=== PATIENT | male | born 1940 | race Caucasian/White ===

== ENCOUNTER → 2020-11-04 12:52 | Outpatient (CLI) | payer MEDICARE, SELFPAY ==
[2020-10-02 14:22] VITALS: BMI 33.6
--- NOTE | 2020-11-04 12:53 | ECHOD_ITS ---
Reason For Study: CHF Procedure This was a 2D Doppler, Color Flow transthoracic echocardiogram. Bubble study performed. Exam performed in department. Left Ventricle Mildly dilated left ventricle. Left ventricular systolic function is normal. The estimated ejection fraction is 60 %. No regional wall motion abnormalities noted. Right Ventricle Normal RV size. Normal systolic function. Atria The left atrium is moderately enlarged. Normal right atrium. Mitral Valve Normal mitral valve. Tricuspid Valve Normal tricuspid valve. Mild tricuspid valve insufficiency. Pulmonary artery systolic pressure is 39 mmHg. Aortic Valve Mild (1+) aortic valve insufficiency. Great Vessels Mildly dilated aortic root. The pulmonary artery is normal size. Normal inferior vena cava. Pericardium/Pleural No pericardial effusion. Medication 22 gauge I.V. with prn adaptor inserted into right arm. Performed a rapid injection of agitated mix of 9 cc saline and 1cc air to assess for atrial septal defect. MMode/2D Measurements & Calculations LVIDd: 6.6 cm IVSd: 1.3 cm Ao root diam: 4.1 cm LVIDs: 5.1 cm LVPWd: 1.0 cm LA dimension: 4.9 cm RVDd: 3.7 cm FS: 22.0 % LAV(MOD-bp): 86.5 ml LA A4 area: 24.5 cm2 RA A4 area: 16.0 cm2 LAV(MOD-bp) Indexed: 43.7 ml/m2 LAV(MOD-sp2): 82.1 ml LAV(MOD-sp4): 86.1 ml Time Measurements MV dec time: 0.36 sec Doppler Measurements & Calculations MV E max micheal: 38.0 cm/sec Ao V2 max: 96.0 cm/sec AI max micheal: 327.3 cm/sec MV A max micheal: 78.5 cm/sec Ao max P.7 mmHg AI max P.9 mmHg MV E/A: 0.48 AI dec slope: 189.1 cm/sec2 AI P1/2t: 506.9 msec LV V1 max: 65.0 cm/sec PA V2 max: 116.6 cm/sec TR max micheal: 299.5 cm/sec LV V1 max P.7 mmHg TR max P.9 mmHg ECHO/Echo Complete Interpretation Summary Left ventricular systolic function is normal. The estimated ejection fraction is 60 %. Mildly dilated left ventricle. The left atrium is moderately enlarged. Pulmonary artery systolic pressure is 39 mmHg. Mildly dilated aortic root. Ordering Physician: Rambo Somers Referring Physician: July Summers Performed By: Desmond Pratt RCS
== END ==
PROVIDERS: PCP Physician Assistant; Referring Provider Internal Medicine Cardiovascular Disease; Visit Provider Internal Medicine Cardiovascular Disease
DX: I50.42 Chronic combined systolic (congestive) and diastolic (congestive) heart failure (principal)
CPT/HCPCS: 93306; A4216

== ENCOUNTER → 2021-12-05 | Outpatient (CLI) | payer MEDICARE, SELFPAY ==
--- NOTE | 2021-12-05 07:20 | ECHOD_ITS ---
Reason For Study: SOB on Exertion Procedure This was a 2D Doppler, Color Flow transthoracic echocardiogram. Exam performed in department. Left Ventricle Normal LV size. Mild concentric left ventricular hypertrophy. The estimated ejection fraction is 50 %. Stage 1 diastolic dysfunction. There is mild global hypokinesis of the left ventricle. Right Ventricle Normal RV size. Normal systolic function. Atria Normal left atrium. Normal right atrium. Mitral Valve Normal mitral valve. Mild (1+) eccentric mitral valve insufficiency. Tricuspid Valve Normal tricuspid valve. Aortic Valve Normal aortic valve. Trisinus/trileaflet aortic valve. Mild (1+) aortic valve insufficiency. Pulmonic Valve Normal pulmonic valve. Great Vessels Normal aortic root. The pulmonary artery is normal size. Normal inferior vena cava. Pericardium/Pleural No pericardial effusion. MMode/2D Measurements & Calculations LVIDd: 6.1 cm IVSd: 1.3 cm Ao root diam: 3.5 cm LVIDs: 4.9 cm LVPWd: 1.2 cm RVDd: 3.4 cm FS: 20.5 % LAV(MOD-bp): 72.3 ml LVAd ap4: 39.6 cm2 SV(MOD-sp4): 78.9 ml LAV(MOD-sp2): 76.6 ml LVLd ap4: 8.1 cm LAV(MOD-sp4): 64.9 ml EDV(MOD-sp4): 157.5 ml EDV(sp4-el): 163.6 ml LVAs ap4: 25.7 cm2 LVLs ap4: 7.1 cm ESV(MOD-sp4): 78.6 ml ESV(sp4-el): 79.5 ml EF(MOD-sp4): 50.1 % EF(sp4-el): 51.4 % SV(sp4-el): 84.1 ml LA A4 area: 20.5 cm2 LA dimension(2D): 5.4 cm RA A4 area: 14.3 cm2 Doppler Measurements & Calculations MV E max juan: 39.4 cm/sec Med Peak E' Juan: 2.4 cm/sec Ao V2 max: 103.3 cm/sec MV A max juan: 74.3 cm/sec E/E' med: 16.1 Ao max P.3 mmHg MV E/A: 0.53 Ao V2 mean: 74.7 cm/sec Ao mean P.4 mmHg Ao V2 VTI: 22.1 cm AI max juan: 374.1 cm/sec LV V1 max: 71.1 cm/sec PA V2 max: 82.2 cm/sec AI max P.0 mmHg LV V1 max P.0 mmHg AI dec slope: 230.8 cm/sec2 AI P1/2t: 474.9 msec ECHO/Echo Complete Interpretation Summary Normal LV size. Mild concentric left ventricular hypertrophy. The estimated ejection fraction is 50 %. There is mild global hypokinesis of the left ventricle. Stage 1 diastolic dysfunction. Mild (1+) aortic valve insufficiency. Ordering Physician: July Summers Referring Physician: July Summers Performed By: Adeline Dockery, RUKHSANA, RVT
--- NOTE | 2021-12-05 12:02 | STRESSREP ---
Stress Test Report Pharmacologic myocardial perfusion stress test. 81-year-old man with a history of shortness of breath with exertion. Stress protocol: Resting EKG demonstrates normal sinus rhythm with a rate of 61 bpm normal intervals are noted. Resting blood pressure is 168/84 mmHg. 0.4 mg of regadenoson was infused per usual protocol followed by Intravenous saline flush injection continuous EKG monitoring was performed. At rest there were no ST or T wave changes noted to suggest abnormal flow reserve and at peak infusion nonspecific ST changes were noted with did not meet the criteria for ischemia. No clinical angina was noted. Myocardial perfusion protocol. 14.2 mCi of technetium 99m sestamibi was injected at rest. 0.4 mg of regadenoson was infused per usual protocol. At peak infusion 44.1 mCi of technetium 99m sestamibi was injected stress images were obtained stress and rest images were reconstructed in comparing the short axis vertical long and horizontal long axis. Gated images were also obtained. Perfusion SPECT analysis: Review of the stress images demonstrate normal uptake of tracer noted in all areas of the myocardium. The resting images similarly demonstrate normal uptake of tracer noted in all areas of the myocardium. No areas of reversibility are noted to suggest ischemia and no previous infarct is noted. Gated SPECT analysis: The gated ejection fraction is about 55%. Conclusion: Normal pharmacologic myocardial perfusion stress test. Preserved ejection fraction.
== END | disposition home or self-care (01) ==
PROVIDERS: PCP Physician Assistant; Referring Provider Physician Assistant; Visit Provider Physician Assistant
DX: R06.02 Shortness of breath (principal)
CPT/HCPCS: 78452; 93017; 93306; A9500; A4216; J2785

== ENCOUNTER → 2022-06-29 | Outpatient (CLI) | payer MEDICARE, SELFPAY ==
--- NOTE | 2022-06-29 06:59 | RAD_ITS ---
STUDY: X-RAY CHEST REASON FOR EXAM: Male, 81 years old. Shortness of breath. TECHNIQUE: Frontal and lateral views of the chest. COMPARISON: None. FINDINGS: Mild hyperinflation. Patchy opacities at both bases most compatible with atelectasis. There is no demonstrated pleural abnormality. Cardiomegaly. Normal mediastinum and leo. Normal visualized pulmonary arteries. Aortic tortuosity with calcification. Thoracic spondylosis with increased kyphosis. Normal visualized ribs, clavicles, and shoulders. There is no demonstrated abnormality of the visualized soft tissue structures of the upper abdomen. RAD/Chest PA and Lateral IMPRESSION: Cardiomegaly with patchy opacities at both bases compatible with atelectasis. Early/developing pneumonia cannot be excluded and follow-up chest imaging to resolution recommended. Electronically Signed: Dimitrios Loredo, at 10:18 EST ,
[2022-06-29 07:22] LABS: Mean Corp Hgb Conc 32.7 g/dL (32-36); Mean Corpuscular Hgb 30.9 pg (27.0-32.0); Mean Corpuscular Volume 94.5 fL (80-94); Mean Platelet Vol. 11.9 fl (6.2-12.0); Platelet Count 176 K/mm3 (150-450); RBC Distribution Width SD 52.3 fl (35.1-43.9)
[2022-06-29 07:44] LABS: Anion Gap 6 (5-15); BUN 23 mg/dL (7-18); BUN/Creat Ratio 18.7 RATIO (10-20); Calcium,Total 9.1 mg/dL (8.5-10.1); Chloride 108 mmol/L (98-107); Creatinine, Serum 1.23 mg/dL (0.70-1.30); EST Glomerular Filtration Rate 60 mL/min (>60); Est Glom Filt Rate - Afr Amer 73 mL/min (>60); Glucose 80 mg/dL (74-106); Potassium 4.1 mmol/L (3.5-5.1); Sodium Level 141 mmol/L (136-145)
== END | disposition home or self-care (01) ==
PROVIDERS: PCP Physician Assistant; Referring Provider Physician Assistant Medical; Visit Provider Physician Assistant Medical
DX: R06.02 Shortness of breath (principal); I50.42 Chronic combined systolic (congestive) and diastolic (congestive) heart failure; I42.8 Other cardiomyopathies; N18.9 Chronic kidney disease, unspecified; R60.0 Localized edema; I12.9 Hypertensive chronic kidney disease with stage 1 through stage 4 chronic kidney disease, or unspecified chronic kidney disease
CPT/HCPCS: 36415; 71046; 80048; 83880; 85027

== ENCOUNTER 2022-07-04 19:04 | Observation (INO) | payer MEDICARE, SELFPAY ==
[2022-07-04 19:04] VITALS: BP 157/100; PULSE 61; RESP 16; TEMP 36.2; O2SAT 97; BMI 31.8
[2022-07-04 19:20] VITALS: O2SAT 96
--- NOTE | 2022-07-04 20:45 | EKG12_ITS ---
Test Reason : SOB/DIZZINESS Blood Pressure : / mmHG Vent. Rate : 081 BPM Atrial Rate : 083 BPM P-R Int : 216 ms QRS Dur : 116 ms QT Int : 420 ms P-R-T Axes : 041 002 020 degrees QTc Int : 487 ms Sinus with PVC's Minimal voltage criteria for LVH, may be normal variant ( Watkins product ) Prolonged QT Abnormal ECG Confirmed by AURA CASTANEDA, DONALDO ([id number]), city editor ALESSANDRA ADRIAN ([id number]) on 07/06/2022 2:03:47 PM Referred By: Komal Fiore Confirmed By:DONALDO CHAVARRIA MD
[2022-07-04 20:58] LABS: Absolute Lymphocyte Count 1.97 X10^3/uL (0.83-4.51); Basophil# 0.06 X10^3/uL; Basophil% 0.7 % (0-1); Eosinophils% 2.5 % (0-5); Hematocrit 49.2 % (40-54); Hemoglobin 16.2 g/dL (13.0-16.5); Lymphocyte # 1.97 X10^3/ul (0.83-4.51); Lymphocyte % 24.3 % (19-41); Mean Corp Hgb Conc 32.9 g/dL (32-36); Mean Corpuscular Hgb 30.9 pg (27.0-32.0); Mean Corpuscular Volume 93.7 fL (80-94); Mean Platelet Vol. 11.7 fl (6.2-12.0); Monocyte# 0.84 X10^3/uL; Monocyte% 10.4 % (0-10); NRBC Flagged by Analyzer 0 % (0-5); Neutrophil # 5.01 X10^3/uL (2.7-7.7); Neutrophil % 61.7 % (47-70); Platelet Count 179 K/mm3 (150-450); RBC Distribution Width CV 14.9 % (11.6-14.6); RBC Distribution Width SD 51.8 fl (35.1-43.9); Red Blood Count 5.25 M/mm3 (4.6-6.2); White Blood Count 8.1 K/mm3 (4.4-11.0)
--- NOTE | 2022-07-04 21:00 | RAD_ITS ---
EXAM: XR CHEST, 2 VIEWS CLINICAL INDICATION: sob TECHNIQUE: Frontal and lateral views of the chest. This report was created using [employer] report generation technology. COMPARISON: June 29, 2022 FINDINGS: LUNGS AND PLEURAL SPACES: No pleural effusions or pneumothorax. Bronchitis involving the infrahilar regions. Atelectasis versus infiltrate at the infrahilar regions. Low lung volumes. No consolidation. HEART: Unremarkable. Cardiac silhouette not enlarged. MEDIASTINUM: Central airways and mediastinal contour are unremarkable. BONES/JOINTS: Degenerative changes of the spine. Degenerative changes of the acromioclavicular joints. SOFT TISSUES: Unremarkable. VASCULATURE: Atherosclerotic calcifications of the nonenlarged thoracic aortic arch. RAD/Chest PA and Lateral IMPRESSION: 1. Atelectasis versus infiltrate involving the infrahilar regions. 2. Age indeterminate bronchitis. 3. No other acute disease. Electronically Signed: Emile Gaspar MD at 21:20 [facility] ,
[2022-07-04 21:15] LABS: BNP,B-Type NATRIURETIC PEPTIDE 431.6 pg/mL (0-100)
[2022-07-04 21:23] LABS: Anion Gap 11 (5-15); BUN 40 mg/dL (7-18); BUN/Creat Ratio 29.2 RATIO (10-20); Chloride 104 mmol/L (98-107); Creatinine, Serum 1.37 mg/dL (0.70-1.30); EST Glomerular Filtration Rate 53 mL/min (>60); Est Glom Filt Rate - Afr Amer 64 mL/min (>60); Estimated Creatinine Clearance 39.45 ml/min; Glucose 136 mg/dL (74-106); Potassium 3.9 mmol/L (3.5-5.1); Sodium Level 140 mmol/L (136-145); Thyroid Stim Hormone (TSH) 4.98 uIU/mL (0.358-3.74); Troponin-I HS 15 pg/mL (3.0-78.0)
[2022-07-04 21:31] VITALS: BP 134/67; PULSE 81; O2SAT 90
[2022-07-04 21:43] LABS: D-Dimer Quantitative (DVT/PE) 0.63 FEU/ug/m (0.27-0.49)
--- NOTE | 2022-07-04 22:45 | CT_ITS ---
EXAM: CT CHEST WITHOUT INTRAVENOUS CONTRAST CLINICAL INDICATION: sob, dyspnea, abnormal CXR TECHNIQUE: Helically acquired images were obtained of the chest without intravenous contrast. CTDIvol = ( 13.19 ) mGy, DLP = ( 471.29 ) mGycm This CT exam was performed using one or more of the following dose reduction techniques: automated exposure control, adjustment of the mA and/or kV according to patient size, and/or use of iterative reconstruction technique. This report was created using [employer] report generation technology. COMPARISON: Same day chest x-ray FINDINGS: LUNGS AND PLEURAL SPACES: Scarring involving the right middle lobe and inferior lingula. Subsegmental atelectasis and/or scarring involving the lower lobes. No consolidation. No pleural effusion or pneumothorax. No mediastinal adenopathy by CT size criteria. No pleural effusion or pneumothorax. No suspicious or other remarkable pulmonary nodules. HEART: Multivessel calcific coronary arteriolosclerosis. Cardiomegaly without significant pericardial effusion. MEDIASTINUM: Unremarkable. No mediastinal or hilar adenopathy. Esophagus is unremarkable. No hiatal hernia. THYROID: Unremarkable. No thyroid lesions. BONES/JOINTS: Multilevel spine degenerative changes. No suspicious lytic or sclerotic lesions of bone. VASCULATURE: Dilated central pulmonary arteries can be seen with pulmonary hypertension. CT/Chest without Contrast IMPRESSION: No pneumonia or other acute disease. Bibasilar subsegmental atelectasis and scarring. Electronically Signed: Emile Gaspar MD at 23:24 [facility] ,
[2022-07-04 23:00] VITALS: BP 126/66; PULSE 83; RESP 21; O2SAT 92
[2022-07-04 23:02] VITALS: O2SAT 94
[2022-07-05] VITALS (11 sets, daily range): BP systolic 127–153; BP diastolic 64–111; PULSE 68–89; RESP 16–24; TEMP 36.4–36.7; O2SAT 94–97; BMI 31.6
--- NOTE | 2022-07-05 01:24 | ECHOD_ITS ---
Reason For Study: ABNORMAL EKG Procedure This was a 2D Doppler, Color Flow transthoracic echocardiogram. Exam performed portable in patient room. Left Ventricle Normal LV size. Left ventricular systolic function is normal. The left ventricular ejection fraction is 50 %. No regional wall motion abnormalities noted. Right Ventricle Normal RV size. Normal systolic function. Atria The left atrium is mildly enlarged. Normal right atrium. Mitral Valve Normal mitral valve. Mild (1+) eccentric mitral valve insufficiency. Tricuspid Valve Normal tricuspid valve. Aortic Valve Trisinus/trileaflet aortic valve. Mild (1+) aortic valve insufficiency. Pulmonic Valve Normal pulmonic valve. Great Vessels Normal aortic root. The pulmonary artery is normal size. Normal inferior vena cava. Pericardium/Pleural No pericardial effusion. MMode/2D Measurements & Calculations LVIDd: 6.7 cm IVSd: 1.1 cm Ao root diam: 3.5 cm LVIDs: 5.1 cm LVPWd: 1.0 cm RVDd: 3.9 cm FS: 23.5 % LAV(MOD-bp): 73.5 ml LVAd ap4: 47.3 cm2 SV(MOD-sp4): 99.5 ml LAV(MOD-bp) Indexed: 37.0 ml/m2 LVLd ap4: 8.9 cm LAV(MOD-sp2): 73.5 ml EDV(MOD-sp4): 207.0 ml LAV(MOD-sp4): 73.7 ml EDV(sp4-el): 212.7 ml LVAs ap4: 31.5 cm2 LVLs ap4: 7.9 cm ESV(MOD-sp4): 107.5 ml ESV(sp4-el): 105.9 ml EF(MOD-sp4): 48.1 % EF(sp4-el): 50.2 % SV(sp4-el): 106.8 ml LA A4 area: 23.1 cm2 LA dimension(2D): 4.8 cm RA A4 area: 19.0 cm2 Time Measurements MV dec time: 0.21 sec Doppler Measurements & Calculations MV E max juan: 61.6 cm/sec Lat Peak E' Juan: 6.0 cm/sec Med Peak E' Juan: 4.9 cm/sec MV A max juan: 68.8 cm/sec E/E' lat: 10.3 E/E' med: 12.5 MV E/A: 0.89 Ao V2 max: 119.6 cm/sec AI max juan: 345.7 cm/sec LV V1 max: 82.1 cm/sec Ao max P.7 mmHg AI max P.8 mmHg LV V1 max P.7 mmHg AI dec slope: 99.1 cm/sec2 AI P1/2t: 1022 msec PA V2 max: 85.0 cm/sec ECHO/Echo Complete Interpretation Summary Normal LV size. Left ventricular systolic function is normal. The left ventricular ejection fraction is 50 %. The left atrium is mildly enlarged. Mild (1+) aortic valve insufficiency. Mild (1+) eccentric mitral valve insufficiency. Ordering Physician: Chetna Gonsalves Referring Physician: Komal Fiore Performed By: Juliana Barragan RDCS
--- NOTE | 2022-07-05 01:27 | HP.PCM.HOS_ITS ---
HPI - General General Date of Admission: 07/05/22 Date of Service: 07/05/22 Chief Complaint: Dizziness HPI Narrative SILAS KHOURY, is a 81-year-old male with history of nonischemic cardiomyopathy, CKD stage III unclear subtype, and hypertension who presented to [facility] 07/05/2022 with dizzy episode and increased shortness of breath. He reported being more short of breath over the past several weeks and today while he was sitting down he had an episode of dizziness that was persistent. Upon arrival to the ED he was noted to have significant ectopy on EKG and telemetry with high burden. Hospitalist consulted for admission. Went to evaluate patient at bedside and also reviewed telemetry and there is significant ectopy. He reports that he has had increasing shortness of breath recently and saw his liner replacer office on 06/29 and they started him on Lasix and planned on 24-hour Holter monitor however they were not available and will be available until this coming Wednesday. After that time he did continue to have shortness of breath and then on the day of presentation he had been sitting down earlier in the evening and suddenly became dizzy and it was persistent which resulted in him presenting to the ED. At this time he still reports the shortness of breath but is not having the dizzy feeling at this time. Denies cough, denies current chest pain or chest pain at the time of event. Denies swelling or other complaints. 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) Obesity Home Medications levothyroxine 125 mcg tablet 125 mcg PO DAILY 07/07/21 [History Last Taken Unkno wn] losartan 50 mg tablet 50 mg PO DAILY #90 tabs 06/12/22 [Rx Last Taken Unknown] rosuvastatin 5 mg tablet 5 mg PO DAILY 06/12/22 [History Last Taken Unknown] albuterol sulfate 90 mcg/actuation aerosol inhaler 2 puff inhalation Q4H PRN shortness of breath or wheezing #8.5 grams 06/15/22 [Rx Last Taken Unknown] furosemide 40 mg tablet (Lasix) 40 mg PO DAILY #30 tabs 06/29/22 [Rx Last Taken Unknown] metoprolol succinate 25 mg tablet,extended release 24 hr (Toprol XL) 25 mg PO DAILY 06/29/22 [History Last Taken Unknown] Allergy/AdvReac Type Severity Reaction Status Date / Time No Known Allergies Allergy Verified 07/04/22 19:07 Family History Father Myocardial infarction Brother Myocardial infarction Surgical History History of appendectomy History of herniorrhaphy History of left heart catheterization (09/20/17) Social History Smoking Status: Never smoker alcohol intake: never substance use type: does not use caffeine: No ROS ROS Narrative General: Denies fever or chills, denies weight change HENT: Denies headache, denies stuffy nose, denies sore throat EYES: Denies changes in vision Resp: Denies cough, does have increasing shortness of breath Cardiac: Denies chest pain GI: Denies abdominal pain, denies changes in bowel, denies nausea, denies vomiting : Denies changes in urination Extremity: Denies swelling MSK: Denies weakness Neuro: Denies any numbness, denies tingling, did have a dizzy spell earlier today Heme: Denies any bleeding or bruising Skin: Denies rashes Psychiatric: No complaints voiced Vital Signs Vital Signs Vital Signs: 07/04/22 19:04 07/04/22 19:20 07/04/22 21:31 Temperature 97.2 F L Temperature Source Temporal Pulse Rate 61 81 Respiratory Rate 16 Respiratory Effort Labored Respiratory Depth Normal Respiratory Pattern Tachypnea Blood Pressure 157/100 H 134/67 H Blood Pressure Mean 119 89 Pulse Ox 97 90 Oxygen Delivery Method Room Air Room Air 07/04/22 23:00 Temperature Temperature Source Pulse Rate 83 Respiratory Rate 21 H Respiratory Effort Respiratory Depth Respiratory Pattern Blood Pressure 126/66 H Blood Pressure Mean 86 Pulse Ox 92 Oxygen Delivery Method Room Air Weight Weight: 89.414 kg Body Mass Index (BMI) 31.8 Physical Exam Narrative General: Alert, oriented, no apparent distress HEENT: Atraumatic, normocephalic Eyes: Anicteric, normal conjunctiva, extraocular movements grossly intact Neck: Supple Respiratory: Clear to auscultation bilaterally, normal respiratory effort Cardiovascular: Irregularly irregular GI: Soft, nontender, nondistended Extremities: No edema Musculoskeletal: Moving all extremities Neuro: No overt focal neurological deficits Skin: No rashes appreciated Psych: Cooperative Results Lab / Micro Data Result Diagrams: 07/04/22 20:50 07/04/22 20:50 Labs: Laboratory Results - last 24 hr 07/04/22 20:50: WBC 8.1, RBC 5.25, Hgb 16.2, Hct 49.2, MCV 93.7, MCH 30.9, MCHC 32.9, RDW Std Deviation 51.8 H, RDW Coeff of Yenni 14.9 H, Plt Count 179, MPV 11.7, Immature Gran % (Auto) 0.400, Neut % (Auto) 61.7, Lymph % (Auto) 24.3, [place] % (Auto) 10.4 H, Eos % (Auto) 2.5, Baso % (Auto) 0.7, Absolute Neuts (auto) 5.0, Absolute Lymphs (auto) 1.97, Nucleated RBC % 0 07/04/22 20:50: D-Dimer Quant (PE/DVT) Cancelled 07/04/22 20:50: Sodium 140, Potassium 3.9, Chloride 104, Carbon Dioxide 25.0, Anion Gap 11, BUN 40 H, Creatinine 1.37 H, Estim Creat Clear Calc 39.45, Est GFR (MDRD) Af Amer 64, Est GFR (MDRD) Non-Af 53 L, BUN/Creatinine Ratio 29.2 H, Glucose 136 H, Calcium 9.0, Troponin I High Sens 15, TSH 4.98 H 07/04/22 20:50: B-Natriuretic Peptide 431.6 H 07/04/22 21:10: D-Dimer Quant (PE/DVT) 0.63 H* Radiology Impression Chest X-Ray 07/04/22 21:00 IMPRESSION: 1. Atelectasis versus infiltrate involving the infrahilar regions. 2. Age indeterminate bronchitis. 3. No other acute disease. Electronically Signed: Emile Gaspar MD at 21:20 EST , Chest CT 07/04/22 22:45 IMPRESSION: No pneumonia or other acute disease. Bibasilar subsegmental atelectasis and scarring. Electronically Signed: Emile Gaspar MD at 23:24 EST , Assessment & Plan Assessment/Plan (1) Non-ischemic cardiomyopathy: (2) Atrial ectopy: (3) Pre-syncope: PLAN: Plan #Presyncope likely secondary to arrhythmia -Having significant ectopy on telemetry and given history of dizziness while sitting down that was persistent concern for arrhythmic cause of presyncope -In 2017 he did have a presyncopal spell and was noted to have wide-complex tachycardia and was found to have an EF of 25 to 30% at that time and heart cath demonstrated minor luminal irregularities and he was placed on a beta-aranud. Had stress test in 2021 with no demonstrated evidence of ischemia -Echocardiogram 12/05 demonstrated mild concentric left ventricular hypertrophy with EF of 50% and stage I diastolic dysfunction with mild global hypokinesis of left ventricle and mild 1+ aortic valve insufficiency. -We will repeat echocardiogram -Check magnesium, replace electrolytes -Consult cardiology -We will hold Lasix and give metoprolol #CKD stage III unclear subtype -Avoid nephrotoxic agents -Trend BMP -Holding losartan given bump in creatinine #Hypothyroidism -Continue Synthroid -TSH slightly elevated we will check T4 and T3 #Nonischemic cardiomyopathy with history of chronic heart failure with preserved ejection fraction and previous systolic dysfunction with recovered EF now to 50% -Echocardiogram 12/05 demonstrated mild concentric left ventricular hypertrophy with EF of 50% and stage I diastolic dysfunction with mild global hypokinesis of left ventricle and mild 1+ aortic valve insufficiency. -Follows with Dr. Somers's office and was seen on Wednesday -At his liner replacer office he was started on Lasix and has been taking that and had subsequent slight bump in creatinine, presently does not report that breathing is better and denies any swelling. -Holding Lasix at this time, does not appear to be overloaded and BNP is imp roved, will check magnesium, potassium is 3.9 -Daily weights, I's and O's #DVT ppx: Heparin subcu, SCDs Chetna Gonsalves MD Time spent in the patient's overall evaluation,decision-making process, review of diagnostic data, adjustment of management, discussion with other providers, nursing nursing and ancillary staff involved in patient's care documentation, 60 minutes Charges/Coding Visit Charges Inpatient E&M: 99131 Init Hosp L2
--- NOTE | 2022-07-05 01:46 | EDS_ITS ---
HPI History of Present Illness Chief Complaint: Shortness of Breath Informant: patient and spouse/S.O. Narrative Narrative: Patient is a 81-year-old male with history of hypothyroidism, hypertension and worsening shortness of breath for the past year or so. Patient's been having increased hips on exertion. He is presenting today though because he had 2 episodes of dizziness. He states the dizziness occurred at rest. He states is more of a lightheaded feeling. He did not pass out. He states his dizziness is since resolved. He has felt more short of breath today. Patient is followed with Dr. Calhoun as well as Dr. Somers. He was recently put on a course of diuretics by cardiology but does not think it is really improved his respiratory symptoms. He is scheduled to get a Holter monitor on Wednesday and has not done it sooner because they have not had any available. Patient currently denies any chest pain. Denies any swelling of his legs. Denies any other history. 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) Obesity Home Medications levothyroxine 125 mcg tablet 125 mcg PO DAILY 07/07/21 [History Last Taken Unknown] losartan 50 mg tablet 50 mg PO DAILY #90 tabs 06/12/22 [Rx Last Taken Unknown] rosuvastatin 5 mg tablet 5 mg PO DAILY 06/12/22 [History Last Taken Unknown] albuterol sulfate 90 mcg/actuation aerosol inhaler 2 puff inhalation Q4H PRN shortness of breath or wheezing #8.5 grams 06/15/22 [Rx Last Taken Unknown] furosemide 40 mg tablet (Lasix) 40 mg PO DAILY #30 tabs 06/29/22 [Rx Last Taken Unknown] metoprolol succinate 25 mg tablet,extended release 24 hr (Toprol XL) 25 mg PO DAILY 06/29/22 [History Last Taken Unknown] Allergy/AdvReac Type Severity Reaction Status Date / Time No Known Allergies Allergy Verified 07/04/22 19:07 Family History Father Myocardial infarction Brother Myocardial infarction Surgical History History of appendectomy History of herniorrhaphy History of left heart catheterization (09/20/17) Social History Smoking Status: Never smoker alcohol intake: never substance use type: does not use caffeine: No ROS ROS ED Constitutional Constitutional ED: Reports other Details: Dizziness ; Denies chills or fever(s) Eyes Eyes: Denies blurry vision ENT ENT ED: Denies sore throat Cardiovascular Cardiovascular: Denies chest pain, palpitations or racing heartbeat Respiratory/Chest Respiratory/Chest: Reports dyspnea and dyspnea on exertion; Denies cough Gastrointestinal Gastrointestinal: Denies abdominal pain, nausea or vomiting Musculoskeletal Musculoskeletal: Denies arthralgias or myalgias Integumentary Denies rash Neurologic Neurologic: Denies headache(s) EXAM Physical Exam Const Vital Signs: 07/04/22 19:04 07/04/22 19:20 07/04/22 21:31 Temperature 97.2 F L Temperature Source Temporal Pulse Rate 61 81 Respiratory Rate 16 Respiratory Effort Labored Respiratory Depth Normal Respiratory Pattern Tachypnea Blood Pressure 157/100 H 134/67 H Blood Pressure Mean 119 89 Pulse Ox 97 90 Oxygen Delivery Method Room Air Room Air 07/04/22 23:00 07/05/22 01:35 Temperature 97.6 F L Temperature Source Oral Pulse Rate 83 74 Respiratory Rate 21 H 24 H Respiratory Effort Respiratory Depth Respiratory Pattern Blood Pressure 126/66 H 153/111 H Blood Pressure Mean 86 125 Pulse Ox 92 95 Oxygen Delivery Method Room Air Room Air Positive well nourished and well developed General Appearance ED: well developed; Negative for pallor HEENT Reports moist mucous membranes atraumatic Eyes PERRL and EOMs intact bilaterally Neck supple and no JVD Resp normal respiratory effort and clear to auscultation bilaterally Auscultation: Negative for rales, rhonchi or wheezes Cardio regular rate Rhythm: abnormal rhythm ectopic beats (Frequent) GI non-tender and non-distended Extremity normal to inspection General Extremety ED: Negative for edema or tenderness General Extremity: Negative for edema Neuro oriented x3 Neuro Narrative: No focal deficits appreciated Motor Exam: Negative for general weakness Psych mental status grossly normal Skin no wounds General Skin Exam: Negative for pallor MDM MDM MDM Narrative Medical decision making narrative: Patient is evaluated for episode of dizziness that is concerning for arrhythmia. Differential includes arrhythmia, ACS, CHF exacerbation, electrolyte abnormality and dehydration. Patient is over the age of 81 however is not tachycardic, tachypneic or hypoxic upon arrival. D-dimer is obtained which is normal for age adjustment. I do not think a CTA is indicated. CBC largely normal. BMP does show an elevated creatinine of 1.37 however this appears near his baseline. High since he troponin is normal at 15. His TSH is mildly elevated at 4.98 but I do not think his presentation is consistent with myxedema coma/thyroid storm. His BNP is elevated at 431 however it is actually significantly down compared to last week When it was 861. I suspect this is a direct result of his recent diuresis. Prior echocardiogram from 12/05/2021 independently reviewed by myself which shows an EF of 50% with stage I diastolic dysfunction and mild global hypokinesis of the left ventricle.Cardiology note from 06/29/2022 independently reviewed by myself. Patient was seen for increased shortness of breath/dyspnea on exertion. In 2018 patient did have a presyncopal spells and had a wide-complex tachycardia as well as reduced EF. He was placed on beta-arnaud at that time with improvement of his EF. EKG at his most recent visit did show frequent PVCs. He was started on Lasix. Consider repeat echocardiogram based on patient's Holter monitor that was ordered. While in the ER patient has frequent PVCs that are multifocal. Concerned that he could be developing some type of wide-complex tach arrhythmia/nonsustained V. tach that could have caused his dizziness today. I do think patient benefit from further monitoring. Patient is agreeable this plan of care. He does remain asymptomatic despite his frequent PVCs in the emergency room. Case is discussed with Dr. Gonsalves, who will except the patient and places him on the PCU. Patient is ambulating well he is tachypneic he does not desaturate past 90% this is despite adequate diuresis within the last week. Chest x-ray interpreted myself as well as radiology shows atelectasis versus infiltrate involving the infrahilar regions. CT of the chest without contrast is obtained for further evaluation and no acute process is seen. Lab Data Attestation: I reviewed the patient's lab results. Labs: Laboratory Results - last 24 hr 07/04/22 07/04/22 07/04/22 20:50 20:50 20:50 WBC 8.1 RBC 5.25 Hgb 16.2 Hct 49.2 MCV 93.7 MCH 30.9 MCHC 32.9 RDW Std Deviation 51.8 H RDW Coeff of Yenni 14.9 H Plt Count 179 MPV 11.7 Immature Gran % (Auto) 0.400 Neut % (Auto) 61.7 Lymph % (Auto) 24.3 [place] % (Auto) 10.4 H Eos % (Auto) 2.5 Baso % (Auto) 0.7 Absolute Neuts (auto) 5.0 Absolute Lymphs (auto) 1.97 Nucleated RBC % 0 D-Dimer Quant (PE/DVT) Cancelled Sodium 140 Potassium 3.9 Chloride 104 Carbon Dioxide 25.0 Anion Gap 11 BUN 40 H Creatinine 1.37 H Estim Creat Clear Calc 39.45 Est GFR (MDRD) Af Amer 64 Est GFR (MDRD) Non-Af 53 L BUN/Creatinine Ratio 29.2 H Glucose 136 H Calcium 9.0 Magnesium Troponin I High Sens 15 B-Natriuretic Peptide TSH 4.98 H Free T4 Free T3 pg/dL 07/04/22 07/04/22 07/04/22 20:50 20:50 21:10 WBC RBC Hgb Hct MCV MCH MCHC RDW Std Deviation RDW Coeff of Yenni Plt Count MPV Immature Gran % (Auto) Neut % (Auto) Lymph % (Auto) [place] % (Auto) Eos % (Auto) Baso % (Auto) Absolute Neuts (auto) Absolute Lymphs (auto) Nucleated RBC % D-Dimer Quant (PE/DVT) 0.63 H* Sodium Potassium Chloride Carbon Dioxide Anion Gap BUN Creatinine Estim Creat Clear Calc Est GFR (MDRD) Af Amer Est GFR (MDRD) Non-Af BUN/Creatinine Ratio Glucose Calcium Magnesium 2.0 Troponin I High Sens B-Natriuretic Peptide 431.6 H TSH Free T4 1.17 Free T3 pg/dL 2.5 Radiography Diagnostic Testing: Clinical Impression(s) from Imaging Studies Chest X-Ray 07/04/22 21:00 IMPRESSION: 1. Atelectasis versus infiltrate involving the infrahilar regions. 2. Age indeterminate bronchitis. 3. No other acute disease. Electronically Signed: Emile Gaspar MD at 21:20 EST , Chest CT 07/04/22 22:45 IMPRESSION: No pneumonia or other acute disease. Bibasilar subsegmental atelectasis and scarring. Electronically Signed: Emile Gaspar MD at 23:24 EST , Rhythm Strip Rhythm Strip: Sinus Rhythm Rate: 81 Ectopy: PVC(s) EKG Initial EKG: Attestation: I personally reviewed and interpreted this EKG as follows: Comments: Sinus rhythm with frequent PVCs that are multifocal. Minimal voltage criteria for LVH Prolonged QTc at a rate of [address] interval [address] segments Discharge Plan Dx/Rx/DC Orders Clinical Impression: Nonsustained paroxysmal ventricular tachycardia, Chronic combined systolic and diastolic CHF (congestive heart failure), Pre-syncope Disposition Disposition: Acute Care Hospital [facility]
[2022-07-05 01:58] LABS: Free T3 2.5 pg/mL (2.18-3.98); T4 Free Direct 1.17 ng/dL (0.76-1.46)
[2022-07-05] MEDS: Metoprolol Tartrate 25 MG Tablet PO ×2 (03:40→09:29)
[2022-07-05] MEDS: Heparin Injection (Vial) 5,000 UNIT/ML VIAL 5000 UNIT SC ×3 (06:36→22:17)
[2022-07-05] MEDS: Levothyroxine 125 MCG Tablet PO (06:36)
[2022-07-05 07:15] LABS: Absolute Lymphocyte Count 2.26 X10^3/uL (0.83-4.51); Absolute Neutrophil Count 5.2 X10^3/uL (2.0-7.7); Basophil# 0.04 X10^3/uL; Basophil% 0.5 % (0-1); Eosinophil# 0.14 X10^3/uL; Eosinophils% 1.7 % (0-5); Hematocrit 52.4 % (40-54); Lymphocyte # 2.26 X10^3/ul (0.83-4.51); Lymphocyte % 26.7 % (19-41); Mean Corp Hgb Conc 32.4 g/dL (32-36); Mean Corpuscular Hgb 31.3 pg (27.0-32.0); Mean Corpuscular Volume 96.5 fL (80-94); Mean Platelet Vol. 11.5 fl (6.2-12.0); Monocyte# 0.86 X10^3/uL; Monocyte% 10.1 % (0-10); NRBC Flagged by Analyzer 0 % (0-5); Neutrophil # 5.15 X10^3/uL (2.7-7.7); Neutrophil % 60.6 % (47-70); Platelet Count 174 K/mm3 (150-450); RBC Distribution Width SD 53.9 fl (35.1-43.9); Red Blood Count 5.43 M/mm3 (4.6-6.2); White Blood Count 8.5 K/mm3 (4.4-11.0)
[2022-07-05 07:37] LABS: ALB/GLOB Ratio 1.1 RATIO (0.9-2.4); AST(SGOT) 17 U/L (15-37); Alanine Aminotransfer ALT/SGPT 22 U/L (16-61); Albumin, Serum 3.4 g/dL (3.2-5.0); Alkaline Phosphatase 49 U/L (45-117); Anion Gap 7 (5-15); BUN 36 mg/dL (7-18); BUN/Creat Ratio 25.7 RATIO (10-20); Calcium,Total 9.2 mg/dL (8.5-10.1); Chloride 104 mmol/L (98-107); EST Glomerular Filtration Rate 52 mL/min (>60); Est Glom Filt Rate - Afr Amer 63 mL/min (>60); Estimated Creatinine Clearance 38.61 ml/min; Globulin 3.2 g/dL (2.2-4.2); Glucose 104 mg/dL (74-106); Magnesium 2.2 mg/dL (1.6-2.6); Phosphorus 4.2 mg/dL (2.5-4.9); Potassium 4.5 mmol/L (3.5-5.1); Protein, Total 6.6 g/dL (6.4-8.2); Sodium Level 139 mmol/L (136-145)
--- NOTE | 2022-07-05 10:08 | PCM.CONS.C ---
Assessment & Plan Assessment/Plan (1) Shortness of breath: PLAN: proBNP elevated. Likely heart failure with preserved left ventricular function. Start diuretics. (2) Heart failure with preserved left ventricular function (HFpEF): PLAN: History of nonischemic cardiomyopathy diagnosed in 2018. Left ventricular systolic function having recovered since on medical management. Repeat echocardiogram has already been ordered. See #1 above. (3) Frequent PVCs: PLAN: Increase metoprolol as tolerated. (4) Pre-syncope: PLAN: Continue to monitor heart rhythm. For Holter monitoring as outpatient. Check carotid Doppler. (5) Essential (primary) hypertension: PLAN: Monitor. (6) Chronic kidney disease (CKD): PLAN: Continue to monitor. (7) Hyperlipidemia: PLAN: On atorvastatin. HPI Consult Data Date of Consult: 07/05/22 HPI Narrative HPI Narrative: Gentleman with previous history of nonischemic cardiomyopathy with EF having since recovered, nonsustained ventricular tachycardia, chronic kidney disease, hypertension and dyslipidemia. He presented to the emergency room with complaints of progressive shortness of breath over the last 6 months or so. Denies any ankle edema. No orthopnea. Questionable paroxysmal nocturnal dyspnea. Denies any chest pain. According to him, he was recently started on diuretic therapy but does not feel that it has made his symptoms better. Per patient's , patient was also feeling dizzy yesterday. No vertigo. According to him, he just felt lightheaded. Per him, he may have felt as if he was going to pass out as well. Denies any palpitations. 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) Obesity Home Medications levothyroxine 125 mcg tablet 125 mcg PO DAILY 07/07/21 [History Last Taken Unknown] losartan 50 mg tablet 50 mg PO DAILY #90 tabs 06/12/22 [Rx Last Taken Unknown] rosuvastatin 5 mg tablet 5 mg PO DAILY 06/12/22 [History Last Taken Unknown] albuterol sulfate 90 mcg/actuation aerosol inhaler 2 puff inhalation Q4H PRN shortness of breath or wheezing #8.5 grams 06/15/22 [Rx Last Taken Unknown] furosemide 40 mg tablet (Lasix) 40 mg PO DAILY #30 tabs 06/29/22 [Rx Last Taken Unknown] metoprolol succinate 25 mg tablet,extended release 24 hr (Toprol XL) 25 mg PO DAILY 06/29/22 [History Last Taken Unknown] Allergy/AdvReac Type Severity Reaction Status Date / Time No Known Allergies Allergy Verified 07/04/22 19:07 Family History Father Myocardial infarction Brother Myocardial infarction Surgical History History of appendectomy History of herniorrhaphy History of left heart catheterization (09/20/17) Social History Smoking Status: Never smoker alcohol intake: never substance use type: does not use caffeine: No Physical Exam Narrative Comfortable. No distress. Heart sounds 1 and 2 are noted. Chest clear to auscultation bilaterally. Abdomen soft. Nontender. Alert oriented x3. No ankle edema noted. Risk Stratification Risk Stratification Applicable: No Objective Data Vital Signs: Vital Signs Temp Pulse Resp BP Pulse Ox O2 Del Method O2 Flow Rate 97.7 F L 76 17 142/64 H 96 Nasal Cannula 2 07/05/22 09:13 07/05/22 09:29 07/05/22 09:13 07/05/22 09:13 07/05/22 09:13 07/05/22 09:23 07/05/22 09:23 Oxygen Flow Rate (L/min) 2 Oxygen Delivery Method Nasal Cannula Weight: 196 lb 3.382 oz Body Mass Index (BMI) 31.6 Lab / Micro Data Attestation: I reviewed the patient's lab results. Result Diagrams: 07/05/22 06:30 07/05/22 06:30 Labs: Laboratory Results - last 24 hr 07/04/22 20:50: WBC 8.1, RBC 5.25, Hgb 16.2, Hct 49.2, MCV 93.7, MCH 30.9, MCHC 32.9, RDW Std Deviation 51.8 H, RDW Coeff of Yenni 14.9 H, Plt Count 179, MPV 11.7, Immature Gran % (Auto) 0.400, Neut % (Auto) 61.7, Lymph % (Auto) 24.3, [place] % (Auto) 10.4 H, Eos % (Auto) 2.5, Baso % (Auto) 0.7, Absolute Neuts (auto) 5.0, Absolute Lymphs (auto) 1.97, Nucleated RBC % 0 07/04/22 20:50: D-Dimer Quant (PE/DVT) Cancelled 07/04/22 20:50: Sodium 140, Potassium 3.9, Chloride 104, Carbon Dioxide 25.0, Anion Gap 11, BUN 40 H, Creatinine 1.37 H, Estim Creat Clear Calc 39.45, Est GFR (MDRD) Af Amer 64, Est GFR (MDRD) Non-Af 53 L, BUN/Creatinine Ratio 29.2 H, Glucose 136 H, Calcium 9.0, Troponin I High Sens 15, TSH 4.98 H 07/04/22 20:50: B-Natriuretic Peptide 431.6 H 07/04/22 20:50: Magnesium 2.0, Free T4 1.17, Free T3 pg/dL 2.5 07/04/22 21:10: D-Dimer Quant (PE/DVT) 0.63 H* 07/05/22 06:30: WBC 8.5, RBC 5.43, Hgb 17.0 H, Hct 52.4, MCV 96.5 H, MCH 31.3, MCHC 32.4, RDW Std Deviation 53.9 H, RDW Coeff of Yenni 15.0 H, Plt Count 174, MPV 11.5, Immature Gran % (Auto) 0.400, Neut % (Auto) 60.6, Lymph % (Auto) 26.7, [place] % (Auto) 10.1 H, Eos % (Auto) 1.7, Baso % (Auto) 0.5, Absolute Neuts (auto) 5.2, Absolute Lymphs (auto) 2.26, Nucleated RBC % 0 07/05/22 06:30: Sodium 139, Potassium 4.5, Chloride 104, Carbon Dioxide 28.0, Anion Gap 7, BUN 36 H, Creatinine 1.40 H, Estim Creat Clear Calc 38.61, Est GFR (MDRD) Af Amer 63, Est GFR (MDRD) Non-Af 52 L, BUN/Creatinine Ratio 25.7 H, Glucose 104, Calcium 9.2, Phosphorus 4.2, Magnesium 2.2, Total Bilirubin 1.00, AST 17, ALT 22, Alkaline Phosphatase 49, Total Protein 6.6, Albumin 3.4, Globulin 3.2, Albumin/Globulin Ratio 1.1 Rhythm Strip Rhythm Strip: Frequent PVCs some in a bigeminal manner Rate: 81 Ectopy: PVC(s) Cardiology Labs/Tests 07/04/22 20:50: WBC 8.1, RBC 5.25, Hgb 16.2, Hct 49.2, MCV 93.7, MCH 30.9, MCHC 32.9, Plt Count 179, MPV 11.7, Immature Gran % (Auto) 0.400, Neut % (Auto) 61.7, Lymph % (Auto) 24.3, [place] % (Auto) 10.4 H, Eos % (Auto) 2.5, Baso % (Auto) 0.7, Absolute Neuts (auto) 5.0, Nucleated RBC % 0 07/04/22 20:50: D-Dimer Quant (PE/DVT) Cancelled 07/04/22 20:50: Sodium 140, Potassium 3.9, Chloride 104, Carbon Dioxide 25.0, Anion Gap 11, BUN 40 H, Creatinine 1.37 H, Est GFR (MDRD) Af Amer 64, Est GFR (MDRD) Non-Af 53 L, BUN/Creatinine Ratio 29.2 H, Glucose 136 H, Calcium 9.0 07/04/22 20:50: B-Natriuretic Peptide 431.6 H 07/04/22 20:50: Magnesium 2.0 07/04/22 21:10: D-Dimer Quant (PE/DVT) 0.63 H* 07/05/22 06:30: WBC 8.5, RBC 5.43, Hgb 17.0 H, Hct 52.4, MCV 96.5 H, MCH 31.3, MCHC 32.4, Plt Count 174, MPV 11.5, Immature Gran % (Auto) 0.400, Neut % (Auto) 60.6, Lymph % (Auto) 26.7, [place] % (Auto) 10.1 H, Eos % (Auto) 1.7, Baso % (Auto) 0.5, Absolute Neuts (auto) 5.2, Nucleated RBC % 0 07/05/22 06:30: Sodium 139, Potassium 4.5, Chloride 104, Carbon Dioxide 28.0, Anion Gap 7, BUN 36 H, Creatinine 1.40 H, Est GFR (MDRD) Af Amer 63, Est GFR (MDRD) Non-Af 52 L, BUN/Creatinine Ratio 25.7 H, Glucose 104, Calcium 9.2, Phosphorus 4.2, Magnesium 2.2, Total Bilirubin 1.00 Rhythm: EKG: Normal sinus rhythm with frequent PVCs. ECHO: Stress Test: Cardiac Cath: PCI: CT Surgery: Holter monitor: EPS: PPM: CXR: Chest CT Scan: Radiography Diagnostic Testing: Radiology Impression Chest X-Ray 07/04/22 21:00 IMPRESSION: 1. Atelectasis versus infiltrate involving the infrahilar regions. 2. Age indeterminate bronchitis. 3. No other acute disease. Electronically Signed: Emile Gaspar MD at 21:20 EST , Chest CT 07/04/22 22:45 IMPRESSION: No pneumonia or other acute disease. Bibasilar subsegmental atelectasis and scarring. Electronically Signed: Emile Gaspar MD at 23:24 EST ,
--- NOTE | 2022-07-05 10:17 | CDU_ITS ---
Reason For Study: Pre syncope Rt. Velocities/BP Lt. Velocities/BP Prox CCA 62.6/10.7 cm/sec. Prox CCA 58.6/12.4 cm/sec. Mid CCA 62.3/12.1 cm/sec. Mid CCA 67.4/13.5 cm/sec. Dist CCA 74/11.6 cm/sec. Dist CCA 50.9/9.1 cm/sec. Prox ICA 38.1/9.7 cm/sec. Prox ICA 46.5/13.5 cm/sec. Mid ICA 64.5/15.4 cm/sec. Mid ICA 49.8/16.8 cm/sec. Dist ICA 77.8/21.1 cm/sec. Dist ICA 67.4/21.2 cm/sec. Rt. ICA/CCA = 1.24. Lt. ICA/CCA = 1.15. Prox ECA 60.7/5 cm/sec. Prox ECA 70.7/5.8 cm/sec. Rt. Vert. 24.7/6.4 cm/sec. Lt. Vert. 56.4/16.8 cm/sec. Right Extracranial There is homogeneous, smooth atherosclerotic plaque noted in the right common carotid artery. There is intimal thickening but no significant atherosclerotic plaque noted in the right internal carotid artery. There is intimal thickening but no significant atherosclerotic plaque noted in the right external carotid artery. Antegrade flow is noted in the right vertebral artery. Left Extracranial There is homogeneous, smooth atherosclerotic plaque noted in the left common carotid artery. There is intimal thickening but no significant atherosclerotic plaque noted in the left internal carotid artery. There is intimal thickening but no significant atherosclerotic plaque noted in the left external carotid artery. Antegrade flow is noted in the left vertebral artery. Procedure This is a Carotid Duplex examination using B-mode, color flow and specral Doppler. Carotid Duplex [id number]. The study was technically difficult. Exam performed portable in patient room. VL/Carotid Duplex Ultrasound Interpretation Summary Normal right extracranial internal carotid. Normal left extracranial internal carotid. Patent and antegrade vertebrals bilaterally. Ordering Physician: Neri Alberts Referring Physician: July Summers Performed By: Jenifer Schaffer RVT
--- NOTE | 2022-07-05 21:14 | PCM.HOSP.N ---
Hospitalist Note Patient was then seen and examined briefly today, he was admitted for cardiac arrhythmias and seen today by cardiology. At the time of this dictation, patient has no complaints of any lightheadedness or palpitations, he will continue to be monitored and he will continue work-up per cardiology. ,
[2022-07-05] MEDS: Atorvastatin Calcium 10 MG Tablet PO (22:16)
[2022-07-05] MEDS: Metoprolol Tartrate 50 MG Tablet PO (22:17)
[2022-07-06] VITALS (12 sets, daily range): BP systolic 121–144; BP diastolic 58–106; PULSE 60–83; RESP 18–20; TEMP 36.4–36.9; O2SAT 89–99
[2022-07-06] MEDS: Heparin Injection (Vial) 5,000 UNIT/ML VIAL 5000 UNIT SC ×2 (05:45→14:05)
[2022-07-06] MEDS: Levothyroxine 125 MCG Tablet PO (05:45)
[2022-07-06] MEDS: Albuterol 2.5 MG/3 ML VIAL.NEB. INHALATION (06:02)
--- NOTE | 2022-07-06 08:02 | PCM.PN.CARD ---
Subjective Subjective Patient seen and evaluated. Appears to be doing well. Underwent cardiac catheterization today Objective Data Vital Signs: Vital Signs Temp Pulse Resp BP Pulse Ox O2 Del Method O2 Flow Rate 98.4 F 70 20 H 144/106 H 99 Nasal Cannula 2 07/06/22 03:43 07/06/22 06:03 07/06/22 06:03 07/06/22 03:43 07/06/22 03:43 07/06/22 06:03 07/06/22 06:03 Oxygen Flow Rate (L/min) 2 Oxygen Delivery Method Nasal Cannula Weight: 194 lb 7.163 oz Body Mass Index (BMI) 31.6 Intake & Output: Intake and Output for Last 24 Hours 07/04/22 07/05/22 07/06/22 23:59 23:59 23:59 Intake Total 400 / 400 Balance 400 / 400 Lab / Micro Data Result Diagrams: 07/05/22 06:30 07/05/22 06:30 Rhythm Strip Rhythm Strip: Frequent PVCs some in a bigeminal manner Rate: 81 Ectopy: PVC(s) Cardiology Labs/Tests Rhythm: EKG: ECHO: Stress Test: Cardiac Cath: PCI: CT Surgery: Holter monitor: EPS: PPM: CXR: Chest CT Scan: Physical Exam Const alert, oriented x3 and no apparent distress General Appearance: cooperative HEENT hearing grossly normal bilaterally Head and Scalp: atraumatic Eyes EOMs intact bilaterally Neck General: normal visual inspection Chest inspection of chest normal and palpation of chest normal Resp normal respiratory effort Auscultation: clear to auscultation bilaterally Cardio regular rate, regular rhythm, S1 normal heart sound and S2 normal heart sound Jugular Venous Distention: JVD Rhythm: abnormal rhythm ectopic beats GI normal to inspection, nondistended, normoactive bowel sounds Extremity normal capillary refill and no pedal edema Peripheral Pulses: Yes pulses 2+ throughout and femoral pulses present Skin no rashes or lesions noted Neuro oriented x3 and CN's II-XII intact bilaterally Psych Appearance: grossly normal and appropriate Assessment & Plan Assessment/Plan (1) Shortness of breath: PLAN: His BNP was elevated. He is due to have an echocardiogram today but it does not appear that this is due to coronary artery disease. We will start him on p.o. Lasix 40 mg daily. (2) Heart failure with preserved left ventricular function (HFpEF): PLAN: History of nonischemic cardiomyopathy diagnosed in 2018. Left ventricular systolic function having recovered since on medical management. Repeat echocardiogram has already been ordered. See #1 above. He underwent coronary artery evaluation with an angiogram which demonstrated the following: Normal left main coronary artery. Left anterior descending artery with 50% proximal stenosis. Left circumflex artery with no significant disease. Dominant right coronary artery with no significant disease. (3) Frequent PVCs: PLAN: Increase metoprolol as tolerated. (4) Pre-syncope: PLAN: Continue to monitor heart rhythm. For Holter monitoring as outpatient. Check carotid Doppler. (5) Essential (primary) hypertension: PLAN: Continue current medical therapy. Echocardiogram would also be performed. Patient can be discharged later today. (6) Hyperlipidemia: PLAN: On atorvastatin. Continue and follow lipid profile
--- NOTE | 2022-07-06 08:09 | CL.D_ITS ---
Patient Name: SILAS KHOURY Study Date: 07/06/2022 Performing: Rambo Somers MD Ht: 66 inches 167.64 cm : 1940 Wt: 194.45 lbs 88.2 kg Age: 81 Gender: male BSA: 1.98 PROCEDURE(S) PERFORMED [id number])[facility] CLINICAL PROFILE AND INDICATIONS Indications: Other Heart Failure: NYHA Class: 2, Newly Diagnosed: Yes, Heart Failure Type: Diastolic Stress/Imaging Stress/Image Study Performed: No CAD Presentations: Symptom unlikely to be ischemic. 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 The rest of the vessels appear to be with no significant obstruction. Preserved LV function. RECOMMENDATIONS Medical therapy DESCRIPTION OF PROCEDURE The patient arrived to the procedure lab. The risks and benefits of the procedure as well as a full description of our services here and current unavailability of surgical backup were fully explained to the patient and/or their significant other prior to the catheterization. The Timeout was completed, verifying the correct patient and procedure. The patient's procedural site was prepped and draped in the usual fashion. Local anesthetic was given subcutaneously to right radial region with Lidocaine 2%. Using a modified Seldinger technique, Left Coronary Artery selective angiography was performed in multiple views using a 5 Fr. 4.0 [place] catheter. Right Coronary Artery selective angiography was then performed in multiple views using a 5 Fr. 4.0 [place] catheter.The arterial sheath was pulled and a TR Band was applied for hemostasis CORONARY ANGIOGRAPHY DOMINANCE: Right Dominant LEFT HEART ASSESSMENT Left Ventricular Ejection Fraction: by Echo 55 % Normal LV wall motion Normal Left Ventricular systolic function LEFT MAIN: Angiographically normal LEFT ANTERIOR DESCENDING ARTERY: Proximal to mid 50% stenosis noted and mild distal disease present CIRCUMFLEX ARTERY: No significant disease noted RIGHT CORONARY ARTERY: No significant disease noted COMPLICATIONS No Complications PROCEDURE MEDICATIONS Versed 1 mg IV Fentanyl 50 mcg IV Oxygen: 2 L/min via nasal cannula Oxygen: 4 L/min via nasal cannula Aspirin (325mg) 1 Tabs PO @ 07/06/2022 07:38:21 Heparin given IA 07/06/2022 07:50:04 Verapamil 2.5mg, Ntg 100mcgs, 3000 units of Heparin given IA 07/06/2022 07:50:04 SUMMARY OF HEMODYNAMIC DATA Time AIR REST ECG 07:35:49 AO 123/47 (72) SA 07:54:04 Signed By Rambo Somers MD On 07/06/2022 08:08:51 Rambo Somers MD
--- NOTE | 2022-07-06 10:20 | PN.HOSP_ITS ---
Reason for Visit Reason for Visit: Diagnoses Hyperlipidemia, unspecified (07/05/22) Essential (primary) hypertension (07/05/22) Other cardiomyopathies (07/05/22) Atrial premature depolarization (07/05/22) Ventricular premature depolarization (07/05/22) Unspecified diastolic (congestive) heart failure (07/05/22) Chronic kidney disease, unspecified (07/05/22) Shortness of breath (07/05/22) Syncope and collapse (07/05/22) Subjective Subjective Has been short of breath for some time. Objective Data Objective Data Vital Signs: Vital Signs Temp Pulse Resp BP Pulse Ox O2 Del Method O2 Flow Rate 36.9 C 70 20 H 144/106 H 99 Nasal Cannula 2 07/06/22 03:43 07/06/22 06:03 07/06/22 06:03 07/06/22 03:43 07/06/22 03:43 07/06/22 06:03 07/06/22 06:03 Oxygen Flow Rate (L/min) 2 Oxygen Delivery Method Nasal Cannula Weight: 88.2 kg Body Mass Index (BMI) 31.6 Intake & Output: Intake and Output for Last 24 Hours 07/04/22 07/05/22 07/06/22 23:59 23:59 23:59 Intake Total 400 / 400 Balance 400 / 400 Lab / Micro Data Result Diagrams: 07/05/22 06:30 07/05/22 06:30 Rhythm Strip Rhythm Strip: Frequent PVCs some in a bigeminal manner Rate: 81 Ectopy: PVC(s) Physical Exam Const alert and no apparent distress HEENT head/scalp atraumatic and moist oral mucous membranes Resp normal respiratory effort, no retractions, no use of accessory muscles and clear to auscultation bilaterally Resp Narrative: Bibasilar crackles Cardio regular rate, regular rhythm, S1 normal heart sound and S2 normal heart sound GI normal to inspection, nondistended, normoactive bowel sounds, soft to palpation, non-tender and non-distended Extremity normal to inspection Assessment & Plan Assessment/Plan (1) Pre-syncope: PLAN: #Presyncope likely secondary to arrhythmia -Having significant ectopy on telemetry and given history of dizziness while sitting down that was persistent concern for arrhythmic cause of presyncope -In 2018 he did have a presyncopal spell and was noted to have wide-complex tachycardia and was found to have an EF of 25 to 30% at that time and heart cath demonstrated minor luminal irregularities and he was placed on a beta-arnaud. Had stress test in 2021 with no demonstrated evidence of ischemia -Echocardiogram 12/05 demonstrated mild concentric left ventricular hypertrophy with EF of 50% and stage I diastolic dysfunction with mild global hypokinesis of left ventricle and mild 1+ aortic valve insufficiency. -We will repeat echocardiogram -Check magnesium, replace electrolytes -Consult cardiology -We will hold Lasix and give metoprolol Left heart catheterization was unremarkable 2D echocardiogram currently pending (2) Non-ischemic cardiomyopathy: PLAN: #Nonischemic cardiomyopathy with history of chronic heart failure with preserved ejection fraction and previous systolic dysfunction with recovered EF now to 50% -Echocardiogram 12/05 demonstrated mild concentric left ventricular hypertrophy with EF of 50% and stage I diastolic dysfunction with mild global hypokinesis of left ventricle and mild 1+ aortic valve insufficiency. -Follows with Dr. 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 -Holding Lasix at this time, does not appear to be overloaded and BNP is impr ness, will check magnesium, potassium is 3.9 -Daily weights, I's and O's (3) Atrial ectopy: (4) Chronic dyspnea: PLAN: Unclear etiology May be post COVID CT of the chest was reviewed with family and does show some chronic changes in the bilateral lower lobes. No baseline prior CT available to compare to. Check an ambulatory pulse ox Follow-up with Dr. Calhoun of pulmonology. PLAN: Plan Chronic conditions: * CKD stage III unclear subtype: Avoid nephrotoxic agents-Trend BMP-Holding losartan given bump in creatinine * #Hypothyroidism-Continue Synthroid-TSH slightly elevated we will check T4 and T3 #DVT ppx: Heparin subcu, SCDs Charges/Coding Visit Charges Inpatient E&M: 08502 Subs Hosp L2
[2022-07-06] MEDS: Metoprolol Tartrate 50 MG Tablet PO (10:23)
[2022-07-06] MEDS: Furosemide 40 MG Tablet PO (10:23)
--- NOTE | 2022-07-06 14:36 | DCINST_ITS ---
Discharge Instructions Diet Discharge Diet: Low fat / Low cholesterol Dressing / Incision Call your doctor if you observe: Shortness of breath Follow Up Care Test Results: Test results from this visit will be discussed in further detail at your follow- up appointment, if applicable. Discharge Plan Admission Admit Date/Time: 07/05/22 01:10 Primary Reason for Your Visit: presyncope Attending Provider: Milton Luis Primary Care Provider: July Summers Consulting Providers: Chetna Gonsalves ; Neri Alberts ; Blaise Lanza Discharge Orders/Prescriptions Prescriptions: New metoprolol tartrate 50 mg Tablet 50 mg PO BID Qty: 60 0RF Continued levothyroxine 125 mcg tablet 125 mcg PO DAILY rosuvastatin 5 mg tablet 5 mg PO DAILY losartan 50 mg tablet 50 mg PO DAILY Qty: 90 3RF albuterol sulfate 90 mcg/actuation HFA aerosol inhaler 2 puff inhalation Q4H PRN (Reason: shortness of breath or wheezing) Qty: 8.5 1RF Rx Instructions: administer with spacer furosemide [Lasix] 40 mg tablet 40 mg PO DAILY Qty: 30 6RF Discontinued metoprolol succinate [Toprol XL] 25 mg tablet extended release 24 hr 25 mg PO DAILY Referrals / Follow Up: July Summers PA [Primary Care Provider] - Within 1 Week [facility] [Provider Group] - Within 1 Month [facility] [Provider Group] - 07/28/22 7:45 am Disposition Disposition (needs filled in before D/C Order can be placed): Home, Self Care
--- NOTE | 2022-07-06 14:55 | CASEMGMT ---
INOCENTE FLORES in to complete GOFF for with patient. RN MARK explained GOFF Form to patient, patient voiced understanding. Patient signed GOFF form and filed in chart. Patient provided with copy of signed GOFF form. Patient had no further questions or concerns at this time.
--- NOTE | 2022-07-06 16:54 | DS.PCM_ITS ---
Providers Date of Admission: 07/05/22 Primary Care Physician: RICHI Kramer Consultations 07/05/22 02:47 Consult: Cardiology Routine Consulting Provider: Neri Alberts Reason for Consult: presycope w/ significant ectopy burden, concern for arrhythmia induced EMERGENT Consult: No MD Notified: Yes Date Notified: 07/05/22 Time Notified: 07:34 Method of Notification: Text Reason For Visit: PRESYNCOPE SECONDARY TO ARRHYTHMIA Diagnosis Discharge Diagnosis (1) Pre-syncope: Status: Acute Code(s): R55 - Syncope and collapse Plan: #Presyncope likely secondary to arrhythmia -Having significant ectopy on telemetry and given history of dizziness while sitting down that was persistent concern for arrhythmic cause of presyncope -In 2017 he did have a presyncopal spell and was noted to have wide-complex tachycardia and was found to have an EF of 25 to 30% at that time and heart cath demonstrated minor luminal irregularities and he was placed on a beta-arnaud. Had stress test in 2021 with no demonstrated evidence of ischemia -Echocardiogram 12/05 demonstrated mild concentric left ventricular hypertrophy with EF of 50% and stage I diastolic dysfunction with mild global hypokinesis of left ventricle and mild 1+ aortic valve insufficiency. -We will repeat echocardiogram -Check magnesium, replace electrolytes -Consult cardiology -We will hold Lasix and give metoprolol Left heart catheterization was unremarkable 2D echocardiogram currently pending (2) Non-ischemic cardiomyopathy: Status: Chronic Code(s): I42.8 - Other cardiomyopathies Plan: #Nonischemic cardiomyopathy with history of chronic heart failure with preserved ejection fraction and previous systolic dysfunction with recovered EF now to 50% -Echocardiogram 12/05 demonstrated mild concentric left ventricular hypertrophy with EF of 50% and stage I diastolic dysfunction with mild global hypokinesis of left ventricle and mild 1+ aortic valve insufficiency. -Follows with Dr. 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 -Holding Lasix at this time, does not appear to be overloaded and BNP is improved, will check magnesium, potassium is 3.9 -Daily weights, I's and O's Echo shows an EF of 50%, unchanged from November (3) Atrial ectopy: Status: Acute Code(s): I49.1 - Atrial premature depolarization (4) Chronic dyspnea: Status: Acute Code(s): R06.09 - Other forms of dyspnea Plan: Unclear etiology May be post COVID CT of the chest was reviewed with family and does show some chronic changes in the bilateral lower lobes. No baseline prior CT available to compare to. Patient did well with walking on room air. Follow-up with Dr. Calhoun of pulmonology. Plan Chronic conditions: * CKD stage III unclear subtype: Avoid nephrotoxic agents-Trend BMP-Holding losartan given bump in creatinine * #Hypothyroidism-Continue Synthroid-TSH slightly elevated we will check T4 and T3 #DVT ppx: Heparin subcu, SCDs Medications at Discharge Home Medications levothyroxine 125 mcg tablet 125 mcg PO DAILY 07/07/21 losartan 50 mg tablet 50 mg PO DAILY #90 tabs 06/12/22 rosuvastatin 5 mg tablet 5 mg PO DAILY 06/12/22 albuterol sulfate 90 mcg/actuation aerosol inhaler 2 puff inhalation Q4H PRN shortness of breath or wheezing #8.5 grams 06/15/22 furosemide 40 mg tablet (Lasix) 40 mg PO DAILY #30 tabs 06/29/22 metoprolol tartrate 50 mg tablet 50 mg PO BID #60 tabs 07/06/22 Hospital Course Operations None Procedures 2-D Echocardiogram and Cardiac catheterization Summary of Care Provided Minutes Spent on Discharge: 32 Weight / BMI Weight Weight: 88.2 kg Body Mass Index (BMI) 31.6 ABG / Lab / Microbiology Data Result Diagrams: 07/05/22 06:30 07/05/22 06:30 Radiography Diagnostic Testing: Radiology Impression Echocardiogram 07/05/22 01:24 Interpretation Summary Normal LV size. Left ventricular systolic function is normal. The left ventricular ejection fraction is 50 %. The left atrium is mildly enlarged. Mild (1+) aortic valve insufficiency. Mild (1+) eccentric mitral valve insufficiency. Ordering Physician: Chetna Gonsalves Referring Physician: Komal Fiore Performed By: Juliana Barragan RDCS D/C Instructions Discharge Diet: Low fat / Low cholesterol Call your doctor if you observe: Shortness of breath Meaningful Use Info Meaningful Use Diagnoses (Choose all that apply): None applicable Discharge Plan Admission Admit Date/Time: 07/05/22 01:10 Primary Reason for Your Visit: presyncope Attending Provider: Milton Luis Primary Care Provider: July Summers Consulting Providers: Chetna Gonsalves ; Neri Alberts ; Blaise Lanza Discharge Orders/Prescriptions Prescriptions: New metoprolol tartrate 50 mg Tablet 50 mg PO BID Qty: 60 0RF Continued levothyroxine 125 mcg tablet 125 mcg PO DAILY rosuvastatin 5 mg tablet 5 mg PO DAILY losartan 50 mg tablet 50 mg PO DAILY Qty: 90 3RF albuterol sulfate 90 mcg/actuation HFA aerosol inhaler 2 puff inhalation Q4H PRN (Reason: shortness of breath or wheezing) Qty: 8.5 1RF Rx Instructions: administer with spacer furosemide [Lasix] 40 mg tablet 40 mg PO DAILY Qty: 30 6RF Discontinued metoprolol succinate [Toprol XL] 25 mg tablet extended release 24 hr 25 mg PO DAILY Referrals / Follow Up: [facility] [Provider Group] - Within 1 Month [facility] [Provider Group] - 07/28/22 7:45 am July Summers PA [Primary Care Provider] - Within 1 Week Disposition Disposition (needs filled in before D/C Order can be placed): Home, Self Care Charges/Coding Visit Charges Inpatient E&M: 21587 Disch Hosp >30min
== END 2022-07-06 16:55 | disposition home or self-care (01) ==
LOC: ED 07-05 01:58 → PCU 07-05 04:15
PROVIDERS: Admitting Provider Internal Medicine; Emergency Provider Emergency Medicine; PCP Physician Assistant; Referring Provider Emergency Medicine
DX: R55 Syncope and collapse (principal); I13.0 Hypertensive heart and chronic kidney disease with heart failure and stage 1 through stage 4 chronic kidney disease, or unspecified chronic kidney disease; I42.8 Other cardiomyopathies; I50.42 Chronic combined systolic (congestive) and diastolic (congestive) heart failure; I47.29 Other ventricular tachycardia; N18.30 Chronic kidney disease, stage 3 unspecified; E78.5 Hyperlipidemia, unspecified; I49.3 Ventricular premature depolarization; Z79.899 Other long term (current) drug therapy; Z79.890 Hormone replacement therapy; E03.9 Hypothyroidism, unspecified; E66.9 Obesity, unspecified; Z68.31 Body mass index [BMI] 31.0-31.9, adult; K21.9 Gastro-esophageal reflux disease without esophagitis; I25.10 Atherosclerotic heart disease of native coronary artery without angina pectoris
CPT/HCPCS: 36415; 71046; 71250; 80048; 80053; 83735; 83880; 84100; 84439; 84443; 84481; 84484; 85025; 85379; 93005; 93306; 93454; 93880; 94640; 94668; 96372; 99152; 99221; 99252; 99285; J7040; Q9967; A4216; C1769; C1894; G0378; G0463

== ENCOUNTER → 2022-07-30 | Outpatient (CLI) | payer MEDICARE, SELFPAY ==
[2022-07-30 12:47] VITALS: PULSE 100; PULSE 101; PULSE 104; PULSE 106; PULSE 77; PULSE 78; O2SAT 89; O2SAT 90; O2SAT 91; O2SAT 93; O2SAT 94
--- NOTE | 2022-07-30 14:48 | PCM.PSN.6M ---
PSN 6 Minute Walk Test 6 Minute Walk Test 6 Minute Walk Test: 6 Minute Walk Test PSN:6-Minute Walk Test Start: 07/30/22 12:47 Freq: Status: Active Protocol: [id number] Document 07/30/22 12:47 ANIKA (Rec: 07/30/22 12:49 ANIKA [id number]) 6 Minute Walk Test Date Performed 07/30/22 Time Performed 12:30 Height 5 ft 5 in Weight: 86.636 kg Weight in Pounds 191.[address]: Uzair Calhoun Assistive device used: None Pre-test Oxygen Delivery Method Room Air Pulse Ox (%) 93 Pulse Rate (60-100 beats/min) 77 Dyspnea Ginny Scale (0-10) 0 Exertion Ginny Scale (6-20) 6 1st minute Oxygen Delivery Method Room Air Pulse Ox (%) 93 Pulse Rate (60-100 beats/min) 100 2nd minute Oxygen Delivery Method Room Air Pulse Ox (%) 91 Pulse Rate (60-100 beats/min) 101 H 3rd minute Oxygen Delivery Method Room Air Pulse Ox (%) 90 Pulse Rate (60-100 beats/min) 101 H 4th minute Oxygen Delivery Method Room Air Pulse Ox (%) 89 Pulse Rate (60-100 beats/min) 104 H 5th minute Oxygen Delivery Method Room Air Pulse Ox (%) 89 Pulse Rate (60-100 beats/min) 106 H 6th minute Oxygen Delivery Method Room Air Pulse Ox (%) 91 Pulse Rate (60-100 beats/min) 106 H Dyspnea Ginny Scale (0-10) 3 Exertion Ginny Scale (6-20) 13 Post-test Oxygen Delivery Method Room Air Pulse Ox (%) 94 Pulse Rate (60-100 beats/min) 78 Full Laps Walked 18 Partial Lap, Number of Tiles Walked 10 Total Distance Walked (ft) 1072 Interpretation Interpretation: The patient was able to ambulate 1072 feet over the course of 6 minutes on room air with no assistive devices or breaks. The patient did have a lower baseline saturation of 93% and desaturated as low as 89%. There was an element of reflexive tachycardia noted. These findings are consistent with a respiratory limitation exercise tolerance. Recommendations Recommendations: No supplemental oxygen is indicated at this time. However, patient will be followed closely given level of desaturation.
== END | disposition home or self-care (01) ==
LOC: PSN 12:19
PROVIDERS: PCP Physician Assistant; Visit Provider Internal Medicine Critical Care Medicine
DX: R06.02 Shortness of breath (principal)
CPT/HCPCS: 94618

== ENCOUNTER → 2022-08-10 | Outpatient (CLI) | payer MEDICARE, SELFPAY ==
--- NOTE | 2022-08-10 16:13 | BRONCHALL_ITS ---
Bronchoprovocation Challenge Bronchoprovocation Challenge Bronchoprovocation Challenge: Brief HPI: Patient is a 81 year old male, currently under the care of Dr. Calhoun, who presents to [facility] for a bronchoprovocation study secondary to diagnosis of dyspnea. Respiratory therapist reports good effort and reproducible results. Interpretation: Initial spirometry showed no large airways obstructive ventilatory defect. The patient was then given increasingly concentrated doses of methacholine in a stepwise/standardized fashion, using a modified ATS protocol. The patient?s maximum reduction in FEV1 was 16 percent predicted. Impression: Negative Bronchoprovocation study. This is NOT consistent with the diagnosis of asthma.
== END | disposition home or self-care (01) ==
PROVIDERS: PCP Physician Assistant; Referring Provider Internal Medicine Critical Care Medicine; Visit Provider Internal Medicine Critical Care Medicine
DX: R06.02 Shortness of breath (principal)
CPT/HCPCS: 94070; 95070; J3490; J7674

== ENCOUNTER → 2023-05-28 | Outpatient (CLI) | payer MEDICARE, SELFPAY ==
--- NOTE | 2023-05-28 10:36 | ECHOD_ITS ---
Version 2 Reason For Study: DILATED CMP Procedure This was a 2D Doppler, Color Flow transthoracic echocardiogram. Exam performed in department. Left Ventricle Normal LV size. Mild concentric left ventricular hypertrophy. The estimated ejection fraction is 45 %. Stage 1 diastolic dysfunction. There is mild global hypokinesis of the left ventricle. Right Ventricle Normal RV size. Normal systolic function. Atria The left atrium is moderately enlarged. Normal right atrium. Mitral Valve Normal mitral valve. Mild (1+) eccentric mitral valve insufficiency. Tricuspid Valve Normal tricuspid valve. Moderate (2+) tricuspid valve insufficiency. Pulmonary artery systolic pressure is 60 mmHg. Aortic Valve Trisinus/trileaflet aortic valve. Mild (1+) aortic valve insufficiency. Great Vessels Normal aortic root. Moderate pulmonary artery dilation. Pericardium/Pleural No pericardial effusion. MMode/2D Measurements & Calculations LVIDd: 6.2 cm IVSd: 1.3 cm Ao root diam: 3.7 cm LVIDs: 5.4 cm LVPWd: 1.2 cm RVDd: 3.1 cm FS: 13.1 % LAV(MOD-bp): 102.3 ml LVAd ap4: 40.9 cm2 LVAd ap2: 34.0 cm2 LAV(MOD-bp) Indexed: 55.4 ml/m2 LVLd ap4: 8.4 cm LVLd ap2: 8.0 cm LAV(MOD-sp2): 80.5 ml EDV(MOD-sp4): 165.1 ml EDV(MOD-sp2): 119.5 ml LAV(MOD-sp4): 117.4 ml EDV(sp4-el): 168.6 ml EDV(sp2-el): 123.4 ml LVAs ap4: 28.0 cm2 LVAs ap2: 22.1 cm2 LVLs ap4: 7.4 cm LVLs ap2: 7.0 cm ESV(MOD-sp4): 88.7 ml ESV(MOD-sp2): 60.1 ml ESV(sp4-el): 90.3 ml ESV(sp2-el): 59.4 ml EF(MOD-sp4): 46.3 % EF(MOD-sp2): 49.8 % EF(sp4-el): 46.5 % SV(MOD-sp4): 76.4 ml SV(MOD-sp2): 59.5 ml SV(sp4-el): 78.3 ml LA dimension(2D): 5.3 cm LA A4 area: 27.1 cm2 RA A4 area: 11.1 cm2 TAPSE: 2.5 cm Time Measurements MV dec time: 0.16 sec Doppler Measurements & Calculations MV E max juan: 32.9 cm/sec Lat Peak E' Juan: 2.3 cm/sec Med Peak E' Juan: 5.0 cm/sec MV A max juan: 91.3 cm/sec E/E' lat: 14.6 E/E' med: 6.5 MV E/A: 0.36 MV V2 max: 93.9 cm/sec Ao V2 max: 105.6 cm/sec AI max juan: 357.5 cm/sec MV max P.5 mmHg Ao max P.5 mmHg AI max P.2 mmHg MV V2 mean: 54.9 cm/sec Ao V2 mean: 71.6 cm/sec AI dec slope: 257.6 cm/sec2 MV mean P.4 mmHg Ao mean P.3 mmHg AI P1/2t: 406.5 msec MV V2 VTI: 21.6 cm Ao V2 VTI: 22.9 cm AV (velocity ratio): 0.87 LV V1 max: 80.0 cm/sec PA V2 max: 90.6 cm/sec TR max juan: 372.9 cm/sec LV V1 max P.6 mmHg PA V2 mean: 51.1 cm/sec TR max P.6 mmHg LV V1 mean P.2 mmHg PA V2 VTI: 15.4 cm LV V1 mean: 52.4 cm/sec LV V1 VTI: 20.0 cm ECHO/Echo Complete Interpretation Summary Normal LV size. The estimated ejection fraction is 45 %. Stage 1 diastolic dysfunction. There is mild global hypokinesis of the left ventricle. The left atrium is moderately enlarged. Pulmonary artery systolic pressure is 60 mmHg. Mild (1+) aortic valve insufficiency. Mild concentric left ventricular hypertrophy. Ordering Physician: Sanjuana Aguayo Referring Physician: July Summers Performed By: Noni Larson, RUKHSANA, RVT
--- OUTSIDE RECORDS SUMMARY | 2023-05-28 11:09 | XMS RPT_ITS | CCD ---
Author Name Unknown Address [address] [place] [address] Organization [facility] Care Team Providers Care Direct Mail Coordinator Name Role Phone RICHARD SUMMERS Unavailable Unavailable DONNA CANALES Unavailable Unavailable JONIELIZABETH CHAUDHARIABH Unavailable Unavailable JONI SUSAN Unavailable Unavailable SOUMYA MACIEL Unavailable Unavailable RICHARD SUMMERS Unavailable Unavailable RICHARD SUMMERS Unavailable Unavailable Richard Summers PA-C Unavailable Richard Summers PA-C Unavailable [phone] Pulmonary Provider Unavailable Unavailable Cardiology Provider Unavailable Unavailable German CASTANEDA, Dr. Pérez ([facility]) Unavailable [facility] Unavailable Dr. Kamaljit Tiwari MD Unavailable Lakeisha SPARE PARTS CLERK, Lissa Unavailable Tito LEMOS, Radha Unavailable Unavailable Meghann Rosenthal PA-C Unavailable Hermelindo Steele PA-C Unavailable [phone] Aleshia Steele Unavailable Unavailable Vineet LEMOS, Sanjuana Unavailable Unavailable Meghann St RN Unavailable Unavaila noman Boo LPN, Tam Unavailable Unavailable Rupert BROWER, Kathleen Zuleta Unavailable Unavailable Mutersnaty DOWELLN, Martha K Unavailable Unavai labniya Corcoran LPN, Paloma M Unavailable Unavailab Sanjuana iSngh MA Unavailable Unavailable Yvonne DOWELLN, Shannon Unavailable Unavailabl e Unavailable Unavailable RICHARD SUMMERS Attending Unavailable RICHARD SUMMERS Admitting Unavailable RICHARD SUMMERS Primary Care Unavailable RICHARD SUMMERS Consulting Unavailable PROVIDER, UNKNOWN Consulting Unavailable RICHARD SUMMERS Consulting Unavailable DEREK, LUKE E Admitting Unavailable DEREK, LUKE E Primary Care Unavailable DEREK, LUKE E Attending Unavailable PROVIDER, UNKNOWN Consulting Unavailable RICHARD SUMMERS Consulting Unavailable SANJUANA CASTELLANOS Admitting Unavailable SANJUANA CASTELLANOS Primary Care Unavailable SANJUANA CASTELLANOS Attending Unavailable PROVIDER, UNKNOWN Consulting Unavailable RICHARD SUMMERS Attending Unavailable RICHARD SUMMERS Admitting Unavailable RICHARD SUMMERS Primary Care Unavailable RICHARD SUMEMRS Consulting Unavailable PROVIDER, UNKNOWN Consulting Unavailable RICHARD SUMMERS Consulting Unavailable DEREK, LUKE E Admitting Unavailable DEREK, LUKE E Primary Care Unavailable DEREK, LUKE E Attending Unavailable PROVIDER, UNKNOWN Consulting Unavailable Medications Current Medications Medication Drug Class(es) Dates Sig (Normalized) Sig (Original) amLODIPine 5 mg oral tablet (4 sources) Dihydropyridine Calcium Channel Casper amLODIPine 5 mg tablet ; 1 daily (5 mg) furosemide 40 mg oral tablet (4 sources) Loop Diuretic take 1 mg by mouth once daily Lasix 40 MG Oral Tablet ; daily (40 MG) levothyroxine sodium 0.125 mg oral tablet (4 sources) l-Thyroxine Start: 05-14-2023 levothyroxine 125 mcg tablet ; 1 Tablet qd for 0 days Quantity: 90 {Tablet} Refills: 1 Ordered: 14-May-2023 JUAN DAVID Summers Start: 14-May-2023 losartan potassium 50 mg oral tablet (4 sources) Angiotensin 2 Receptor Casper take 1 mg by mouth once daily Losartan Potassium 50 MG Oral Tablet ; daily (50 MG) rosuvastatin calcium 5 mg oral tablet (4 sources) HMG-CoA Reductase Inhibitor Start: 05-14-2023 Crestor 5 mg tablet ; 1 (one) Tablet daily for 0 days Quantity: 30 {Tablet} Refills: 5 Ordered: 14-May-2023 JUAN DAVID Summers Start: 14-May-2023 Saw [place] (Serenoa repens) 1000 MG Oral Capsule (4 sources) take 1 capsule by mouth once daily Saw [place] (Serenoa repens) 1000 MG Oral Capsule ; 1 daily (1000 MG) Completed/Discontinued Medications Medication Drug Class(es) Dates Sig (Normalized) Sig (Original) amoxicillin 500 mg oral tablet (4 sources) Penicillin-class Antibacterial Start: 08-22-2018 End: 09-01-2018 take 1 tablet by mouth three times daily Amoxicillin 500 MG Oral Tablet ; 1 Tab three times daily for 10 days Quantity: 30 {Tablet} Refills: 0 Ordered: 22-Aug-2018 JUAN DAVID Rosenthal Start: 22-Aug-2018 End: 01-Sep-2018 Status: Inactive aspirin 81 mg delayed release oral tablet (4 sources) Platelet Aggregation Inhibitor, Nonsteroidal Anti-inflammatory Drug Aspirin EC 81 MG Oral Tablet Delayed Release ; 1qd (81 MG) Status: Inactive atorvastatin 10 mg oral tablet (4 sources) HMG-CoA Reductase Inhibitor take 1 tablet by mouth once daily Atorvastatin Calcium 10 MG Oral Tablet ; 1 qd (10 MG) Status: Inactive Cinnamon Bark (4 sources) Cinnamon ; 2 qd Status: Inactive clindamycin 300 mg oral capsule (8 sources) Lincosamide Antibacterial Start: 05-07-2020 End: 05-17-2020 take 1 capsule by mouth every eight hours Clindamycin HCl 300 MG Oral Capsule ; 1 (one) Capsule every eight hours for 10 days Quantity: 30 {Capsule} Refills: 0 Ordered: 07-May-2020 AMINTA Manley Start: 07-May-2020 End: 17-May-2020 Status: Inactive Problems Active Problems Problem Classification Problem Date Documented Da te Episodic/Chronic Acute and unspecified renal failure (8 sources) Acute injury of kidney; Translations: [Acute kidney failure, unspecified] 05-18-2018 Episodic Cardiac dysrhythmias (20 sources) Ventricular premature beats; Translations: [Ventricular premature depolarization] 05-14-2023 Chronic Chronic kidney disease (20 sources) Chronic kidney disease stage 2; Translations: [Chronic kidney disease, stage 2 (mild)] 05-14-2023 Chronic Congestive heart failure; nonhypertensive (20 sources) Heart failure; Translations: [Unspecified combined systolic (congestive) and diastolic (congestive) heart failure] 05-14-2023 Chronic Past or Other Problems Problem Classification Problem Date Documented Da te Episodic/Chronic Unclassified (4 sources) Cough - The onset of the cough has been acute and has been occurring in an intermittent pattern for 2 weeks. The course has been increasing. The cough is characterized as productive of mucoid sputum. The amount of sputum is scanty. The cough occurs all the time. Associated symptoms include nasal congestion, sinus discharge and sore throat, while there is no fever. 09-14-2022 Unclassified (3 sources) Follow up consultation - The patient is here to follow-up after Emergency Room/Urgent Care on : (04/14/2020). Current symptoms include foot pain. Note for Consultation follow-up : Pt went to the ER for foot pain and swelling. Was given IV clindamycin and then sent home on 300mg QID. It has improved significantly - only little bit of swelling remains. 04-19-2020 Unclassified (3 sources) [ADDITIONAL REASON] Transition into care - The patient is transitioning into care from an emergency room and a summary of care was reviewed. 04-19-2020 Unclassified (4 sources) Cold Symptoms - Symptoms include nasal congestion, runny nose, purulent discharge, scratchy throat, dry cough, fever (initially), headache and facial pain, but do not include sneezing, ear pain or ear fullness. The onset was gradual 6 day(s) ago. The symptoms occur frequently. The patient describes this as moderate in severity and unchanged. Current treatment includes non-prescription cold medication and NSAIDs. Risk factors do not include smoking. The patient has not been exposed to an individual with similar symptoms. Medical history includes recurrent sinusitis, but patient denies history of asthma or tonsillectomy. Note for Upper respiratory infection : Pt. c/o red, watery eyes with yellow drainage since wednesday08-22-2018 Unclassified (4 sources) Heart Fluttering - Patient is here today to follow up from his [facility] physical. He was at his physical and the doctor states his heart was fluttering. Patient is not having any symptoms - no chest pain, fluttering sensation, etc. 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 TSH is UTD and is within normal range. Had a stress test years ago and had a skipped beat at that time. An EKG was not done at the [facility] physical. 06-23-2017 Unclassified (1 source) Transition into care - The patient is transitioning into care from an emergency room and a summary of care was reviewed. 04-19-2020 Unclassified (1 source) [ADDITIONAL REASON] Follow up consultation - The patient is here to follow-up after Emergency Room/Urgent Care on : (04/14/2020). Current symptoms include foot pain. Note for Consultation follow-up : Pt went to the ER for foot pain and swelling. Was given IV clindamycin and then sent home on 300mg QID. It has improved significantly - only little bit of swelling remains. 04-19-2020 Results Test Name Value Interpretation Reference Range Facil ity Vital Signs Date Time Vital Sign Value Performing Clinician Faci lity 05-14-2023 14:00-0500 Body height 167.64 cm Richard STODDARD-C Work Phone: [employer]; [employer] 05-14-2023 14:00-0500 Body mass index (BMI) [Ratio] 28.89 kg/m2 Richard STODDARD-C Work Phone: [employer]; [employer] 05-14-2023 14:00-0500 Body surface area Derived from formula 1.91 m2 Richard Summers PA-C Work Phone: [employer]; [employer] 05-14-2023 14:00-0500 Body weight 81.19 kg Richard Summers PA-C Work Phone: [employer]; [employer] 05-14-2023 14:00-0500 Diastolic blood pressure 59 mm[Hg] Richard Summers PA-C Work Phone: [employer]; [employer] Encounters Encounter Date Encounter Type Care Provider Facility Start: 05-24-2023 End: 05-24-2023 ambulatory RICHARD SUMMERS [facility] Start: 05-20-2023 End: 05-20-2023 Orders Richard STODDARD-C Work Phone: [employer] Start: 05-14-2023 End: 05-14-2023 Office outpatient visit 25 minutes Richard Summers PA-C Work Phone: [employer]. Start: 02-12-2023 End: 02-12-2023 Orders Richard Summers PA-C Work Phone: [employer]. Start: 02-08-2023 End: 02-08-2023 Office outpatient visit 25 minutes Richard Summers PA-C Work Phone: [employer]. Start: 12-02-2022 End: 12-03-2022 Orders Richard Summers PA-C Work Phone: [employer]. Start: 11-09-2022 End: 11-10-2022 ambulatory [facility] Start: 10-09-2022 End: 10-09-2022 ambulatory [facility] Start: 09-17-2022 End: 09-17-2022 Orders Richard Summers PA-C Work Phone: [employer]. Start: 09-14-2022 End: 09-14-2022 ambulatory [facility] Start: 09-14-2022 End: 09-14-2022 Office outpatient visit 15 minutes Richard Summers PA-C Work Phone: [employer]. Start: 07-13-2022 End: 07-13-2022 Office outpatient visit 25 minutes Richard Summers PA-C Work Phone: [employer] Start: 06-03-2022 End: 06-03-2022 Orders Richard Summers PA-C Work Phone: [employer] Start: 05-04-2022 End: 05-04-2022 Patient encounter procedure Richard Summers PA-C Work Phone: [employer] Start: 04-27-2022 End: 04-27-2022 Orders Richard Summers PA-C Work Phone: [employer] Start: 04-20-2022 End: 04-20-2022 Orders Richard Summers PA-C Work Phone: [employer]. Start: 11-10-2021 End: 11-10-2021 Office outpatient visit 25 minutes Richard Summers PA-C Work Phone: [employer]. Start: 05-01-2021 End: 05-01-2021 Patient encounter procedure Richard Summers PA-C Work Phone: [employer]. Start: 02-24-2021 End: 02-24-2021 Orders Richard Summers PA-C Work Phone: [employer]. Start: 02-21-2021 End: 02-21-2021 Telephone follow-up Richard Summers PA-C Work Phone: [employer]. Start: 07-03-2020 End: 07-03-2020 Patient encounter procedure Richard Summers PA-C Work Phone: [employer]. Start: 05-07-2020 End: 05-08-2020 Medication Richard Summers PA-C Work Phone: [employer]. Start: 04-24-2020 End: 04-24-2020 Telephone follow-up Richard Summers PA-C Work Phone: [employer]. Start: 04-19-2020 End: 04-19-2020 Patient encounter procedure Richard Summers PA-C Work Phone: [employer]. Start: 02-22-2020 End: 02-22-2020 Historical Summary Richard Summers PA-C Work Phone: [employer]. Start: 12-22-2019 End: 12-22-2019 Historical Summary Richard Summers PA-C Work Phone: [employer]. Start: 12-22-2019 End: 12-22-2019 Patient encounter procedure Shannon Russell LPN [employer]. Start: 06-21-2019 End: 06-22-2019 Office outpatient visit 25 minutes Richard Summers PA-C Work Phone: [employer]. Start: 03-02-2019 End: 03-02-2019 Orders Richard Summers PA-C Work Phone: [employer]. Start: 02-15-2019 End: 02-15-2019 Patient encounter procedure Shannon Yvonne DOWELLN [employer]. Start: 10-26-2018 End: 10-26-2018 Medication Richard Summers PA-C Work Phone: [employer]. Start: 08-22-2018 End: 08-22-2018 Historical Summary Richard Summers PA-C Work Phone: [employer]. Start: 08-22-2018 End: 08-22-2018 Office outpatient visit 25 minutes Richard Summers PA-C Work Phone: [employer]. Start: 05-16-2018 End: 05-18-2018 Office outpatient visit 25 minutes Richard Summers PA-C Work Phone: [employer]. Start: 04-05-2018 End: 04-05-2018 Orders Richard Summers PA-C Work Phone: [employer]. Start: 09-27-2017 End: 09-27-2017 Historical Summary Richard Summers PA-C Work Phone: [employer]. Start: 09-27-2017 End: 09-27-2017 Office outpatient visit 25 minutes Richard Summers PA-C Work Phone: [employer]. Start: 09-24-2017 End: 09-24-2017 Ambulatory RICHARD SUMMERS Facility:R Start: 09-23-2017 End: 09-24-2017 Telephone follow-up Richard Summers PA-C Work Phone: [employer]. Start: 09-21-2017 End: 09-21-2017 Telephone follow-up Richard Summers PA-C Work Phone: [employer]. Start: 09-17-2017 End: 09-21-2017 Evaluation and management of inpatient RICHARD SUMMERS Facility:A Start: 06-23-2017 End: 06-23-2017 Office outpatient visit 15 minutes Richard Summers PA-C Work Phone: [employer]. Start: 03-19-2017 End: 03-22-2017 Orders Richard Summers PA-C Work Phone: [employer]. Start: 01-27-2017 End: 01-27-2017 Medication Richard Summers PA-C Work Phone: [employer]. Start: 12-17-2016 End: 12-17-2016 Medication Richard Summers PA-C Work Phone: [employer]. Start: 12-16-2016 End: 12-16-2016 Orders Richard Summers PA-C Work Phone: [employer]. Start: 12-12-2016 End: 12-14-2016 Orders Richard Summers PA-C Work Phone: [employer]. Start: 11-06-2016 End: 11-07-2016 Office outpatient new 45 minutes Richard Summers PA-C Work Phone: [employer]. Start: 11-05-2016 End: 11-05-2016 Historical Summary Richard Summers PA-C Work Phone: [employer]. Patient encounter procedure Paloma Corcoran LPN [employer].; [employer]. Patient encounter procedure Paloma Corcoran LPN [employer].; [employer]. Procedures Date Procedure Procedure Detail Performing Clinician Start: 02-08-2023 End: 02-08-2023 Removal impacted cerumen instrumentation unilat Richard Summers PA-C Work Phone: Start: 09-17-2022 End: 10-14-2022 TTE w or wo fol wcon,Doppler Hermelindo santoyor PA-C Work Phone: Start: 09-14-2022 End: 09-15-2022 Chest x-ray Hermelindo Steele P A-C Work Phone: Start: 07-13-2022 End: 12-02-2022 Polysom 6/>yrs sleep 4/> addl parag attnd Richard Edward Summers PA-C Work Phone: Start: 05-04-2022 End: 05-04-2022 Adv care pln/ no alt dcsn mkr docd or refusal Richard Edward Summers PA-C Work Phone: Start: 05-04-2022 End: 05-04-2022 Depression screening Richard Edward Summers PA -C Work Phone: Start: 05-04-2022 End: 05-04-2022 Falls risk assessment documented Richard Edward Summers PA-C Work Phone: Start: 05-04-2022 End: 05-04-2022 PPPS, subseq visit Richard Edward Summers PA- C Work Phone: Start: 05-04-2022 End: 05-04-2022 Pt falls assess docd w/o fall/injury past year Richard Edward Summers PA-C Work Phone: Start: 05-04-2022 End: 05-04-2022 Scr dep neg, no plan reqd Richard Self er PA-C Work Phone: Start: 05-04-2022 End: 06-03-2022 Brncdilat rspse spmtry pre&post-brncdilat admn Richard Edward Summers PA-C Work Phone: Start: 05-04-2022 End: 05-20-2022 Chest x-ray Richard Edward Summers PA- C Work Phone: Start: 11-10-2021 End: 12-05-2021 TTE w or wo fol wcon,Doppler Richard J Juarez reeder PA-C Work Phone: Start: 11-10-2021 End: 12-05-2021 Myocardial spect multiple studies Richard Edward Kristopher FALL Work Phone: Start: 05-01-2021 End: 05-01-2021 Depression screening Richardkeiko Agustin Work Phone: Start: 05-01-2021 End: 05-01-2021 Falls risk assessment documented Richard Wagner Summers PA-C Work Phone: Start: 05-01-2021 End: 05-01-2021 PPPS, subseq visit Richard Wagner Clifton Work Phone: Start: 05-01-2021 End: 05-01-2021 Pt falls assess docd w/o fall/injury past year Richard Summers PA-C Work Phone: Start: 05-01-2021 End: 05-01-2021 Scr dep neg, no plan reqd Richard Edward Aramis hidalgo PA-C Work Phone: Start: 04-07-2021 End: 04-07-2021 Lab findings surveillance Sanjuana adkins MA Plan of Treatment Date Care Activity Detail Author Start: 06-14-2023 Patient encounter procedure Medical; RTN OFFICE VISIT - 1 MO F/U [employer]. Start: 14-Jun-2023 8:40 JUAN DAVID Summers Appointment Request [employer] [facility]. Start: 05-20-2023 End: 05-20-2023 Xtrnl pt activ ecg transmis w/r&i 30 days 30 Day Cardiac Event Monitor ([id number]) Date: 20-May-2023 Comments: 14 DAY [employer].; [employer] [facility]. Immunizations Immunization Date Immunization Notes Care Provider Meliton chavez 02-15-2019 influenza, injectabl e, quadrivalent, contains preservative Richard Summers PA-C Work Phone: [employer]; [employer]. Payers Date Payer Category Payer Unknown [id number] 1940 Unknown [id number] 1940 Unknown [id number] 1940 Unknown [id number] 1940 Unknown [id number] 1940 Unknown [id number] Unknown [employer] - PRIMETIME Social History Date Type Detail Facility Current Work/Study Status Current Work/St udy Status [employer]; [employer] Tobacco Use: Tobacco Use: ; N ever smoker. [employer]; [employer] [facility]; [employer] Work Phone: Never smoked tobacco [employer]; [employer] Work Phone: Summary Purpose Family History bone cancer Status:Active Comments:Sister. Breast Cancer Status:Active Comments:Family Members In General. 2 sisters Coronary Artery Disease Status:Active Comments :Brother. Diabetes Mellitus Type I Status:Active Comment s:Sister. age 11 bone cancer Status:Active Comments:Sister. Breast Cancer Status:Active Comments:Family Members In General. 2 sisters Coronary Artery Disease Status:Active Comments :Brother. Diabetes Mellitus Type I Status:Active Comment s:Sister. age 11 bone cancer Status:Active Comments:Sister. Breast Cancer Status:Active Comments:Family Members In General. 2 sisters Coronary Artery Disease Status:Active Comments :Brother. Diabetes Mellitus Type I Status:Active Comment s:Sister. age 11 bone cancer Status:Active Comments:Sister. Breast Cancer Status:Active Comments:Family Members In General. 2 sisters Coronary Artery Disease Status:Active Comments :Brother. Diabetes Mellitus Type I Status:Active Comment s:Sister. age 11 Advance Directives No Advanced Directives Records FoundNo Advanced Directives Records FoundNo Advanced Directives Records Found Additional Source Comments (unrecognized sect ion and content) No Status Records FoundNo Status Records FoundNo Status Records Found INFORMATION SOURCE (unrecogn ized section and content) DATE CREATED AUTHOR AUTHOR'S ORGANIZ ATION 02/17/2023 [facility] DATE CREATED AUTHOR AUTHOR'S ORGANIZ ATION 05/24/2023 [facility] FOR RECORDS PERTAINING TO PATIENTS WHO ARE OR HAVE BEEN ENROLLED IN A CHEMICAL DEPENDENCY/SUBSTANCEABUSE PROGRAM, SOME INFORMATION MAY BE OMITTED. This clinical summary was aggregated from multiple sources. Caution should be exercised in using it in the provision of clinical care. This summary normalizes information from multiple sources, and as a consequence, information in this document may materially change the coding, format and clinical context of patient data. In addition, data may be omitted in some cases. CLINICAL DECISIONS SHOULD BE BASED ON THE PRIMARY CLINICAL RECORDS. [facility]. provides no warranty or guarantee of the accuracy or completeness of information in this document.
== END | disposition home or self-care (01) ==
PROVIDERS: PCP Physician Assistant; Referring Provider Physician Assistant Medical; Visit Provider Physician Assistant Medical
DX: I42.8 Other cardiomyopathies (principal)
CPT/HCPCS: 93306

== ENCOUNTER 2023-05-29 19:27 | Inpatient (IN) | payer MEDICARE, SELFPAY ==
[2023-05-29] VITALS (7 sets, daily range): BP systolic 85–108; BP diastolic 60–64; PULSE 70–95; RESP 12–28; TEMP 36.1–36.6; O2SAT 20–99; BMI 26.5
--- NOTE | 2023-05-29 19:51 | EDS_ITS ---
HPI History of Present Illness Chief Complaint: Weakness Informant: patient and family Narrative Narrative: Patient brought to the ER by family for increased sleep and fatigue for the past 2 days. Patient denies new symptoms family thinks his legs may be more swollen than usual. No syncope or near syncope today. Just less than 1 week ago, he had a Holter/event monitor at home that showed an abnormal 5 and 7-second pauses, he was deemed needing a pacemaker and had an outpatient echocardiogram in preparation for this yesterday. Family states they were not called about the results and they want to know the results and they are concerned because of his condition today. The patient denies having any chest discomfort, trouble breathing although he has looked like he has had some dyspnea per family, he denies new cough, GI symptoms, or headache or focal neurologic symptoms. Apparently since last month he has been on home oxygen, and he has not gone back to pulmonary yet to have more testing to see what kind of pulmonary diagnosis or problems he has that require him to need oxygen. Patient also suggest later that his CPAP machine which he wears nightly for sleep apnea has been malfunctioning for the last 2 nights, as and it will not even turn on. So has not been using it, just oxygen at night. The pulmonary appointment that he has in June is with Dr. Calhoun. 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 CHF (congestive heart failure) Chronic dyspnea Chronic kidney disease (CKD) Claudication of both lower extremities Cough Elevated hemoglobin Essential (primary) hypertension GERD (gastroesophageal reflux disease) Heart failure with preserved left ventricular function (HFpEF) History of COVID-19 Hyperlipidemia Hypothyroidism Nocturia Non-ischemic cardiomyopathy 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) Obesity Orthopnea Shortness of breath Syncope Unexplained weight loss Home Medications levothyroxine 125 mcg tablet 125 mcg PO DAILY thyroid 07/07/21 [History Last Taken Unknown] rosuvastatin 5 mg tablet 5 mg PO DAILY cholesterol 06/12/22 [History Last Taken Unknown] furosemide 40 mg tablet (Lasix) 40 mg PO DAILY diuretic #90 tabs 12/10/22 [Rx Last Taken Unknown] losartan 50 mg tablet 50 mg PO DAILY blood pressure #90 tabs 12/10/22 [Rx Last Taken Unknown] metoprolol tartrate 25 mg tablet 25 mg PO BID #1 TAB 05/25/23 [Rx Last Taken Unknown] Allergy/AdvReac Type Severity Reaction Status Date / Time No Known Allergies Allergy Verified 05/29/23 19:35 Family History Father Myocardial infarction Brother Myocardial infarction Surgical History History of appendectomy History of herniorrhaphy History of left heart catheterization (09/20/17) Social History Smoking Status: Never smoker alcohol intake: never substance use type: does not use caffeine: No ROS ROS ED Constitutional Constitutional ED: Reports fatigue and malaise; Denies chills or fever(s) Eyes Eyes: Denies change in vision or diplopia ENT ENT ED: Denies rhinorrhea or sore throat Cardiovascular Cardiovascular: Reports fatigue and leg edema; Denies chest pain, lightheadedness, palpitations or syncope Respiratory/Chest Respiratory/Chest: Denies cough or dyspnea Gastrointestinal Gastrointestinal: Denies abdominal pain, diarrhea, nausea or vomiting Genitourinary Genitourinary ED: Denies dysuria or hematuria Musculoskeletal Musculoskeletal: Denies back pain or neck pain Integumentary Denies abscess or rash Neurologic Neurologic: Denies headache(s), paresthesias or weakness Psychiatric Psychiatric: Denies anxiety or suicidal thoughts EXAM Physical Exam Const Vital Signs: 05/29/23 19:29 05/29/23 19:55 05/29/23 20:00 Temperature 97.0 F L Temperature Source Temporal Pulse Rate 82 Respiratory Rate 15 Respiratory Effort Labored Respiratory Pattern Blood Pressure 92/64 Blood Pressure Mean 73 Pulse Ox 99 Oxygen Delivery Method Nasal Cannula Nasal Cannula Oxygen Flow Rate (L/min) 2 2 Fraction of Inspired Oxygen (FIO2) 05/29/23 21:43 05/29/23 21:45 05/29/23 21:40 Temperature 97.9 F Temperature Source Pulse Rate 87 95 87 Respiratory Rate 28 H 20 H Respiratory Effort Respiratory Pattern Tachypnea Blood Pressure 108/60 Blood Pressure Mean 76 Pulse Ox 93 93 Oxygen Delivery Method Oxygen Flow Rate (L/min) Fraction of Inspired Oxygen (FIO2) 35 Positive well nourished and well developed Constitutional Narrative: Somnolent but alerts easily to voice and can converse. No distress. General Appearance ED: well developed and NAD HEENT Reports moist mucous membranes normocephalic and atraumatic Eyes PERRL and EOMs intact bilaterally Neck full ROM and supple Neck Narrative: Mild JVD Chest Wall inspection of chest normal and palpation of chest normal Resp normal respiratory effort and clear to auscultation bilaterally Cardio regular rate and regular rhythm Rate: Negative for bradycardia or tachycardic GI non-tender and non-distended Auscultation: normoactive bowel sounds Palpation: soft Back/Spine no CVA tenderness General Back: other FROM Extremity normal to inspection General Extremety ED: Yes edema; Negative for pulses abnormal or tenderness General Extremity: edema bilateral lower extremity Details: moderate; Negative for pulses abnormal Neuro oriented x3, CN's II-XII intact bilaterally and no sensory deficits noted Sensorium / Orientation: awake and alert Motor Exam: strength 5/5 throughout Psych mental status grossly normal Skin no rashes or lesions noted and no wounds MDM MDM MDM Narrative Medical decision making narrative: Patient's workup here is unremarkable, except for his ABG which shows an acute respiratory acidosis with a pCO2 of almost 90. I think this is probably the cause of his somnolence and the timing coexist with malfunction of his CPAP machine which would explain this. He may have COPD, he does not have official pulmonary diagnosis yet. His BNP is low, suggesting he is not in acute decompensated congestive heart failure, his one-view portable chest x-ray my interpretation shows no acute CHF or pneumonia, but shows what probably is bilateral basilar atelectasis plus or minus effusions. His EKG shows a sinus rhythm. I reviewed his recent echocardiogram and discussed results with the family, it was not quite as similar to what his prior echo was about a year ago, his ejection fraction was 45% so he will not likely require any ICD be placed along with the pacemaker. At this time the plan is to admit him overnight after starting him on BiPAP, discussed with hospitalist. Of note I did recommend as part of her workup to obtain a COVID/influenza test given the nonspecific fatigue/malaise he has had, but he and family refused the test. Lab Data Attestation: I reviewed the patient's lab results. Labs: Laboratory Results - last 24 hr 05/29/23 19:50 WBC 8.9 RBC 4.93 Hgb 15.4 Hct 50.4 MCV 102.2 H MCH 31.2 MCHC 30.6 L RDW Std Deviation 51.8 H RDW Coeff of Yenni 13.4 Plt Count 167 MPV 10.9 Immature Gran % (Auto) 0.100 Neut % (Auto) 74.7 H Lymph % (Auto) 14.0 L [place] % (Auto) 9.9 Eos % (Auto) 1.0 Baso % (Auto) 0.3 Absolute Neuts (auto) 6.6 Absolute Lymphs (auto) 1.24 Nucleated RBC % 0 Sodium 141 Potassium 5.0 Chloride 97 L Carbon Dioxide 43.0 H Anion Gap 1 L BUN 27 H Creatinine 1.01 Estim Creat Clear Calc 57.51 Est GFR (MDRD) Af Amer 91 Est GFR (MDRD) Non-Af 75 BUN/Creatinine Ratio 26.7 H Glucose 117 H Calcium 9.0 Troponin I High Sens 16 B-Natriuretic Peptide 93.3 ABG Data ABG results: ABG 05/29/23 21:06 Specimen Type ART Sample Site L Radial pH 7.30 L Bicarbonate Actual 43.6 H Total CO2 46 Base Excess 17 H O2 Saturation 93 L O2 % 3.0 ABG pCO2 88.2 H* ABG pO2 77 Gee Test Positive O2 Delivery Device Cannula Vent Mode Not entered Crit Call To/Read Back Yes Blood Gas Notified Whom LEONILA NAIR Blood Gas Notified Time 21:08:25 Radiography Diagnostic Testing: Clinical Impression(s) from Imaging Studies Chest X-Ray 05/29/23 21:22 IMPRESSION: Poor inspiration with some bibasilar atelectasis. Electronically Signed: Juan Luo MD at 21:49 EST , Rhythm Strip Rhythm Strip: Sinus Rhythm Rate: 75 Ectopy: None EKG Initial EKG: Attestation: I personally reviewed and interpreted this EKG as follows: Interpretation: Sinus Rhythm and No Acute Injury Pattern Management Discussion w/another healthcare provider: Hospitalist Discharge Plan Dx/Rx/DC Orders Clinical Impression: Acute hypercapnic respiratory failure, Sinus pause, ZEENAT (obstructive sleep apnea), Non-ischemic cardiomyopathy Disposition Disposition: Acute Care Hospital [facility]
--- NOTE | 2023-05-29 19:51 | EKG12_ITS ---
Test Reason : LETHARGIC Blood Pressure : / mmHG Vent. Rate : 074 BPM Atrial Rate : 074 BPM P-R Int : 202 ms QRS Dur : 100 ms QT Int : 384 ms P-R-T Axes : 048 -16 013 degrees QTc Int : 426 ms Sinus rhythm with Premature atrial complexes Possible Left atrial enlargement Inferior infarct , age undetermined Abnormal ECG Confirmed by AURA CASTANEDA, DONALDO ([id number]), editorial manager MARCO ANTONIO HOOPER ([id number]) on 05/31/2023 6:11:14 AM Referred By: BB Confirmed By:DONALDO CHAVARRIA MD
[2023-05-29 20:08] LABS: Absolute Lymphocyte Count 1.24 X10^3/uL (0.83-4.51); Absolute Neutrophil Count 6.6 X10^3/uL (2.0-7.7); Basophil# 0.03 X10^3/uL; Basophil% 0.3 % (0-1); Eosinophil# 0.09 X10^3/uL; Hematocrit 50.4 % (40-54); Hemoglobin 15.4 g/dL (13.0-16.5); Lymphocyte # 1.24 X10^3/ul (0.83-4.51); Mean Corp Hgb Conc 30.6 g/dL (32-36); Mean Corpuscular Hgb 31.2 pg (27.0-32.0); Mean Corpuscular Volume 102.2 fL (80-94); Mean Platelet Vol. 10.9 fl (6.2-12.0); Monocyte# 0.88 X10^3/uL; Monocyte% 9.9 % (0-10); NRBC Flagged by Analyzer 0 % (0-5); Neutrophil % 74.7 % (47-70); Platelet Count 167 K/mm3 (150-450); RBC Distribution Width CV 13.4 % (11.6-14.6); RBC Distribution Width SD 51.8 fl (35.1-43.9); Red Blood Count 4.93 M/mm3 (4.6-6.2); White Blood Count 8.9 K/mm3 (4.4-11.0)
--- OUTSIDE RECORDS SUMMARY | 2023-05-29 20:19 | XMS RPT_ITS | CCD ---
Author Name Unknown Address [id number] [place] [address] Organization [facility] Care Team Providers Care University Archivist Name Role Phone RICHARD SUMMERS Unavailable Unavailable DONNA CANALES Unavailable Unavailable JONIELIZABETH CHAUDHARIABH Unavailable Unavailable JONI SUSAN Unavailable Unavailable SOUMYA MACIEL Unavailable Unavailable RICHARD SUMMERS Unavailable Unavailable RICHARD SUMMERS Unavailable Unavailable Richard Summers PA-C Unavailable Richard Summers PA-C Unavailable Pulmonary Provider Unavailable Unavailable Cardiology Provider Unavailable Unavailable German CASTANEDA, Dr. P[facility]rez ([facility]) Unavailable [facility] Unavailable Dr. Kamaljit Tiwari MD Unavailable [phone] Lakeisha LITHOGRAPHIC ARTIST, Lissa Unavailable Tito LEMOS, Radha Unavailable Unavailable Meghann Rosenthal PA-C Unavailable Hermelindo Steele PA-C Unavailable Aleshia Steele Unavailable Unavailable Vineet LEMOS, Sanjuana Unavailable Unavailable Meghann St RN Unavailable Unavaila noman Boo LPN, Tam Unavailable Unavailable Rupert BROWER, Kathleen Zuleta Unavailable Unavailable Mutersnaty DOWELLN, Martha K Unavailable Unavai labniya Corcoran LPN, Paloma M Unavailable Unavailab Sanjuana Singh MA Unavailable Unavailable Yvonne DOWELLN, Shannon Unavailable [...] SUMMERS Consulting Unavailable SANJUANA CASTELLANOS Admitting Unavailable SANUJANA CASTELLAONS Primary Care Unavailable SANJUANA CASTELLANOS Attending Unavailable [...] 14-May-2023 JUAN DAVID Summers Start: 14-May-2023 Saw Medanales (Serenoa repens) 1000 MG Oral Capsule (4 sources) take 1 capsule by mouth once daily Saw Medanales (Serenoa repens) 1000 MG Oral Capsule ; [...] here today to follow up from his [facility] physical. He was at his physical and [...] An EKG was not done at the [facility] physical. 06-23-2017 Unclassified (1 source) Transition into [...] height 167.64 cm Richard STODDARD-C Work Phone: [employer]; [employer] 05-14-2023 14:00-0500 Body mass index (BMI) [Ratio] 28.89 kg/m2 Richard STODDARD-C Work Phone: [employer]; [employer] 05-14-2023 14:00-0500 Body surface area Derived from formula 1.91 m2 Richard Summers PA-C Work Phone: [employer]; [employer] 05-14-2023 14:00-0500 Body weight 81.19 kg Richard Summers PA-C Work Phone: [employer]; [employer] 05-14-2023 14:00-0500 Diastolic blood pressure 59 mm[Hg] Richard Summers PA-C Work Phone: [employer]; [employer] Encounters Encounter Date Encounter Type Care Provider Facility Start: 05-24-2023 End: 05-24-2023 ambulatory RICHARD SUMMERS [facility] Start: 05-20-2023 End: 05-20-2023 Orders Richard STODDARD-C Work Phone: [employer] Start: 05-14-2023 End: 05-14-2023 Office outpatient visit 25 minutes Richard Summers PA-C Work Phone: [facility]. Start: 02-12-2023 End: 02-12-2023 Orders Richard Summers PA-C Work Phone: [facility]. Start: 02-08-2023 End: 02-08-2023 Office outpatient visit 25 minutes Richard Summers PA-C Work Phone: [facility]. Start: 12-02-2022 End: 12-03-2022 Orders Richard Summers PA-C Work Phone: [facility]. Start: 11-09-2022 End: 11-10-2022 ambulatory [facility] Start: 10-09-2022 End: 10-09-2022 ambulatory [facility] Start: 09-17-2022 End: 09-17-2022 Orders Richard Summers PA-C Work Phone: [facility]. Start: 09-14-2022 End: 09-14-2022 ambulatory [facility] Start: 09-14-2022 End: 09-14-2022 Office outpatient visit 15 minutes Richard Summers PA-C Work Phone: [employer]. Start: 07-13-2022 End: 07-13-2022 Office outpatient visit 25 minutes Richard Summers PA-C Work Phone: [employer] Start: 06-03-2022 End: 06-03-2022 Orders Richard Summers PA-C Work Phone: [employer] Start: 05-04-2022 End: 05-04-2022 Patient encounter procedure Richard Summers PA-C Work Phone: [employer] Start: 04-27-2022 End: 04-27-2022 Orders Richard Summers PA-C Work Phone: [employer] Start: 04-20-2022 End: 04-20-2022 Orders Richard Summers PA-C Work Phone: [employer]. Start: 11-10-2021 End: 11-10-2021 Office outpatient visit 25 minutes Richard Summers PA-C Work Phone: [employer]. Start: 05-01-2021 End: 05-01-2021 Patient encounter procedure Richard Summers PA-C Work Phone: [employer]. Start: 02-24-2021 End: 02-24-2021 Orders Richard Summers PA-C Work Phone: [employer]. Start: 02-21-2021 End: 02-21-2021 Telephone follow-up Richard Summers PA-C Work Phone: [facility]. Start: 07-03-2020 End: 07-03-2020 Patient encounter procedure Richard Summers PA-C Work Phone: [facility]. Start: 05-07-2020 End: 05-08-2020 Medication Richard Summers PA-C Work Phone: [employer]. Start: 04-24-2020 End: 04-24-2020 Telephone follow-up Richard Summers PA-C Work Phone: [employer]. Start: 04-19-2020 End: 04-19-2020 Patient encounter procedure Richard Summers PA-C Work Phone: [facility]. Start: 02-22-2020 End: 02-22-2020 Historical Summary Richard Summers PA-C Work Phone: [employer]. Start: 12-22-2019 End: 12-22-2019 Historical Summary Richard Summers PA-C Work Phone: [employer]. Start: 12-22-2019 End: 12-22-2019 Patient encounter procedure Shannon Russell LPN [facility]. Start: 06-21-2019 End: 06-22-2019 Office outpatient visit 25 minutes Richard Summers PA-C Work Phone: [employer]. Start: 03-02-2019 End: 03-02-2019 Orders Richard Summers PA-C Work Phone: [facility]. Start: 02-15-2019 End: 02-15-2019 Patient encounter procedure Shannon Yvonne DOWELLN [facility]. Start: 10-26-2018 End: 10-26-2018 Medication Richard Summers PA-C Work Phone: [facility]. Start: 08-22-2018 End: 08-22-2018 Historical Summary Richard Summers PA-C Work Phone: [employer]. Start: 08-22-2018 End: 08-22-2018 Office outpatient visit 25 minutes Richard Summers PA-C Work Phone: [employer]. Start: 05-16-2018 End: 05-18-2018 Office outpatient visit 25 minutes Richard Summers PA-C Work Phone: [employer]. Start: 04-05-2018 End: 04-05-2018 Orders Richard Summers PA-C Work Phone: [employer]. Start: 09-27-2017 End: 09-27-2017 Historical Summary Richard Summers PA-C Work Phone: [employer]. Start: 09-27-2017 End: 09-27-2017 Office outpatient visit 25 minutes Richard Summers PA-C Work Phone: [employer]. Start: 09-24-2017 End: 09-24-2017 Ambulatory RICHARD SUMMERS Facility:R Start: 09-23-2017 End: 09-24-2017 Telephone follow-up Richard Summers PA-C Work Phone: [facility]. Start: 09-21-2017 End: 09-21-2017 Telephone follow-up Richard Summers PA-C Work Phone: [employer]. Start: 09-17-2017 End: 09-21-2017 Evaluation and management of inpatient RICHARD SUMMERS Facility:A Start: 06-23-2017 End: 06-23-2017 Office outpatient visit 15 minutes Richard Summers PA-C Work Phone: [facility]. Start: 03-19-2017 End: 03-22-2017 Orders Richard Summers PA-C Work Phone: [facility]. Start: 01-27-2017 End: 01-27-2017 Medication Richard Summers PA-C Work Phone: [facility]. Start: 12-17-2016 End: 12-17-2016 Medication Richard Summers PA-C Work Phone: [facility]. Start: 12-16-2016 End: 12-16-2016 Orders Richard Summers PA-C Work Phone: [employer]. Start: 12-12-2016 End: 12-14-2016 Orders Richard Summers PA-C Work Phone: [facility]. Start: 11-06-2016 End: 11-07-2016 Office outpatient new 45 minutes Richard Summers PA-C Work Phone: [facility]. Start: 11-05-2016 End: 11-05-2016 Historical Summary Richard Summers PA-C Work Phone: [facility]. Patient encounter procedure Paloma Corcoran LPN [facility]. Patient encounter procedure Paloma Corcoran LPN [facility]. Procedures Date Procedure Procedure Detail Performing Clinician [...] RTN OFFICE VISIT - 1 MO F/U [facility]. Start: 14-Jun-2023 8:40 JUAN DAVID Summers Appointment Request [facility]. Start: 05-20-2023 End: 05-20-2023 Xtrnl pt activ ecg transmis w/r&i 30 days 30 Day Cardiac Event Monitor ([id number]) Date: 20-May-2023 Comments: 14 DAY [facility] Immunizations Immunization Date Immunization Notes Care Provider Meliton chavez 02-15-2019 influenza, injectabl e, quadrivalent, contains preservative Richard Summers PA-C Work Phone: [employer]; [facility] Payers Date Payer Category Payer Unknown [id number] 1940 Unknown [id number] 1940 Unknown [id number] 1940 Unknown [id number] 1940 Unknown [id number] 1940 Unknown [id number] Unknown [employer] Social History Date Type Detail Facility Current Work/Study Status Current Work/St udy Status [employer]; [employer] Tobacco Use: Tobacco Use: ; N ever smoker. [employer] [employer]; [employer] Work Phone: Never smoked tobacco [employer]; [employer] Work Phone: Summary Purpose Family History bone [...] DATE CREATED AUTHOR AUTHOR'S ORGANIZ ATION 05/24/2023 [facility] FOR RECORDS PERTAINING TO PATIENTS WHO [...] BE BASED ON THE PRIMARY CLINICAL RECORDS. [facility] [employer] [facility]. provides no warranty or guarantee of the accuracy or completeness of information in this document.
[2023-05-29 20:27] LABS: Anion Gap 1 (5-15); BUN 27 mg/dL (7-18); BUN/Creat Ratio 26.7 RATIO (10-20); Chloride 97 mmol/L (98-107); Creatinine, Serum 1.01 mg/dL (0.70-1.30); EST Glomerular Filtration Rate 75 mL/min (>60); Est Glom Filt Rate - Afr Amer 91 mL/min (>60); Estimated Creatinine Clearance 57.51 ml/min; Glucose 117 mg/dL (74-106); Sodium Level 141 mmol/L (136-145); Troponin-I HS 16 pg/mL (3.0-78.0)
[2023-05-29 20:37] LABS: BNP,B-Type NATRIURETIC PEPTIDE 93.3 pg/mL (0-100)
[2023-05-29 21:12] LABS: Allen Test Positive; Base Excess 17 mmol/L (-2 to +2); Bicarbonate 43.6 mmol/L (22-26); Blood Gas Specimen Type ART; Mode Not entered; O2 Delivery Device Cannula; PO2 77 mmHG (75-100); SITE L Radial; SO2 93 % (95-99); Time Given 21:08:25; Total Carbon Dioxide 46 mmol/L; pCO2 88.2 mmHg (35-45)
--- NOTE | 2023-05-29 21:12 | CPS ---
ER doc BB notified of ABG critical value by EXPERIENCE SPECIALIST
--- NOTE | 2023-05-29 21:22 | RAD_ITS ---
STUDY: X-RAY CHEST REASON FOR EXAM: Male, 82 years old. sob TECHNIQUE: Single AP portable view of the chest. COMPARISON: 07/04/2022 FINDINGS: Poor inspiration with some bibasilar atelectasis. There is no demonstrated pleural abnormality. There is moderate cardiac enlargement. Normal mediastinum and leo. Normal visualized pulmonary arteries. Normal visualized aortic arch and descending thoracic aorta. Normal visualized thoracic spine. Normal visualized ribs, clavicles, and shoulders. There is no demonstrated abnormality of the visualized soft tissue structures of the upper abdomen. RAD/Chest 1 View (Portable) IMPRESSION: Poor inspiration with some bibasilar atelectasis. Electronically Signed: Juan Luo MD at 21:49 EST ,
--- NOTE | 2023-05-29 21:45 | HP.PCM_ITS ---
HPI - General General Date of Admission: 05/29/23 Date of Service: 05/29/23 Chief Complaint: weakness and debility HPI Narrative SILAS KHOURY, is a 82 M with a PMH as outlined who presents via the [facility] n 05/29/2023 with a compalitn of weakness nad fatigue for about 2 days prior to admission. He had had a Holter monitor placed recently which showed 5-7 second pauses. He had an outpatient echo yesterday as part of the workup for the pacemaker he was deemed to be needing; family said they hadnt yet been called with the results. He wears a CPAP at home but the machine had not been functioning for a while and he hadnt used it for 5 days prior to admission. He was placed on home oxygen one month ago for shortness of breath and was supposed to be seen by pulmonology on outpatient basis, but hadnt yet been seen. Family found him weak and lethargic. He denied any fever, chills, cough, chest pain, palpitations, dizziness, nausea, vomiting or any other symptoms. Review of systems is otherwise negative. Vitals in the ED were temp of 97F, FL of 82, BP of 108/60 and RR of 28. She was saturating at 93% on 2L of oxygen.ABG showed pCO2 of 88/2, pH of 7.30, pO2 of 77. CHemistry was significant for bicarb of 43. CBC was unremarkable. BNP was 93.3 and CXR showed poor inspiration with some bibasilar atelectasis. He is being admitted and managed for encephalopathy due to hypercapnic respiratory failure. 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 CHF (congestive heart failure) Chronic dyspnea Chronic kidney disease (CKD) Claudication of both lower extremities Cough Elevated hemoglobin Essential (primary) hypertension GERD (gastroesophageal reflux disease) Heart failure with preserved left ventricular function (HFpEF) History of COVID-19 Hyperlipidemia Hypothyroidism Nocturia Non-ischemic cardiomyopathy 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) Obesity Orthopnea Shortness of breath Syncope Unexplained weight loss Home Medications levothyroxine 125 mcg tablet 125 mcg PO DAILY thyroid 07/07/21 [History Last Taken Unknown] rosuvastatin 5 mg tablet 5 mg PO DAILY cholesterol 06/12/22 [History Last Taken Unknown] furosemide 40 mg tablet (Lasix) 40 mg PO DAILY diuretic #90 tabs 12/10/22 [Rx Last Taken Unknown] losartan 50 mg tablet 50 mg PO DAILY blood pressure #90 tabs 12/10/22 [Rx Last Taken Unknown] metoprolol tartrate 25 mg tablet 25 mg PO BID #1 TAB 05/25/23 [Rx Last Taken Unknown] Allergy/AdvReac Type Severity Reaction Status Date / Time No Known Allergies Allergy Verified 05/29/23 19:35 Family History Father Myocardial infarction Brother Myocardial infarction Surgical History History of appendectomy History of herniorrhaphy History of left heart catheterization (09/20/17) Social History Smoking Status: Never smoker alcohol intake: never substance use type: does not use caffeine: No ROS Review of Systems ROS Unobtainable: Denies due to encephalopathy Constitutional Constitutional: Reports fatigue, malaise and weakness; Denies anorexia, chills or fever(s) Eyes Eyes: Denies change in vision ENT HEENT: Denies dysphagia, headache(s) or sore throat Cardiovascular Cardiovascular: Denies chest pain, edema, orthopnea or paroxysmal nocturnal dyspnea Respiratory/Chest Respiratory/Chest: Denies cough, shortness of breath at rest, shortness of breath with exertion or wheezing Gastrointestinal Gastrointestinal: Denies abdominal pain, nausea or vomiting Genitourinary Genitourinary: Denies dysuria Musculoskeletal Musculoskeletal: Denies back pain Neurologic Neurologic: Denies confusion, dizziness, focal weakness or headache(s) Psychiatric Psychiatric: Denies anxiety Vital Signs Vital Signs Vital Signs: 05/29/23 19:29 05/29/23 19:55 05/29/23 20:00 Temperature 97.0 F L Temperature Source Temporal Pulse Rate 82 Respiratory Rate 15 Respiratory Effort Labored Blood Pressure 92/64 Blood Pressure Mean 73 Pulse Ox 99 Oxygen Delivery Method Nasal Cannula Nasal Cannula Oxygen Flow Rate (L/min) 2 2 05/29/23 21:43 Temperature 97.9 F Temperature Source Pulse Rate 87 Respiratory Rate 28 H Respiratory Effort Blood Pressure 108/60 Blood Pressure Mean 76 Pulse Ox 93 Oxygen Delivery Method Oxygen Flow Rate (L/min) Weight Weight: 180 lb 12.465 oz Body Mass Index (BMI) 30.0 Physical Exam Const alert Constitutional Narrative: on BIPAP General Appearance: cooperative Orientation / Consciousness: lethargic HEENT normocephalic, head/scalp atraumatic and moist oral mucous membranes Eyes PERRL and EOMs intact bilaterally Neck no lymphadenopathy and supple Lymph Lymphatic: Negative for no lymphadenopathy noted Resp Resp Narrative: markedly diminished breath sounds bibasally, no wheezes or crackles, lungs sound very tight. On BIPAP Cardio regular rate, regular rhythm, S1 normal heart sound, S2 normal heart sound and no murmurs GI normal to inspection, nondistended, normoactive bowel sounds, soft to palpation and non-tender Extremity normal capillary refill, no clubbing, cyanosis or edema and no calf tenderness Skin General Skin Exam: no breakdown Neuro CN's II-XII intact bilaterally Motor Exam: general weakness Psych thought process normal and cooperative Appearance: appropriate Results Lab / Micro Data 05/29/23 19:50 05/29/23 19:50 Labs: Laboratory Results - last 24 hr 05/29/23 19:50: WBC 8.9, RBC 4.93, Hgb 15.4, Hct 50.4, MCV 102.2 H, MCH 31.2, MCHC 30.6 L, RDW Std Deviation 51.8 H, RDW Coeff of Yenni 13.4, Plt Count 167, MPV 10.9, Immature Gran % (Auto) 0.100, Neut % (Auto) 74.7 H, Lymph % (Auto) 14.0 L, Hidalgo % (Auto) 9.9, Eos % (Auto) 1.0, Baso % (Auto) 0.3, Absolute Neuts (auto) 6.6, Absolute Lymphs (auto) 1.24, Nucleated RBC % 0, Sodium 141, Potassium 5.0, Chloride 97 L, Carbon Dioxide 43.0 H, Anion Gap 1 L, BUN 27 H, Creatinine 1.01, Estim Creat Clear Calc 57.51, Est GFR (MDRD) Af Amer 91, Est GFR (MDRD) Non-Af 75, BUN/Creatinine Ratio 26.7 H, Glucose 117 H, Calcium 9.0, Troponin I High Sens 16, B-Natriuretic Peptide 93.3 ABG Data ABG results: ABG 05/29/23 21:06 Specimen Type ART Sample Site L Radial pH 7.30 L Bicarbonate Actual 43.6 H Total CO2 46 Base Excess 17 H O2 Saturation 93 L O2 % 3.0 ABG pCO2 88.2 H* ABG pO2 77 Gee Test Positive O2 Delivery Device Cannula Vent Mode Not entered Crit Call To/Read Back Yes Blood Gas Notified Whom LEONILA NAIR Blood Gas Notified Time 21:08:25 Rhythm Strip Rhythm Strip: Sinus Rhythm Rate: 75 Ectopy: None Assessment & Plan Assessment/Plan (1) Acute hypercapnic respiratory failure: PLAN: Plan #Lethargy and weakness due to acute hypercapnic respiratory failure * hypercapnia likely due to patient not using his CPAP for the past 5 days prior to admission as it had malfunctioned * he had been put on oxygen recently by his PCP also and had been using that to sleep * He was due for an appointment with pulm 2 days prior to this admission, but had to cancel it because he was supposed to have an echo done on outpatient basis as well and felt quite weak * admit to PCU * ABG shwoed pCO2 of 88 * continue BIPAP. Breathing treatment with bronchodilators * consult pulmonology * titrate oxygen to maintain sats >90% * # History of arrythmia * had a Holter monitor placed recently which showed 5-7 second pauses. * He had a 2D echo 1 day ago as part of workup for pacemaker insertion which showed EF of 45% with stage 1 diastolic dysfunction and mild global hypokinesis of the left ventricle, moderately enlarged left atrium and pulmonary artery systolic pressure of 60mmHg and mild concentric LV hypertrophy * to follow up with cardiology on outpatient bassis * #Hypothyroidism: on synthroid #Combined HF: not in exacerbation. On lasix 40mg daily #ZEENAT: has not been using CPAP for hte last 5 days because it was malfunctioning. Now on BIPAP. PUlm consulted. #Pulmonary hypertension: likely due to underlying heart and lung disease. Echo findings as above. DVT prophylaxis: lovenox Code status: full code * Patient and daughters counseled extensively about different types of CODE STATUS including full code, DNR CCA and DNR CCA. * Patient elects to be full code. Total [id number] time 17 minutes. Total time spent on evaluation and management of patient, reviewing chart and specialist notes, discussing plan with patient and his daughters, discussion with nursing and ancillary staff as well as documentation:77 mins Charges/Coding Visit Charges Inpatient E&M: 18845 Init Hosp L3 Procedures Hospitalists Procedures: 76759 Advncd Care Plan 30 Min
--- OUTSIDE RECORDS SUMMARY | 2023-05-29 22:10 | XMS RPT_ITS | CCD ---
Author Name Unknown Address [address] [place] [address] Organization [facility] Care Team Providers Care Executive Pastry Chef Name Role Phone RICHARD SUMMERS Unavailable Unavailable DONNA CANALES Unavailable Unavailable JONIELIZABETH CHAUDHARIABH Unavailable Unavailable JONI SUSAN Unavailable Unavailable SOUMYA MACIEL Unavailable Unavailable RICHARD SUMMERS Unavailable Unavailable RICHARD SUMMERS Unavailable Unavailable Richard Summers PA-C Unavailable Richard Summers PA-C Unavailable Pulmonary Provider Unavailable Unavailable Cardiology Provider Unavailable Unavailable German CASTANEDA, Dr. Pérez ([facility]) Unavailable [facility] Unavailable Dr. Kamaljit Tiwari MD Unavailable [phone] Lakeisha FOLDER MACHINE ADJUSTER, Lissa Unavailable Tito LEMOS, Radha Unavailable Unavailable [...] Sig (Original) amLODIPine 5 mg oral tablet (5 sources) Dihydropyridine Calcium Channel Casper amLODIPine 5 mg tablet ; 1 daily (5 mg) furosemide 40 mg oral tablet (5 sources) Loop Diuretic take 1 mg by mouth once daily Lasix 40 MG Oral Tablet ; daily (40 MG) levothyroxine sodium 0.125 mg oral tablet (5 sources) l-Thyroxine Start: 05-14-2023 levothyroxine 125 mcg tablet ; 1 Tablet qd for 0 days Quantity: 90 {Tablet} Refills: 1 Ordered: 14-May-2023 JUAN DAVID Summers Start: 14-May-2023 losartan potassium 50 mg oral tablet (5 sources) Angiotensin 2 Receptor Casper take 1 mg by mouth once daily Losartan Potassium 50 MG Oral Tablet ; daily (50 MG) rosuvastatin calcium 5 mg oral tablet (5 sources) HMG-CoA Reductase Inhibitor Start: 05-14-2023 Crestor 5 mg tablet ; 1 (one) Tablet daily for 0 days Quantity: 30 {Tablet} Refills: 5 Ordered: 14-May-2023 JUAN DAVID Summers Start: 14-May-2023 [place] (Serenoa repens) 1000 MG Oral Capsule (5 sources) take 1 capsule by mouth once daily [place] (Serenoa repens) 1000 MG Oral Capsule ; 1 daily (1000 MG) Completed/Discontinued Medications Medication Drug Class(es) Dates Sig (Normalized) Sig (Original) amoxicillin 500 mg oral tablet (5 sources) Penicillin-class Antibacterial Start: 08-22-2018 End: 09-01-2018 take 1 tablet by mouth three times daily Amoxicillin 500 MG Oral Tablet ; 1 Tab three times daily for 10 days Quantity: 30 {Tablet} Refills: 0 Ordered: 22-Aug-2018 JUAN DAVID Rosenthal Start: 22-Aug-2018 End: 01-Sep-2018 Status: Inactive aspirin 81 mg delayed release oral tablet (5 sources) Platelet Aggregation Inhibitor, Nonsteroidal Anti-inflammatory Drug Aspirin EC 81 MG Oral Tablet Delayed Release ; 1qd (81 MG) Status: Inactive atorvastatin 10 mg oral tablet (5 sources) HMG-CoA Reductase Inhibitor take 1 tablet by mouth once daily Atorvastatin Calcium 10 MG Oral Tablet ; 1 qd (10 MG) Status: Inactive Cinnamon Bark (5 sources) Cinnamon ; 2 qd Status: Inactive clindamycin 300 mg oral capsule (10 sources) Lincosamide Antibacterial Start: 05-07-2020 End: 05-17-2020 take 1 capsule by mouth every eight hours Clindamycin HCl 300 MG Oral Capsule ; 1 (one) Capsule every eight hours for 10 days Quantity: 30 {Capsule} Refills: 0 Ordered: 07-May-2020 AMINTA Manley Start: 07-May-2020 End: 17-May-2020 Status: Inactive Problems Active Problems Problem Classification Problem Date Documented Da te Episodic/Chronic Acute and unspecified renal failure (10 sources) Acute injury of kidney; Translations: [Acute [...] Problem Date Documented Da te Episodic/Chronic Unclassified (5 sources) Cough - The onset of the [...] while there is no fever. 09-14-2022 Unclassified (4 sources) Follow up consultation - The patient is here to follow-up after Emergency Room/Urgent Care on : (04/14/2020). Current symptoms include foot pain. Note for Consultation follow-up : Pt went to the ER for foot pain and swelling. Was given IV clindamycin and then sent home on 300mg QID. It has improved significantly - only little bit of swelling remains. 04-19-2020 Unclassified (4 sources) [ADDITIONAL REASON] Transition into care - The patient is transitioning into care from an emergency room and a summary of care was reviewed. 04-19-2020 Unclassified (5 sources) Cold Symptoms - Symptoms include nasal [...] eyes with yellow drainage since wednesday08-22-2018 Unclassified (5 sources) Heart Fluttering - Patient is here today to follow up from his [facility] physical. He was at his physical and [...] An EKG was not done at the [facility] physical. 06-23-2017 Unclassified (1 source) Transition into [...] height 167.64 cm Richard STODDARD-C Work Phone: [facility]; [facility] 05-14-2023 14:00-0500 Body mass index (BMI) [Ratio] 28.89 kg/m2 Richard STODDARD-C Work Phone: [facility]; [facility] 05-14-2023 14:00-0500 Body surface area Derived from formula 1.91 m2 Richard Summers PA-C Work Phone: [employer]; [facility] 05-14-2023 14:00-0500 Body weight 81.19 kg Richard Summers PA-C Work Phone: [employer]; [facility] 05-14-2023 14:00-0500 Diastolic blood pressure 59 mm[Hg] Richard Summers PA-C Work Phone: [employer]; [facility] Encounters Encounter Date Encounter Type Care Provider Facility Start: 05-24-2023 End: 05-24-2023 ambulatory RICHARD SUMMERS [facility] Start: 05-20-2023 End: 05-20-2023 Orders Richard STODDARD-C Work Phone: [employer] Start: 05-14-2023 End: 05-14-2023 Office outpatient visit 25 minutes Richard Summers PA-C Work Phone: [facility]. Start: 02-12-2023 End: 02-12-2023 Orders Richard Summers PA-C Work Phone: [facility]. Start: 02-08-2023 End: 02-08-2023 Office outpatient visit 25 minutes Richard Summers PA-C Work Phone: [facility]. Start: 12-02-2022 End: 12-03-2022 Orders Richard Summers PA-C Work Phone: [facility]. Start: 11-09-2022 End: 11-10-2022 ambulatory [facility] Start: 10-09-2022 End: 10-09-2022 ambulatory [facility] Start: 09-17-2022 End: 09-17-2022 Orders Richard Summers PA-C Work Phone: [facility]. Start: 09-14-2022 End: 09-14-2022 ambulatory [facility] Start: 09-14-2022 End: 09-14-2022 Office outpatient visit 15 minutes Richard Summers PA-C Work Phone: [facility]. Start: 07-13-2022 End: 07-13-2022 Office outpatient visit 25 minutes Richard Summers PA-C Work Phone: [facility] Start: 06-03-2022 End: 06-03-2022 Orders Richard Summers PA-C Work Phone: [facility] Start: 05-04-2022 End: 05-04-2022 Patient encounter procedure Richard Summers PA-C Work Phone: [facility] Start: 04-27-2022 End: 04-27-2022 Orders Richard Summers PA-C Work Phone: [facility] Start: 04-20-2022 End: 04-20-2022 Orders Richard Summers PA-C Work Phone: [facility]. Start: 11-10-2021 End: 11-10-2021 Office outpatient visit 25 minutes Richard Summers PA-C Work Phone: [facility] [facility]. Start: 05-01-2021 End: 05-01-2021 Patient encounter procedure Richard Summers PA-C Work Phone: [facility]. Start: 02-24-2021 End: 02-24-2021 Orders Richard Summers PA-C Work Phone: [facility] [facility]. Start: 02-21-2021 End: 02-21-2021 Telephone follow-up Richard Summers PA-C Work Phone: [facility]. Start: 07-03-2020 End: 07-03-2020 Patient encounter procedure Richard Summers PA-C Work Phone: [facility]. Start: 05-07-2020 End: 05-08-2020 Medication Richard Summers PA-C Work Phone: [facility]. Start: 04-24-2020 End: 04-24-2020 Telephone follow-up Richard Summers PA-C Work Phone: [facility] [facility]. Start: 04-19-2020 End: 04-19-2020 Patient encounter procedure Richard Summers PA-C Work Phone: [facility]. Start: 02-22-2020 End: 02-22-2020 Historical Summary Richard Summers PA-C Work Phone: [employer]. Start: 12-22-2019 End: 12-22-2019 Historical Summary Richard Summers PA-C Work Phone: [facility]. Start: 12-22-2019 End: 12-22-2019 Patient encounter procedure Shannon Russell LPN [facility]. Start: 06-21-2019 End: 06-22-2019 Office outpatient visit 25 minutes Richard Summers PA-C Work Phone: [facility]. Start: 03-02-2019 End: 03-02-2019 Orders Richard Summers PA-C Work Phone: [facility]. Start: 02-15-2019 End: 02-15-2019 Patient encounter procedure Shannon Yvonne DOWELLN [facility]. Start: 10-26-2018 End: 10-26-2018 Medication Richard Summers PA-C Work Phone: [facility]. Start: 08-22-2018 End: 08-22-2018 Historical Summary Richard Summers PA-C Work Phone: [facility]. Start: 08-22-2018 End: 08-22-2018 Office outpatient visit 25 minutes Richard Summers PA-C Work Phone: [facility]. Start: 05-16-2018 End: 05-18-2018 Office outpatient visit 25 minutes Richard Summers PA-C Work Phone: [facility]. Start: 04-05-2018 End: 04-05-2018 Orders Richard Summers PA-C Work Phone: [facility]. Start: 09-27-2017 End: 09-27-2017 Historical Summary Richard Summers PA-C Work Phone: [facility]. Start: 09-27-2017 End: 09-27-2017 Office outpatient visit 25 minutes Richard Summers PA-C Work Phone: [facility]. Start: 09-24-2017 End: 09-24-2017 Ambulatory RICHARD SUMMERS Facility:R Start: 09-23-2017 End: 09-24-2017 Telephone follow-up Richard Summers PA-C Work Phone: [facility]. Start: 09-21-2017 End: 09-21-2017 Telephone follow-up Richard Summers PA-C Work Phone: [facility]. Start: 09-17-2017 End: 09-21-2017 Evaluation and management of inpatient RICHARD SUMMERS Facility:A Start: 06-23-2017 End: 06-23-2017 Office outpatient visit 15 minutes Richard STODDARD-C Work Phone: [facility]. Start: 03-19-2017 End: 03-22-2017 Orders Richard STODDARD-C Work Phone: [facility]. Start: 01-27-2017 End: 01-27-2017 Medication Richard STODDARD-C Work Phone: [facility]. Start: 12-17-2016 End: 12-17-2016 Medication Richard STODDARD-C Work Phone: [facility]. Start: 12-16-2016 End: 12-16-2016 Orders Richard STODDARD-C Work Phone: [facility]. Start: 12-12-2016 End: 12-14-2016 Orders Richard Summers PA-C Work Phone: [facility]. Start: 11-06-2016 End: 11-07-2016 Office outpatient new 45 minutes Richard STODDARD-C Work Phone: [facility] Start: 11-05-2016 End: 11-05-2016 Historical Summary Richard STODDARD-C Work Phone: [facility]. Patient encounter procedure Paloma Corcoran LPN [facility]. Patient encounter procedure Paloma Corcoran LPN [facility]. Procedures Date Procedure Procedure Detail Performing Clinician Start: 05-20-2023 End: 05-26-2023 Xtrnl pt activ ecg transmis w/r&i 30 days Richard Summers PA-C Work Phone: Plan of Treatment Date Care Activity Detail Author Start: 06-14-2023 Patient encounter procedure Medical; RTN OFFICE VISIT - 1 MO F/U [facility]. Start: 14-Jun-2023 8:40 JUAN DAVID Summers Appointment Request [facility]. Start: 05-20-2023 End: 05-20-2023 Xtrnl pt activ ecg transmis w/r&i 30 days 30 Day Cardiac Event Monitor ([id number]) Date: 20-May-2023 Comments: 14 DAY [facility]. Immunizations Immunization Date Immunization Notes Care Provider Fa cility 02-15-2019 influenza, injectabl e, quadrivalent, contains preservative Richard Summers PA-C Work Phone: [employer]. Payers Date Payer Category Payer Unknown [id number] 1940 Unknown [id number] [id number] 1940 Unknown [id number] [id number] 1940 Unknown [id number] [id number] [id number] 1940 Unknown [id number] 1940 Unknown [id number] Unknown [employer] - PRIMETIME Social History Date Type Detail Facility Current Work/Study Status Current Work/St udy Status [facility]. Tobacco Use: Tobacco Use: ; N ever smoker. [facility]. Male [employer] [facility] Work Phone: Never smoked tobacco [facility]. Work Phone: Summary Purpose Family History bone [...] DATE CREATED AUTHOR AUTHOR'S ORGANIZ ATION 05/24/[address] [facility] FOR RECORDS PERTAINING TO PATIENTS WHO [...] BE BASED ON THE PRIMARY CLINICAL RECORDS. [employer] [facility]. provides no warranty or guarantee of the accuracy or completeness of information in this document.
[2023-05-29] MEDS: 0.9% Normal Saline (500mL Bag) 500 ML IV (23:44)
[2023-05-30] VITALS (23 sets, daily range): BP systolic 84–142; BP diastolic 41–113; PULSE 77–141; RESP 12–38; TEMP 36.2–36.8; O2SAT 91–99
[2023-05-30 02:27] LABS: Allen Test Positive; Base Excess 14 mmol/L (-2 to +2); Bicarbonate 39.3 mmol/L (22-26); Blood Gas Specimen Type ART; Mode Not entered; O2 Delivery Device BiPAP; PO2 84 mmHG (75-100); SITE L Radial; SO2 95 % (95-99); Total Carbon Dioxide 42 mmol/L; pCO2 70.3 mmHg (35-45); pH 7.36 (7.35-7.45)
[2023-05-30 03:29] LABS: Allen Test POS; Blood Gas Specimen Type ART; Mode BIPAP; SITE L RADIAL
[2023-05-30 03:30] LABS: EPAP 8; IPAP 16; RR 12; Time Given 2345
[2023-05-30 03:31] LABS: Bicarbonate 39.6 mmol/L (22-26); PO2 95 mmHG (75-100); pCO2 64.1 mmHg (35-45)
[2023-05-30 03:32] LABS: Base Excess 15 mmol/L (-2 to +2); SO2 97 % (95-99); Total Carbon Dioxide 42 mmol/L
--- NOTE | 2023-05-30 05:13 | EX.PCM.CONCC ---
Assessment & Plan Assessment/Plan (1) Acute and chronic respiratory failure with hypercapnia: PLAN: Plan RECOMMENDATIONS: 1. Wean supplemental oxygen as tolerated for saturations greater than 90%. 2. Continue diuretics as tolerated by hemodynamics and renal function. 3. Continue PAP therapy with naps and nightly. 4. Encourage incentive spirometer use and mobilize patient as tolerated. 5. Contact DME provider tomorrow to ascertain reason why PAP machine is not working. 6. Outpatient pulmonary follow-up in June as scheduled. IMPRESSIONS: 1. Acute on chronic hypercapnic respiratory failure Most likely secondary to noncompliance with prescribed outpatient PAP therapy over the last several nights. The patient reported that his machine has been nonfunctional, for reasons that are not entirely clear. His DME provider is [facility]. We will need the assistance of case management to reach out to his DME provider tomorrow to figure out why his machine is not functional. The patient has had a prior pulmonary workup that included PFTs, 6-minute walk test and bronchoprovocation challenge in the spring 2022, all of which was unremarkable. 2. History of heart failure/underlying dysrhythmia/pulmonary hypertension Recommend continuing diuretic therapy as tolerated by hemodynamics and renal function. 3. Obstructive sleep apnea The patient has a known history of ZEENAT and is currently prescribed nocturnal PAP therapy, however, his machine has been nonfunctional over the last several nights. The patient is currently scheduled in the pulmonary medicine clinic on June 22 for management of his ZEENAT. This note was generated with [employer] dictation software. It may contain incorrect words, spelling, and punctuation that were not noted in checking the note before signing. HPI Consult Data Date of Consult: 05/30/23 HPI Narrative Reason for Consultation: Respiratory failure HPI Narrative: The patient is an 82-year-old male, with a history as outlined below, who presented to the emergency department on May 29 with generalized weakness and fatigue. The patient completed a recent pulmonary workup in the spring 2022 secondary to shortness of breath. His prior pulmonary function studies were normal. 6-minute walk test demonstrated no need for supplemental oxygen. Bronchoprovocation challenge was normal. It was felt that his dyspnea was secondary to generalized deconditioning. The patient did report to me that he has a home PAP machine, which has been nonfunctional for the last 2-3 nights. In addition, his primary care provider recently placed him on 2 L/min of supplemental oxygen. Surface echocardiogram completed on May 28, 2023 demonstrated an ejection fraction of 45% with stage I diastolic dysfunction and a pulmonary artery systolic pressure of 60 mmHg. On presentation to the emergency department, the patient was documented to be afebrile with a presenting blood pressure of 92/64 mmHg. Initial arterial blood gas demonstrated a pH of 7.3 with a pCO2 of 88 and pO2 of 77. Chemistry profile revealed a bicarbonate of 43 and creatinine of 1.01. Troponin and BNP were negative. Chest x-ray was of suboptimal quality with basilar atelectasis noted. Flu, RSV and COVID testing was negative. The patient was placed on BiPAP therapy and admitted to the progressive care unit. [facility] Medical History (Updated 05/30/23 @ 06:[address] Uzair Calhoun, DO) Actinic keratosis of scalp Acute kidney injury Asymptomatic premature ventricular contractions Atrial septal aneurysm BPH (benign prostatic hyperplasia) Cellulitis [place] breathing Chronic combined systolic and diastolic CHF (congestive heart failure) Chronic dyspnea Chronic kidney disease (CKD) Claudication of both lower extremities Congestive heart failure (CHF) Cough CPAP (continuous positive airway pressure) dependence Elevated hemoglobin Essential (primary) hypertension GERD (gastroesophageal reflux disease) Heart failure with preserved left ventricular function (HFpEF) History of COVID-19 Hyperlipidemia Hypothyroidism Nocturia Non-ischemic cardiomyopathy 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) Obesity On home oxygen therapy Orthopnea Shortness of breath Sleep apnea Syncope Unexplained weight loss Home Medications levothyroxine 125 mcg tablet 125 mcg PO DAILY thyroid 07/07/21 [History Last Taken Unknown] rosuvastatin 5 mg tablet 5 mg PO DAILY cholesterol 06/12/22 [History Last Taken Unknown] furosemide 40 mg tablet (Lasix) 40 mg PO DAILY diuretic #90 tabs 12/10/22 [Rx Last Taken Unknown] losartan 50 mg tablet 50 mg PO DAILY blood pressure #90 tabs 12/10/22 [Rx Last Taken Unknown] metoprolol tartrate 25 mg tablet 25 mg PO BID #1 TAB 05/25/23 [Rx Last Taken Unknown] Allergy/AdvReac Type Severity Reaction Status Date / Time No Known Allergies Allergy Verified 05/29/23 19:35 Family History Father Myocardial infarction Brother Myocardial infarction Surgical History History of appendectomy History of herniorrhaphy History of left heart catheterization (09/20/17) Social History Smoking Status: Never smoker alcohol intake: never substance use type: does not use caffeine: No ROS ROS Narrative 10 systems were reviewed with pertinent positives as noted in the HPI above. Physical Exam Const alert and no apparent distress General Appearance: cooperative HEENT normocephalic and head/scalp atraumatic Eyes PERRL, EOMs intact bilaterally and conjunctivae normal Neck supple General: trachea midline Chest inspection of chest normal Resp normal respiratory effort Auscultation: diminished lung sounds Cardio regular rate and regular rhythm GI normal to inspection, nondistended, normoactive bowel sounds Extremity no clubbing, cyanosis or edema Skin no rashes or lesions noted Neuro oriented x3, CN's II-XII intact bilaterally and moves all extremities Psych cooperative and affect normal Lab / Micro Data 05/29/23 19:50 05/29/23 19:50 Labs: Laboratory Results - last 24 hr 05/29/23 19:50: WBC 8.9, RBC 4.93, Hgb 15.4, Hct 50.4, MCV 102.2 H, MCH 31.2, MCHC 30.6 L, RDW Std Deviation 51.8 H, RDW Coeff of Yenni 13.4, Plt Count 167, MPV 10.9, Immature Gran % (Auto) 0.100, Neut % (Auto) 74.7 H, Lymph % (Auto) 14.0 L, [place] % (Auto) 9.9, Eos % (Auto) 1.0, Baso % (Auto) 0.3, Absolute Neuts (auto) 6.6, Absolute Lymphs (auto) 1.24, Nucleated RBC % 0, Sodium 141, Potassium 5.0, Chloride 97 L, Carbon Dioxide 43.0 H, Anion Gap 1 L, BUN 27 H, Creatinine 1.01, Estim Creat Clear Calc 57.51, Est GFR (MDRD) Af Amer 91, Est GFR (MDRD) Non-Af 75, BUN/Creatinine Ratio 26.7 H, Glucose 117 H, Calcium 9.0, Troponin I High Sens 16, B-Natriuretic Peptide 93.3 Micro: Microbiology 05/30/23 02:10 Mucosa - Nose SARS-CoV-2, Influenza & RSV (PCR) - Final ABG Data ABG results: ABG 05/29/23 05/29/23 05/30/23 21:06 23:48 02:20 Specimen Type ART ART ART Sample Site L Radial L RADIAL L Radial pH 7.30 L 7.39 7.36 Bicarbonate Actual 43.6 H 39.6 H 39.3 H Total CO2 46 42 42 Base Excess 17 H 15 H 14 H O2 Saturation 93 L 97 95 O2 % 3.0 35.0 35.0 ABG pCO2 88.2 H* 64.1 H 70.3 H* ABG pO2 77 95 84 Gee Test Positive POS Positive Respiration Rate 12 O2 Delivery Device Cannula BiPAP Vent Mode Not entered BIPAP Not entered EPAP 8 IPAP 16 Crit Call To/Read Back Yes Yes Blood Gas Notified Whom LEONILA Antunez Blood Gas Notified Time 21:08:25 2345 02:24:34 Clinical Comments 04/21 Rhythm Strip Rhythm Strip: Sinus Rhythm Rate: 75 Ectopy: None Imagaing Radiology Impression Chest X-Ray 05/29/23 21:22 IMPRESSION: Poor inspiration with some bibasilar atelectasis. Electronically Signed: Juan Luo MD at 21:49 EST , Charges/Coding Visit Charges Inpatient E&M: 66675 Init Hosp L3
[2023-05-30 06:51] LABS: Absolute Lymphocyte Count 1.42 X10^3/uL (0.83-4.51); Absolute Neutrophil Count 7.2 X10^3/uL (2.0-7.7); Basophil# 0.04 X10^3/uL; Basophil% 0.4 % (0-1); Eosinophil# 0.06 X10^3/uL; Eosinophils% 0.6 % (0-5); Hematocrit 45.4 % (40-54); Hemoglobin 13.6 g/dL (13.0-16.5); Lymphocyte # 1.42 X10^3/ul (0.83-4.51); Lymphocyte % 14.5 % (19-41); Mean Corpuscular Hgb 30.7 pg (27.0-32.0); Mean Corpuscular Volume 102.5 fL (80-94); Mean Platelet Vol. 11.3 fl (6.2-12.0); Monocyte# 1.03 X10^3/uL; Monocyte% 10.6 % (0-10); NRBC Flagged by Analyzer 0 % (0-5); Neutrophil # 7.18 X10^3/uL (2.7-7.7); Neutrophil % 73.6 % (47-70); Platelet Count 162 K/mm3 (150-450); RBC Distribution Width CV 13.6 % (11.6-14.6); RBC Distribution Width SD 51.9 fl (35.1-43.9); Red Blood Count 4.43 M/mm3 (4.6-6.2); White Blood Count 9.8 K/mm3 (4.4-11.0)
[2023-05-30 10:44] LABS: Anion Gap 4 (5-15); BUN 31 mg/dL (7-18); BUN/Creat Ratio 24.2 RATIO (10-20); Calcium,Total 8.8 mg/dL (8.5-10.1); Chloride 99 mmol/L (98-107); Creatinine, Serum 1.28 mg/dL (0.70-1.30); EST Glomerular Filtration Rate 57 mL/min (>60); Est Glom Filt Rate - Afr Amer 69 mL/min (>60); Estimated Creatinine Clearance 44.53 ml/min; Glucose 93 mg/dL (74-106); Potassium 4.8 mmol/L (3.5-5.1); Sodium Level 143 mmol/L (136-145)
[2023-05-30 11:03] LABS: Thyroid Stim Hormone (TSH) 2.45 uIU/mL (0.358-3.74)
--- NOTE | 2023-05-30 12:59 | EKG12_ITS ---
Test Reason : RYTHMCHG Blood Pressure : / mmHG Vent. Rate : 141 BPM Atrial Rate : 000 BPM P-R Int : 000 ms QRS Dur : 096 ms QT Int : 320 ms P-R-T Axes : 000 -01 -01 degrees QTc Int : 490 ms Critical Test Result: High HR Atrial fibrillation with rapid ventricular response with premature ventricular or aberrantly conducte d complexes Possible Inferior infarct (cited on or before 29-MAY-2023) Abnormal ECG When compared with ECG of 29-MAY-2023 20:03, Atrial fibrillation has replaced Sinus rhythm Vent. rate has increased BY 67 BPM Confirmed by AURA CASTANEDA, DONALDO ([id number]), associate editor LAESSANDRA ADRIAN ([id number]) on 05/31/2023 2:04:00 PM Referred By: IBRAHIMA Confirmed By:DONALDO CHAVARRIA MD
[2023-05-30] MEDS: Amiodarone 150 MG in Dextrose 5%-Water (100mL Bag) 100 ML 600 MG IV BOLUS (13:53)
[2023-05-30] MEDS: Amiodarone 360 MG in Dextrose 5% Viaflo Bag 192.8 ML 33.2999999999999972 MG CONT INF (14:10)
--- NOTE | 2023-05-30 19:21 | PCM.PN.HOSP ---
Reason for Visit Reason for Visit: Diagnoses Acute respiratory failure with hypercapnia (05/29/23) Acute and chronic respiratory failure with hypercapnia (05/29/23) Subjective Subjective Was seen and examined today, I spent some time talking with him and his daughter who was in the room at the time my examination. It appears the patient has intermediate pump function at 45% on his last echocardiogram 2 days ago, he also has evidence of pulmonary hypertension which is at least moderate. Patient is being worked up for possible pacemaker, I talked briefly with cardiology about his medications and he should not be on metoprolol-his blood pressure meds have been held today because his pressures been low, he does have significant lower leg edema bilaterally-I was going to place the patient on diuresis but his blood pressure has been in the 90s today and I was uncomfortable starting diuretics. Additionally, patient went into atrial fibs today with a rapid ventricular response, I discussed this with cardiology and started the patient on amiodarone IV. I will place the patient on Lovenox for full anticoagulation. I talked to his daughter by phone about this and I discussed it with the patient tonight. Objective Data Objective Data Vital Signs: Vital Signs Temp Pulse Resp BP Pulse Ox O2 Del Method O2 Flow Rate 97.8 F 105 H 22 H 99/52 L 98 Bi-pap 2 05/30/23 13:53 05/30/23 18:00 05/30/23 18:00 05/30/23 18:00 05/30/23 18:00 05/30/23 18:00 05/30/23 17:00 FiO2 35 05/30/23 16:20 Oxygen Flow Rate (L/min) 2 Oxygen Delivery Method Bi-pap Weight: 79.1 kg Body Mass Index (BMI) 26.5 Intake & Output: Intake and Output for Last 24 Hours 05/28/23 05/29/23 05/30/23 23:59 23:59 23:59 Intake Total 1230.66 / 1230.66 Output Total 300 / 300 Balance 930.66 / 930.66 Lab / Micro Data 05/30/23 06:21 05/30/23 06:21 Labs: Laboratory Results - last 24 hr 05/29/23 19:50: WBC 8.9, RBC 4.93, Hgb 15.4, Hct 50.4, MCV 102.2 H, MCH 31.2, MCHC 30.6 L, RDW Std Deviation 51.8 H, RDW Coeff of Yenni 13.4, Plt Count 167, MPV 10.9, Immature Gran % (Auto) 0.100, Neut % (Auto) 74.7 H, Lymph % (Auto) 14.0 L, [place] % (Auto) 9.9, Eos % (Auto) 1.0, Baso % (Auto) 0.3, Absolute Neuts (auto) 6.6, Absolute Lymphs (auto) 1.24, Nucleated RBC % 0, Sodium 141, Potassium 5.0, Chloride 97 L, Carbon Dioxide 43.0 H, Anion Gap 1 L, BUN 27 H, Creatinine 1.01, Estim Creat Clear Calc 57.51, Est GFR (MDRD) Af Amer 91, Est GFR (MDRD) Non-Af 75, BUN/Creatinine Ratio 26.7 H, Glucose 117 H, Calcium 9.0, Troponin I High Sens 16, B-Natriuretic Peptide 93.3 05/30/23 06:21: WBC 9.8, RBC 4.43 L, Hgb 13.6, Hct 45.4, MCV 102.5 H, MCH 30.7, MCHC 30.0 L, RDW Std Deviation 51.9 H, RDW Coeff of Yenni 13.6, Plt Count 162, MPV 11.3, Immature Gran % (Auto) 0.300, Neut % (Auto) 73.6 H, Lymph % (Auto) 14.5 L, [place] % (Auto) 10.6 H, Eos % (Auto) 0.6, Baso % (Auto) 0.4, Absolute Neuts (auto) 7.2, Absolute Lymphs (auto) 1.42, Nucleated RBC % 0, Sodium 143, Potassium 4.8, Chloride 99, Carbon Dioxide 40.0 H, Anion Gap 4 L, BUN 31 H, Creatinine 1.28, Estim Creat Clear Calc 44.53, Est GFR (MDRD) Af Amer 69, Est GFR (MDRD) Non-Af 57 L, BUN/Creatinine Ratio 24.2 H, Glucose 93, Calcium 8.8, TSH 2.45 Micro: Microbiology 05/30/23 02:10 Mucosa - Nasopharyngeal Respiratory Panel (PCR) - Final 05/30/23 02:10 Mucosa - Nose SARS-CoV-2, Influenza & RSV (PCR) - Final ABG Data ABG results: ABG 05/29/23 05/29/23 05/30/23 21:06 23:48 02:20 Specimen Type ART ART ART Sample Site L Radial L RADIAL L Radial pH 7.30 L 7.39 7.36 Bicarbonate Actual 43.6 H 39.6 H 39.3 H Total CO2 46 42 42 Base Excess 17 H 15 H 14 H O2 Saturation 93 L 97 95 O2 % 3.0 35.0 35.0 ABG pCO2 88.2 H* 64.1 H 70.3 H* ABG pO2 77 95 84 Gee Test Positive POS Positive Respiration Rate 12 O2 Delivery Device Cannula BiPAP Vent Mode Not entered BIPAP Not entered EPAP 8 IPAP 16 Crit Call To/Read Back Yes Yes Blood Gas Notified Whom LEONILA Antunez Blood Gas Notified Time 21:08:25 2345 02:24:34 Clinical Comments 04/21 Radiography Diagnostic Testing: Radiology Impression Chest X-Ray 05/29/23 21:22 IMPRESSION: Poor inspiration with some bibasilar atelectasis. Electronically Signed: Juan Luo MD at 21:49 EST , Rhythm Strip Rhythm Strip: Sinus Rhythm Rate: 75 Ectopy: None Physical Exam Const alert, oriented x3 and no apparent distress General Appearance: cooperative, well kempt and well developed Orientation / Consciousness: awake, oriented to person, oriented to place and oriented to time HEENT normocephalic, head/scalp atraumatic and moist oral mucous membranes Eyes PERRL, EOMs intact bilaterally and conjunctivae normal Neck supple, no JVD, thyroid normal and no carotid bruits General: trachea midline Resp normal respiratory effort, no retractions, no use of accessory muscles and clear to auscultation bilaterally Auscultation: Negative for rales, rhonchi or wheezes Cardio no murmurs, no rub and no gallops Cardio Narrative: Heart rate and rhythm is irregular GI normal to inspection, nondistended, normoactive bowel sounds, soft to palpation, non-tender and non-distended Extremity Extremity Narrative: Generalized mild to moderate edema is noted in the patient's lower legs Skin no rashes or lesions noted General Skin Exam: no breakdown Neuro oriented x3, CN's II-XII intact bilaterally, moves all extremities, no focal motor deficits and no sensory deficits noted Sensorium / Orientation: awake and alert Speech: speech normal Psych affect normal Assessment & Plan Assessment/Plan (1) Acute and chronic respiratory failure with hypercapnia: PLAN: Plan 1. Acute on chronic respiratory failure with hypercapnia-patient will remain on BiPAP while sleeping, pulmonary medicine saw the patient in consultation #2 paroxysmal atrial fibrillation with RVR-again patient was placed on IV amiodarone today, I do not think it is necessary to perform another echocardiogram-patient just recently had an echocardiogram here, I talked briefly with his business transformation consultant by phone today. Patient was placed on subcu Lovenox for anticoagulation, I discussed this with his daughter and the patient #3 obstructive sleep apnea-patient's daughter will be getting a new CPAP machine for the patient when he goes home #4 sick sinus syndrome-patient is due to undergo placement of a pacemaker as an outpatient #5 moderate pulmonary hypertension-I am unable to place the patient on diuretics due to his low blood pressure today, his blood pressure will be monitored and diuresis will be started when his blood pressure improves. #6 chronic dyspnea-etiology unclear, patient sees pulmonary medicine and cardiology. Patient was placed on oxygen this year at home. Total clinical time spent by myself addressing the patient's medical issues, reviewing all of his data, and collaborating with patient's care team: 35 minutes Charges/Coding Visit Charges Inpatient E&M: 27782 Subs Hosp L2
[2023-05-30] MEDS: Amiodarone 360 MG in Dextrose 5% Viaflo Bag 192.8 ML 16.6999999999999993 MG CONT INF (20:19)
[2023-05-30] MEDS: Acetaminophen 325 MG Tablet 650 MG PO (20:28)
[2023-05-30 20:46] LABS: Partial Thromboplast Time 26.9 Seconds (24.1-36.2)
[2023-05-30] MEDS: Enoxaparin 80 MG/0.8 ML Syringe SC (20:50)
[2023-05-30] MEDS: Atorvastatin Calcium 10 MG Tablet PO (21:13)
[2023-05-31] VITALS (29 sets, daily range): BP systolic 71–170; BP diastolic 47–146; PULSE 89–135; RESP 6–41; TEMP 36.6–36.7; O2SAT 89–98
[2023-05-31] MEDS: Amiodarone 200 MG Tablet PO (00:38)
[2023-05-31] MEDS: Amiodarone 360 MG in Dextrose 5% Viaflo Bag 192.8 ML 16.6999999999999993 MG CONT INF ×2 (05:03→16:25)
[2023-05-31] MEDS: Enoxaparin 80 MG/0.8 ML Syringe SC (05:59)
[2023-05-31] MEDS: Levothyroxine 125 MCG Tablet PO (06:00)
--- NOTE | 2023-05-31 07:53 | PCM.CONS.C ---
Assessment & Plan Assessment/Plan (1) Heart failure with preserved left ventricular function (HFpEF): PLAN: History of nonischemic cardiomyopathy diagnosed in 2018. Left ventricular systolic function having recovered since on medical management. Repeat echocardiogram has already been ordered. See #1 above. He underwent coronary artery evaluation with an angiogram which demonstrated the following: Normal left main coronary artery. Left anterior descending artery with 50% proximal stenosis. Left circumflex artery with no significant disease. Dominant right coronary artery with no significant disease. (2) Frequent PVCs: PLAN: He had been placed on metoprolol but this resulted in pauses and therefore that has been discontinued for the meantime. (3) Pre-syncope: PLAN: He had been on metoprolol and had significant pauses and therefore was being scheduled for a permanent pacemaker implantation. More than likely this would be undertaken in a.m. (4) Essential (primary) hypertension: PLAN: Continue current medical therapy. Echocardiogram would also be performed. (5) Hyperlipidemia: PLAN: On atorvastatin. Continue and follow lipid profile (6) Paroxysmal atrial fibrillation: PLAN: It appears that the patient has paroxysmal atrial fibrillation with some pauses suggesting tachybradycardia syndrome. I have suggested to him that we should probably proceed with a permanent pacemaker implantation in a.m. and then his medications can be adjusted appropriately. He understands and agrees to the above. Thank you for allowing me to participate in the care of your patient. Please don't hesitate to call if any issues arise. HPI Consult Data Date of Consult: 05/31/23 HPI Narrative HPI Narrative: SILAS KHOURY, is a 82 M who presented to the emergency room with fatigue and mild obtundation and was noted to have hypercapnic respiratory failure. Apparently his CPAP mask was not working very well. He was being seen through our office and being worked up for possibility of a permanent pacemaker implantation due to the fact that he had been noted to have some pauses on his Holter monitor of about 5 to 7 seconds. He had initially presented in September 2017 with a presyncopal spell was noted to have a wide-complex tachycardia. His ejection fraction at that time was noted to be 25 to 30%. He underwent a left heart catheterization which demonstrated minor luminal irregularities and was placed on a beta-arnaud and a repeat echocardiogram performed which demonstrated an improvement in his ejection fraction to 35 to 40% in 2018. Echo was in 2021 which demonstrated an ejection fraction of 60%. He did undergo stress testing in 2021 which demonstrated no evidence of ischemia present. There was concern over wide-complex tachycardia and he was admitted for dizziness and shortness of breath. He did have an elevated BN P. He did undergo a diagnostic heart catheterization which demonstrated mild to moderate coronary artery disease of the LAD, other vessels no significant obstruction. Preserved ejection fraction. Echocardiogram demonstrated an ejection fraction of 50%. With mild mitral and aortic insufficiency. He was discharged home on Lasix. His metoprolol was increased for his PVCs. He has not had any chest pain. He still has SOB with exertion. While in the hospital he was noted to go into atrial fibrillation with a rapid ventricular response rate and that necessitated discontinuation of his other medications and placing him on amiodarone for rate control. He is currently back in sinus rhythm with premature atrial complexes. He was hypotensive and his beta-arnaud has been discontinued. 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) Chronic dyspnea Chronic kidney disease (CKD) Claudication of both lower extremities Congestive heart failure (CHF) Cough CPAP (continuous positive airway pressure) dependence Elevated hemoglobin Essential (primary) hypertension GERD (gastroesophageal reflux disease) Heart failure with preserved left ventricular function (HFpEF) History of COVID-19 Hyperlipidemia Hypothyroidism Nocturia Non-ischemic cardiomyopathy 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) Obesity On home oxygen therapy Orthopnea Shortness of breath Sleep apnea Syncope Unexplained weight loss Home Medications levothyroxine 125 mcg tablet 125 mcg PO DAILY thyroid 07/07/21 [History Last Taken Unknown] rosuvastatin 5 mg tablet 5 mg PO DAILY cholesterol 06/12/22 [History Last Taken Unknown] furosemide 40 mg tablet (Lasix) 40 mg PO DAILY diuretic #90 tabs 12/10/22 [Rx Last Taken Unknown] losartan 50 mg tablet 50 mg PO DAILY blood pressure #90 tabs 12/10/22 [Rx Last Taken Unknown] metoprolol tartrate 25 mg tablet 25 mg PO BID #1 TAB 05/25/23 [Rx Last Taken Unknown] Allergy/AdvReac Type Severity Reaction Status Date / Time No Known Allergies Allergy Verified 05/29/23 19:35 Family History Father Myocardial infarction Brother Myocardial infarction Surgical History History of appendectomy History of herniorrhaphy History of left heart catheterization (09/20/17) Social History Smoking Status: Never smoker alcohol intake: never substance use type: does not use caffeine: No ROS Constitutional Constitutional: Denies fever(s) or weight loss Eyes Eyes: Reports systems reviewed and no addt'l complaints, except as documented ENT HEENT: Reports systems reviewed and no addt'l complaints, except as documented Cardiovascular Cardiovascular: Denies chest pain at rest, chest pain with activity, dyspnea at rest, dyspnea on exertion, edema, palpitations or paroxysmal nocturnal dyspnea Respiratory/Chest Respiratory/Chest: Denies dyspnea on exertion, productive cough, shortness of breath at rest or shortness of breath with exertion Gastrointestinal Gastrointestinal: Denies change in bowel habits, nausea, vomiting or weight changes Genitourinary Genitourinary: Denies difficulty urinating Musculoskeletal Musculoskeletal: Denies joint stiffness or muscle weakness Integumentary Integumentary: Denies lesions Neurologic Neurologic: Denies dizziness or syncope Psychiatric Psychiatric: Denies anxiety Endocrine Endocrinology: Denies excessive sweating or fatigue Hematologic/Lymphatic Hematologic/Lymphatic: Denies anemia Allergic/Immunologic Allergic/Immunologic: Denies seasonal rhinorrhea Physical Exam Const alert, oriented x3 and no apparent distress General Appearance: cooperative HEENT hearing grossly normal bilaterally Head and Scalp: atraumatic Eyes EOMs intact bilaterally Neck General: normal visual inspection Chest inspection of chest normal and palpation of chest normal Resp normal respiratory effort Auscultation: clear to auscultation bilaterally Cardio regular rate, regular rhythm, S1 normal heart sound and S2 normal heart sound Jugular Venous Distention: JVD GI normal to inspection, nondistended, normoactive bowel sounds Extremity normal capillary refill and no pedal edema Peripheral Pulses: Yes pulses 2+ throughout and femoral pulses present Skin no rashes or lesions noted Neuro oriented x3 and CN's II-XII intact bilaterally Psych Appearance: grossly normal and appropriate Risk Stratification Risk Stratification Applicable: No Objective Data Vital Signs: Vital Signs Temp Pulse Resp BP Pulse Ox O2 Del Method O2 Flow Rate 97.8 F 95 29 H 137/86 H 96 Nasal Cannula 2 05/31/23 01:00 05/31/23 07:02 05/31/23 07:02 05/31/23 07:02 05/31/23 07:02 05/31/23 07:02 05/31/23 07:02 FiO2 35 05/31/23 04:58 Oxygen Flow Rate (L/min) 2 Oxygen Delivery Method Nasal Cannula Weight: 174 lb 6.17 oz Body Mass Index (BMI) 26.5 Intake & Output: Intake and Output for Last 24 Hours 05/29/23 05/30/23 05/31/23 23:59 23:59 23:59 Intake Total 1347.81 / 1604.51 780.42 / 780.42 Output Total 300 / 400 225 / 225 Balance 1047.81 / 1204.51 555.42 / 555.42 Lab / Micro Data 05/30/23 06:21 05/30/23 06:21 Labs: Laboratory Results - last 24 hr 05/30/23 06:21: Sodium 143, Potassium 4.8, Chloride 99, Carbon Dioxide 40.0 H, Anion Gap 4 L, BUN 31 H, Creatinine 1.28, Estim Creat Clear Calc 44.53, Est GFR (MDRD) Af Amer 69, Est GFR (MDRD) Non-Af 57 L, BUN/Creatinine Ratio 24.2 H, Glucose 93, Calcium 8.8, TSH 2.45 05/30/23 20:15: PT 13.0, INR 1.0, APTT 26.9 Micro: Microbiology 05/30/23 02:10 Mucosa - Nasopharyngeal Respiratory Panel (PCR) - Final 05/30/23 02:10 Mucosa - Nose SARS-CoV-2, Influenza & RSV (PCR) - Final ABG Data ABG results: ABG 05/29/23 23:48 pH 7.40 Rhythm Strip Rhythm Strip: Sinus Rhythm Rate: 75 Ectopy: None Cardiology Labs/Tests 05/29/23 23:48: pH 7.40 05/30/23 06:21: Sodium 143, Potassium 4.8, Chloride 99, Carbon Dioxide 40.0 H, Anion Gap 4 L, BUN 31 H, Creatinine 1.28, Est GFR (MDRD) Af Amer 69, Est GFR (MDRD) Non-Af 57 L, BUN/Creatinine Ratio 24.2 H, Glucose 93, Calcium 8.8 05/30/23 20:15: PT 13.0, INR 1.0, APTT 26.9 Rhythm: EKG: ECHO: Stress Test: Cardiac Cath: PCI: CT Surgery: Holter monitor: EPS: PPM: CXR: Chest CT Scan:
--- NOTE | 2023-05-31 09:16 | EKG12_ITS ---
Test Reason : Blood Pressure : / mmHG Vent. Rate : 095 BPM Atrial Rate : 095 BPM P-R Int : 200 ms QRS Dur : 108 ms QT Int : 398 ms P-R-T Axes : 040 -10 016 degrees QTc Int : 500 ms Sinus rhythm with occasional Premature ventricular complexes Possible Left atrial enlargement Inferior infarct , age undetermined Prolonged QT Abnormal ECG When compared with ECG of 30-MAY-2023 13:05, MANUAL COMPARISON REQUIRED, DATA IS UNCONFIRMED Confirmed by AURA CASTANEDA, DONALDO ([id number]), senior technical editor ALESSANDRA ADRIAN ([id number]) on 05/31/2023 2:02:41 PM Referred By: Confirmed By:DONALDO CHAVARRIA MD
--- NOTE | 2023-05-31 11:02 | PCM.PN.INT ---
Assessment & Plan Assessment/Plan (1) Acute and chronic respiratory failure with hypercapnia: PLAN: Plan RECOMMENDATIONS: 1. Wean supplemental oxygen as tolerated for saturations greater than 90%. 2. Continue diuretics as tolerated by hemodynamics and renal function. 3. Continue PAP therapy with naps and nightly. 4. Encourage incentive spirometer use and mobilize patient as tolerated. 5. Echocardiogram is pending. Additional workup per cardiology. 6. Outpatient pulmonary follow-up in June as scheduled. IMPRESSIONS: 1. Acute on chronic hypercapnic respiratory failure Most likely secondary to noncompliance with prescribed outpatient PAP therapy over the last several nights. The patient reported that his machine has been nonfunctional, for reasons that are not entirely clear. His DME provider is [facility]. The patient has had a prior pulmonary workup that included PFTs, 6-minute walk test and bronchoprovocation challenge in the spring 2022, all of which was unremarkable. He is currently scheduled to follow-up in the pulmonary medicine clinic next month for longitudinal management of his sleep apnea. 2. History of heart failure/underlying dysrhythmia/pulmonary hypertension Recommend continuing diuretic therapy as tolerated by hemodynamics and renal function. 3. Obstructive sleep apnea The patient has a known history of ZEENAT and is currently prescribed nocturnal PAP therapy, however, his machine has been nonfunctional over the last several nights. The patient is currently scheduled in the pulmonary medicine clinic on June 22 for management of his ZEENAT. This note was generated with besomebody. dictation software. It may contain incorrect words, spelling, and punctuation that were not noted in checking the note before signing. Subjective Subjective The patient was seen and examined at the bedside this morning. Events from the last 24 hours have been reviewed. The patient is currently afebrile, hemodynamically stable and maintaining appropriate oxygen saturations on BiPAP presently. The patient reported that he did not get much sleep last night. Therefore, he is currently tired. His breathing is otherwise stable. Objective Data Objective Data The patient's most recent lab work, culture data and imaging studies have all been personally reviewed. Vital Signs: Vital Signs Temp Pulse Resp BP Pulse Ox O2 Del Method O2 Flow Rate 97.8 F 95 20 H 81/69 L 95 Bi-pap 2 05/31/23 01:00 05/31/23 10:08 05/31/23 10:05/31/23 10:05/31/23 10:08 05/31/23 10:08 05/31/23 09:08 FiO2 35 05/31/23 09:30 Oxygen Flow Rate (L/min) 2 Oxygen Delivery Method Bi-pap Weight: 174 lb 6.17 oz Body Mass Index (BMI) 26.5 Intake & Output: Intake and Output for Last 24 Hours 05/29/23 05/30/23 05/31/23 23:59 23:59 23:59 Intake Total 1347.81 / 1604.51 832.19 / 832.19 Output Total 300 / 400 225 / 225 Balance 1047.81 / 1204.51 607.19 / 607.19 Lab / Micro Data Attestation: I reviewed the patient's lab results. 05/30/23 06:21 05/30/23 06:21 Labs: Laboratory Results - last 24 hr 05/30/23 06:21: TSH 2.45 05/30/23 20:15: PT 13.0, INR 1.0, APTT 26.9 Micro: Microbiology 05/30/23 02:10 Mucosa - Nasopharyngeal Respiratory Panel (PCR) - Final 05/30/23 02:10 Mucosa - Nose SARS-CoV-2, Influenza & RSV (PCR) - Final ABG Data ABG results: ABG 05/29/23 23:48 pH 7.40 Rhythm Strip Rhythm Strip: Sinus Rhythm Rate: 75 Ectopy: None Physical Exam Const alert and no apparent distress Constitutional Narrative: Sleepy, but easily arousable and participates in conversation. HEENT normocephalic and head/scalp atraumatic Eyes PERRL, EOMs intact bilaterally and conjunctivae normal Neck supple General: trachea midline Chest inspection of chest normal Resp normal respiratory effort Auscultation: diminished lung sounds Cardio regular rate and regular rhythm GI normal to inspection, nondistended, normoactive bowel sounds Extremity no clubbing, cyanosis or edema Skin no rashes or lesions noted Neuro oriented x3, CN's II-XII intact bilaterally and moves all extremities Psych cooperative and affect normal Charges/Coding Visit Charges Inpatient E&M: 58818 Subs Hosp L2
--- NOTE | 2023-05-31 11:05 | CASEMGMT ---
RN MARK Face to Face with patient for initial transition planning/care coordination assessment. RN CM introduced self and role at [facility]. Patient lying in bed, sleeping, daughter at bedside. Daughter willing to participate in assessment and is able to answer all questions appropriately. Care providers, pharmacy, and demographics verified. Daughter unsure of disposition at discharge, will monitor progress with therapy and course of treatment. Daughter states she has no further needs or concerns at this time. CM to follow for discharge planning needs that may arise. PCP: RICHI Summers Specialists: Lizbet, social and political studies professor; Elyse Calhoun, biomass plant manager; [facility]acy[facility] Insurance: [employer] Prescription Benefit: yes Living Will/HPOA: none LNOK: , daughter Living Arrangements: Patient lives with in a first floor condo with no steps to enter. Patient was indepnedent at home. Transportation: daughter, DME/HHC: Patient has cane, cpap (not working, family taking to [employer] [facility]), pulse ox, and home oxygen at 2 lpm through [employer] with portability. No previous HHC or SNF Disposition Plan: TBD by course of treatment and progress with therapy, will continue to monitor. Jenifer HENAO, RN, CM
[2023-05-31] MEDS: Furosemide 20 MG/2 ML VIAL IV ×2 (14:48→21:28)
[2023-05-31] MEDS: 0.9% Saline Lock 10 ML Syringe IV ×2 (14:48→21:28)
[2023-05-31] MEDS: Bisacodyl 5 MG Tablet 10 MG PO (16:24)
--- NOTE | 2023-05-31 21:12 | PCM.PN.HOSP ---
Reason for Visit Reason for Visit: Diagnoses Hyperlipidemia, unspecified (05/29/23) Essential (primary) hypertension (05/29/23) Paroxysmal atrial fibrillation (05/29/23) Ventricular premature depolarization (05/29/23) Unspecified diastolic (congestive) heart failure (05/29/23) Acute respiratory failure with hypercapnia (05/29/23) Acute and chronic respiratory failure with hypercapnia (05/29/23) Syncope and collapse (05/29/23) Subjective Subjective Patient was seen and examined today, he is resting quietly in bed with BiPAP on, he does not appear to be in any distress, I talked with his daughter who was present at the time my examination. Patient is to undergo pacemaker insertion tomorrow. His blood pressure is improved today and I elected to place him on IV Lasix. Patient is now in sinus rhythm with occasional PACs Objective Data Objective Data Vital Signs: Vital Signs Temp Pulse Resp BP Pulse Ox O2 Del Method O2 Flow Rate 98.1 F 100 39 H 139/69 H 94 Nasal Cannula 2 05/31/23 16:30 05/31/23 19:00 05/31/23 19:00 05/31/23 19:00 05/31/23 19:00 05/31/23 19:00 05/31/23 19:00 FiO2 35 05/31/23 12:30 Oxygen Flow Rate (L/min) 2 Oxygen Delivery Method Nasal Cannula Weight: 79.1 kg Body Mass Index (BMI) 26.5 Intake & Output: Intake and Output for Last 24 Hours 05/29/23 05/30/23 05/31/23 23:59 23:59 23:59 Intake Total 1347.81 / 1604.51 1580.26 / 1580.26 Output Total 300 / 400 425 / 425 Balance 1047.81 / 1204.51 1155.26 / 1155.26 Lab / Micro Data 05/30/23 06:21 05/30/23 06:21 Micro: Microbiology 05/30/23 02:10 Mucosa - Nasopharyngeal Respiratory Panel (PCR) - Final 05/30/23 02:10 Mucosa - Nose SARS-CoV-2, Influenza & RSV (PCR) - Final ABG Data ABG results: ABG 05/29/23 23:48 pH 7.40 Rhythm Strip Rhythm Strip: Sinus Rhythm Rate: 75 Ectopy: None Physical Exam Const alert, oriented x3 and no apparent distress General Appearance: cooperative, well kempt and well developed Orientation / Consciousness: awake, oriented to person, oriented to place and oriented to time HEENT normocephalic, head/scalp atraumatic and moist oral mucous membranes Eyes PERRL, EOMs intact bilaterally and conjunctivae normal Neck supple, no JVD, thyroid normal and no carotid bruits General: trachea midline Resp normal respiratory effort, no retractions, no use of accessory muscles and clear to auscultation bilaterally Auscultation: Negative for rales, rhonchi or wheezes Cardio regular rate, regular rhythm, no murmurs, no rub and no gallops Cardio Narrative: Occasional ectopic beats are noted GI normal to inspection, nondistended, normoactive bowel sounds, soft to palpation, non-tender and non-distended Extremity Extremity Narrative: There is generalized edema noted the patient's lower legs and feet Skin no rashes or lesions noted General Skin Exam: no breakdown Neuro oriented x3, CN's II-XII intact bilaterally, moves all extremities, no focal motor deficits and no sensory deficits noted Sensorium / Orientation: awake and alert Speech: speech normal Psych affect normal Assessment & Plan Assessment/Plan (1) Paroxysmal atrial fibrillation: (2) Acute and chronic respiratory failure with hypercapnia: PLAN: Plan 1. Acute on chronic respiratory failure with hypercapnia-patient will remain on BiPAP while sleeping, pulmonary medicine saw the patient in consultation #2 paroxysmal atrial fibrillation with RVR-converted to sinus rhythm at this time-patient will remain on IV amiodarone, Lovenox is being held due to his pacemaker insertion tomorrow #3 obstructive sleep apnea-patient's daughter will be getting a new CPAP machine for the patient when he goes home #4 sick sinus syndrome-patient is due to undergo placement of a pacemaker tomorrow #5 moderate pulmonary hypertension-again I placed the patient on IV Lasix today to see if this would improve his breathing, BMP will be obtained tomorrow, I gave him 1 dose of oral potassium chloride today #6 chronic dyspnea-etiology unclear, patient sees pulmonary medicine and cardiology. Patient was placed on oxygen this year at home. Total clinical time spent by myself addressing the patient's medical issues, reviewing all of his data, and collaborating with patient's care team: 35 minutes Capacity Legal Rat Exterminator Reflex Medical hold order details:: IF a medical hold is selected below, a suggested order for a MEDICAL HOLD will reflex upon signing the document. Next of kin: [place] law dictates a PRIORITY LIST for identifying legal decision-maker/legal next of kin in the following order (LNOK): 1st: The patient?s legal guardian, if any 2nd: The patient's spouse (if status is questionable, consult Risk Management) 3rd: The patient?s adult child(annemarie) (majority, if multiple children) 4th: The patient?s parents 5th: The patient?s adult siblings (majority, if multiple children siblings) Charges/Coding Visit Charges Inpatient E&M: 39635 Subs Hosp L2
[2023-05-31] MEDS: Potassium Chloride Oral Tablet 20 MEQ 40 MEQ PO (21:28)
[2023-05-31] MEDS: Atorvastatin Calcium 10 MG Tablet PO (21:28)
[2023-06-01] VITALS (23 sets, daily range): BP systolic 98–153; BP diastolic 63–109; PULSE 83–111; RESP 12–41; TEMP 36.2–36.9; O2SAT 90–100
[2023-06-01] MEDS: Amiodarone 360 MG in Dextrose 5% Viaflo Bag 192.8 ML 16.6999999999999993 MG CONT INF (03:21)
[2023-06-01 07:38] LABS: Anion Gap 1 (5-15); BUN 39 mg/dL (7-18); BUN/Creat Ratio 33.6 RATIO (10-20); Chloride 99 mmol/L (98-107); Creatinine, Serum 1.16 mg/dL (0.70-1.30); EST Glomerular Filtration Rate 64 mL/min (>60); Est Glom Filt Rate - Afr Amer 78 mL/min (>60); Estimated Creatinine Clearance 49.14 ml/min; Glucose 104 mg/dL (74-106); Potassium 4.3 mmol/L (3.5-5.1); Sodium Level 139 mmol/L (136-145)
[2023-06-01] MEDS: Amiodarone 200 MG Tablet PO ×2 (13:17→20:57)
[2023-06-01] MEDS: Ensure Plus High Protein 120 ML LIQUID PO ×2 (13:45→18:23)
[2023-06-01] MEDS: Menthol/Lanolin/Calamine/Znox 113 GM Tube 1 APPLIC TOPICAL ×2 (13:46→20:58)
[2023-06-01] MEDS: 0.9% Saline Lock 10 ML Syringe IV ×3 (13:46→20:56)
--- NOTE | 2023-06-01 14:52 | RAD_ITS ---
STUDY: X-RAY CHEST REASON FOR EXAM: Male, 82 years old. Sob TECHNIQUE: Single AP portable view of the chest. COMPARISON: Comparison is made with prior study dated 2023. FINDINGS: EKG electrodes are seen. The right lung base is clear. Mild residual left basilar atelectasis and/or infiltrate persists. Blunting of the left costophrenic angle. Normal size heart. Normal mediastinum and leo. Normal visualized pulmonary arteries. There is atherosclerotic calcification of the aortic arch with tortuosity. There are degenerative changes of the visualized thoracic spine. Normal visualized ribs, clavicles, and shoulders. There is no demonstrated abnormality of the visualized soft tissue structures of the upper abdomen. RAD/Chest 1 View (Portable) IMPRESSION: Mild residual atelectasis and/or infiltrate is seen at the left lung base with blunting of the left costophrenic angle. Electronically Signed: Mike Francis MD at 15:03 EST ,
[2023-06-01] MEDS: Furosemide 20 MG/2 ML VIAL IV ×2 (15:10→20:57)
[2023-06-01 17:02] LABS: BNP,B-Type NATRIURETIC PEPTIDE 51.6 pg/mL (0-100)
--- NOTE | 2023-06-01 17:09 | PCM.PN.HOSP ---
Reason for Visit Reason for Visit: Diagnoses Hyperlipidemia, unspecified (05/29/23) Essential (primary) hypertension (05/29/23) Paroxysmal atrial fibrillation (05/29/23) Ventricular premature depolarization (05/29/23) Unspecified diastolic (congestive) heart failure (05/29/23) Acute respiratory failure with hypercapnia (05/29/23) Acute and chronic respiratory failure with hypercapnia (05/29/23) Syncope and collapse (05/29/23) Subjective Subjective Patient was seen and examined today, he was taken down to undergo a pacemaker implantation today but he became very dyspneic when he was flat on the procedure table, his blood pressure went up to 210 and he was transferred back to PCU without a pacemaker being inserted. I talked to cardiology multiple times today about the patient, the plan is for now to continue IV Lasix, cardiology does not want to consider taking the patient to surgery for implantation of the pacemaker-they feel that patient could be stabilized and undergo it as perhaps an outpatient. Chest x-ray done today shows evidence of atelectasis, no pulmonary edema is noted. Objective Data Objective Data Vital Signs: Vital Signs Temp Pulse Resp BP Pulse Ox O2 Del Method O2 Flow Rate 98.4 F 111 H 22 H 107/82 H 98 Bi-pap 2 06/01/23 16:57 06/01/23 16:57 06/01/23 16:57 06/01/23 16:57 06/01/23 16:57 06/01/23 16:57 06/01/23 14:38 FiO2 35 06/01/23 05:00 Oxygen Flow Rate (L/min) 2 Oxygen Delivery Method Bi-pap Weight: 79.1 kg Body Mass Index (BMI) 26.5 Intake & Output: Intake and Output for Last 24 Hours 05/30/23 05/31/23 06/01/23 23:59 23:59 23:59 Intake Total 1347.81 / 1604.51 1647.06 / 1663.76 245.79 / 245.79 Output Total 300 / 400 925 / 925 600 / 600 Balance 1047.81 / 1204.51 722.06 / 738.76 -354.21 / -354.21 Lab / Micro Data 05/30/23 06:21 06/01/23 06:28 Labs: Laboratory Results - last 24 hr 06/01/23 06:28: Sodium 139, Potassium 4.3, Chloride 99, Carbon Dioxide 39.0 H, Anion Gap 1 L, BUN 39 H, Creatinine 1.16, Estim Creat Clear Calc 49.14, Est GFR (MDRD) Af Amer 78, Est GFR (MDRD) Non-Af 64, BUN/Creatinine Ratio 33.6 H, Glucose 104, Calcium 9.0, B-Natriuretic Peptide 51.6 Micro: Microbiology 05/30/23 02:10 Mucosa - Nasopharyngeal Respiratory Panel (PCR) - Final 05/30/23 02:10 Mucosa - Nose SARS-CoV-2, Influenza & RSV (PCR) - Final Radiography Diagnostic Testing: Radiology Impression Chest X-Ray 06/01/23 14:52 IMPRESSION: Mild residual atelectasis and/or infiltrate is seen at the left lung base with blunting of the left costophrenic angle. Electronically Signed: Mike Francis MD at 15:03 EST , Rhythm Strip Rhythm Strip: Sinus Rhythm Rate: 75 Ectopy: None Physical Exam Narrative alert, oriented x3 and no apparent distress General Appearance: cooperative, well kempt and well developed Orientation / Consciousness: awake, oriented to person, oriented to place and oriented to time HEENT normocephalic, head/scalp atraumatic and moist oral mucous membranes Eyes PERRL, EOMs intact bilaterally and conjunctivae normal Neck supple, no JVD, thyroid normal and no carotid bruits General: trachea midline Resp normal respiratory effort, no retractions, no use of accessory muscles and clear to auscultation bilaterally Auscultation: Negative for rales, rhonchi or wheezes Cardio regular rate, regular rhythm, no murmurs, no rub and no gallops Cardio Narrative: Occasional ectopic beats are noted GI normal to inspection, nondistended, normoactive bowel sounds, soft to palpation, non-tender and non-distended Extremity Extremity Narrative: There is generalized edema noted the patient's lower legs and feet Skin no rashes or lesions noted General Skin Exam: no breakdown Neuro oriented x3, CN's II-XII intact bilaterally, moves all extremities, no focal motor deficits and no sensory deficits noted Sensorium / Orientation: awake and alert Speech: speech normal Psych affect normal Assessment & Plan Assessment/Plan (1) Paroxysmal atrial fibrillation: (2) Acute and chronic respiratory failure with hypercapnia: PLAN: Plan 1. Acute on chronic respiratory failure with hypercapnia-patient will remain on BiPAP while sleeping, pulmonary medicine saw the patient in consultation #2 paroxysmal atrial fibrillation with RVR-converted to sinus rhythm at this time-patient will remain on amiodarone, they will attempt to insert his pacemaker tomorrow again #3 obstructive sleep apnea-patient's daughter will be getting a new CPAP machine for the patient when he goes home #4 sick sinus syndrome-patient is due to undergo placement of a pacemaker tomorrow #5 moderate pulmonary hypertension-again patient is on IV Lasix, there is still a significant edema of the patient's feet #6 chronic dyspnea-etiology unclear, patient sees pulmonary medicine and cardiology. Patient was placed on oxygen this year at home. Total clinical time spent by myself addressing the patient's medical issues, reviewing all of his data, and collaborating with patient's care team: 35 minutes Capacity Legal White Sugar Boiler Reflex Medical hold order details:: IF a medical hold is selected below, a suggested order for a MEDICAL HOLD will reflex upon signing the document. Next of kin: [place] law dictates a PRIORITY LIST for identifying legal decision-maker/legal next of kin in the following order (LNOK): 1st: The patient?s legal guardian, if any 2nd: The patient's spouse (if status is questionable, consult Risk Management) 3rd: The patient?s adult child(annemarie) (majority, if multiple children) 4th: The patient?s parents 5th: The patient?s adult siblings (majority, if multiple children siblings) Charges/Coding Visit Charges Inpatient E&M: 15606 Subs Hosp L2
[2023-06-01] MEDS: Atorvastatin Calcium 10 MG Tablet PO (20:56)
[2023-06-01] MEDS: hydrOXYzine PAM 25 MG Capsule PO (21:11)
[2023-06-02] VITALS (21 sets, daily range): BP systolic 94–160; BP diastolic 66–115; PULSE 70–127; RESP 12–24; TEMP 36.6–36.8; O2SAT 93–100
[2023-06-02] MEDS: Furosemide 20 MG/2 ML VIAL IV ×3 (05:08→22:03)
[2023-06-02] MEDS: 0.9% Saline Lock 10 ML Syringe IV ×2 (05:08→14:01)
[2023-06-02] MEDS: Levothyroxine 125 MCG Tablet PO (05:18)
[2023-06-02] MEDS: Amiodarone 200 MG Tablet PO ×2 (05:18→22:00)
--- NOTE | 2023-06-02 08:56 | CL.IE_ITS ---
Patient: SILAS KHOURY Study Date: 06/02/2023 Performing: Rambo Somers MD : 1940 Age: 82 Gender: male PROCEDURES PERFORMED LP04-(77628)INITIAL PACER INSERT+DUAL LEADS INDICATIONS Sinoatrial node dysfunction/Sick sinus syndrome PROCEDURE DETAILS The patient was brought to the Catheterization Lab in the postabsorptive nonsedated state. Informed consent was obtained prior to the procedure. Local anesthetic was given subcutaneously to the left upper chest area with Lidocaine 2%. Access was achieved and a guidewire was advanced into the left subclavian vein. Incision was made to the left subclavicular area. A peel-away sheath was inserted into the left subclavian vein. PPM ventricular lead was inserted / positioned to right ventricular apex. PPM ventricular lead testing performed. PPM ventricular lead testing performed. PPM atrial lead was inserted / positioned to the right atrial appendage. PPM atrial lead testing performed. The Atrial lead sutured in place with 2-0 Silk. The Ventricular PM lead sutured in place with 2-0 Silk. Device pocket was irrigated with antibiotic. PPM generator was attached to the lead(s) and inserted into the pocket. Subcutaneous closure was completed with 4-0 Vicryl. Skin closure was completed with 2-0 Vicryl. Pressure dressing applied to left chest. Steri-strips applied to Lt chest area. Instrument, sponge, and needle counts were noted to be normal. The patient tolerated the procedure well. Estimated Blood Loss: 10 ml's IMPLANTED / EX-PLANTED DEVICES IMPLANTED DEVICE(S): PPM Generator - Bookie: [employer], Model # [id number] , Serial # [id number] PPM Atrial lead - Bookie: Medtronic, Model # 5076-52CM , Serial # [id number] PPM Ventricular lead - Bookie: [employer]tronic, Model # 5076-58CM , Serial # [id number] DEVICE PARAMETERS ATRIAL LEAD PARAMETERS: P wave (mV) - 1.2 impedence (OHMS) - 551 VENTRICULAR LEAD PARAMETERS: R wave (mV) - 14.3 impedence (OHMS) - 798 threshold (V) - 0.7@0.4 DEVICE PARAMETERS: Mode - AAIR-DDDR lower rate - 60 upper rate - 130 rate response on CONCLUSIONS / RECOMMENDATIONS Device Conclusions: Successful implantation of a dual chamber pacemaker Device Recommendations: Follow up with Primary Care Physician PROCEDURE MEDICATIONS Versed 1 mg IV Versed 1 mg IV Oxygen: 6 L/min via nasal cannula Oxygen: 50 % FiO2 via bipap Antibiotic given in appropriate timeframe. Ancef 2 Gm IV @ 06/02/2023 07:46:28 Signed By Rambo Somers MD On 06/02/2023 09:02:14 Rambo Somers MD
[2023-06-02] MEDS: Metoprolol Tartrate 25 MG Tablet PO ×2 (09:25→22:00)
[2023-06-02] MEDS: Menthol/Lanolin/Calamine/Znox 113 GM Tube 1 APPLIC TOPICAL ×2 (09:26→22:02)
[2023-06-02] MEDS: Ensure Plus High Protein 120 ML LIQUID PO ×3 (09:26→17:20)
--- NOTE | 2023-06-02 19:32 | PN.HOSP_ITS ---
Reason for Visit Reason for Visit: Diagnoses Hyperlipidemia, unspecified (05/29/23) Essential (primary) hypertension (05/29/23) Paroxysmal atrial fibrillation (05/29/23) Ventricular premature depolarization (05/29/23) Unspecified diastolic (congestive) heart failure (05/29/23) Acute respiratory failure with hypercapnia (05/29/23) Acute and chronic respiratory failure with hypercapnia (05/29/23) Syncope and collapse (05/29/23) Subjective Subjective Patient was seen and examined today, Cardiology was able to insert a pacemaker today, his underlying rhythm is now atrial fibrillation. I talked briefly with cardiology, they will not place the patient on any anticoagulants until he is seen in the office for pacemaker follow-up. Patient states his breathing is somewhat improved, he does not have any lower leg edema presently. Objective Data Objective Data Vital Signs: Vital Signs Temp Pulse Resp BP Pulse Ox O2 Del Method O2 Flow Rate 97.9 F 70 18 107/75 97 Nasal Cannula 2 06/02/23 17:24 06/02/23 17:24 06/02/23 17:24 06/02/23 17:24 06/02/23 17:24 06/02/23 17:24 06/02/23 17:24 FiO2 30 06/02/23 06:38 Oxygen Flow Rate (L/min) 2 Oxygen Delivery Method Nasal Cannula Weight: 79.1 kg Body Mass Index (BMI) 26.5 Intake & Output: Intake and Output for Last 24 Hours 05/31/23 06/01/23 06/02/23 23:59 23:59 23:59 Intake Total 1647.06 / 1663.76 245.79 / 245.79 800 / 800 Output Total 925 / 925 1850 / 1850 600 / 600 Balance 722.06 / 738.76 -1604.21 / -1604.21 200 / 200 Lab / Micro Data 05/30/23 06:21 06/01/23 06:28 Labs: Laboratory Results - last 24 hr 06/01/23 23:59: Magnesium 2.0 Micro: Microbiology 05/30/23 02:10 Mucosa - Nasopharyngeal Respiratory Panel (PCR) - Final 05/30/23 02:10 Mucosa - Nose SARS-CoV-2, Influenza & RSV (PCR) - Final Rhythm Strip Rhythm Strip: Sinus Rhythm Rate: 75 Ectopy: None Physical Exam Narrative alert, oriented x3 and no apparent distress General Appearance: cooperative, well kempt and well developed Orientation / Consciousness: awake, oriented to person, oriented to place and oriented to time HEENT normocephalic, head/scalp atraumatic and moist oral mucous membranes Eyes PERRL, EOMs intact bilaterally and conjunctivae normal Neck supple, no JVD, thyroid normal and no carotid bruits General: trachea midline Resp normal respiratory effort, no retractions, no use of accessory muscles and clear to auscultation bilaterally Auscultation: Negative for rales, rhonchi or wheezes Cardio regular rate, regular rhythm, no murmurs, no rub and no gallops Cardio Narrative: Occasional ectopic beats are noted GI normal to inspection, nondistended, normoactive bowel sounds, soft to palpation, non-tender and non-distended Extremity Extremity Narrative: There is no lower leg edema noted bilaterally. Skin no rashes or lesions noted General Skin Exam: no breakdown Neuro oriented x3, CN's II-XII intact bilaterally, moves all extremities, no focal motor deficits and no sensory deficits noted Sensorium / Orientation: awake and alert Speech: speech normal Psych affect normal Assessment & Plan Assessment/Plan (1) Paroxysmal atrial fibrillation: (2) Acute and chronic respiratory failure with hypercapnia: PLAN: Plan 1. Acute on chronic respiratory failure with hypercapnia-patient will remain on BiPAP while sleeping, pulmonary medicine saw the patient in consultation patient is on his baseline O2 requirement he uses at home #2 paroxysmal atrial fibrillation with RVR-converted to sinus rhythm at this time-patient will remain on amiodarone, they will attempt to insert his pacemaker tomorrow again #3 obstructive sleep apnea-patient's daughter will be getting a new CPAP machine for the patient when he goes home #4 sick sinus syndrome-patient is due to undergo placement of a pacemaker tomorrow #5 moderate pulmonary hypertension-again patient is on IV Lasix, patient does not have any edema of his legs today #6 chronic dyspnea-etiology unclear, patient sees pulmonary medicine and cardiology. Patient was placed on oxygen this year at home. Total clinical time spent by myself addressing the patient's medical issues, reviewing all of his data, and collaborating with patient's care team: 35 minutes Capacity Legal Core Winder Machine Operator Reflex Medical hold order details:: IF a medical hold is selected below, a suggested order for a MEDICAL HOLD will reflex upon signing the document. Next of kin: [place] law dictates a PRIORITY LIST for identifying legal decision-maker/legal next of kin in the following order (LNOK): 1st: The patient?s legal guardian, if any 2nd: The patient's spouse (if status is questionable, consult Risk Management) 3rd: The patient?s adult child(annemarie) (majority, if multiple children) 4th: The patient?s parents 5th: The patient?s adult siblings (majority, if multiple children siblings) Charges/Coding Visit Charges Inpatient E&M: 51274 Subs Hosp L2
[2023-06-02] MEDS: Atorvastatin Calcium 10 MG Tablet PO (22:00)
[2023-06-03] VITALS (12 sets, daily range): BP systolic 99–124; BP diastolic 69–76; PULSE 79–87; RESP 12–20; TEMP 36.4–36.6; O2SAT 93–98
--- NOTE | 2023-06-03 01:13 | CPS ---
[0025] Pt. taking off his BiPAP mask at this time. Pt. adamant about not wearing it at this time. Pt. placed on 4L NC at this time, and he seems to be comfortable at this time.
--- NOTE | 2023-06-03 04:40 | RAD_ITS ---
INDICATION: Post permanent ICD/Pacemaker -- inspiration/expiration. Arms Down. Wet read to EXAMINATION/TECHNIQUE: X-RAY - AP and lateral views of chest, inspiration and expiration COMPARISON: Chest x-ray from 06/01/2023 FINDINGS: LINES/DEVICES: Left AICD in place. LUNGS: Low lung volumes with bibasilar atelectatic changes. Small bilateral pleural effusions again noted. No detectable pneumothorax. MEDIASTINUM AND CARDIOVASCULAR STRUCTURES: Heart size within normal limits for imaging technique. Atherosclerotic calcifications along aorta. BONES AND SOFT TISSUES: Skeletal degenerative changes. RAD/Chest 3 View IMPRESSION: Hypoventilatory and atelectatic changes with small pleural effusions. Electronically Signed: Blaise Garcia MD at 6:16 EST ,
[2023-06-03] MEDS: Furosemide 20 MG/2 ML VIAL IV ×3 (06:45→21:39)
[2023-06-03] MEDS: Levothyroxine 125 MCG Tablet PO (06:45)
[2023-06-03 08:17] LABS: Anion Gap 2 (5-15); BUN 35 mg/dL (7-18); BUN/Creat Ratio 29.2 RATIO (10-20); Calcium,Total 9.3 mg/dL (8.5-10.1); Chloride 96 mmol/L (98-107); EST Glomerular Filtration Rate 62 mL/min (>60); Est Glom Filt Rate - Afr Amer 75 mL/min (>60); Glucose 98 mg/dL (74-106); Potassium 4.2 mmol/L (3.5-5.1); Sodium Level 139 mmol/L (136-145)
--- NOTE | 2023-06-03 08:56 | PCM.PN.CARD ---
Subjective Subjective Patient seen and evaluated. Appears to be doing well this morning. Objective Data Vital Signs: Vital Signs Temp Pulse Resp BP Pulse Ox O2 Del Method O2 Flow Rate 97.5 F L 79 17 114/71 96 Nasal Cannula 3 06/03/23 05:30 06/03/23 05:30 06/03/23 05:30 06/03/23 05:30 06/03/23 05:30 06/03/23 05:30 06/03/23 05:30 FiO2 30 06/02/23 23:25 Oxygen Flow Rate (L/min) 3 Oxygen Delivery Method Nasal Cannula Weight: 174 lb 6.17 oz Body Mass Index (BMI) 26.5 Intake & Output: Intake and Output for Last 24 Hours 06/01/23 06/02/23 06/03/23 23:59 23:59 23:59 Intake Total 245.79 / 245.79 800 / 830 30 / 30 Output Total 1850 / 1850 600 / 950 700 / 700 Balance -1604.21 / -1604.21 200 / -120 -670 / -670 Lab / Micro Data 05/30/23 06:21 06/03/23 07:10 Labs: Laboratory Results - last 24 hr 06/03/23 07:10: Sodium 139, Potassium 4.2, Chloride 96 L, Carbon Dioxide 41.0 H, Anion Gap 2 L, BUN 35 H, Creatinine 1.20, Estim Creat Clear Calc 47.50, Est GFR (MDRD) Af Amer 75, Est GFR (MDRD) Non-Af 62, BUN/Creatinine Ratio 29.2 H, Glucose 98, Calcium 9.3 Rhythm Strip Rhythm Strip: Sinus Rhythm Rate: 75 Ectopy: None Cardiology Labs/Tests 06/03/23 07:10: Sodium 139, Potassium 4.2, Chloride 96 L, Carbon Dioxide 41.0 H, Anion Gap 2 L, BUN 35 H, Creatinine 1.20, Est GFR (MDRD) Af Amer 75, Est GFR (MDRD) Non-Af 62, BUN/Creatinine Ratio 29.2 H, Glucose 98, Calcium 9.3 Rhythm: EKG: ECHO: Stress Test: Cardiac Cath: PCI: CT Surgery: Holter monitor: EPS: PPM: CXR: Chest CT Scan: Radiography Diagnostic Testing: Radiology Impression Chest X-Ray 06/03/23 04:40 IMPRESSION: Hypoventilatory and atelectatic changes with small pleural effusions. Electronically Signed: Blaise Garcia MD at 6:16 EST , Physical Exam Const alert, oriented x3 and no apparent distress General Appearance: cooperative HEENT hearing grossly normal bilaterally Head and Scalp: atraumatic Eyes EOMs intact bilaterally Neck General: normal visual inspection Chest inspection of chest normal and palpation of chest normal Resp normal respiratory effort Auscultation: clear to auscultation bilaterally Cardio regular rate, regular rhythm, S1 normal heart sound and S2 normal heart sound Jugular Venous Distention: JVD GI normal to inspection, nondistended, normoactive bowel sounds Extremity normal capillary refill and no pedal edema Peripheral Pulses: Yes pulses 2+ throughout and femoral pulses present Skin no rashes or lesions noted Neuro oriented x3 and CN's II-XII intact bilaterally Psych Appearance: grossly normal and appropriate Assessment & Plan Assessment/Plan (1) Heart failure with preserved left ventricular function (HFpEF): PLAN: History of nonischemic cardiomyopathy diagnosed in 2018. Left ventricular systolic function having recovered since on medical management. Repeat echocardiogram has already been ordered. See #1 above. He underwent coronary artery evaluation with an angiogram which demonstrated the following: Normal left main coronary artery. Left anterior descending artery with 50% proximal stenosis. Left circumflex artery with no significant disease. Dominant right coronary artery with no significant disease. (2) Frequent PVCs: PLAN: He had been placed on metoprolol but this resulted in pauses and therefore that has been discontinued for the meantime. (3) Pre-syncope: PLAN: He had been on metoprolol and had significant pauses and therefore was being scheduled for a permanent pacemaker implantation. Underwent permanent pacemaker implantation yesterday. Successfully. (4) Essential (primary) hypertension: PLAN: Continue current medical therapy. Echocardiogram would also be performed. (5) Hyperlipidemia: PLAN: On atorvastatin. Continue and follow lipid profile (6) Paroxysmal atrial fibrillation: PLAN: It appears that the patient has paroxysmal atrial fibrillation with some pauses suggesting tachybradycardia syndrome. He is on amiodarone 200 mg twice daily. Anticoagulation will be started after his office visit. Thank you for allowing me to participate in the care of your patient. Please don't hesitate to call if any issues arise. (7) Pacemaker: PLAN: Patient is status post permanent pacemaker implantation. Chest x-ray is noted to be stable pacer check today is good. Follow-up in the office. Thank you for allowing me to participate in the care of your patient. Please don't hesitate to call if any issues arise. Capacity Legal Business Operations Consultant Reflex Medical hold order details:: IF a medical hold is selected below, a suggested order for a MEDICAL HOLD will reflex upon signing the document. Next of kin: [place] law dictates a PRIORITY LIST for identifying legal decision-maker/legal next of kin in the following order (LNOK): 1st: The patient?s legal guardian, if any 2nd: The patient's spouse (if status is questionable, consult Risk Management) 3rd: The patient?s adult child(annemarie) (majority, if multiple children) 4th: The patient?s parents 5th: The patient?s adult siblings (majority, if multiple children siblings)
--- NOTE | 2023-06-03 08:59 | DCINST_ITS ---
Discharge Instructions Diet Discharge Diet: No restrictions (as you feel able. No excessive stretching. No lifting your arm over your head (keep elbow below shoulder level) until seen for your pacemaker check. Do not lift your elbow away from your side until you are seen for your first visit. Keep the arm sling on if it helps remind you not to lift your arm.) Activity Discharge Activity: May Not Drive May shower in (days): 2 Additional Activity Instructions:: May shower or bathe on [day 3]. Do not scrub the incision or soak in the tub. Just wash with soap and let the water run over the incision. Gently pat dry with towel. Medications: Take your pain medication as directed. Refer to your discharge instruction sheet for a list of medications you are to take. Dressing / Incision Call your doctor if your incision/area has: Continuous Slow Oozing, Sudden Increased Bleeding, Increased Pain/ Swelling, Increased Redness, Foul Smelling Discharge and Swelling at the incision site Call your doctor if you observe: Fever of 101 or Higher, Shortness of breath, Dizziness, Fainting spells, Swelling in the ankles, Chest pain, Prolonged hiccupping and Increased palpitations (irregular heartbeat) Suture Line Care: Avoid Pulling/Pushing and Avoid Pinching/Bending Cleanse incision/area with: Keep Dressing Clean & Dry Additional Dressing/Incision Instructions:: When dressing is removed, wash and dry incision. Keep covered with a light bandage if it is rubbing against your clothing. Do not cover the incision with an airtight bandage. Change the bandage daily. Do not remove steri strips. The strips will fall off on their own. Follow Up Care Please Follow Up With: Rambo Somers MD When: Pacer follow-up on June 09 at 2 PM Test Results: Test results from this visit will be discussed in further detail at your follow- up appointment, if applicable. Discharge Plan Admission Admit Date/Time: 05/29/23 21:59 Attending Provider: Blaise Lanza Primary Care Provider: July Summers Consulting Providers: Stefan Almaguer; Sabino Ennis; Uzair Calhoun; Sergey Luna; Jeannie Lacy; Humphrey Solorzano; Butch Freeman; Cuauhtemoc Minaya; Clayton Carrero; Paolo Taylor; Una Mejia; Rambo Somers Discharge Orders/Prescriptions Prescriptions: No Action levothyroxine 125 mcg tablet 125 mcg PO DAILY rosuvastatin 5 mg tablet 5 mg PO DAILY losartan 50 mg tablet 50 mg PO DAILY Qty: 90 3RF furosemide [Lasix] 40 mg tablet 40 mg PO DAILY Qty: 90 3RF metoprolol tartrate 25 mg tablet 25 mg PO BID Qty: 1 3RF Referrals / Follow Up: July Summers PA [Primary Care Provider] -
[2023-06-03] MEDS: Ensure Plus High Protein 120 ML LIQUID PO ×3 (09:29→16:38)
[2023-06-03] MEDS: Metoprolol Tartrate 25 MG Tablet PO ×2 (09:30→21:32)
[2023-06-03] MEDS: Amiodarone 200 MG Tablet PO ×2 (09:30→21:39)
[2023-06-03] MEDS: Menthol/Lanolin/Calamine/Znox 113 GM Tube 1 APPLIC TOPICAL ×2 (09:34→21:46)
--- NOTE | 2023-06-03 10:55 | CASEMGMT ---
Per nursing admission questions patient does not have Healthcare Power of Machine Stone Polisher Apprentice or Healthcare Living Will and is not interested in documents. Mandy Silverman PURCHASING ASSISTANT HORSE IDENTIFIER
--- NOTE | 2023-06-03 13:20 | CASEMGMT ---
Addendum entered by Marbella Beasley 06/03/23 18:41: 1:45 PM. Dtr provided w/HHC list to review. Made aware to look over and decide preferences. Dtr had several questions about HHC and palliative. She states they would be interested in a palliative referral in addition to HHC. Dr Lanza made aware and order received. Referral sent to [facility] via e-mail. Eleanor, land planner to f/u with family re: HHC preference. Per Hiral @ [facility], pt is out of their services areas. Eleanor made aware. Original Note: INOCENTE FLORES NOTE: Reviewed therapy notes and spoke w/therapist, Supriya, who states feels pt would be safe to discharge home as long as he has some help/support. INOCENTE FLROES to room. Pt sitting up in chair in room. Daughter at bedside. Pt states he does wish to discharge home and feels he will be safe at home. He lives w/his and he states she can assist him some. When therapy worked w/pt, they instructed him on use of a quad cane and this was recommended to use @ home. Daughter states she is pretty sure they have access to one and if not she is aware insurance does not cover this item and she states they can purchase one. Pt has home O2 through [employer] and pt states he wears it @ 2 l/m continuously and bleed-in via PAP. Family can bring in portable O2 tank. Discussed HHC and questions answered. Pt and dtr both would like pt to have HHC. Made aware a list will be provided to review. They deny having other discharge needs at this time. Lisseth HENAO RN CM
[2023-06-03] MEDS: 0.9% Saline Lock 10 ML Syringe IV (13:24)
--- NOTE | 2023-06-03 13:35 | CASEMGMT ---
Discharge Planning A list of?HH providers including quality and resource use data and consistent with the patient's preferred geographic region, medical needs, and insurance network was created in [facility] Guide.? This list was provided to the RN MARK. Eleanor Romero, Discharge Planning Asst.
--- NOTE | 2023-06-03 16:04 | CT_ITS ---
STUDY: CTA CHEST REASON FOR EXAM: Male, 82 years old. hypoxia, r/o PE RADIATION DOSAGE (If Supplied By Facility): CTDIvol = ( 15.68 ) mGy, DLP = ( 502.88 ) mGycm TECHNIQUE: The examination was performed with the intravenous administration of IV 100mL Isovue-370. Post-processing of the angiographic images was performed, with multiplanar reformation and 3D reconstruction. Individualized dose optimization techniques were used for this CT. COMPARISON: None. FINDINGS: Left-sided pacemaker in place. Normal enhancement of the main pulmonary artery and right and left pulmonary arteries. Normal enhancement of the bilateral peripheral pulmonary arteries. There is no demonstrated pulmonary embolism. Normal thoracic aorta and visualized great vessels. There is no demonstrated aortic dissection. Mild to moderate cardiomegaly. Coronary artery calcifications noted. Normal mediastinum. Normal hilar regions. Normal visualized trachea and bronchi. The lungs are underexpanded. There is mild vascular crowding with bilateral lower lobe atelectasis. Normal pleura. Normal chest wall structures. There are degenerative changes of thoracic spine. Normal visualized upper abdomen. CT/CTA Chest W/WO Contrast IMPRESSION: Negative CTA chest examination, without a demonstrated pulmonary embolism or arterial dissection. Vascular crowding along with bilateral lower lobe atelectasis. Electronically Signed: Bettye Diggs MD at 17:27 EST ,
[2023-06-03 17:37] LABS: Blood Gas Specimen Type ART; SITE L RADIAL
[2023-06-03 17:38] LABS: Allen Test POS; O2 Delivery Device Nasal Can
[2023-06-03 17:39] LABS: Time Given 1610; pH 7.33 (7.35-7.45)
[2023-06-03 17:41] LABS: Base Excess 16 mmol/L (-2 to +2); Bicarbonate 41.5 mmol/L (22-26); PO2 93 mmHG (75-100); Total Carbon Dioxide 44 mmol/L
[2023-06-03 17:42] LABS: SO2 96 % (95-99)
--- NOTE | 2023-06-03 19:17 | PN.HOSP_ITS ---
Reason for Visit Reason for Visit: Diagnoses Hyperlipidemia, unspecified (05/29/23) Essential (primary) hypertension (05/29/23) Paroxysmal atrial fibrillation (05/29/23) Ventricular premature depolarization (05/29/23) Unspecified diastolic (congestive) heart failure (05/29/23) Acute respiratory failure with hypercapnia (05/29/23) Acute and chronic respiratory failure with hypercapnia (05/29/23) Syncope and collapse (05/29/23) Presence of cardiac pacemaker (05/29/23) Subjective Subjective Patient was seen and examined today, he is laying in bed with his eyes closed at times but does answer questions appropriately, he did not appear to be asleep. Talked at length with one of his daughters who was in the room at the time my examination, I obtained a blood gas this afternoon which showed a pH of 7.33, pCO2 of 78, and a pO2 of 93. I ordered a CT of the chest which did not show any evidence of embolic event, it did show bibasilar atelectasis. I asked nursing to provide incentive spirometry and a pickle device for the patient to use. Patient is now on 4 L of oxygen via nasal cannula, I have decided to decrease his IV Lasix to twice daily. Objective Data Objective Data Vital Signs: Vital Signs Temp Pulse Resp BP Pulse Ox O2 Del Method O2 Flow Rate 97.7 F L 86 18 99/69 96 Nasal Cannula 4 06/03/23 17:41 06/03/23 17:41 06/03/23 17:41 06/03/23 17:41 06/03/23 17:41 06/03/23 18:00 06/03/23 18:00 FiO2 30 06/02/23 23:25 Oxygen Flow Rate (L/min) 4 Oxygen Delivery Method Nasal Cannula Weight: 79.1 kg Body Mass Index (BMI) 26.5 Intake & Output: Intake and Output for Last 24 Hours 06/01/23 06/02/23 06/03/23 23:59 23:59 23:59 Intake Total 245.79 / 245.79 800 / 830 270 / 270 Output Total 1850 / 1850 600 / 950 1600 / 1600 Balance -1604.21 / -1604.21 200 / -120 -1330 / -1330 Lab / Micro Data 05/30/23 06:21 06/03/23 07:10 Labs: Laboratory Results - last 24 hr 06/03/23 07:10: Sodium 139, Potassium 4.2, Chloride 96 L, Carbon Dioxide 41.0 H, Anion Gap 2 L, BUN 35 H, Creatinine 1.20, Estim Creat Clear Calc 47.50, Est GFR (MDRD) Af Amer 75, Est GFR (MDRD) Non-Af 62, BUN/Creatinine Ratio 29.2 H, Glucose 98, Calcium 9.3 Micro: Microbiology 05/30/23 02:10 Mucosa - Nasopharyngeal Respiratory Panel (PCR) - Final 05/30/23 02:10 Mucosa - Nose SARS-CoV-2, Influenza & RSV (PCR) - Final ABG Data ABG results: ABG 06/03/23 16:00 Specimen Type ART Sample Site L RADIAL pH 7.33 L Bicarbonate Actual 41.5 H Total CO2 44 Base Excess 16 H O2 Saturation 96 ABG pCO2 78.0 H* ABG pO2 93 Gee Test POS O2 Delivery Device Nasal Can Liter Flow 4.0 Crit Call To/Read Back Yes Blood Gas Notified Whom DR Allen Blood Gas Notified Time 1610 Radiography Diagnostic Testing: Radiology Impression Chest X-Ray 06/03/23 04:40 IMPRESSION: Hypoventilatory and atelectatic changes with small pleural effusions. Electronically Signed: Blaise Garcia MD at 6:16 EST , Chest CTA 06/03/23 16:04 IMPRESSION: Negative CTA chest examination, without a demonstrated pulmonary embolism or arterial dissection. Vascular crowding along with bilateral lower lobe atelectasis. Electronically Signed: Bettye Diggs MD at 17:27 EST , Rhythm Strip Rhythm Strip: Sinus Rhythm Rate: 75 Ectopy: None Physical Exam Const alert, oriented x3 and no apparent distress General Appearance: cooperative HEENT hearing grossly normal bilaterally Head and Scalp: atraumatic Eyes EOMs intact bilaterally and conjunctivae normal Neck General: normal visual inspection Resp normal respiratory effort, no retractions, no use of accessory muscles and clear to auscultation bilaterally Auscultation: clear to auscultation bilaterally Cardio S1 normal heart sound and S2 normal heart sound Cardio Narrative: Heart rate and rhythm is regular with extrasystolic beats noted Jugular Venous Distention: JVD GI normal to inspection, nondistended, normoactive bowel sounds and soft to palpation Extremity no clubbing, cyanosis or edema and no pedal edema Skin no rashes or lesions noted Neuro oriented x3, CN's II-XII intact bilaterally, moves all extremities and no focal motor deficits Psych affect normal Appearance: grossly normal and appropriate Assessment & Plan Assessment/Plan (1) Paroxysmal atrial fibrillation: (2) Heart failure with preserved left ventricular function (HFpEF): (3) Frequent PVCs: (4) Pre-syncope: (5) Essential (primary) hypertension: (6) Hyperlipidemia: (7) Pacemaker: PLAN: Plan 1. Acute on chronic respiratory failure with hypercapnia-patient will remain on BiPAP while sleeping, patient will resume his CPAP when he goes home #2 paroxysmal atrial fibrillation with RVR-converted to sinus rhythm at this time-patient will remain on amiodarone, patient now has a pacemaker #3 obstructive sleep apnea-patient's daughter will be getting a new CPAP machine for the patient when he goes home #4 sick sinus syndrome-patient now has a pacemaker #5 moderate pulmonary hypertension-again patient is on IV Lasix, patient does not have any edema of his legs today #6 chronic dyspnea-etiology unclear, patient sees pulmonary medicine and cardiology. Patient was placed on oxygen this year at home. Total clinical time spent by myself addressing the patient's medical issues, reviewing all of his data, and collaborating with patient's care team: 35 minutes Capacity Legal Extension Service Advisor Reflex Medical hold order details:: IF a medical hold is selected below, a suggested order for a MEDICAL HOLD will reflex upon signing the document. Next of kin: [place] law dictates a PRIORITY LIST for identifying legal decision-maker/legal next of kin in the following order (LNOK): 1st: The patient?s legal guardian, if any 2nd: The patient's spouse (if status is questionable, consult Risk Management) 3rd: The patient?s adult child(annemarie) (majority, if multiple children) 4th: The patient?s parents 5th: The patient?s adult siblings (majority, if multiple children siblings) Charges/Coding Visit Charges Inpatient E&M: 82907 Subs Hosp L2
[2023-06-03] MEDS: Atorvastatin Calcium 10 MG Tablet PO (21:39)
[2023-06-04] VITALS (10 sets, daily range): BP systolic 95–127; BP diastolic 60–74; PULSE 71–87; RESP 12–20; TEMP 36.4; O2SAT 87–97
--- NOTE | 2023-06-04 05:57 | NUR.TO.PHY ---
Patient's daughter Sonal [phone] requests a call from the doctor if family is not present during rounds. Family requesting that patient undergo sleep study prior to or upon discharge but prior to returning home. Family concerned that if this does not happen then patient will be right back in the hospital for hypercapnia. Patient is currently not scheduled for sleep study until June and would therefore be using the same CPAP settings at home that led to current hospitalization.
[2023-06-04] MEDS: Levothyroxine 125 MCG Tablet PO (06:24)
[2023-06-04] MEDS: Ensure Plus High Protein 120 ML LIQUID PO (09:00)
[2023-06-04] MEDS: Furosemide 20 MG/2 ML VIAL IV (09:04)
[2023-06-04] MEDS: Amiodarone 200 MG Tablet PO (09:04)
[2023-06-04] MEDS: Metoprolol Tartrate 25 MG Tablet PO (09:05)
--- NOTE | 2023-06-04 09:12 | CASEMGMT ---
Addendum entered by Eleanor Romero 06/04/23 11:53: Patient has been accepted by [facility] and family wishes to proceed. INOCENTE FLORES and all agencies updated. Eleanor Romero, Discharge Planning Asst. Original Note: Discharge Planning referrals sent to [place], [facility], [place], and [facility]. Eleanor Romero, Discharge Planning Asst.
--- NOTE | 2023-06-04 16:46 | DCINST_ITS ---
Discharge Instructions Diet Discharge Diet: No restrictions (as you feel able. No excessive stretching. No lifting your arm over your head (keep elbow below shoulder level) until seen for your pacemaker check. Do not lift your elbow away from your side until you are seen for your first visit. Keep the arm sling on if it helps remind you not to lift your arm.) Activity Discharge Activity: Return to Normal Activity May shower in (days): 2 Weight Bearing Status: Full weight bearing Additional Activity Instructions:: May shower or bathe on [day 3]. Do not scrub the incision or soak in the tub. Just wash with soap and let the water run over the incision. Gently pat dry with towel. Medications: Take your pain medication as directed. Refer to your discharge instruction sheet for a list of medications you are to take. Dressing / Incision Call your doctor if your incision/area has: Continuous Slow Oozing, Sudden Increased Bleeding, Increased Pain/ Swelling, Increased Redness, Foul Smelling Discharge and Swelling at the incision site Call your doctor if you observe: Fever of 101 or Higher, Shortness of breath, Dizziness, Fainting spells, Swelling in the ankles, Chest pain, Prolonged hiccupping and Increased palpitations (irregular heartbeat) Suture Line Care: Avoid Pulling/Pushing and Avoid Pinching/Bending Cleanse incision/area with: Keep Dressing Clean & Dry Additional Dressing/Incision Instructions:: When dressing is removed, wash and dry incision. Keep covered with a light bandage if it is rubbing against your clothing. Do not cover the incision with an airtight bandage. Change the bandage daily. Do not remove steri strips. The strips will fall off on their own. Follow Up Care Please Follow Up With: Rambo Somers MD Test Results: Test results from this visit will be discussed in further detail at your follow- up appointment, if applicable. Discharge Plan Admission Admit Date/Time: 05/29/23 21:59 Primary Reason for Your Visit: Combined respiratory failure Attending Provider: Blaise Lanza Primary Care Provider: July Summers Consulting Providers: Stefan Almaguer; Sabino Ennis; Uzair Calhoun; Sergey Luna; Jeannie Lacy; Humphrey Solorzano; Butch Freeman; Cuauhtemoc Minaya; Clayton Carrero; Paolo Taylor; Una eMjia; Rambo Somers Instructions Additional Instructions / Restrictions: Wear your CPAP when sleeping including naps Discharge Orders/Prescriptions Prescriptions: New amiodarone 200 mg Tablet 200 mg PO BID Qty: 60 0RF Rx Instructions: 1 twice a day for 7 days, then 1/day thereafter furosemide [Lasix] 20 mg tablet 60 mg PO DAILY Qty: 90 0RF Continued levothyroxine 125 mcg tablet 125 mcg PO DAILY rosuvastatin 5 mg tablet 5 mg PO DAILY losartan 50 mg tablet 50 mg PO DAILY Qty: 90 3RF metoprolol tartrate 25 mg tablet 25 mg PO BID Qty: 1 3RF Discontinued furosemide [Lasix] 40 mg tablet 40 mg PO DAILY Qty: 90 3RF Referrals / Follow Up: Rambo Somers MD [Med Staff - Active Staff] - See Referral Note (As directed) Uzair Calhoun DO [Med Staff - Active Staff] - See Referral Note (As scheduled) July Summers PA [Primary Care Provider] - Within 2 Weeks Disposition Disposition (needs filled in before D/C Order can be placed): Home, Self Care
--- NOTE | 2023-06-04 16:53 | PCM.DC.SUM ---
Providers Date of Admission: 05/29/23 Date of Discharge: 06/04/23 Primary Care Physician: RICHI Kramer Consultations 05/29/23 22:45 Consult: Stacker And Sorter Operator / Pulmonary Medicine Routine Consulting Provider: Intensivists/Pulmonary Med Reason for Consult: hypercapnic respiratory failure EMERGENT Consult: No Notified: Yes Date Notified: 05/30/23 Time Notified: 05:52 Method of Notification: Text 05/31/23 04:37 Consult: Cardiology Routine Consulting Provider: Rambo Somers Reason for Consult: afib with rvr EMERGENT Consult: No Notified: Yes Date Notified: 05/31/23 Time Notified: 04:37 Method of Notification: Text Comments:: will text in the morning Reason For Visit: ACUTE HYPERCAPNIC RESPIRATORY FAILURE Diagnosis Discharge Diagnosis (1) Heart failure with preserved left ventricular function (HFpEF): Status: Inactive Code(s): I50.30 - Unspecified diastolic (congestive) heart failure (2) Frequent PVCs: Status: Resolved Code(s): I49.3 - Ventricular premature depolarization (3) Pre-syncope: Status: Resolved Code(s): R55 - Syncope and collapse (4) Essential (primary) hypertension: Status: Acute Code(s): I10 - Essential (primary) hypertension (5) Hyperlipidemia: Status: Acute Code(s): E78.5 - Hyperlipidemia, unspecified (6) Paroxysmal atrial fibrillation: Status: Acute Code(s): I48.0 - Paroxysmal atrial fibrillation (7) Pacemaker: Status: Acute Code(s): Z95.0 - Presence of cardiac pacemaker Plan 1. Acute on chronic respiratory failure with hypercapnia-patient will remain on BiPAP while sleeping, pulmonary medicine saw the patient in consultation patient is on his baseline O2 requirement he uses at home #2 paroxysmal atrial fibrillation with RVR-converted to sinus rhythm at this time-patient will remain on amiodarone, they will attempt to insert his pacemaker tomorrow again #3 obstructive sleep apnea-patient's daughter will be getting a new CPAP machine for the patient when he goes home #4 sick sinus syndrome-patient is due to undergo placement of a pacemaker tomorrow #5 moderate pulmonary hypertension-again patient is on IV Lasix, patient does not have any edema of his legs today #6 chronic dyspnea-etiology unclear, patient sees pulmonary medicine and cardiology. Patient was placed on oxygen this year at home. 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 Total clinical time spent by myself addressing the patient's medical issues, reviewing all of his data, and collaborating with patient's care team: 35 minutes Medications at Discharge Home Medications levothyroxine 125 mcg tablet 125 mcg PO DAILY thyroid 07/07/21 rosuvastatin 5 mg tablet 5 mg PO DAILY cholesterol 06/12/22 losartan 50 mg tablet 50 mg PO DAILY blood pressure #90 tabs 12/10/22 metoprolol tartrate 25 mg tablet 25 mg PO BID #1 TAB 05/25/23 amiodarone 200 mg tablet 200 mg PO BID #60 tabs 06/04/23 furosemide 20 mg tablet (Lasix) 60 mg (3 x 20 mg) PO DAILY #90 tabs 06/04/23 Hospital Course Operations None Procedures - (Pacemaker implantation) Summary of Care Provided Minutes Spent on Discharge: 32 Hospital Course: This 62-year-old white male was seen in the emergency room at [facility] after being brought to the ER by family for increased sleep, fatigue, and confusion over the last 48 hours. Patient Uxil complained of edema in his legs. Patient was due to have a pacemaker inserted as an outpatient due to a history of pauses noted on a Holter monitor as an outpatient. Patient also was supposed to use CPAP, but his machine had been broken for quite some time and he was not using it. Evaluation in the emergency room included blood gas which showed a pH of 7.3, pCO2 of 88.2 and pO2 77 on nasal cannula oxygen. Patient was felt to be in acute on chronic hypercapnic respiratory failure due to his nonuse of CPAP, he was admitted to PCU, he was seen in consultation by pulmonary medicine and maintained on BiPAP when he was sleeping. Patient abruptly went into A-fib with RVR and was started on IV amiodarone. Patient converted well on the amiodarone to normal sinus rhythm. Patient was seen by cardiology and they recommended insertion of a pacemaker due to his history of sinus pauses. Patient underwent insertion of a pacemaker without incident, postop patient was hypoxic and his oxygen was adjusted and he was placed on IV diuresis. Patient's edema resolved, the family obtain another CPAP machine from his supplier for use at home. On 06/04/2023, patient was seen and examined: On examination he appeared in good health and spirits. Vital signs as documented. Skin warm and dry and without overt rashes. Neck without JVD, neck was supple, trachea midline, thyroid was normal. Lungs clear bilaterally, normal air movement was noted. Heart exam notable for regular rhythm, normal sounds and absence of murmurs, rubs or gallops. Abdomen unremarkable and without evidence of organomegaly, masses, or abdominal aortic enlargement. Bowel sounds are present, abdomen is not distended. Extremities nonedematous, no cyanosis was noted, no clubbing was noted. Neuro: Cranial nerves II through XII are grossly intact, no focal motor deficits were noted, sensation to light touch and pinprick intact, motor exam 5/5 throughout. Psych: Patient is alert and oriented x3, he does not appear anxious or depressed, he does not appear agitated. Patient appear to be stable for discharge home on 06/04/2023. Weight / BMI Weight Weight: 79.1 kg Body Mass Index (BMI) 26.5 ABG / Lab / Microbiology Data 05/30/23 06:21 06/03/23 07:10 Microbiology: Microbiology 05/30/23 02:10 Mucosa - Nasopharyngeal Respiratory Panel (PCR) - Final 05/30/23 02:10 Mucosa - Nose SARS-CoV-2, Influenza & RSV (PCR) - Final ABG: ABG 06/03/23 16:00 Specimen Type ART Sample Site L RADIAL pH 7.33 L Bicarbonate Actual 41.5 H Total CO2 44 Base Excess 16 H O2 Saturation 96 ABG pCO2 78.0 H* ABG pO2 93 Gee Test POS O2 Delivery Device Nasal Can Liter Flow 4.0 Crit Call To/Read Back Yes Blood Gas Notified Whom DR Allne Blood Gas Notified Time 1610 Radiography Diagnostic Testing: Radiology Impression Chest CTA 06/03/23 16:04 IMPRESSION: Negative CTA chest examination, without a demonstrated pulmonary embolism or arterial dissection. Vascular crowding along with bilateral lower lobe atelectasis. Electronically Signed: Bettye Diggs MD at 17:27 EST , D/C Instructions Discharge Diet: No restrictions (as you feel able. No excessive stretching. No lifting your arm over your head (keep elbow below shoulder level) until seen for your pacemaker check. Do not lift your elbow away from your side until you are seen for your first visit. Keep the arm sling on if it helps remind you not to lift your arm.) May shower in (days): 2 Weight Bearing Status: Full weight bearing Additional Activity Instructions: May shower or bathe on [day 3]. Do not scrub the incision or soak in the tub. Just wash with soap and let the water run over the incision. Gently pat dry with towel. Medications: Take your pain medication as directed. Refer to your discharge instruction sheet for a list of medications you are to take. Call your doctor if your incision/area has: Continuous Slow Oozing, Sudden Increased Bleeding, Increased Pain/ Swelling, Increased Redness, Foul Smelling Discharge and Swelling at the incision site Call your doctor if you observe: Fever of 101 or Higher, Shortness of breath, Dizziness, Fainting spells, Swelling in the ankles, Chest pain, Prolonged hiccupping and Increased palpitations (irregular heartbeat) Suture Line Care: Avoid Pulling/Pushing and Avoid Pinching/Bending Cleanse incision/area with: Keep Dressing Clean & Dry Additional Dressing/Incision Instructions: When dressing is removed, wash and dry incision. Keep covered with a light bandage if it is rubbing against your clothing. Do not cover the incision with an airtight bandage. Change the bandage daily. Do not remove steri strips. The strips will fall off on their own. Please Follow Up With: Rambo Somers MD When: Pacer follow-up on June 09 at 2 PM Meaningful Use Info Meaningful Use Diagnoses (Choose all that apply): None applicable Discharge Plan Admission Admit Date/Time: 05/29/23 21:59 Primary Reason for Your Visit: Combined respiratory failure Attending Provider: Blaise Lanza Primary Care Provider: July Summers Consulting Providers: Stefan Almaguer; Sabino Ennis; Uzair Calhoun; Sergey Luna; Jeannie Lacy; Humphrey Solorzano; Butch Freeman; Cuauhtemoc Minaya; Clayton Carrero; Paolo Taylor; Una Mejia; Rambo Somers Instructions Additional Instructions / Restrictions: Wear your CPAP when sleeping including naps Discharge Orders/Prescriptions Prescriptions: New amiodarone 200 mg Tablet 200 mg PO BID Qty: 60 0RF Rx Instructions: 1 twice a day for 7 days, then 1/day thereafter furosemide [Lasix] 20 mg tablet 60 mg PO DAILY Qty: 90 0RF Continued levothyroxine 125 mcg tablet 125 mcg PO DAILY rosuvastatin 5 mg tablet 5 mg PO DAILY losartan 50 mg tablet 50 mg PO DAILY Qty: 90 3RF metoprolol tartrate 25 mg tablet 25 mg PO BID Qty: 1 3RF Discontinued furosemide [Lasix] 40 mg tablet 40 mg PO DAILY Qty: 90 3RF Referrals / Follow Up: Rambo Somers MD [Med Staff - Active Staff] - See Referral Note (As directed) Uzair Calhoun DO [Med Staff - Active Staff] - See Referral Note (As scheduled) July Summers, PA [Primary Care Provider] - Within 2 Weeks Disposition Disposition (needs filled in before D/C Order can be placed): Home, Self Care Charges/Coding Visit Charges Inpatient E&M: 05570 Disch Hosp >30min
--- NOTE | 2023-06-04 17:06 | NURSING ---
I spoke with Emeterio with [facility] to inform them the pt will d/c today.
== END 2023-06-04 18:05 | disposition home or self-care (01) | DRG 982 ==
LOC: ED 21:30 → PCU 22:05
PROVIDERS: Internal Medicine; Internal Medicine Critical Care Medicine; Admitting Provider Student in an Organized Health Care Education/Training Program; Emergency Provider Emergency Medicine; PCP Physician Assistant; Visit Provider Internal Medicine
DX: J96.22 Acute and chronic respiratory failure with hypercapnia (principal); E87.29 Other acidosis; I13.0 Hypertensive heart and chronic kidney disease with heart failure and stage 1 through stage 4 chronic kidney disease, or unspecified chronic kidney disease; I50.30 Unspecified diastolic (congestive) heart failure; I27.20 Pulmonary hypertension, unspecified; J44.9 Chronic obstructive pulmonary disease, unspecified; I49.5 Sick sinus syndrome; I48.0 Paroxysmal atrial fibrillation; N18.9 Chronic kidney disease, unspecified; E03.9 Hypothyroidism, unspecified; I08.0 Rheumatic disorders of both mitral and aortic valves; E78.5 Hyperlipidemia, unspecified; G47.33 Obstructive sleep apnea (adult) (pediatric); I25.10 Atherosclerotic heart disease of native coronary artery without angina pectoris; Z91.199 Patient's noncompliance with other medical treatment and regimen due to unspecified reason; Z86.16 Personal history of COVID-19; I49.3 Ventricular premature depolarization
CPT/HCPCS: 33208; 36415; 36600; 71045; 71047; 71275; 80048; 82803; 83735; 83880; 84443; 84484; 85025; 85610; 85730; 87631; 87633; 93005; 93306; 94002; 94003; 94762; 97162; 97166; 97530; 97535; 99152; 99153; 99284; J7040; J7050; Q9967; A4216; C1894; J1940

== ENCOUNTER 2023-06-21 14:36 | Inpatient (IN) | payer MEDICARE, SELFPAY ==
[2023-06-21] VITALS (10 sets, daily range): BP systolic 79–102; BP diastolic 49–78; PULSE 61–82; RESP 8–39; TEMP 36.1–36.8; O2SAT 94–100; BMI 25.7; BMI 27.8
[2023-06-21 15:00] LABS: Absolute Lymphocyte Count 1.13 X10^3/uL (0.83-4.51); Absolute Neutrophil Count 8.3 X10^3/uL (2.0-7.7); Basophil# 0.04 X10^3/uL; Basophil% 0.4 % (0-1); Eosinophil# 0.09 X10^3/uL; Eosinophils% 0.9 % (0-5); Hematocrit 46.1 % (40-54); Hemoglobin 13.8 g/dL (13.0-16.5); Lymphocyte # 1.13 X10^3/ul (0.83-4.51); Lymphocyte % 10.8 % (19-41); Mean Corp Hgb Conc 29.9 g/dL (32-36); Mean Corpuscular Hgb 30.5 pg (27.0-32.0); Monocyte# 0.97 X10^3/uL; Monocyte% 9.2 % (0-10); NRBC Flagged by Analyzer 0 % (0-5); Neutrophil # 8.26 X10^3/uL (2.7-7.7); Neutrophil % 78.5 % (47-70); Platelet Count 115 K/mm3 (150-450); RBC Distribution Width CV 13.5 % (11.6-14.6); RBC Distribution Width SD 51.2 fl (35.1-43.9); Red Blood Count 4.52 M/mm3 (4.6-6.2); White Blood Count 10.5 K/mm3 (4.4-11.0)
[2023-06-21 15:15] LABS: Anion Gap 1 (5-15); BUN 35 mg/dL (7-18); Calcium,Total 8.9 mg/dL (8.5-10.1); Chloride 94 mmol/L (98-107); Creatinine, Serum 1.25 mg/dL (0.70-1.30); EST Glomerular Filtration Rate 59 mL/min (>60); Est Glom Filt Rate - Afr Amer 71 mL/min (>60); Glucose 98 mg/dL (74-106); Potassium 5.6 mmol/L (3.5-5.1); Sodium Level 139 mmol/L (136-145)
[2023-06-21 15:46] LABS: Bacteria 0 SEEN /hpf (None Seen); Mucous, Urine 0 SEEN /hpf (<or=2+); Squamous Epithelial Cells - UA 0 SEEN /hpf (0-5)
[2023-06-21 15:50] LABS: Color, Urine Yellow (Yellow); Glucose, Dipstick Normal (Normal); Ketone-Dipstick Negative (Negative); Leukocyte Esterase-Dipstick 25 /ul (Negative); Nitrite-Dipstick Negative (Negative); Occult Blood-Urine 10 /ul (Negative); Protein-Dipstick 30 mg/dl (Negative); Urine Bilirubin Dipstick Negative (Negative); Urine Clarity Clear (Clear); Urine Urobilinogen 1 mg/dl (Normal)
[2023-06-21 15:59] LABS: Red Blood Cells-Urine 0-5 SEEN /hpf (0-5); White Blood Cells 0-5 SEEN /hpf (0-5)
--- NOTE | 2023-06-21 16:39 | EX.ED.DYSGE1 ---
HPI History of Present Illness Chief Complaint: Confusion Informant: patient and family Onset/Context/Timing Onset: Days (3-4) Context: Gradual Onset Timing: Continuous and Waxes and wanes Quality: Hallucinations Location: Vision Worsened by: Nothing Relieved by: Nothing Narrative Narrative: Patient presents with confusion that has been getting worse over the past 3 to 4 days. Family states that the patient was having some visual hallucinations last night. Patient states he has not slept in several days. Patient states his confusion waxes and wanes. Patient states nothing makes it better nothing makes it worse. Patient denies any fevers or chills. Patient denies any nausea or vomiting. Patient denies any abdominal pain. Patient denies any headaches. 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 CHF (congestive heart failure) Chronic dyspnea Chronic kidney disease (CKD) Claudication of both lower extremities Congestive heart failure (CHF) Cough CPAP (continuous positive airway pressure) dependence Elevated hemoglobin Essential (primary) hypertension GERD (gastroesophageal reflux disease) Heart failure with preserved left ventricular function (HFpEF) History of COVID-19 Hyperlipidemia Hypothyroidism Nocturia Non-ischemic cardiomyopathy 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) Obesity On home oxygen therapy Orthopnea Shortness of breath Sinus pause Sleep apnea Syncope Unexplained weight loss Home Medications levothyroxine 125 mcg tablet 125 mcg PO DAILY thyroid 07/07/21 [History Last Taken Unknown] losartan 50 mg tablet 50 mg PO DAILY blood pressure #90 tabs 12/10/22 [Rx Last Taken Unknown] metoprolol tartrate 25 mg tablet 25 mg PO BID #1 TAB 05/25/23 [Rx Last Taken Unknown] amiodarone 200 mg tablet 200 mg PO Q24H 06/21/23 [History Last Taken Unknown] furosemide 20 mg tablet (Lasix) 20 mg PO DAILY 06/21/23 [History Last Taken Unknown] spironolactone 25 mg tablet 12.5 mg PO DAILY 06/21/23 [History Last Taken Unknown] Allergy/AdvReac Type Severity Reaction Status Date / Time No Known Allergies Allergy Verified 06/08/23 08:30 Family History (Reviewed 06/08/23 @ 08:35 by Ema Ward [employer], [employer]) Father Myocardial infarction Brother Myocardial infarction Surgical History History of appendectomy History of herniorrhaphy History of left heart catheterization (09/20/17) Social History Smoking Status: Never smoker alcohol intake: never substance use type: does not use caffeine: No ROS ROS ED Constitutional Constitutional ED: Denies chills or fever(s) Eyes Eyes: Denies blurry vision or change in vision ENT ENT ED: Denies rhinorrhea or sore throat Cardiovascular Cardiovascular: Denies chest pain or palpitations Respiratory/Chest Respiratory/Chest: Denies cough or dyspnea Gastrointestinal Gastrointestinal: Denies nausea or vomiting Genitourinary Genitourinary ED: Denies dysuria or hematuria Musculoskeletal Musculoskeletal: Denies back pain or neck pain Integumentary Denies abscess or rash Neurologic Neurologic: Denies headache(s) or weakness Allergic/Immunologic Allergic/Immunologic ED: Denies mouth swelling or urticaria EXAM Physical Exam Const Vital Signs: 06/21/23 14:36 06/21/23 17:06 06/21/23 17:06 Temperature 98.3 F Temperature Source Temporal Pulse Rate 67 Respiratory Rate 16 Blood Pressure 90/78 Blood Pressure Mean 82 Pulse Ox 97 94 Oxygen Delivery Method Nasal Cannula Nasal Cannula Nasal Cannula Oxygen Flow Rate (L/min) 2 2 2 Fraction of Inspired Oxygen (FIO2) 06/21/23 17:38 06/21/23 18:00 06/21/23 18:23 Temperature Temperature Source Pulse Rate 67 67 82 Respiratory Rate 39 H 26 H 18 Blood Pressure 100/49 L Blood Pressure Mean 62 Pulse Ox 94 Oxygen Delivery Method Oxygen Flow Rate (L/min) Fraction of Inspired Oxygen (FIO2) 35 06/21/23 19:00 06/21/23 19:26 Temperature Temperature Source Pulse Rate 69 61 Respiratory Rate 18 15 Blood Pressure 102/62 102/62 Blood Pressure Mean 73 75 Pulse Ox 100 Oxygen Delivery Method Oxygen Flow Rate (L/min) Fraction of Inspired Oxygen (FIO2) Positive well nourished and well developed General Appearance ED: well developed and NAD HEENT Reports moist mucous membranes Neck supple and no JVD Resp normal respiratory effort and clear to auscultation bilaterally Cardio regular rate and regular rhythm GI non-tender and non-distended Palpation: soft Neuro CN's II-XII intact bilaterally and no sensory deficits noted Neuro Narrative: Patient is alert and oriented to person, place, and year. Patient is confused on the month. Sensorium / Orientation: alert and orientation impaired Motor Exam: general weakness Skin skin turgor normal MDM MDM MDM Narrative Medical decision making narrative: Differential diagnosis includes stroke, infection, electrolyte abnormality, cardiac dysrhythmia, cardiac ischemia, congestive heart failure, and intracranial bleeding. CT scan of the brain will be obtained to assess for stroke and intracranial bleeding. EKG will be obtained to assess for cardiac dysrhythmia and cardiac ischemia. Chest x-ray will be obtained to assess for pneumonia and congestive heart failure. CBC will be obtained to assess for leukocytosis and anemia. Comprehensive metabolic profile will be obtained to assess for hepatic function, renal function, and electrolyte abnormality. Urinalysis will be obtained to assess for urinary tract infection. COVID-19, influenza, and RSV PCR will be obtained to assess for viral infection. Arterial blood gas will be obtained to assess for hypercapnia. Serum ammonia level will be obtained to assess for hepatic encephalopathy. Lab Data Attestation: I reviewed the patient's lab results. Lab results narrative: CBC was reviewed and was essentially within normal limits. Platelets were slightly low at 115. Basic metabolic profile was reviewed. Potassium was elevated at 5.6. CO2 was elevated at 44. Urinalysis was reviewed. There is no evidence of urinary tract infection or hematuria. Hepatic profile was reviewed and was within normal limits. Serum ammonia level was reviewed and was normal. Arterial blood gas was reviewed and shows a pH of 7.386, pCO2 of 73.7, pO2 of 88.6, bicarb of 44.2, and oxygen saturation of 96%. Labs: Laboratory Results - last 24 hr 06/21/23 06/21/23 06/21/23 14:45 15:30 17:17 WBC 10.5 RBC 4.52 L Hgb 13.8 Hct 46.1 MCV 102.0 H MCH 30.5 MCHC 29.9 L RDW Std Deviation 51.2 H RDW Coeff of Yenni 13.5 Plt Count 115 L MPV 11.0 Immature Gran % (Auto) 0.200 Neut % (Auto) 78.5 H Lymph % (Auto) 10.8 L [place] % (Auto) 9.2 Eos % (Auto) 0.9 Baso % (Auto) 0.4 Absolute Neuts (auto) 8.3 H Absolute Lymphs (auto) 1.13 Nucleated RBC % 0 Sodium 139 Potassium 5.6 H Chloride 94 L Carbon Dioxide 44.0 H Anion Gap 1 L BUN 35 H Creatinine 1.25 Est GFR (MDRD) Af Amer 71 Est GFR (MDRD) Non-Af 59 L BUN/Creatinine Ratio 28.0 H Glucose 98 Calcium 8.9 Total Bilirubin 0.60 Direct Bilirubin 0.19 AST 15 ALT 34 Alkaline Phosphatase 56 Ammonia 14.0 B-Natriuretic Peptide 42.7 Total Protein 7.0 Albumin 3.6 Globulin 3.4 Urine Color Yellow Urine Clarity Clear Urine pH 7.0 Ur Specific Jerome 1.010 Urine Protein 30 H Urine Glucose (UA) Normal Urine Ketones Negative Urine Occult Blood 10 H Urine Nitrite Negative Urine Bilirubin Negative Urine Urobilinogen 1 H Ur Leukocyte Esterase 25 H Urine RBC 0-5 SEEN Urine WBC 0-5 SEEN Ur Squamous Epith Cells 0 SEEN Urine Bacteria 0 SEEN Urine Mucus 0 SEEN ABG Data ABG results: ABG 06/21/23 18:10 Specimen Type ART Sample Site L Radial pH 7.39 Bicarbonate Actual 44.2 H Total CO2 47 Base Excess 19 H O2 Saturation 96 O2 % 35.0 ABG pCO2 73.7 H* ABG pO2 89 Gee Test Positive Respiration Rate 8 O2 Delivery Device BiPAP Vent Mode AVAPS Tidal Volume 400.0 POC PEEP 5 Crit Call To/Read Back Yes Blood Gas Notified Whom SCHWIGER Blood Gas Notified Time 18:12:20 Radiography Chest X-Ray - ED: 1 View, Read by ED Physician and Read by Radiologist Diagnostic Testing: Clinical Impression(s) from Imaging Studies Brain CT 06/21/23 17:10 IMPRESSION: No acute disease Electronically Signed: Aung Henderson MD at 18:14 EST , Chest X-Ray 06/21/23 17:25 IMPRESSION: Bipolar pacer changed in position. Possible left perihilar infiltrate. 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 Electronically Signed: Aung Henderson MD at 18:01 EST Reading Location ID and State: [facility] / [place] Tel , Service support , EKG Initial EKG: Attestation: I personally reviewed and interpreted this EKG as follows: Interpretation: Sinus Rhythm (With first-degree AV block with rate of 62) and Non-Specific ST Changes Comments: EKG was obtained. On my independent interpretation, it shows sinus rhythm with first-degree AV block with a rate of 62. [place] interval was prolonged at 238 ms. QRS interval was normal at 116 ms. QTc interval was normal at 4 and 28 ms. There is borderline left axis deviation at -22. There are nonspecific ST-T wave changes noted. Prior EKG tracings: available for review Prior: Unchanged (05/31/2023) Treatment and Re-Evaluation :: Patient was started on BiPAP. Patient and family were advised of the findings. Patient was advised of the need for hospitalization. Case was discussed with the hospitalist. She will admit the patient to her service. Patient and family understood and were agreeable with the plan. All questions were answered. Critical Care Time Critical Care Time: Yes Critical care time (excluding procedures): 30-74 minutes (33), Including time spent:, Discussing w/Patient &/or Family/Ham Trimmer, Discussing w/Consultants, Arranging Admission or Transfer and Performing Direct Patient Care at Bedside Discharge Plan Dx/Rx/DC Orders Clinical Impression: Acute confusion, Chronic kidney disease (CKD), Hypercarbia Disposition Disposition: Acute Care Hospital [facility] Discharge Date/Time: 06/21/23 21:19
--- NOTE | 2023-06-21 17:10 | CT_ITS ---
STUDY: CT BRAIN WITHOUT CONTRAST REASON FOR EXAM: Male, 82 years old. Altered mental status RADIATION DOSAGE (If Supplied By Facility): CTDIvol = ( 44.99 ) mGy, DLP = ( 746.73 ) mGycm TECHNIQUE: Transaxial CT imaging of the brain was performed without administration of intravenous contrast material. Individualized dose optimization techniques were used for this CT. COMPARISON: No relevant priors. FINDINGS: Normal soft tissue structures. Normal calvarium. Intracranial atherosclerosis. Normal size ventricles and extra-axial spaces for the patient''s age. There are areas of decreased attenuation within the white matter tracts of the supratentorial brain, consistent with microvascular disease changes. Normal basal ganglia and thalami. Normal brainstem. Normal cerebellum. There is no intracranial hemorrhage. There are no findings of an acute ischemic infarction. Normal visualized paranasal sinuses. CT/Brain/Head without Contrast IMPRESSION: No acute disease Electronically Signed: Aung Henderson MD at 18:14 EST ,
--- NOTE | 2023-06-21 17:25 | RAD_ITS ---
STUDY: X-RAY CHEST REASON FOR EXAM: Male, 82 years old. Confusion TECHNIQUE: Single frontal view of the chest. COMPARISON: CT chest June 03, 2023. Chest x-ray June 03, 2023. FINDINGS: Bipolar pacer on the left appears rotated compared with the previous exam. Possible mild left perihilar infiltrate. There is no demonstrated pleural abnormality. Cardiomegaly. Normal mediastinum and leo. Normal visualized pulmonary arteries. Normal visualized aortic arch and descending thoracic aorta. Normal visualized thoracic spine. Normal visualized ribs, clavicles, and shoulders. There is no demonstrated abnormality of the visualized soft tissue structures of the upper abdomen. RAD/Chest 1 View (Portable) IMPRESSION: Bipolar pacer changed in position. Possible left perihilar infiltrate. 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 Electronically Signed: Aung Henderson MD at 18:01 EST ,
[2023-06-21 17:49] LABS: AST(SGOT) 15 U/L (15-37); Alanine Aminotransfer ALT/SGPT 34 U/L (16-61); Albumin, Serum 3.6 g/dL (3.2-5.0); Alkaline Phosphatase 56 U/L (45-117); Bilirubin, Direct 0.19 mg/dL (0.00-0.30); Globulin 3.4 g/dL (2.2-4.2)
[2023-06-21 18:14] LABS: Allen Test Positive; Base Excess 19 mmol/L (-2 to +2); Bicarbonate 44.2 mmol/L (22-26); Blood Gas Specimen Type ART; Mode AVAPS; O2 Delivery Device BiPAP; PEEP 5; PO2 89 mmHG (75-100); RR 8; SITE L Radial; SO2 96 % (95-99); Time Given 18:12:20; Total Carbon Dioxide 47 mmol/L; pCO2 73.7 mmHg (35-45); pH 7.39 (7.35-7.45)
--- NOTE | 2023-06-21 20:19 | PCM.HP.STD ---
HPI - General General Date of Admission: 06/21/23 Date of Service: 06/21/23 Chief Complaint: AMS HPI Narrative SILAS KHOURY, is a 82 M with history of nonischemic cardiomyopathy, CKD stage III unclear subtype, hypertension, sick sinus syndrome status post pacemaker placement, ZEENAT, hypothyroidism, A-fib who presented to [facility] ED due to increasing confusion. Family at bedside reported that he started getting little bit confused Wednesday and Wednesday and then last night was very confused and did not sleep well, this morning thought he was in the hospital and had to go home however he was already at home and he had been having some hallucinations so family brought him to the ED. In the ED UA negative, potassium 5.6 with a creatinine of 1.25 and carbon oxide 44. There is concern that patient may be retaining CO2 as this has been a problem previously and he was placed on BiPAP and ABG obtained which showed pCO2 of 73.7. Lab workup otherwise unremarkable, hospitalist contacted for admission. Evaluated patient at bedside with family present, they report he has some chronic lower extremity swelling and recently was taken off of his Crestor and his Lasix were decreased to 20 mg but they are unsure why, aside from that denies any other recent changes other than his confusion and has been having some dribbling/drooling recently over the past couple of days as well. Patient tired and would wake up and follow commands but not answering any questions specifically so unable to obtain any other history however family denies any other recent problems or concerns that he has voiced. 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 CHF (congestive heart failure) Chronic dyspnea Chronic kidney disease (CKD) Claudication of both lower extremities Congestive heart failure (CHF) Cough CPAP (continuous positive airway pressure) dependence Elevated hemoglobin Essential (primary) hypertension GERD (gastroesophageal reflux disease) Heart failure with preserved left ventricular function (HFpEF) History of COVID-19 Hyperlipidemia Hypothyroidism Nocturia Non-ischemic cardiomyopathy 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) Obesity On home oxygen therapy Orthopnea Shortness of breath Sinus pause Sleep apnea Syncope Unexplained weight loss Home Medications levothyroxine 125 mcg tablet 125 mcg PO DAILY thyroid 07/07/21 [History Last Taken Unknown] losartan 50 mg tablet 50 mg PO DAILY blood pressure #90 tabs 12/10/22 [Rx Last Taken Unknown] metoprolol tartrate 25 mg tablet 25 mg PO BID #1 TAB 05/25/23 [Rx Last Taken Unknown] amiodarone 200 mg tablet 200 mg PO Q24H 06/21/23 [History Last Taken Unknown] furosemide 20 mg tablet (Lasix) 20 mg PO DAILY 06/21/23 [History Last Taken Unknown] spironolactone 25 mg tablet 12.5 mg PO DAILY 06/21/23 [History Last Taken Unknown] Allergy/AdvReac Type Severity Reaction Status Date / Time No Known Allergies Allergy Verified 06/08/23 08:30 Family History Father Myocardial infarction Brother Myocardial infarction Surgical History History of appendectomy History of herniorrhaphy History of left heart catheterization (09/20/17) Social History Smoking Status: Never smoker alcohol intake: never substance use type: does not use caffeine: No ROS ROS Narrative Unable to obtain ROS from patient due to his confusion Vital Signs Vital Signs Vital Signs: 06/21/23 14:36 06/21/23 17:06 06/21/23 17:06 Temperature 98.3 F Temperature Source Temporal Pulse Rate 67 Respiratory Rate 16 Blood Pressure 90/78 Blood Pressure Mean 82 Pulse Ox 97 94 Oxygen Delivery Method Nasal Cannula Nasal Cannula Nasal Cannula Oxygen Flow Rate (L/min) 2 2 2 Fraction of Inspired Oxygen (FIO2) 06/21/23 17:38 06/21/23 18:00 06/21/23 18:23 Temperature Temperature Source Pulse Rate 67 67 82 Respiratory Rate 39 H 26 H 18 Blood Pressure 100/49 L Blood Pressure Mean 62 Pulse Ox 94 Oxygen Delivery Method Oxygen Flow Rate (L/min) Fraction of Inspired Oxygen (FIO2) 35 06/21/23 19:00 06/21/23 19:26 Temperature Temperature Source Pulse Rate 69 61 Respiratory Rate 18 15 Blood Pressure 102/62 102/62 Blood Pressure Mean 73 75 Pulse Ox 100 Oxygen Delivery Method Oxygen Flow Rate (L/min) Fraction of Inspired Oxygen (FIO2) Weight Weight: 76.657 kg Body Mass Index (BMI) 25.7 Physical Exam Narrative General: Patient resting on BiPAP, would wake up to prompting and follow commands but patient tired and not interested in participating in exam HEENT: Atraumatic, normocephalic Eyes: Anicteric, normal conjunctiva, extraocular movements grossly intact Neck: Supple Respiratory: On BiPAP, diminished at the bases Cardiovascular: Regular rate and rhythm GI: Soft, nontender, nondistended Extremities: 1+ lower extremity edema Musculoskeletal: Moving all extremities Neuro: No overt focal neurological deficits but did have some occasional jerking Skin: No rashes appreciated Psych: Attempts to be cooperative, will wake up and follow commands but quickly falls back asleep Results Lab / Micro Data 06/21/23 14:45 06/21/23 14:45 Labs: Laboratory Results - last 24 hr 06/21/23 14:45: WBC 10.5, RBC 4.52 L, Hgb 13.8, Hct 46.1, MCV 102.0 H, MCH 30.5, MCHC 29.9 L, RDW Std Deviation 51.2 H, RDW Coeff of Yenni 13.5, Plt Count 115 L, MPV 11.0, Immature Gran % (Auto) 0.200, Neut % (Auto) 78.5 H, Lymph % (Auto) 10.8 L, [place] % (Auto) 9.2, Eos % (Auto) 0.9, Baso % (Auto) 0.4, Absolute Neuts (auto) 8.3 H, Absolute Lymphs (auto) 1.13, Nucleated RBC % 0, Sodium 139, Potassium 5.6 H, Chloride 94 L, Carbon Dioxide 44.0 H, Anion Gap 1 L, BUN 35 H, Creatinine 1.25, Est GFR (MDRD) Af Amer 71, Est GFR (MDRD) Non-Af 59 L, BUN/Creatinine Ratio 28.0 H, Glucose 98, Calcium 8.9 06/21/23 15:30: Urine Color Yellow, Urine Clarity Clear, Urine pH 7.0, Ur Specific [place] 1.010, Urine Protein 30 H, Urine Glucose (UA) Normal, Urine Ketones Negative, Urine Occult Blood 10 H, Urine Nitrite Negative, Urine Bilirubin Negative, Urine Urobilinogen 1 H, Ur Leukocyte Esterase 25 H, Urine RBC 0-5 SEEN, Urine WBC 0-5 SEEN, Ur Squamous Epith Cells 0 SEEN, Urine Bacteria 0 SEEN, Urine Mucus 0 SEEN 06/21/23 17:17: Total Bilirubin 0.60, Direct Bilirubin 0.19, AST 15, ALT 34, Alkaline Phosphatase 56, Ammonia 14.0, Total Protein 7.0, Albumin 3.6, Globulin 3.4 ABG Data ABG results: ABG 06/21/23 18:10 Specimen Type ART Sample Site L Radial pH 7.39 Bicarbonate Actual 44.2 H Total CO2 47 Base Excess 19 H O2 Saturation 96 O2 % 35.0 ABG pCO2 73.7 H* ABG pO2 89 Gee Test Positive Respiration Rate 8 O2 Delivery Device BiPAP Vent Mode AVAPS Tidal Volume 400.0 POC PEEP 5 Crit Call To/Read Back Yes Blood Gas Notified Whom REYES Blood Gas Notified Time 18:12:20 Imaging Radiology Impression Brain CT 06/21/23 17:10 IMPRESSION: No acute disease Electronically Signed: Aung Henderson MD at 18:14 EST Reading Location ID and State: [address] [place] [address] Tel , Service support , Chest X-Ray 06/21/23 17:25 IMPRESSION: Bipolar pacer changed in position. Possible left perihilar infiltrate. 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 Electronically Signed: Aung Henderson MD at 18:01 EST Reading Location ID and State: [address] [place] [address] Tel , Service support , Assessment & Plan Assessment/Plan (1) Acute confusion: (2) Hypercarbia: (3) Hypothyroidism: (4) Non-ischemic cardiomyopathy: (5) ZEENAT (obstructive sleep apnea): (6) Pulmonary HTN: (7) Paroxysmal atrial fibrillation: (8) Pacemaker: (9) Chronic kidney disease (CKD): QUALIFIERS: Chronic kidney disease stage: unspecified stage Qualified Code(s): N18.9 - Chronic kidney disease, unspecified PLAN: Plan #Increasing confusion suspected to be secondary to hypercapnia/hx zeenat on cpap chronically -Patient on BiPAP -Initially was not waking up significantly on exam and there seemed to be a mask leak, adjusted mask and soon after patient started waking up and following commands though not particularly interested in participating in exam, can repeat ABG if pt does not continue to improve -pCO2 73.7 but patient with bicarb of 44 and pH is within normal limits so suspect there is a component of this that is chronic retention -UA without evidence of infection, ammonia within normal limits -Patient with possible left perihilar infiltrate but there is no report of increasing shortness of breath or cough and white blood cell count within normal limits, do not think abx indicated but will check covid/rsv/flu and resp panel in the event that is contributing to resp status and mental status -Unclear why worsened hypercapnia/impetus of all of this but patient did have his Lasix decreased to 20 mg on Wednesday and has worsened over the weekend suspect there may be a fluid component -Will check BNP but will also give dose of IV Lasix, can further dose based on improvement/exam/bnp #Hx chronic combined Heart failure/nonischemic cardiomyopathy/pulm htn -Most recent echo less than a month ago 05/28/2023 with EF 45% and stage I diastolic dysfunction with mild global hypokinesis of left ventricle -Patient has been having his Lasix decreased inquire if there could be a component of fluid retention worsening his respiratory status/gas exchange -Will check BNP and will give IV dose of Lasix x 1 -Hold spironolactone due to hyperkalemia -Continue beta-arnaud -Daily weights, I's and O's #Hyperkalemia -Patient to receive Lasix -Hold spironolactone -Repeat K after lasix # Sick sinus syndrome status post pacemaker placement -Chest x-ray queried if bipolar pacer changed in position and considered twiddler's syndrome -May need to review/discuss with cardiology -EKG presently normal sinus rhythm with first-degree block # Paroxysmal A-fib -Presently normal sinus rhythm with first-degree block, has permanent pacemaker -Does not appear to be on anticoagulation -Continue Amio and beta-arnaud #ZEENAT -Continue bipap at this time #Hypothyroidism -Continue Synthroid #CKDIIIa -Appears to be at baseline -Continue to monitor -BP on soft side, hold losartan #DVT ppx: Lovenox subcu Chetna Gonsalves MD Charges/Coding Visit Charges Inpatient E&M: 75498 Init Hosp L2
--- OUTSIDE RECORDS SUMMARY | 2023-06-21 20:42 | XMS RPT_ITS | CCD ---
Author Name Unknown Address [address] [place] [address] Organization [facility] Care Team Providers Care In Tube Conversion Technician Name Role Phone Richard Summers PA-C Unavailable [phone] Richard Summers PA-C Unavailable Pulmonary Provider Unavailable Unavailable Cardiology Provider Unavailable Unavailable German CASTANEDA, Dr. Pérez ([facility]) Unavailable [facility] Unavailable [phone] Kamaljit Tiwari MD Unavailable Lakeisha LEMOS, Lissa Unavailable Radha Francis LPN Unavailable Unavailable Meghann Rosenthal PA-C Unavailable Hermelindo Steele PA-C Unavailable [phone] Aleshia Steele Unavailable Unavailable Sanjuana Manley LPN Unavailable Unavailable Meghann St RN Unavailable Unavaila noman Boo LPN, Tam Unavailable Unavailable Rupert BROWER, Kathleen Zuleta Unavailable Unavailable Mutersnaty DOWELLN, Martha K Unavailable Unavai ankush Corcoran LPN, Paloma M Unavailable Unavailab Sanjuana Singh MA Unavailable Unavailable Shannon Russell LPN Unavailable Unavailabl e Unavailable Unavailable RICHARD GARZA Attending Unavailable RICHARD GARZA Primary Care Unavailable RICHARD SUMMERS Primary Care Unavailable RICHARD SUMMERS Admitting Unavailable RICHARD SUMMERS Attending Unavailable RICHARD SUMMERS Primary Care Unavailable RICHARD SUMMERS Admitting Unavailable RICHARD SUMMERS Attending Unavailable RICHARD SUMMERS Consulting Unavailable PROVIDER, UNKNOWN Consulting Unavailable RICHARD SUMMERS Primary Care Unavailable RICHARD SUMMERS J Admitting Unavailable RICHARD SUMMERS Attending Unavailable RICHARD SUMMERS Consulting Unavailable PROVIDER, UNKNOWN Consulting Unavailable DEREK, LUKE E Admitting Unavailable RICHARD SUMMERS J Consulting Unavailable DEREK, LUKE E Attending Unavailable DEREK, LUKE E Primary Care Unavailable PROVIDER, UNKNOWN Consulting Unavailable RICHARD SUMMERS J Consulting Unavailable DEREK, LUKE E Admitting Unavailable DEREK, LUKE E Attending Unavailable DEREK, LUKE E Primary Care Unavailable PROVIDER, UNKNOWN Consulting Unavailable RICHARD SUMMERS J Primary Care Unavailable SUMMERS, RICHARD J Admitting Unavailable SUMMERSRICHARD J Attending Unavailable SANJUANA CASTELLANOS Admitting Unavailable RICHARD SUMMERS Consulting Unavailable SANJUANA CASTELLANOS Attending Unavailable SANJUANA CASTELLANOS Primary Care Unavailable PROVIDER, UNKNOWN Consulting Unavailable RICHARD SUMMERS Primary Care Unavailable RICHARD SUMMERS J Consulting Unavailable ROLLY SUMMERSISSA J Admitting Unavailable RICHARD SUMMERS Attending Unavailable PROVIDER, UNKNOWN Consulting Unavailable Medications Current Medications Medication Drug Class(es) Dates Sig (Normalized) Sig (Original) amiodarone hydrochloride 200 mg oral tablet (4 sources) Antiarrhythmic amiodarone 200 m g tablet ; 1 tab BID x 1 week and then 1 tab daily (200 mg) furosemide 20 mg oral tablet (18 sources) Loop Diuretic Lasix 20 mg tabl et ; 3 daily (20 mg) Completed/Discontinued Medications Medication Drug Class(es) Dates Sig (Normalized) Sig (Original) amLODIPine 5 mg oral tablet (18 sources) Dihydropyridine Calcium Channel [place] amLODIPine 5 mg tablet ; 1 daily (5 mg) Status: Inactive amoxicillin 500 mg oral tablet (18 sources) Penicillin-class Antibacterial Start: 08-22-2018 End: 09-01-2018 take 1 tablet by mouth three times daily Amoxicillin 500 MG Oral Tablet ; 1 Tab three times daily for 10 days Quantity: 30 {Tablet} Refills: 0 Ordered: 22-Aug-2018 JUAN DAVID Rosenthal Start: 22-Aug-2018 End: 01-Sep-2018 Status: Inactive aspirin 81 mg delayed release oral tablet (18 sources) Platelet Aggregation Inhibitor, Nonsteroidal Anti-inflammatory Drug Aspirin EC 81 MG Oral Tablet Delayed Release ; 1qd (81 MG) Status: Inactive atorvastatin 10 mg oral tablet (18 sources) HMG-CoA Reductase Inhibitor take 1 tablet by mouth once daily Atorvastatin Calcium 10 MG Oral Tablet ; 1 qd (10 MG) Status: Inactive Cinnamon Bark (18 sources) Cinnamon ; 2 qd Status: Inactive clindamycin 300 mg oral capsule (20 sources) Lincosamide Antibacterial Start: 05-07-2020 End: 05-17-2020 take 1 capsule by mouth every eight hours Clindamycin HCl 300 MG Oral Capsule ; 1 (one) Capsule every eight hours for 10 days Quantity: 30 {Capsule} Refills: 0 Ordered: 07-May-2020 AMINTA Manley Start: 07-May-2020 End: 17-May-2020 Status: Inactive Problems Active Problems Problem Classification Problem Date Documented Da te Episodic/Chronic Acute and unspecified renal failure (20 sources) Acute injury of kidney; Translations: [Acute [...] Problem Date Documented Da te Episodic/Chronic Unclassified (18 sources) Cough - The onset of the [...] while there is no fever. 09-14-2022 Unclassified (16 sources) Follow up consultation - The patient is here to follow-up after Emergency Room/Urgent Care on : (04/14/2020). Current symptoms include foot pain. Note for Consultation follow-up : Pt went to the ER for foot pain and swelling. Was given IV clindamycin and then sent home on 300mg QID. It has improved significantly - only little bit of swelling remains. 04-19-2020 Unclassified (16 sources) [ADDITIONAL REASON] Transition into care - The patient is transitioning into care from an emergency room and a summary of care was reviewed. 04-19-2020 Unclassified (18 sources) Cold Symptoms - Symptoms include nasal [...] eyes with yellow drainage since wednesday08-22-2018 Unclassified (18 sources) Heart Fluttering - Patient is here today to follow up from his [facility] physical. He was at his physical and the doctor states his heart was fluttering. Patient is not having any symptoms - no chest pain, fluttering sensation, etc. He did get his [employer] card for 2 more years so he is fine to continue working, just here to check over his heart and be sure there is nothing to be concerned about. TSH is UTD and is within normal range. Had a stress test years ago and had a skipped beat at that time. An EKG was not done at the [facility] physical. 06-23-2017 Unclassified (2 sources) Transition into care - The patient is transitioning into care from an emergency room and a summary of care was reviewed. 04-19-2020 Unclassified (2 sources) [ADDITIONAL REASON] Follow up consultation - The [...] Vital Sign Value Performing Clinician Faci lity 06-11-2023 08:07-0500 Body height 167.64 cm Paloma Corcoran LPN [facility] 06-11-2023 08:07-0500 Body mass index (BMI) [Ratio] 28.41 kg/m2 Paloma Corcoran LPN [facility] [employer] 06-11-2023 08:07-0500 Body surface area Derived from formula 1.89 m2 Paloma Corcoran LPN [facility] [employer] 06-11-2023 08:07-0500 Body weight 79.83 kg aPloma Corcoran LPN [facility].; [employer] [employer] 06-11-2023 08:07-0500 Diastolic blood pressure 68 mm[Hg] Paloma Corcoran LPN [facility] [employer] Encounters Encounter Date Encounter Type Care Provider Facility Start: 06-19-2023 ambulatory [facility] Start: 06-18-2023 End: 06-18-2023 Orders Richard Selfer PA-C Work Phone[facility] Start: 06-17-2023 End: 06-17-2023 [facility] Start: 06-11-2023 End: 06-11-2023 Patient encounter procedure Paloma Corcoran LPN [facility]. Start: 06-11-2023 Review Richard Selfer PA-C Work Phone: [facility] Start: 06-10-2023 End: 06-10-2023 ambulatory [facility] Start: 06-10-2023 End: 06-11-2023 Historical Summary Richard Selfer PA-C Work Phone: [facility] Start: 06-09-2023 End: 06-09-2023 Orders Richard Selfer PA-C Work Phone: [facility] Start: 06-06-2023 ambulatory RICHARD SUMMERS PA Facil ity:R Start: 05-24-2023 End: 05-24-2023 ambulatory SANJUANA CASTELLANOS [facility] Start: 05-20-2023 End: 05-20-2023 Orders Richard Summers PA-C Work Phone: [facility]. Start: 05-14-2023 End: 05-14-2023 Office outpatient visit 25 minutes Richard Summers PA-C Work Phone: [facility]. Start: 02-12-2023 End: 02-12-2023 Orders Richard Summers PA-C Work Phone: [facility] Start: 02-08-2023 End: 02-08-2023 Office outpatient visit 25 minutes Richard Summers PA-C Work Phone: [facility] Start: 12-02-2022 End: 12-03-2022 Orders Richard Summers PA-C Work Phone: [facility]. Start: 11-09-2022 End: 11-10-2022 ambulatory RICHARD Edward SUMMERS [facility] Start: 10-09-2022 End: 10-09-2022 ambulatory RICHARD J [facility] Start: 09-17-2022 End: 09-17-2022 Orders Richard Summers PA-C Work Phone: [facility]. Start: 09-14-2022 End: 09-14-2022 ambulatory HERMELINDO Jeffery DEREK [facility] Start: 09-14-2022 End: 09-14-2022 Office outpatient visit 15 minutes Richard Summers PA-C Work Phone: [facility] Start: 07-13-2022 End: 07-13-2022 Office outpatient visit 25 minutes Richard Summers PA-C Work Phone: [facility] Start: 06-03-2022 End: 06-03-2022 Orders Richard Summers PA-C Work Phone: [facility]. Start: 05-04-2022 End: 05-04-2022 Patient encounter procedure Richard Summers PA-C Work Phone: [facility]. Start: 04-27-2022 End: 04-27-2022 Orders Richard Summers PA-C Work Phone: [facility]. Start: 04-20-2022 End: 04-20-2022 Orders Richard Summers PA-C Work Phone: [facility]. Start: 11-10-2021 End: 11-10-2021 Office outpatient visit 25 minutes Richard Summers PA-C Work Phone: [facility]. Start: 05-01-2021 End: 05-01-2021 Patient encounter procedure Richard Summers PA-C Work Phone: [facility]. Start: 02-24-2021 End: 02-24-2021 Orders Richard Summers PA-C Work Phone: [facility]. Start: 02-21-2021 End: 02-21-2021 Telephone follow-up Richard Summers PA-C Work Phone: [facility]. Start: 07-03-2020 End: 07-03-2020 Patient encounter procedure Richard Summers PA-C Work Phone: [facility]. Start: 05-07-2020 End: 05-08-2020 Medication Richard Summers PA-C Work Phone: [facility]. Start: 04-24-2020 End: 04-24-2020 Telephone follow-up Richard Summers PA-C Work Phone: [facility] Start: 04-19-2020 End: 04-19-2020 Patient encounter procedure Richard Summers PA-C Work Phone: [facility] Start: 02-22-2020 End: 02-22-2020 Historical Summary Richard Summers PA-C Work Phone: [facility]. Start: 12-22-2019 End: 12-22-2019 Historical Summary Richard Summers PA-C Work Phone: [facility]. Start: 12-22-2019 End: 12-22-2019 Patient encounter procedure Shannon Yvonne LEMOS [facility]. Start: 06-21-2019 End: 06-22-2019 Office outpatient visit 25 minutes Richard Summers PA-C Work Phone: [facility]. Start: 03-02-2019 End: 03-02-2019 Orders Richard Summers PA-C Work Phone: [facility]. Start: 02-15-2019 End: 02-15-2019 Patient encounter procedure Shannon Yvonne LEMOS [facility]. Start: 10-26-2018 End: 10-26-2018 Medication Richard Summers PA-C Work Phone: [facility]. Start: 08-22-2018 End: 08-22-2018 Historical Summary Richard Summers PA-C Work Phone: [facility]. Start: 08-22-2018 End: 08-22-2018 Office outpatient visit 25 minutes Richard Summers PA-C Work Phone: [facility]. Start: 05-16-2018 End: 05-18-2018 Office outpatient visit 25 minutes Richard Summers PA-C Work Phone: [facility]. Start: 04-05-2018 End: 04-05-2018 Orders Richard Summers PA-C Work Phone: [facility]. Start: 09-27-2017 End: 09-27-2017 Historical Summary Richard Summers PA-C Work Phone: [facility]. Start: 09-27-2017 End: 09-27-2017 Office outpatient visit 25 minutes Richard Summers PA-C Work Phone: [facility]. Start: 09-23-2017 End: 09-24-2017 Telephone follow-up Richard Summers PA-C Work Phone: [facility]. Start: 09-21-2017 End: 09-21-2017 Telephone follow-up Richard Summers PA-C Work Phone: [facility]. Start: 06-23-2017 End: 06-23-2017 Office outpatient visit 15 minutes Richard Summers PA-C Work Phone: [facility]. Start: 03-19-2017 End: 03-22-2017 Orders Richard Summers PA-C Work Phone: [facility]. Start: 01-27-2017 End: 01-27-2017 Medication Richard Summers PA-C Work Phone: [facility]. Start: 12-17-2016 End: 12-17-2016 Medication Richard Summers PA-C Work Phone: [facility]. Start: 12-16-2016 End: 12-16-2016 Orders Richard Summers PA-C Work Phone: [facility]. Start: 12-12-2016 End: 12-14-2016 Orders Richard Summers PA-C Work Phone: [facility]. Start: 11-06-2016 End: 11-07-2016 Office outpatient new 45 minutes Richard Summers PA-C Work Phone: [facility]. Start: 11-05-2016 End: 11-05-2016 Historical Summary Richard Summers PA-C Work Phone: [facility]. Patient encounter procedure Paloma Corcoran LPN [employer] Patient encounter procedure Paloma Corcoran LPN [employer] Procedures Date Procedure Procedure Detail Performing Clinician Start: 06-17-2023 Urinalysis RICHARD NAIDU Plan of Treatment Date Care Activity Detail Author Start: 07-12-2023 Patient encounter procedure Medical; EXTENDED RTN - 1 mo f/u [facility]. Start: 12-Jul-2023 8:20 JUAN DAVID Summers Appointment Request [facility]. Start: 06-18-2023 Blood gases any combination ph pco2 po2 co2 hco3 BLOOD GAS PH PCO2 PO2 H/CO2 (ABG) (33600) Start: 18-Jun-2023 14:42 Request [facility]. Start: 06-18-2023 Basic metabolic pane l calcium total BMP w/ GFR (F) (36448) Start: 18-Jun-2023 14:42 Request [facility].; [facility]. Start: 06-14-2023 Patient encounter procedure Medical; RTN OFFICE VISIT - 1 MO F/U [facility]. Start: 14-Jun-2023 8:40 JUAN DAVID Summers Appointment Request [facility]. Start: 06-11-2023 Basic metabolic pane l calcium total BMP w/ GFR (F) (50808) Start: 11-Jun-2023 8:36 Request [facility].; [facility]. Start: 06-09-2023 Basic metabolic pane l calcium total BMP w/ GFR (F) (97254) Start: 09-Jun-2023 Request Comments: To be done on time between 06/09/23-06/11/23 [facility]. Immunizations Immunization Date Immunization Notes Care Provider Fa cility 02-15-2019 influenza, injectabl e, quadrivalent, contains preservative Richard Summers PA-C Work Phone: [facility] [employer] Payers Date Payer Category Payer Unknown [id number] [id number] [id number] 1940 Unknown [id number] 2.16.8 [id number] 1940 Unknown [id number] 2.16.8 [id number] 1942 Unknown [id number] 2.16.8 [id number] 1942 Unknown [id number] 2.16.8 [id number] 1942 Unknown [id number] 2.16.8 [id number] 1942 Unknown [id number] 2.16.84 [id number] 1942 Unknown [id number] 2.16.84 [id number] Medicare [id number] Unknown AULTCARE - PRIMETIME Social History Date Type Detail Facility Current Work/Study Status Current Work/St udy Status [employer] Tobacco Use: Tobacco Use: ; N ever smoker. [facility]. [facility] [employer] Work Phone: Never smoked tobacco [facility] Work Phone: Summary Purpose Family History bone [...] content) DATE CREATED AUTHOR AUTHOR'S ORGANIZ ATION 06/06/2023 [facility] ([place]) DATE CREATED AUTHOR AUTHOR'S ORGANIZ ATION 06/20/2023 [facility] FOR RECORDS PERTAINING TO PATIENTS WHO [...] BE BASED ON THE PRIMARY CLINICAL RECORDS. [employer], Part of [employer] [facility]. provides no warranty or guarantee of the accuracy or completeness of information in this document.
[2023-06-21 21:22] LABS: BNP,B-Type NATRIURETIC PEPTIDE 42.7 pg/mL (0-100)
[2023-06-21 23:22] LABS: Potassium 5.5 mmol/L (3.5-5.1)
[2023-06-21] MEDS: Calcium Gluconate IV 3 GM in Syringe 1 EACH IV (23:57)
[2023-06-22] VITALS (26 sets, daily range): BP systolic 59–110; BP diastolic 45–66; PULSE 61–80; RESP 12–26; TEMP 36.1–36.8; O2SAT 86–97; BMI 27.8
[2023-06-22] MEDS: Dextrose 50%-Water 25 GM/50 ML DISP.SYRIN IV (00:03)
[2023-06-22] MEDS: Insulin Lispro 10 UNIT in Syringe 0 ML 6 UNIT IV (00:06)
[2023-06-22] MEDS: 0.9% Saline Lock 10 ML Syringe IV ×2 (00:11→07:51)
[2023-06-22] MEDS: 0.9% Normal Saline (500mL Bag) 500 ML 999 ML IV ×2 (00:48→03:15)
[2023-06-22 02:46] LABS: BUN 38 mg/dL (7-18); BUN/Creat Ratio 28.1 RATIO (10-20); Calcium,Total 9.2 mg/dL (8.5-10.1); Chloride 94 mmol/L (98-107); Creatinine, Serum 1.35 mg/dL (0.70-1.30); EST Glomerular Filtration Rate 54 mL/min (>60); Est Glom Filt Rate - Afr Amer 65 mL/min (>60); Estimated Creatinine Clearance 42.93 ml/min; Glucose 108 mg/dL (74-106); Potassium 5.4 mmol/L (3.5-5.1); Sodium Level 137 mmol/L (136-145)
[2023-06-22 02:47] LABS: Carbon Dioxide > 45.0 mmol/L (21.0-32.0)
[2023-06-22] MEDS: Levothyroxine 125 MCG Tablet PO (05:16)
[2023-06-22 05:26] LABS: Absolute Lymphocyte Count 1.14 X10^3/uL (0.83-4.51); Absolute Neutrophil Count 5.3 X10^3/uL (2.0-7.7); Basophil# 0.03 X10^3/uL; Basophil% 0.4 % (0-1); Eosinophil# 0.03 X10^3/uL; Eosinophils% 0.4 % (0-5); Hematocrit 40.9 % (40-54); Hemoglobin 12.4 g/dL (13.0-16.5); Lymphocyte # 1.14 X10^3/ul (0.83-4.51); Lymphocyte % 15.6 % (19-41); Mean Corp Hgb Conc 30.3 g/dL (32-36); Mean Corpuscular Hgb 30.7 pg (27.0-32.0); Mean Corpuscular Volume 101.2 fL (80-94); Mean Platelet Vol. 12.3 fl (6.2-12.0); NRBC Flagged by Analyzer 0 % (0-5); Neutrophil # 5.28 X10^3/uL (2.7-7.7); Neutrophil % 72.3 % (47-70); Platelet Count 101 K/mm3 (150-450); RBC Distribution Width CV 13.7 % (11.6-14.6); Red Blood Count 4.04 M/mm3 (4.6-6.2); White Blood Count 7.3 K/mm3 (4.4-11.0)
[2023-06-22 05:43] LABS: Anion Gap 0 (5-15); BUN 38 mg/dL (7-18); BUN/Creat Ratio 29.2 RATIO (10-20); Chloride 96 mmol/L (98-107); EST Glomerular Filtration Rate 56 mL/min (>60); Est Glom Filt Rate - Afr Amer 68 mL/min (>60); Estimated Creatinine Clearance 44.58 ml/min; Glucose 88 mg/dL (74-106); Magnesium 2.3 mg/dL (1.6-2.6); Potassium 5.1 mmol/L (3.5-5.1); Sodium Level 138 mmol/L (136-145)
[2023-06-22] MEDS: Amiodarone 200 MG Tablet PO (08:31)
--- NOTE | 2023-06-22 10:19 | CASEMGMT ---
Readmission Note: Index: 05/29-06/04/23. Dx: Acute Hypercapnic RF, Fatigue, and confusion. Readmission: 06/21/23. Dx: Confusion/ AMS. Pt with a history of CKD, CHF, CPAP dependence, HTN, GERD, HF, COVID, Hyperlipidemia, Hypothyroidism, Cardiomyopathy, Obesity, and SOB was admitted on the above noted dates for the corresponding dx?s. On DC from index admission, pt was medically cleared from the hospitalist and was to receive a pacemaker d/t pauses. The pt t previous CPAP machine was not working and family was to bring this to [facility] to get this fixed. Pt was prescribed Amiodarone and Lasix at initial DC. Pt was DC home with [facility] (SN, PT, OT). Pt returned to the hospital with increased confusion as he thought he was in the hospital and needed to go home however the pt was already at his home so the family brought the pt into the ED. Per Dr. Gonsalves's note, the pt may have issues retaining CO2 as it has been a problem for the pt recently. Face to face with pt at this time.Pt is A&Ox3 at this time and answers all questions appropriately. Pt daughter at bedside. Pt states that his daughter manages his medications and that he was taking the amiodarone and Lasix as prescribed. Pt states that he did have the Pacemaker placed after DC. Pt states that [facility] (SN, PT, and OT) was seeing the pt at home after DC. Pt states that his family brought his CPAP to [facility] in [place] and got the pt CPAP fixed. Pt states that he wears 2L NC continuous and 2L bleed thru CPAP at night. Pt states that his goal and plan is to DC home with the continuation of his HHC. Will follow for additional needs. Francesco FORRESTER RN CM
[2023-06-22] MEDS: Enoxaparin 40 MG/0.4 ML Syringe SC (11:50)
[2023-06-22 14:00] LABS: Allen Test Positive; Base Excess 18 mmol/L (-2 to +2); Bicarbonate 43.4 mmol/L (22-26); Blood Gas Specimen Type ART; Mode Not entered; O2 Delivery Device Cannula; PO2 57 mmHG (75-100); SITE R Radial; SO2 85 % (95-99); Time Given 13:57:42; Total Carbon Dioxide 46 mmol/L; pCO2 80.6 mmHg (35-45); pH 7.34 (7.35-7.45)
--- NOTE | 2023-06-22 15:18 | PN.HOSP_ITS ---
Reason for Visit Reason for Visit: Diagnoses Hypothyroidism, unspecified (06/21/23) Obstructive sleep apnea (adult) (pediatric) (06/21/23) Pulmonary hypertension, unspecified (06/21/23) Other cardiomyopathies (06/21/23) Paroxysmal atrial fibrillation (06/21/23) Chronic kidney disease, unspecified (06/21/23) Other abnormalities of breathing (06/21/23) Disorientation, unspecified (06/21/23) Presence of cardiac pacemaker (06/21/23) Subjective Subjective Patient admitted yesterday afternoon with concern for worsening confusion at home for the past few days. Overnight patient was noted to be hypotensive to the 70s systolic without mounting appropriate response with heart rate. Did have improvement in BP with 2 liters of IV fluids. Patient was also noted to be hypercapnic on admission, improved with BiPAP. Patient seen at bedside this mo rning. Sitting up comfortably in bed, conversing normally, no acute distress. Patient states that he currently feels much better than he did yesterday. Denies any acute pain or discomfort. Was able to ambulate within his room this morning without issue. No other acute concerns at this time. Objective Data Objective Data Vital Signs: Vital Signs Temp Pulse Resp BP Pulse Ox O2 Del Method O2 Flow Rate 97.6 F L 77 20 H 106/61 95 Nasal Cannula 2 06/22/23 13:45 06/22/23 13:45 06/22/23 13:45 06/22/23 13:45 06/22/23 13:45 06/22/23 13:49 06/22/23 13:45 FiO2 2 06/22/23 13:49 Oxygen Flow Rate (L/min) 2 Oxygen Delivery Method Nasal Cannula Weight: 78.2 kg Body Mass Index (BMI) 27.8 Intake & Output: Intake and Output for Last 24 Hours 06/20/23 06/21/23 06/22/23 23:59 23:59 23:59 Intake Total 1680 / 1680 Output Total 150 / 150 Balance 1530 / 1530 Lab / Micro Data 06/22/23 04:18 06/22/23 04:18 Labs: Laboratory Results - last 24 hr 06/21/23 14:45: B-Natriuretic Peptide 42.7 06/21/23 15:30: Urine Color Yellow, Urine Clarity Clear, Urine pH 7.0, Ur Specific [place] 1.010, Urine Protein 30 H, Urine Glucose (UA) Normal, Urine Ketones Negative, Urine Occult Blood 10 H, Urine Nitrite Negative, Urine Bilirubin Negative, Urine Urobilinogen 1 H, Ur Leukocyte Esterase 25 H, Urine RBC 0-5 SEEN, Urine WBC 0-5 SEEN, Ur Squamous Epith Cells 0 SEEN, Urine Bacteria 0 SEEN, Urine Mucus 0 SEEN 06/21/23 17:17: Total Bilirubin 0.60, Direct Bilirubin 0.19, AST 15, ALT 34, Alkaline Phosphatase 56, Ammonia 14.0, Total Protein 7.0, Albumin 3.6, Globulin 3.4 06/21/23 23:05: Potassium 5.5 H 06/22/23 02:10: Sodium 137, Potassium 5.4 H, Chloride 94 L, Carbon Dioxide > 45.0 H*, Anion Gap TNP, BUN 38 H, Creatinine 1.35 H, Estim Creat Clear Calc 42.93, Est GFR (MDRD) Af Amer 65, Est GFR (MDRD) Non-Af 54 L, BUN/Creatinine Ratio 28.1 H, Glucose 108 H, Calcium 9.2 06/22/23 04:18: WBC 7.3, RBC 4.04 L, Hgb 12.4 L, Hct 40.9, MCV 101.2 H, MCH 30.7, MCHC 30.3 L, RDW Std Deviation 52.0 H, RDW Coeff of Yenni 13.7, Plt Count 101 L, MPV 12.3 H, Immature Gran % (Auto) 0.300, Neut % (Auto) 72.3 H, Lymph % (Auto) 15.6 L, [place]agoner % (Auto) 11.0 H, Eos % (Auto) 0.4, Baso % (Auto) 0.4, Absolute Neuts (auto) 5.3, Absolute Lymphs (auto) 1.14, Nucleated RBC % 0, Sodium 138, Potassium 5.1, Chloride 96 L, Carbon Dioxide 42.0 H, Anion Gap 0 L, BUN 38 H, Creatinine 1.30, Estim Creat Clear Calc 44.58, Est GFR (MDRD) Af Amer 68, Est GFR (MDRD) Non-Af 56 L, BUN/Creatinine Ratio 29.2 H, Glucose 88, Calcium 9.0, Magnesium 2.3 Micro: Microbiology 06/21/23 23:05 Mucosa - Nasopharyngeal Respiratory Panel (PCR) - Final 06/21/23 23:05 Mucosa - Nasopharyngeal SARS-CoV-2, Influenza & RSV (PCR) - Final ABG Data ABG results: ABG 06/21/23 06/22/23 18:10 13:52 Specimen Type ART ART Sample Site L Radial R Radial pH 7.39 7.34 L Bicarbonate Actual 44.2 H 43.4 H Total CO2 47 46 Base Excess 19 H 18 H O2 Saturation 96 85 L O2 % 35.0 2.0 ABG pCO2 73.7 H* 80.6 H* ABG pO2 89 57 L Gee Test Positive Positive Respiration Rate 8 O2 Delivery Device BiPAP Cannula Vent Mode AVAPS Not entered Tidal Volume 400.0 POC PEEP 5 Crit Call To/Read Back Yes Yes Blood Gas Not[facility] aware Blood Gas Notified Time 18:12:20 13:57:42 Radiography Diagnostic Testing: Radiology Impression Brain CT 06/21/23 17:10 IMPRESSION: No acute disease Electronically Signed: Aung Henderson MD at 18:14 EST Reading Location ID and State: [address] [place] [address] Tel , Service support , Chest X-Ray 06/21/23 17:25 IMPRESSION: Bipolar pacer changed in position. Possible left perihilar infiltrate. 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 Electronically Signed: Augn Henderson MD at 18:01 EST Reading Location ID and State: [address] [place] [address] Tel , Service support , Physical Exam Const alert, no apparent distress and average body habitus Constitutional Narrative: Elderly male, sitting up comfortably in bed, conversing normally, no acute distress. General Appearance: cooperative and comfortable HEENT normocephalic, head/scalp atraumatic, hearing grossly normal bilaterally and nasal mucous membranes and turbinates normal Eyes PERRL, EOMs intact bilaterally and conjunctivae normal Neck full ROM, no lymphadenopathy and supple Lymph Lymphatic: no lymphadenopathy noted Chest inspection of chest normal Resp normal respiratory effort, normal air movement, no use of accessory muscles and clear to auscultation bilaterally Cardio regular rate, regular rhythm, no murmurs and peripheral pulses 2+ throughout GI normal to inspection, nondistended, normoactive bowel sounds, soft to palpation, non-tender and non-distended Back/Spine normal ROM Extremity normal to inspection, full ROM and no pedal edema Skin no rashes or lesions noted Neuro no focal motor deficits and no sensory deficits noted Speech: speech normal Psych mental status grossly normal Assessment & Plan Assessment/Plan (1) Hypercarbia: (2) Acute confusion: (3) Paroxysmal atrial fibrillation: PLAN: Plan Patient is an 82 year old male who presented to [facility] ED on 06/21/2023 with worsening confusion. 1. Acute confusion; Recurrent episodes of hypercapnia Recurrent hypercapnia seems to be most likely cause of confusion. Hypotension on admit may also have been playing a role. Hypercapnic with pCO2 73 on admit, mental status improved after being on BiPAP for a few hours. Patient felt much improved after 2 L IV fluids for hypotension as noted below. Had worsening confusion again on afternoon of 06/22, pCO2 80. - Cardiology following. Monitor patient closely. Will need to ensure patient is placed on BiPAP with naps and overnight. Continue medication management as noted below. 2. Hypotension, improved - Became hypotensive with SBP in 70s overnight on 06/21. May have been secondary to volume depletion and home antihypertensives, did not have proper heart rate response due to beta arnaud. Improved with 2 L IV fluids. Continue to hold home lasix, losartan, spironolactone, lopressor for now. 2. 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 pacemaker lead dis placement. Pacer was placed on 06/02/[address] Somers. Pacer check on 06/22 with normal functioning pacemaker. 3. History of chronic combined HF/nonischemic cardiomyopathy/pulmonary HTN - Cardiology following. Most recent TTE 05/28/2023 with EF 45%, stage I diastolic dysfunction, mild global hypokinesis of LV. BNP normal on admit. Holding home meds as noted above, will discuss timing of restart these meds with Cardiology prior to discharge. 4. Hyperkalemia, improving - K 5.6 on admit. Patient given 1 dose of IV lasix on admit given concern for possible volume overload. Holding home spironolactone. Improved to K 5.1 on 06/22. Monitor daily BMP. 5. Paroxysmal Afib - Cardiology following. EKG on admit showed NSR with 1st degree block, pacer spikes noted. Continue home amiodarone, holding beta-arnaud. Not on home AC. Monitor telemetry. Chronic medical conditions: - ZEENAT: Continue BIPAP. - Hypothyroidism: Continue home Synthroid. - CKD stage IIIa: Creatinine at baseline on admit, monitor. Holding antihypertensives as noted above. DVT prophylaxis: Lovenox Code status: Full code, unverified Expected disposition: Home, 1-2 days Total clinical time spent by myself addressing the patient's medical issues, reviewing all the data, and collaborating with patient's care team: 35 minutes. Charges/Coding Visit Charges Inpatient E&M: 94601 Subs Hosp L2
--- NOTE | 2023-06-22 15:30 | PCM.CONS.C ---
Assessment & Plan Assessment/Plan (1) Hypercarbia: PLAN: The patient decompensated with hypercapnia this afternoon and became more somnolent. He is currently on BiPAP and oxygenating well his blood pressure stable his heart rate is stable. (2) Acute confusion: PLAN: The confusion is probably multifactorial he was initially hypotensive but then after fluid boluses his blood pressure recovered his pacemaker is working appropriately he is in sinus rhythm with a heart rate of 77 and blood pressure of 100 systolic. It appears now that his hypercapnia is the primary etiology of his confusion although this may be multifactorial and other etiologies are being investigated. (3) Pacemaker: PLAN: Pacemaker check shows a normal functioning pacemaker with good lead impedances and pacing and sensing appropriately. The chest x-ray does show that the device has moved in the pocket but has not dislodged the leads. I did go over twiddler's syndrome with the patient's daughter so that someone is always watching to make certain he is not messing with the pocket. (4) Paroxysmal atrial fibrillation: PLAN: Patient currently in normal sinus rhythm at 77 bpm. He is controlled on amiodarone 200 mg daily he is also metoprolol tartrate 12.5 mg twice daily spironolactone 12.5 mg daily and losartan 50 mg daily. The patient is not currently anticoagulated. (5) Non-ischemic cardiomyopathy: PLAN: The patient is on metoprolol tartrate 25 mg twice daily spironolactone 12.5 mg daily and losartan 50 mg daily. He is also has received furosemide IV and p.o. daily. The patient's ejection fraction was noted to be 45% with global LV nonischemic cardiomyopathy. He does not appear to be congested at this time. He is saturating well on the BiPAP. HPI Consult Data Date of Consult: 06/22/23 HPI Narrative HPI Narrative: SILAS KHOURY, is a 82 M who presents with confusion and hypercapnia. Patient gives a history of nonischemic dilated cardiomyopathy, atrial fibrillation, and was admitted with confusion. The patient has a history of an EF of 45% by echo his EKG shows normal sinus rhythm with first-degree AV block and an old inferior wall infarct pattern. He recently had a permanent pacemaker placed by Dr. Rambo Somers. 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 A pacer check was performed which showed that the pacer leads were functioning normally and it appeared that had been a slight movement of the device in the pocket. It appears that device may have shifted approximately one quarter turn in the pocket compared to the chest x-ray immediately post implant. The leads do not appear to be moved. And the interrogation of the lead showed that they were sensing and pacing appropriately. The patient is confused this afternoon as I examined him he is somnolent his pCO2 was up in the 80s and he is back on BiPAP. His O2 sat is excellent at 95 to 100%. He is in sinus rhythm at 77 bpm. The daughter was in the room with him and she reports that he is been confused in the home environment that was what prompted the recent admission. He has a history of sick sinus syndrome that resulted in permanent pacemaker implant in mid May 2023. The patient was initially hypotensive on presentation but he received a couple of fluid boluses and is now normotensive. 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 (congestive heart failure) Chronic dyspnea Chronic kidney disease (CKD) Claudication of both lower extremities Congestive heart failure (CHF) Cough CPAP (continuous positive airway pressure) dependence Elevated hemoglobin Essential (primary) hypertension GERD (gastroesophageal reflux disease) Heart failure with preserved left ventricular function (HFpEF) History of COVID-19 Hyperlipidemia Hypothyroidism Nocturia Non-ischemic cardiomyopathy 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) Obesity On home oxygen therapy Orthopnea Shortness of breath Sinus pause Sleep apnea Syncope Unexplained weight loss Home Medications levothyroxine 125 mcg tablet 125 mcg PO DAILY thyroid 07/07/21 [History Last Taken Unknown] losartan 50 mg tablet 50 mg PO DAILY blood pressure #90 tabs 12/10/22 [Rx Last Taken Unknown] metoprolol tartrate 25 mg tablet 25 mg PO BID #1 TAB 05/25/23 [Rx Last Taken Unknown] amiodarone 200 mg tablet 200 mg PO Q24H 06/21/23 [History Last Taken Unknown] furosemide 20 mg tablet (Lasix) 20 mg PO DAILY 06/21/23 [History Last Taken Unknown] spironolactone 25 mg tablet 12.5 mg PO DAILY 06/21/23 [History Last Taken Unknown] Allergy/AdvReac Type Severity Reaction Status Date / Time No Known Allergies Allergy Verified 06/08/23 08:30 Family History Father Myocardial infarction Brother Myocardial infarction Surgical History History of appendectomy History of herniorrhaphy History of left heart catheterization (09/20/17) Social History Smoking Status: Never smoker alcohol intake: never substance use type: does not use caffeine: No ROS Review of Systems ROS Unobtainable: due to mental status Physical Exam Const General Appearance: other The patient is profoundly somnolent and difficult to arouse by verbal stimuli or physical stimuli. HEENT normocephalic Eyes EOMs intact bilaterally Neck no JVD Carotids: Negative for bruit Chest inspection of chest normal Resp Effort and Inspection: uses accessory muscles Cardio regular rate, regular rhythm, S1 normal heart sound, S2 normal heart sound, no rub and no gallops Heart Sounds: murmur systolic I/ soft GI GI Narrative: Prominent with accessory breathing Extremity General Extremity: edema bilateral lower extremity Details: mild Skin skin turgor normal Neuro Neuro Narrative: Somnolent Psych Psych Narrative: Unable to assess Risk Stratification Risk Stratification Applicable: No Charges/Coding Visit Charges Inpatient E&M: 86960 Init Hosp L3 Objective Data Vital Signs: Vital Signs Temp Pulse Resp BP Pulse Ox O2 Del Method O2 Flow Rate 97.6 F L 77 20 H 106/61 95 Nasal Cannula 2 06/22/23 13:45 06/22/23 13:45 06/22/23 13:45 06/22/23 13:45 06/22/23 13:45 06/22/23 13:49 06/22/23 13:45 FiO2 2 06/22/23 13:49 Oxygen Flow Rate (L/min) 2 Oxygen Delivery Method Nasal Cannula Weight: 172 lb 6.424 oz Body Mass Index (BMI) 27.8 Intake & Output: Intake and Output for Last 24 Hours 06/20/23 06/21/23 06/22/23 23:59 23:59 23:59 Intake Total 1680 / 1680 Output Total 150 / 150 Balance 1530 / 1530 Lab / Micro Data Attestation: I reviewed the patient's lab results. 06/22/23 04:18 06/22/23 04:18 Labs: Laboratory Results - last 24 hr 06/21/23 14:45: B-Natriuretic Peptide 42.7 06/21/23 15:30: Urine Color Yellow, Urine Clarity Clear, Urine pH 7.0, Ur Specific [place] 1.010, Urine Protein 30 H, Urine Glucose (UA) Normal, Urine Ketones Negative, Urine Occult Blood 10 H, Urine Nitrite Negative, Urine Bilirubin Negative, Urine Urobilinogen 1 H, Ur Leukocyte Esterase 25 H, Urine RBC 0-5 SEEN, Urine WBC 0-5 SEEN, Ur Squamous Epith Cells 0 SEEN, Urine Bacteria 0 SEEN, Urine Mucus 0 SEEN 06/21/23 17:17: Total Bilirubin 0.60, Direct Bilirubin 0.19, AST 15, ALT 34, Alkaline Phosphatase 56, Ammonia 14.0, Total Protein 7.0, Albumin 3.6, Globulin 3.4 06/21/23 23:05: Potassium 5.5 H 06/22/23 02:10: Sodium 137, Potassium 5.4 H, Chloride 94 L, Carbon Dioxide > 45.0 H*, Anion Gap TNP, BUN 38 H, Creatinine 1.35 H, Estim Creat Clear Calc 42.93, Est GFR (MDRD) Af Amer 65, Est GFR (MDRD) Non-Af 54 L, BUN/Creatinine Ratio 28.1 H, Glucose 108 H, Calcium 9.2 06/22/23 04:18: WBC 7.3, RBC 4.04 L, Hgb 12.4 L, Hct 40.9, MCV 101.2 H, MCH 30.7, MCHC 30.3 L, RDW Std Deviation 52.0 H, RDW Coeff of Yenni 13.7, Plt Count 101 L, MPV 12.3 H, Immature Gran % (Auto) 0.300, Neut % (Auto) 72.3 H, Lymph % (Auto) 15.6 L, [place] % (Auto) 11.0 H, Eos % (Auto) 0.4, Baso % (Auto) 0.4, Absolute Neuts (auto) 5.3, Absolute Lymphs (auto) 1.14, Nucleated RBC % 0, Sodium 138, Potassium 5.1, Chloride 96 L, Carbon Dioxide 42.0 H, Anion Gap 0 L, BUN 38 H, Creatinine 1.30, Estim Creat Clear Calc 44.58, Est GFR (MDRD) Af Amer 68, Est GFR (MDRD) Non-Af 56 L, BUN/Creatinine Ratio 29.2 H, Glucose 88, Calcium 9.0, Magnesium 2.3 Micro: Microbiology 06/21/23 23:05 Mucosa - Nasopharyngeal Respiratory Panel (PCR) - Final 06/21/23 23:05 Mucosa - Nasopharyngeal SARS-CoV-2, Influenza & RSV (PCR) - Final ABG Data ABG results: ABG 06/21/23 06/22/23 18:10 13:52 Specimen Type ART ART Sample Site L Radial R Radial pH 7.39 7.34 L Bicarbonate Actual 44.2 H 43.4 H Total CO2 47 46 Base Excess 19 H 18 H O2 Saturation 96 85 L O2 % 35.0 2.0 ABG pCO2 73.7 H* 80.6 H* ABG pO2 89 57 L Gee Test Positive Positive Respiration Rate 8 O2 Delivery Device BiPAP Cannula Vent Mode AVAPS Not entered Tidal Volume 400.0 POC PEEP 5 Crit Call To/Read Back Yes Yes Blood Gas Notified Whom [facility] charge nurse aware Blood Gas Notified Time 18:12:20 13:57:42 Rhythm Strip Rhythm Strip: Sinus Rhythm Rate: 75 Cardiology Labs/Tests 06/21/23 14:45: B-Natriuretic Peptide 42.7 06/21/23 15:30: Urine Color Yellow, Urine Clarity Clear, Urine pH 7.0, Ur Specific [place] 1.010, Urine Protein 30 H, Urine Glucose (UA) Normal, Urine Ketones Negative, Urine Occult Blood 10 H, Urine Nitrite Negative, Urine Bilirubin Negative, Urine Urobilinogen 1 H, Ur Leukocyte Esterase 25 H, Urine RBC 0-5 SEEN, Urine WBC 0-5 SEEN 06/21/23 17:17: Total Bilirubin 0.60, Direct Bilirubin 0.19 06/21/23 18:10: pH 7.39, Bicarbonate Actual 44.2 H, Base Excess 19 H, O2 Saturation 96, ABG pCO2 73.7 H*, ABG pO2 89, Gee Test Positive 06/21/23 23:05: Potassium 5.5 H 06/22/23 02:10: Sodium 137, Potassium 5.4 H, Chloride 94 L, Carbon Dioxide > 45.0 H*, Anion Gap TNP, BUN 38 H, Creatinine 1.35 H, Est GFR (MDRD) Af Amer 65, Est GFR (MDRD) Non-Af 54 L, BUN/Creatinine Ratio 28.1 H, Glucose 108 H, Calcium 9.2 06/22/23 04:18: WBC 7.3, RBC 4.04 L, Hgb 12.4 L, Hct 40.9, MCV 101.2 H, MCH 30.7, MCHC 30.3 L, Plt Count 101 L, MPV 12.3 H, Immature Gran % (Auto) 0.300, Neut % (Auto) 72.3 H, Lymph % (Auto) 15.6 L, [place] % (Auto) 11.0 H, Eos % (Auto) 0.4, Baso % (Auto) 0.4, Absolute Neuts (auto) 5.3, Nucleated RBC % 0, Sodium 138, Potassium 5.1, Chloride 96 L, Carbon Dioxide 42.0 H, Anion Gap 0 L, BUN 38 H, Creatinine 1.30, Est GFR (MDRD) Af Amer 68, Est GFR (MDRD) Non-Af 56 L, BUN/Creatinine Ratio 29.2 H, Glucose 88, Calcium 9.0, Magnesium 2.3 06/22/23 13:52: pH 7.34 L, Bicarbonate Actual 43.4 H, Base Excess 18 H, O2 Saturation 85 L, ABG pCO2 80.6 H*, ABG pO2 57 L, Gee Test Positive Rhythm: EKG: ECHO: Stress Test: Cardiac Cath: PCI: CT Surgery: Holter monitor: EPS: PPM: CXR: Chest CT Scan: Radiography Diagnostic Testing: Radiology Impression Brain CT 06/21/23 17:10 IMPRESSION: No acute disease Electronically Signed: Aung Henderson MD at 18:14 EST Reading Location ID and State: [address] [place] [address] Tel , Service support , Chest X-Ray 06/21/23 17:25 IMPRESSION: Bipolar pacer changed in position. Possible left perihilar infiltrate. 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 Electronically Signed: Aung Henderson MD at 18:01 EST Reading Location ID and State: [facility] / [place] Tel , Service support , EKG Initial EKG: Attestation: I personally reviewed and interpreted this EKG as follows: Prior EKG tracings: not available for review Interpretation: Normal sinus rhythm first-degree AV block old inferior wall infarct.
[2023-06-23] VITALS (10 sets, daily range): BP systolic 109–126; BP diastolic 62–73; PULSE 73–90; RESP 12–26; TEMP 36.2–36.9; O2SAT 93–100; BMI 29.3
[2023-06-23] MEDS: Levothyroxine 125 MCG Tablet PO (05:44)
[2023-06-23] MEDS: Enoxaparin 40 MG/0.4 ML Syringe SC (09:09)
[2023-06-23] MEDS: Acetaminophen 325 MG Tablet 650 MG PO (09:09)
[2023-06-23] MEDS: Amiodarone 200 MG Tablet PO (09:09)
[2023-06-23] MEDS: Ensure Plus High Protein 120 ML LIQUID PO ×2 (09:09→17:31)
[2023-06-23 11:28] LABS: Anion Gap 3 (5-15); BUN 45 mg/dL (7-18); BUN/Creat Ratio 28.5 RATIO (10-20); Calcium,Total 8.9 mg/dL (8.5-10.1); Chloride 95 mmol/L (98-107); Creatinine, Serum 1.58 mg/dL (0.70-1.30); EST Glomerular Filtration Rate 45 mL/min (>60); Est Glom Filt Rate - Afr Amer 54 mL/min (>60); Estimated Creatinine Clearance 37.67 ml/min; Glucose 169 mg/dL (74-106); Potassium 4.6 mmol/L (3.5-5.1); Sodium Level 135 mmol/L (136-145)
--- NOTE | 2023-06-23 15:29 | PN.HOSP_ITS ---
Reason for Visit Reason for Visit: Diagnoses Hypothyroidism, unspecified (06/21/23) Obstructive sleep apnea (adult) (pediatric) (06/21/23) Pulmonary hypertension, unspecified (06/21/23) Other cardiomyopathies (06/21/23) Paroxysmal atrial fibrillation (06/21/23) Chronic kidney disease, unspecified (06/21/23) Other abnormalities of breathing (06/21/23) Disorientation, unspecified (06/21/23) Presence of cardiac pacemaker (06/21/23) Subjective Subjective No acute events overnight. Patient seen at bedside this morning, daughter present. Patient was sitting up comfortably in bedside chair, in no acute distress. Was breathing comfortably on 2 L nasal cannula, no increased work of breathing noted. Patient states he did well on the BiPAP overnight. Main concern from patient and his daughter is why he continues to become hypercapnic quite frequently which leads to worsening confusion. Noted that they recently established with pulmonology at the end of May. Patient has been using his CPAP for a long time and pulmonology reviewed his recent CPAP data, and everything appeared good from the standpoint. Was determined that there was no need to repeat a sleep study. Patient otherwise denies any acute pain or discomfort currently. No other acute concerns at this time. Objective Data Objective Data Vital Signs: Vital Signs Temp Pulse Resp BP Pulse Ox O2 Del Method O2 Flow Rate 97.2 F L 89 18 109/70 96 Nasal Cannula 2 06/23/23 15:02 06/23/23 15:02 06/23/23 15:02 06/23/23 15:02 06/23/23 15:02 06/23/23 15:02 06/23/23 15:02 FiO2 35 06/23/23 07:55 Oxygen Flow Rate (L/min) 2 Oxygen Delivery Method Nasal Cannula Weight: 82.871 kg Body Mass Index (BMI) 29.3 Intake & Output: Intake and Output for Last 24 Hours 06/21/23 06/22/23 06/23/23 23:59 23:59 23:59 Intake Total 0 / 0 Output Total 475 / 475 650 / 650 Balance 1615 / 1615 -650 / -650 Lab / Micro Data 06/22/23 04:18 06/23/23 09:31 Labs: Laboratory Results - last 24 hr 06/23/23 09:31: Sodium 135 L, Potassium 4.6, Chloride 95 L, Carbon Dioxide 37.0 H, Anion Gap 3 L, BUN 45 H, Creatinine 1.58 H, Estim Creat Clear Calc 37.67, Est GFR (MDRD) Af Amer 54 L, Est GFR (MDRD) Non-Af 45 L, BUN/Creatinine Ratio 28.5 H , Glucose 169 H, Calcium 8.9 Micro: Microbiology 06/21/23 23:05 Mucosa - Nasopharyngeal Respiratory Panel (PCR) - Final 06/21/23 23:05 Mucosa - Nasopharyngeal SARS-CoV-2, Influenza & RSV (PCR) - Final Rhythm Strip Rhythm Strip: Sinus Rhythm Rate: 75 Physical Exam Const alert, no apparent distress and average body habitus Constitutional Narrative: Elderly male, sitting up comfortably in bedside chair, conversing normally, no acute distress. General Appearance: cooperative and comfortable HEENT normocephalic, head/scalp atraumatic, hearing grossly normal bilaterally and nasal mucous membranes and turbinates normal Eyes PERRL, EOMs intact bilaterally and conjunctivae normal Neck full ROM, no lymphadenopathy and supple Lymph Lymphatic: no lymphadenopathy noted Chest inspection of chest normal Resp Resp Narrative: Breathing comfortably on 2 L nasal cannula and satting in mid 90s at rest. Mil dly diminished breath sounds bilaterally throughout, no wheezing or crackles noted. Cardio regular rate, regular rhythm, no murmurs and peripheral pulses 2+ throughout GI normal to inspection, nondistended, normoactive bowel sounds, soft to palpation, non-tender and non-distended Back/Spine normal ROM Extremity normal to inspection, full ROM and no pedal edema Skin no rashes or lesions noted Neuro no focal motor deficits and no sensory deficits noted Speech: speech normal Psych mental status grossly normal Assessment & Plan Assessment/Plan (1) Hypercarbia: (2) Acute confusion: (3) Paroxysmal atrial fibrillation: PLAN: Plan Patient is an 82 year old male who presented to [facility] ED on 06/21/2023 with worsening confusion. 1. Acute confusion; Recurrent episodes of hypercapnia Recurrent hypercapnia seems to be most likely cause of confusion. Hypotension on admit may also have been playing a role. Hypercapnic with pCO2 73 on admit, mental status improved after being on BiPAP for a few hours. Patient felt much improved after 2 L IV fluids for hypotension as noted below. Had worsening confusion again on afternoon of 06/22, pCO2 80. Again improved with BiPAP. - Cardiology following. Pulmonology consulted on 06/23 for further recommendations. Continue BiPAP with naps and overnight. Continue medication management as noted below. 2. Hypotension, improved - Became hypotensive with SBP in 70s overnight on 06/21. May have been secondary to volume depletion and home antihypertensives, did not have proper heart rate response due to beta arnaud. Improved with 2 L IV fluids. Continue to hold home lasix, losartan, spironolactone, lopressor for now. 2. 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 pacemaker lead displacement. Pacer was placed on 06/02/[address] Somers. Pacer check on 06/22 with normal functioning pacemaker. No further workup required. 3. History of chronic combined HF/nonischemic cardiomyopathy/pulmonary HTN - Cardiology following. Most recent TTE 05/28/2023 with EF 45%, stage I diastolic dysfunction, mild global hypokinesis of LV. BNP normal on admit. Holding home meds as noted above, will discuss timing of restart these meds with Cardiology prior to discharge. 4. Hyperkalemia, resolved - K 5.6 on admit. Patient given 1 dose of IV lasix on admit given concern for possible volume overload. Holding home spironolactone. Improved to K 4.6 on 06/23. Monitor daily BMP. 5. Paroxysmal Afib - Cardiology following. EKG on admit showed NSR with 1st degree block, pacer spikes noted. Continue home amiodarone, holding beta-arnaud. Not on home AC. Monitor telemetry. Chronic medical conditions: - ZEENAT: Continue BIPAP. - Hypothyroidism: Continue home Synthroid. - CKD stage IIIa: Creatinine at baseline on admit, monitor. Holding antihypertensives as noted above. DVT prophylaxis: Lovenox Code status: Full code, unverified Expected disposition: Home, 1-2 days Total clinical time spent by myself addressing the patient's medical issues, reviewing all the data, and collaborating with patient's care team: 35 minutes. Charges/Coding Visit Charges Inpatient E&M: 75939 Subs Hosp L2
[2023-06-24] VITALS (9 sets, daily range): BP systolic 91–126; BP diastolic 63–80; PULSE 65–100; RESP 12–32; TEMP 36.4–36.6; O2SAT 93–100; BMI 28.8
--- NOTE | 2023-06-24 06:15 | EX.PCM.CONCC ---
Assessment & Plan Assessment/Plan (1) Hypercarbia: (2) Acute confusion: PLAN: Plan RECOMMENDATIONS: 1. Supplemental oxygen, if needed, to maintain saturations at or above 90%. 2. Encourage incentive spirometer use and mobilize patient as tolerated. 3. Continue PAP therapy, as ordered, with naps and nightly. 4. Recommend initiation of NIV at discharge to prevent future hospitalizations. IMPRESSIONS: 1. Acute on chronic hypercapnic respiratory failure The patient has had a prior pulmonary workup that included PFTs, 6-minute walk test and bronchoprovocation challenge in the spring 2022, all of which was unremarkable. He does have a known history of sleep apnea and is currently prescribed nocturnal auto titrating CPAP therapy, for which the patient has been mostly compliant with its use. At this time, given his recurrent episodes of hypercapnia, his volume status and diuretic therapy will need to be closely monitored to ensure he does not develop a contraction alkalosis. In the interim, he would likely benefit from being transitioned to a noninvasive ventilator or BiPAP. In order to transition him to a BiPAP, the patient would need to complete a retitration polysomnogram. For now, I feel that the patient requires volume ventilation and all other alternative therapies, including bilevel, have been considered and ruled out due to the severity of the disease state and potential for a life-threatening condition including CO2 retention and probability of acute exacerbation. The patient requires ventilation to be used during the day as needed, in addition to every night with facemask. 2. History of heart failure/underlying dysrhythmia/pulmonary hypertension Recommend cautious utilization of diuretics to maintain euvolemia. 3. Obstructive sleep apnea Continue nocturnal PAP therapy as ordered. I will work with case management to explore alternative options to the patient is currently prescribed auto titrating CPAP machine to prevent future hospitalizations secondary to hypercapnia. This note was generated with [employer] software. It may contain incorrect words, spelling, and punctuation that were not noted in checking the note before signing. HPI Consult Data Date of Consult: 06/24/23 HPI Narrative Reason for Consultation: Hypercapnia HPI Narrative: The patient is an 82-year-old male, with a history as outlined below, who presented to the emergency department on June 21 with altered mental status. The patient completed a recent pulmonary workup in the spring 2022 secondary to shortness of breath. His prior pulmonary function studies were normal. 6-minute walk test demonstrated no need for supplemental oxygen. Bronchoprovocation challenge was normal. It was felt that his dyspnea was secondary to generalized deconditioning. In addition to the aforementioned, the patient has a known history of obstructive sleep apnea and chronic CO2 retention. He is currently prescribed nocturnal auto titrating CPAP therapy on an outpatient basis. The patient has been mostly compliant with the use of his PAP therapy. The patient was last admitted to the hospital May 29 through with decompensated heart failure with preserved ejection fraction and hypercapnia. During his hospitalization, the patient had a pacemaker placed. On presentation to the emergency department, the patient was documented to be afebrile with a presenting blood pressure 100/49 mmHg. Initial laboratory evaluation revealed a normal white blood cell count. Platelet count was low at 115,000. Arterial blood gas demonstrated a pH of 7.39 with a pCO2 of 73 and pO2 of 89. The patient was placed on BiPAP therapy and admitted to the hospital for further management. The patient has been medically managed with supplemental IV fluids to address his presenting hypotension. His mental status improved with noninvasive positive pressure ventilatory support. 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 heart failure) Chronic dyspnea Chronic kidney disease (CKD) Claudication of both lower extremities Congestive heart failure (CHF) Cough CPAP (continuous positive airway pressure) dependence Elevated hemoglobin Essential (primary) hypertension GERD (gastroesophageal reflux disease) Heart failure with preserved left ventricular function (HFpEF) History of COVID-19 Hyperlipidemia Hypothyroidism Nocturia Non-ischemic cardiomyopathy 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) Obesity On home oxygen therapy Orthopnea Shortness of breath Sinus pause Sleep apnea Syncope Unexplained weight loss Home Medications levothyroxine 125 mcg tablet 125 mcg PO DAILY thyroid 07/07/21 [History Last Taken Unknown] losartan 50 mg tablet 50 mg PO DAILY blood pressure #90 tabs 12/10/22 [Rx Last Taken Unknown] metoprolol tartrate 25 mg tablet 25 mg PO BID #1 TAB 05/25/23 [Rx Last Taken Unknown] amiodarone 200 mg tablet 200 mg PO Q24H 06/21/23 [History Last Taken Unknown] furosemide 20 mg tablet (Lasix) 20 mg PO DAILY 06/21/23 [History Last Taken Unknown] spironolactone 25 mg tablet 12.5 mg PO DAILY 06/21/23 [History Last Taken Unknown] Allergy/AdvReac Type Severity Reaction Status Date / Time No Known Allergies Allergy Verified 06/08/23 08:30 Family History Father Myocardial infarction Brother Myocardial infarction Surgical History History of appendectomy History of herniorrhaphy History of left heart catheterization (09/20/17) Social History Smoking Status: Never smoker alcohol intake: never substance use type: does not use caffeine: No ROS ROS Narrative 10 systems were reviewed with pertinent positives as noted in the HPI above. Physical Exam Const alert and no apparent distress General Appearance: cooperative HEENT normocephalic and head/scalp atraumatic Eyes PERRL, EOMs intact bilaterally and conjunctivae normal Neck supple General: trachea midline Chest inspection of chest normal Resp normal respiratory effort Auscultation: Negative for rales, rhonchi or wheezes Cardio regular rate and regular rhythm GI normal to inspection, nondistended, normoactive bowel sounds Extremity no clubbing, cyanosis or edema Skin no rashes or lesions noted Neuro CN's II-XII intact bilaterally, moves all extremities and no focal motor deficits Psych cooperative and affect normal Lab / Micro Data 06/22/23 04:18 06/24/23 07:30 Labs: Laboratory Results - last 24 hr 06/23/23 09:31: Sodium 135 L, Potassium 4.6, Chloride 95 L, Carbon Dioxide 37.0 H, Anion Gap 3 L, BUN 45 H, Creatinine 1.58 H, Estim Creat Clear Calc 37.67, Est GFR (MDRD) Af Amer 54 L, Est GFR (MDRD) Non-Af 45 L, BUN/Creatinine Ratio 28.5 H, Glucose 169 H, Calcium 8.9 Rhythm Strip Rhythm Strip: Sinus Rhythm Rate: 75 Charges/Coding Visit Charges Inpatient E&M: 07009 Init Hosp L2
[2023-06-24] MEDS: Levothyroxine 125 MCG Tablet PO (06:21)
[2023-06-24 08:38] LABS: Anion Gap 0 (5-15); BUN 35 mg/dL (7-18); BUN/Creat Ratio 29.9 RATIO (10-20); Calcium,Total 9.1 mg/dL (8.5-10.1); Chloride 101 mmol/L (98-107); Creatinine, Serum 1.17 mg/dL (0.70-1.30); EST Glomerular Filtration Rate 64 mL/min (>60); Est Glom Filt Rate - Afr Amer 77 mL/min (>60); Estimated Creatinine Clearance 50.46 ml/min; Glucose 98 mg/dL (74-106); Potassium 4.6 mmol/L (3.5-5.1); Sodium Level 140 mmol/L (136-145)
[2023-06-24] MEDS: Amiodarone 200 MG Tablet PO (09:08)
[2023-06-24] MEDS: Ensure Plus High Protein 120 ML LIQUID PO ×3 (09:08→18:42)
[2023-06-24] MEDS: Enoxaparin 40 MG/0.4 ML Syringe SC (09:08)
--- NOTE | 2023-06-24 09:39 | CASEMGMT ---
Addendum entered and electronically signed by Sonya Feng RN 06/24/23 17:18: INOCENTE FLORES met with pt at bedside and informed pt that NIV would be minimal cost d/t insurance and that we are determining approval at this time. Pt expressed understanding. ABG test results submitted to [facility] via [employer]. INOCENTE Salcido Addendum entered and electronically signed by Sonya Feng RN 06/24/23 15:55: INOCENTE FLORES f/u with [facility]. Beverley out of the office but communication made with Simon with [facility] who state pt's cost would be minimal based on pt having [employer]. Facilitated quick script with Dr. Calhoun and sent to [facility] with corresponding documentation to support NIV. Attempted to visit pt at bedside. Pt sitting up in chair and on phone at this time. INOCENTE Salcido Original Note: INOCENTE FLORES: Per Dr. Calhoun, pt would benefit from an NIV or need to retitrate his home CPAP with an NIV being the preferred option. Noted pt's current DME is from [facility] and they state they do not provide NIV's. This RN CM met with pt face to face. Pt recalls speaking with Dr. Calhoun this AM and the recommendation for the NIV but that we need to see what insurance will pay. Explained to pt that this RN MARK will work on determining this. Informed pt that [facility] does not carry NIV's and asked for pt's preference in alternative provider. Pt states whoever is in [place]. Pt agreeable to [facility] and reviewed with pt that [employer] is no longer in business. This RN MARK contacted Beverley with [facility] to determine if [facility] is in network for an NIV with pt's insurance and needed next steps. INOCENTE Salcido
--- NOTE | 2023-06-24 11:52 | PN.HOSP_ITS ---
Reason for Visit Reason for Visit: Diagnoses Hypothyroidism, unspecified (06/21/23) Obstructive sleep apnea (adult) (pediatric) (06/21/23) Pulmonary hypertension, unspecified (06/21/23) Other cardiomyopathies (06/21/23) Paroxysmal atrial fibrillation (06/21/23) Chronic kidney disease, unspecified (06/21/23) Other abnormalities of breathing (06/21/23) Disorientation, unspecified (06/21/23) Presence of cardiac pacemaker (06/21/23) Subjective Subjective No acute events overnight. Patient seen at bedside this morning. Patient was sitting up comfortably in bed, conversing normally, in no acute distress. Patient states that Dr. Calhoun with pulmonology saw him this morning and explained that patient will likely need either BiPAP therapy or NIPPV going home due to his recurrent hypercapnia, and that we are working with case management to attempt to set this up. States that he tolerated the BiPAP without issue last night. Denies any shortness of breath at rest this morning. Denies any other acute pain or discomfort. No other acute concerns this time. Objective Data Objective Data Vital Signs: Vital Signs Temp Pulse Resp BP Pulse Ox O2 Del Method O2 Flow Rate 97.9 F 100 18 91/63 96 Nasal Cannula 2 06/24/23 11:12 06/24/23 11:12 06/24/23 11:12 06/24/23 11:12 06/24/23 11:12 06/24/23 11:12 06/24/23 11:12 FiO2 30 06/24/23 03:54 Oxygen Flow Rate (L/min) 2 Oxygen Delivery Method Nasal Cannula Weight: 81.4 kg Body Mass Index (BMI) 28.8 Intake & Output: Intake and Output for Last 24 Hours 06/22/23 06/23/23 06/24/23 23:59 23:59 23:59 Intake Total 2090 / 2090 780 / 780 680 / 680 Output Total 475 / 475 1200 / 1200 325 / 325 Balance 1615 / 1615 -420 / -420 355 / 355 Lab / Micro Data 06/22/23 04:18 06/24/23 07:30 Labs: Laboratory Results - last 24 hr 06/24/23 07:30: Sodium 140, Potassium 4.6, Chloride 101, Carbon Dioxide 39.0 H, Anion Gap 0 L, BUN 35 H, Creatinine 1.17, Estim Creat Clear Calc 50.46, Est GFR (MDRD) Af Amer 77, Est GFR (MDRD) Non-Af 64, BUN/Creatinine Ratio 29.9 H, Glucose 98, Calcium 9.1 Micro: Microbiology 06/21/23 23:05 Mucosa - Nasopharyngeal Respiratory Panel (PCR) - Final 06/21/23 23:05 Mucosa - Nasopharyngeal SARS-CoV-2, Influenza & RSV (PCR) - Final Rhythm Strip Rhythm Strip: Sinus Rhythm Rate: 75 Physical Exam Const alert, no apparent distress and average body habitus Constitutional Narrative: Elderly male, sitting up comfortably in bedside chair, conversing normally, no acute distress. General Appearance: cooperative and comfortable HEENT normocephalic, head/scalp atraumatic, hearing grossly normal bilaterally and nasal mucous membranes and turbinates normal Eyes PERRL, EOMs intact bilaterally and conjunctivae normal Neck full ROM, no lymphadenopathy and supple Lymph Lymphatic: no lymphadenopathy noted Chest inspection of chest normal Resp Resp Narrative: Breathing comfortably on 2 L nasal cannula and satting in mid 90s at rest. Mildly diminished breath sounds bilaterally throughout, no wheezing or crackles noted. Cardio regular rate, regular rhythm, no murmurs and peripheral pulses 2+ throughout GI normal to inspection, nondistended, normoactive bowel sounds, soft to palpation, non-tender and non-distended Back/Spine normal ROM Extremity normal to inspection, full ROM and no pedal edema Skin no rashes or lesions noted Neuro no focal motor deficits and no sensory deficits noted Speech: speech normal Psych mental status grossly normal Assessment & Plan Assessment/Plan (1) Hypercarbia: (2) Acute confusion: (3) Paroxysmal atrial fibrillation: PLAN: Plan Patient is an 82 year old male who presented to [facility] ED on 06/21/2023 with worsening confusion. 1. Acute confusion; Recurrent episodes of hypercapnia Recurrent hypercapnia seems to be most likely cause of confusion. Hypotension on admit may also have been playing a role. Hypercapnic with pCO2 73 on admit, mental status improved after being on BiPAP for a few hours. Patient felt much improved after 2 L IV fluids for hypotension as noted below. Had worsening confusion again on afternoon of 06/22, pCO2 80. Again improved with BiPAP. - Cardiology following. Pulmonology evaluated. Recommended close monitoring of patient's volume status and diuretic therapy to ensure he does not develop a contraction alkalosis, which would make him more susceptible to recurrent hypercapnia. Would likely benefit from being transition to noninvasive ventilator or BiPAP but would need to complete a retitration polysomnogram for this. Working with case management on potential options for the patient prior to discharge. Continue BiPAP with naps and overnight. Continue medication ma nagement as noted below. 2. Hypotension, improved - Became hypotensive with SBP in 70s overnight on 06/21. May have been secondary to volume depletion and home antihypertensives, did not have proper heart rate response due to beta arnaud. Improved with 2 L IV fluids. Continue to hold home lasix, losartan, spironolactone, lopressor for now. 2. 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 pacemaker lead displacement. Pacer was placed on 06/02/[address] Somers. Pacer check on 06/22 with normal functioning pacemaker. No further workup required. 3. History of chronic combined HF/nonischemic cardiomyopathy/pulmonary HTN - Cardiology following. Most recent TTE 05/28/2023 with EF 45%, stage I diastolic dysfunction, mild global hypokinesis of LV. BNP normal on admit. Holding home meds as noted above, will discuss timing of restart these meds with Cardiology prior to discharge. 4. Hyperkalemia, resolved - K 5.6 on admit. Patient given 1 dose of IV lasix on admit given concern for possible volume overload. Holding home spironolactone. Improved to K 4.6 on 06/23. Monitor daily BMP. 5. Paroxysmal Afib - Cardiology following. EKG on admit showed NSR with 1st degree block, pacer spikes noted. Continue home amiodarone, holding beta-arnaud. Not on home AC. Monitor telemetry. Chronic medical conditions: - ZEENAT: Continue BIPAP. - Hypothyroidism: Continue home Synthroid. - CKD stage IIIa: Creatinine at baseline on admit, monitor. Holding antihypertensives as noted above. DVT prophylaxis: Lovenox Code status: Full code, unverified Expected disposition: Home, 1-2 days Total clinical time spent by myself addressing the patient's medical issues, reviewing all the data, and collaborating with patient's care team: 35 minutes. Charges/Coding Visit Charges Inpatient E&M: 18470 Subs Hosp L2
[2023-06-24] MEDS: MELATONIN 3 MG TABLET PO (23:10)
[2023-06-25] VITALS (8 sets, daily range): BP systolic 109–122; BP diastolic 65–75; PULSE 88–107; RESP 12–26; TEMP 36.6–37.1; O2SAT 94–96; BMI 28.7
[2023-06-25] MEDS: Levothyroxine 125 MCG Tablet PO (05:59)
[2023-06-25 06:56] LABS: Anion Gap 2 (5-15); BUN 31 mg/dL (7-18); BUN/Creat Ratio 29.8 RATIO (10-20); Calcium,Total 8.9 mg/dL (8.5-10.1); Chloride 100 mmol/L (98-107); Creatinine, Serum 1.04 mg/dL (0.70-1.30); EST Glomerular Filtration Rate 73 mL/min (>60); Est Glom Filt Rate - Afr Amer 88 mL/min (>60); Estimated Creatinine Clearance 56.76 ml/min; Glucose 101 mg/dL (74-106); Potassium 4.6 mmol/L (3.5-5.1); Sodium Level 141 mmol/L (136-145)
--- NOTE | 2023-06-25 08:09 | PN.CC_ITS ---
Assessment & Plan Assessment/Plan (1) Hypercarbia: (2) Acute confusion: PLAN: Plan RECOMMENDATIONS: 1. Supplemental oxygen, if needed, to maintain saturations at or above 90%. 2. Encourage incentive spirometer use and mobilize patient as tolerated. 3. Continue PAP therapy, as ordered, with naps and nightly. 4. Recommend initiation of NIV at discharge to prevent future hospitalizations. (Prescription for NIV was signed with insurance certification pending) 5. Please have the patient follow-up in the pulmonary medicine office 2 weeks after discharge. 6. Will sign off. Please call with any additional questions. IMPRESSIONS: 1. Acute on chronic hypercapnic respiratory failure The patient has had a prior pulmonary workup that included PFTs, 6-minute walk test and bronchoprovocation challenge in the spring 2022, all of which was unremarkable. He does have a known history of sleep apnea and is currently prescribed nocturnal auto titrating CPAP therapy, for which the patient has been mostly compliant with its use. At this time, given his recurrent episodes of hypercapnia, his volume status and diuretic therapy will need to be closely monitored to ensure he does not develop a contraction alkalosis. In the inte rim, he would likely benefit from being transitioned to a noninvasive ventilator or BiPAP. In order to transition him to a BiPAP, the patient would need to complete a retitration polysomnogram. For now, I feel that the patient requires volume ventilation and all other alternative therapies, including bilevel, have been considered and ruled out due to the severity of the disease state and potential for a life-threatening condition including CO2 retention and probability of acute exacerbation. The patient requires ventilation to be used during the day as needed, in addition to every night with facemask. Prescription for NIV has been signed with insurance certification pending. Once approved, the patient can be discharged home with outpatient pulmonary follow-up in 2 weeks. 2. History of heart failure/underlying dysrhythmia/pulmonary hypertension Recommend cautious utilization of diuretics to maintain euvolemia. 3. Obstructive sleep apnea Continue nocturnal PAP therapy as ordered. I will work with case management to explore alternative options to the patient is currently prescribed auto titrating CPAP machine to prevent future hospitalizations secondary to hypercapnia. This note was generated with [employer] software. It may contain incorrect words, spelling, and punctuation that were not noted in checking the note before signing. Subjective Subjective The patient was seen and examined at the bedside this morning. Events from the last 24 hours have been reviewed. The patient is currently resting comfortably in bed on AVAPS therapy. He has no specific complaints this morning. We are awaiting insurance certification for a noninvasive ventilator, prior to discharge. Objective Data Objective Data The patient's most recent lab work, culture data and imaging studies have all been personally reviewed. Vital Signs: Vital Signs Temp Pulse Resp BP Pulse Ox O2 Del Method O2 Flow Rate 97.8 F 96 26 H 118/75 95 Bi-pap 2 06/25/23 03:02 06/25/23 05:05 06/25/23 05:05 06/25/23 03:02 06/25/23 05:05 06/25/23 04:45 06/24/23 21:02 FiO2 30 06/25/23 05:05 Oxygen Flow Rate (L/min) 2 Oxygen Delivery Method Bi-pap Weight: 178 lb 9.191 oz Body Mass Index (BMI) 28.7 Intake & Output: Intake and Output for Last 24 Hours 06/23/23 06/24/23 06/25/23 23:59 23:59 23:59 Intake Total 780 / 780 1130 / 1130 0 / 0 Output Total 1200 / 1200 325 / 325 125 / 125 Balance -420 / -420 805 / 805 -125 / -125 Lab / Micro Data Attestation: I reviewed the patient's lab results. 06/22/23 04:18 06/25/23 05:55 Labs: Laboratory Results - last 24 hr 06/24/23 07:30: Sodium 140, Potassium 4.6, Chloride 101, Carbon Dioxide 39.0 H, Anion Gap 0 L, BUN 35 H, Creatinine 1.17, Estim Creat Clear Calc 50.46, Est GFR (MDRD) Af Amer 77, Est GFR (MDRD) Non-Af 64, BUN/Creatinine Ratio 29.9 H, Glucose 98, Calcium 9.1 06/25/23 05:55: Sodium 141, Potassium 4.6, Chloride 100, Carbon Dioxide 39.0 H, Anion Gap 2 L, BUN 31 H, Creatinine 1.04, Estim Creat Clear Calc 56.76, Est GFR (MDRD) Af Amer 88, Est GFR (MDRD) Non-Af 73, BUN/Creatinine Ratio 29.8 H, Glucose 101, Calcium 8.9 Micro: Microbiology 06/21/23 23:05 Mucosa - Nasopharyngeal Respiratory Panel (PCR) - Final 06/21/23 23:05 Mucosa - Nasopharyngeal SARS-CoV-2, Influenza & RSV (PCR) - Final Rhythm Strip Rhythm Strip: Sinus Rhythm Rate: 75 Physical Exam Const alert and no apparent distress General Appearance: cooperative HEENT normocephalic and head/scalp atraumatic Eyes PERRL, EOMs intact bilaterally and conjunctivae normal Neck supple General: trachea midline Chest inspection of chest normal Resp normal respiratory effort Auscultation: Negative for rales, rhonchi or wheezes Cardio regular rate and regular rhythm GI normal to inspection, nondistended, normoactive bowel sounds Extremity no clubbing, cyanosis or edema Skin no rashes or lesions noted Neuro CN's II-XII intact bilaterally, moves all extremities and no focal motor deficits Psych cooperative and affect normal Charges/Coding Visit Charges Inpatient E&M: 00355 Subs Hosp L2
[2023-06-25] MEDS: Amiodarone 200 MG Tablet PO (08:28)
[2023-06-25] MEDS: Acetaminophen 325 MG Tablet 650 MG PO (08:28)
[2023-06-25] MEDS: Ensure Plus High Protein 120 ML LIQUID PO ×3 (08:28→18:11)
[2023-06-25] MEDS: Enoxaparin 40 MG/0.4 ML Syringe SC (08:28)
--- NOTE | 2023-06-25 12:59 | CASEMGMT ---
Addendum entered by Halle Tiwari 06/25/23 16:25: RN MARK to room at this time and pt requests RN MARK to call the daughter Sonal at this time regarding NIV concerns. Sonal states they are uncomfortable putting a credit card on file for the NIV through [employer]. Shyla [place] [facility] [place] this time and Shyla states that the Credit card will need to be on file until the authorization goes through. TC to Sonal and Sonal updated. Sonal states that she will explain the options to the pt and pt . Will follow tomorrow. Addendum entered by Halle Tiwari 06/25/23 15:42: Dr. Castillo was able to get in contact with Dr. Calhoun and was able to update the Rx accordingly. Updated Rx sent to [facility] at this time via [employer]. Addendum entered by Halle Tiwari 06/25/23 14:53: Robert from [employer] calls and states they cannot accept the Rx as it needs to be updated by the MD. Dr. Calhoun paged at this time and refuses to update the Rx as he is not here. Dr. Castillo notified and states he will look at the Rx soon. Addendum entered by Rebellion [employer]onic[employer]angeeta Tiwari 06/25/23 14:43: Shyla states that acute on chronic RF should go through with the insurance. Updated Rx sent to [facility] via [employer] Addendum entered by Halle Tiwari 06/25/23 13:13: Dr. Castillo states the pt does not have a COPD Dx and that the potential qualifying Dx for the NIV is ZEENAT with pulmonary HTN (and recurrent hypercapnia). Shyla calls back at this time and updated, she states that she will check with the NIV team to see if this can be approved and will call back. Original Note: Shyla from [facility] [place] at this time in regard to the pt home NIV needs. No answer at this time, voice message left.
--- NOTE | 2023-06-25 14:51 | PN.HOSP_ITS ---
Reason for Visit Reason for Visit: Diagnoses Hypothyroidism, unspecified (06/21/23) Obstructive sleep apnea (adult) (pediatric) (06/21/23) Pulmonary hypertension, unspecified (06/21/23) Other cardiomyopathies (06/21/23) Paroxysmal atrial fibrillation (06/21/23) Chronic kidney disease, unspecified (06/21/23) Other abnormalities of breathing (06/21/23) Disorientation, unspecified (06/21/23) Presence of cardiac pacemaker (06/21/23) Subjective Subjective No acute events overnight. Patient seen at bedside this morning, daughter present. Patient was sitting up comfortably in bed, in no acute distress. Patient states that he tolerated the IVAPS well overnight that was prescribed by pulmonology. Plan is to have patient use this at home after discharge. Patient otherwise states that he feels somewhat weak but has done fairly well working w ith physical therapy and Occupational Therapy. He does report mild right outer foot pain with some tenderness to the touch, notes that he has had cellulitis in that area in the past. Denies any fevers or chills. No other acute concerns at this time. Objective Data Objective Data Vital Signs: Vital Signs Temp Pulse Resp BP Pulse Ox O2 Del Method O2 Flow Rate 98.6 F 97 16 114/65 94 Nasal Cannula 2 06/25/23 13:54 06/25/23 13:54 06/25/23 13:54 06/25/23 13:54 06/25/23 13:54 06/25/23 13:59 06/25/23 14:04 FiO2 30 06/25/23 07:32 Oxygen Flow Rate (L/min) 2 Oxygen Delivery Method Nasal Cannula Weight: 81 kg Body Mass Index (BMI) 28.7 Intake & Output: Intake and Output for Last 24 Hours 06/23/23 06/24/23 06/25/23 23:59 23:59 23:59 Intake Total 780 / 780 1130 / 1130 0 / 0 Output Total 1200 / 1200 325 / 325 125 / 125 Balance -420 / -420 805 / 805 -125 / -125 Lab / Micro Data 06/22/23 04:18 06/25/23 05:55 Labs: Laboratory Results - last 24 hr 06/25/23 05:55: Sodium 141, Potassium 4.6, Chloride 100, Carbon Dioxide 39.0 H, Anion Gap 2 L, BUN 31 H, Creatinine 1.04, Estim Creat Clear Calc 56.76, Est GFR (MDRD) Af Amer 88, Est GFR (MDRD) Non-Af 73, BUN/Creatinine Ratio 29.8 H, Glucose 101, Calcium 8.9 Micro: Microbiology 06/21/23 23:05 Mucosa - Nasopharyngeal Respiratory Panel (PCR) - Final 06/21/23 23:05 Mucosa - Nasopharyngeal SARS-CoV-2, Influenza & RSV (PCR) - Final Rhythm Strip Rhythm Strip: Sinus Rhythm Rate: 75 Physical Exam Const alert, no apparent distress and average body habitus Constitutional Narrative: Elderly male, sitting up comfortably in bed, conversing normally, no acute distress. General Appearance: cooperative and comfortable HEENT normocephalic, head/scalp atraumatic, hearing grossly normal bilaterally and nasal mucous membranes and turbinates normal Eyes PERRL, EOMs intact bilaterally and conjunctivae normal Neck full ROM, no lymphadenopathy and supple Lymph Lymphatic: no lymphadenopathy noted Chest inspection of chest normal Resp Resp Narrative: Breathing comfortably on 2 L nasal cannula and satting in mid 90s at rest. Mildly diminished breath sounds bilaterally throughout, no wheezing or crackles noted. Cardio regular rate, regular rhythm, no murmurs and peripheral pulses 2+ throughout GI normal to inspection, nondistended, normoactive bowel sounds, soft to palpation, non-tender and non-distended Back/Spine normal ROM Extremity full ROM Extremity Narrative: Mild to moderate right outer foot erythema noted that is somewhat hot and tender to touch. +1-2 lower extremity edema bilaterally, similar to previous days. Skin no rashes or lesions noted Neuro no focal motor deficits and no sensory deficits noted Speech: speech normal Psych mental status grossly normal Assessment & Plan Assessment/Plan (1) Hypercarbia: (2) Acute confusion: (3) Paroxysmal atrial fibrillation: PLAN: Plan Patient is an 82 year old male who presented to [facility] ED on 06/21/2023 with worsening confusion. 1. Acute confusion; Recurrent episodes of hypercapnia Recurrent hypercapnia seems to be most likely cause of confusion. Hypotension on admit may also have been playing a role. Hypercapnic with pCO2 73 on admit, mental status improved after being on BiPAP for a few hours. Patient felt much improved after 2 L IV fluids for hypotension as noted below. Had worsening conf usion again on afternoon of 06/22, pCO2 80. Again improved with BiPAP. ? Pulmonology and case management following. Cardiology previously followed. Patient tolerated IVAPS (NIV) overnight on 06/24- well. Working to try to discharge patient with IVAPS machine; if unable to do this, will need to di scharge directly to sleep study if possible. Notably, patient is at high risk for developing hypercapnia if he is overdiuresed and has a contraction alkalosis, continue to hold diuretic for now. 2. Hypotension, improved - Became hypotensive with SBP in 70s overnight on 06/21. May have been secondary to volume depletion and home antihypertensives, did not have proper heart rate response due to beta arnaud. Improved with 2 L IV fluids. Continue to hold home lasix, losartan, spironolactone, lopressor for now. 2. 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 pacemaker lead displacement. Pacer was placed on 06/02/[address] Somers. Pacer check on 06/22 with normal functioning pacemaker. No further workup required. 3. History of chronic combined HF/nonischemic cardiomyopathy/pulmonary HTN - Cardiology following. Most recent TTE 05/28/2023 with EF 45%, stage I diastolic dysfunction, mild global hypokinesis of LV. BNP normal on admit. Holding home meds as noted above, will discuss timing of restart these meds with Cardiology prior to discharge. 4. Hyperkalemia, resolved - K 5.6 on admit. Patient given 1 dose of IV lasix on admit given concern for possible volume overload. Holding home spironolactone. Improved to K 4.6 on 06/23. Monitor daily BMP. 5. Paroxysmal Afib - Cardiology followed. EKG on admit showed NSR with 1st degree block, pacer spikes noted. Continue home amiodarone, holding beta-arnaud. Not on home AC. Monitor telemetry. Chronic medical conditions: - ZEENAT: Continue NIV as noted above. - Hypothyroidism: Continue home Synthroid. - CKD stage IIIa: Creatinine at baseline on admit, monitor. Holding antihypertensives as noted above. DVT prophylaxis: Lovenox Code status: Full code, unverified Expected disposition: Home with home health care, 1 to 2 days Total clinical time spent by myself addressing the patient's medical issues, reviewing all the data, and collaborating with patient's care team: 35 minutes. Charges/Coding Visit Charges Inpatient E&M: 55392 Subs Hosp L2
--- NOTE | 2023-06-25 15:50 | CASEMGMT ---
Spoke with Shyla from [facility], she is aware the updated rx for NIV was sent to [facility]. She states they will have health information tech deliver to pt home or meet pt at hospital today. Pt will have to sign ABN and put a CC on file. Discussed concern if this does not get done today, can they do it tomorrow, she states they can. She states they will reach out to pt to determine to meet at home or here in the hospital.
[2023-06-25] MEDS: Ceftriaxone 1 GM/50 ML BAG IV (18:11)
[2023-06-25] MEDS: 0.9% Saline Lock 10 ML Syringe IV (18:11)
[2023-06-25] MEDS: MELATONIN 3 MG TABLET PO (20:58)
[2023-06-26] VITALS (7 sets, daily range): BP systolic 108–129; BP diastolic 70–91; PULSE 90–104; RESP 12–28; TEMP 36.7–36.8; O2SAT 94–99; BMI 28.6
[2023-06-26 04:43] LABS: Hematocrit 38.4 % (40-54); Hemoglobin 11.7 g/dL (13.0-16.5); Mean Corp Hgb Conc 30.5 g/dL (32-36); Mean Corpuscular Hgb 31.1 pg (27.0-32.0); Mean Corpuscular Volume 102.1 fL (80-94); Mean Platelet Vol. 12.2 fl (6.2-12.0); POSITIVE COUNT YES; Platelet Count 94 K/mm3 (150-450); RBC Distribution Width CV 13.9 % (11.6-14.6); RBC Distribution Width SD 52.7 fl (35.1-43.9); Red Blood Count 3.76 M/mm3 (4.6-6.2); White Blood Count 7.6 K/mm3 (4.4-11.0)
[2023-06-26 04:50] LABS: Scan Indicated on CBC? Y/N NO
[2023-06-26 05:05] LABS: Anion Gap 2 (5-15); BUN 30 mg/dL (7-18); BUN/Creat Ratio 31.2 RATIO (10-20); Calcium,Total 8.8 mg/dL (8.5-10.1); Chloride 102 mmol/L (98-107); Creatinine, Serum 0.96 mg/dL (0.70-1.30); EST Glomerular Filtration Rate 80 mL/min (>60); Est Glom Filt Rate - Afr Amer 96 mL/min (>60); Estimated Creatinine Clearance 61.35 ml/min; Glucose 105 mg/dL (74-106); Potassium 4.5 mmol/L (3.5-5.1); Sodium Level 142 mmol/L (136-145)
[2023-06-26] MEDS: Levothyroxine 125 MCG Tablet PO (06:14)
[2023-06-26] MEDS: Amiodarone 200 MG Tablet PO (11:02)
[2023-06-26] MEDS: Ceftriaxone 1 GM/50 ML BAG IV (11:09)
[2023-06-26] MEDS: Acetaminophen 325 MG Tablet 650 MG PO ×2 (11:09→18:01)
[2023-06-26] MEDS: Ensure Plus High Protein 120 ML LIQUID PO ×2 (11:12→18:00)
--- NOTE | 2023-06-26 12:22 | PCM.PN.HOSP ---
Reason for Visit Reason for Visit: Diagnoses Hypothyroidism, unspecified (06/21/23) Obstructive sleep apnea (adult) (pediatric) (06/21/23) Pulmonary hypertension, unspecified (06/21/23) Other cardiomyopathies (06/21/23) Paroxysmal atrial fibrillation (06/21/23) Chronic kidney disease, unspecified (06/21/23) Other abnormalities of breathing (06/21/23) Disorientation, unspecified (06/21/23) Presence of cardiac pacemaker (06/21/23) Subjective Subjective No acute events overnight. Patient seen at bedside this morning. Sitting up under the bed, conversing normally, no acute distress. Patient tolerated the NIV ventilation well again last night. He continues to have mild right lateral foot and ankle pain and tenderness to palpation, similar to yesterday. He otherwise has been getting up and walking with assistance fairly well. No other acute concerns this time. Objective Data Objective Data Vital Signs: Vital Signs Temp Pulse Resp BP Pulse Ox O2 Del Method O2 Flow Rate 98.1 F 104 H 16 129/73 H 96 Nasal Cannula 2 06/26/23 10:58 06/26/23 10:58 06/26/23 10:58 06/26/23 10:58 06/26/23 10:58 06/26/23 10:58 06/26/23 10:58 FiO2 30 06/26/23 03:02 Oxygen Flow Rate (L/min) 2 Oxygen Delivery Method Nasal Cannula Weight: 80.6 kg Body Mass Index (BMI) 28.6 Intake & Output: Intake and Output for Last 24 Hours 06/24/23 06/25/23 06/26/23 23:59 23:59 23:59 Intake Total 1130 / 1130 590 / 590 0 / 0 Output Total 325 / 325 125 / 125 100 / 100 Balance 805 / 805 465 / 465 -100 / -100 Lab / Micro Data 06/26/23 03:31 06/26/23 03:31 Labs: Laboratory Results - last 24 hr 06/26/23 03:31: WBC 7.6, RBC 3.76 L, Hgb 11.7 L, Hct 38.4 L, MCV 102.1 H, MCH 31.1, MCHC 30.5 L, RDW Std Deviation 52.7 H, RDW Coeff of Yenni 13.9, Plt Count 94 L, MPV 12.2 H, Sodium 142, Potassium 4.5, Chloride 102, Carbon Dioxide 38.0 H, Anion Gap 2 L, BUN 30 H, Creatinine 0.96, Estim Creat Clear Calc 61.35, Est GFR (MDRD) Af Amer 96, Est GFR (MDRD) Non-Af 80, BUN/Creatinine Ratio 31.2 H, Glucose 105, Calcium 8.8 Micro: Microbiology 06/21/23 23:05 Mucosa - Nasopharyngeal Respiratory Panel (PCR) - Final 06/21/23 23:05 Mucosa - Nasopharyngeal SARS-CoV-2, Influenza & RSV (PCR) - Final Rhythm Strip Rhythm Strip: Sinus Rhythm Rate: 75 Physical Exam Const alert, no apparent distress and average body habitus Constitutional Narrative: Elderly male, sitting up comfortably in bed, conversing normally, no acute distress. General Appearance: cooperative and comfortable HEENT normocephalic, head/scalp atraumatic, hearing grossly normal bilaterally and nasal mucous membranes and turbinates normal Eyes PERRL, EOMs intact bilaterally and conjunctivae normal Neck full ROM, no lymphadenopathy and supple Lymph Lymphatic: no lymphadenopathy noted Chest inspection of chest normal Resp Resp Narrative: Breathing comfortably on 2 L nasal cannula and satting in mid 90s at rest. Mildly diminished breath sounds bilaterally throughout, no wheezing or crackles noted. Cardio regular rate, regular rhythm, no murmurs and peripheral pulses 2+ throughout GI normal to inspection, nondistended, normoactive bowel sounds, soft to palpation, non-tender and non-distended Back/Spine normal ROM Extremity full ROM Extremity Narrative: Mild to moderate right outer foot erythema noted that is somewhat hot and tender to touch, similar to yesterday. +1-2 lower extremity edema bilaterally, similar to previous days. Skin no rashes or lesions noted Neuro no focal motor deficits and no sensory deficits noted Speech: speech normal Psych mental status grossly normal Assessment & Plan Assessment/Plan (1) Hypercarbia: (2) Acute confusion: (3) Paroxysmal atrial fibrillation: PLAN: Plan Patient is an 82 year old male who presented to [facility] ED on 06/21/2023 with worsening confusion. 1. Acute confusion; Recurrent episodes of hypercapnia Recurrent hypercapnia seems to be most likely cause of confusion. Hypotension on admit may also have been playing a role. Hypercapnic with pCO2 73 on admit, mental status improved after being on BiPAP for a few hours. Patient felt much improved after 2 L IV fluids for hypotension as noted below. Had worsening confusion again on afternoon of 06/22, pCO2 80. Again improved with BiPAP. ? Pulmonology and case management following. Cardiology previously followed. Patient tolerated IVAPS (NIV) overnight on 06/24- well. Hopeful that we will be able to discharge patient with IVAPS machine but unfortunately this may not happen until Wednesday or Wednesday. Notably, patient is at high risk for developing hypercapnia if he is overdiuresed and has a contraction alkalosis, continue to hold diuretic for now. 2. Hypotension, improved - Became hypotensive with SBP in 70s overnight on 06/21. May have been secondary to volume depletion and home antihypertensives, did not have proper heart rate response due to beta arnaud. Improved with 2 L IV fluids. Continue to hold home lasix, losartan, spironolactone, lopressor for now. 2. 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 pacemaker lead displacement. Pacer was placed on 06/02/[address] Somers. Pacer check on 06/22 with normal functioning pacemaker. No further workup required. 3. History of chronic combined HF/nonischemic cardiomyopathy/pulmonary HTN - Cardiology following. Most recent TTE 05/28/2023 with EF 45%, stage I diastolic dysfunction, mild global hypokinesis of LV. BNP normal on admit. Holding home meds as noted above, will discuss timing of restart these meds with Cardiology prior to discharge. 4. Hyperkalemia, resolved - K 5.6 on admit. Patient given 1 dose of IV lasix on admit given concern for possible volume overload. Holding home spironolactone. Improved to K 4.6 on 06/23. Monitor daily BMP. 5. Paroxysmal Afib - Cardiology followed. EKG on admit showed NSR with 1st degree block, pacer spikes noted. Continue home amiodarone, holding beta-arnaud. Not on home AC. Monitor telemetry. 6. Suspected right foot cellulitis ? Noted to have area of erythema on right side of ankle on 06/25. Area hot to the touch and mildly tender to the touch per patient. Right ankle appears mildly more swollen than left ankle. Treating with p.o. doxycycline, will plan for 7-day course total. Chronic medical conditions: - ZEENAT: Continue NIV as noted above. - Hypothyroidism: Continue home Synthroid. - CKD stage IIIa: Creatinine at baseline on admit, monitor. Holding antihypertensives as noted above. DVT prophylaxis: Lovenox Code status: Full code, unverified Expected disposition: Home with home health care, 1 to 2 days Total clinical time spent by myself addressing the patient's medical issues, reviewing all the data, and collaborating with patient's care team: 35 minutes. Charges/Coding Visit Charges Inpatient E&M: 52623 Subs Hosp L2
--- NOTE | 2023-06-26 12:53 | CASEMGMT ---
Addendum entered by Margaret Fierro 06/26/23 14:29: 1340- Received tc from Shyla, they do not have the NIV in stock selected on the order. She states this will be in stock on Wednesday or Wednesday. Discussed with hospitalist. Updated pt and family of this information as well. Addendum entered by Margaret Fierro 06/26/23 13:35: INOCENTE FLORES called into room, pt dtr arrived. Pt then states that they would like to proceed with the NIV. Pt agreed. She asks for Dasvt to contact her at [phone] as she has the cc. Spoke with hospitalist who states pt can dc if this is set up today. Pt would like Dasvt to meet at the home instead of the hospital. Referral to [facility] for NIV via [facility] at this time. TC to Shyla, she is aware of the order being sent, that pt and want the visit to be in the home and to call for cc. She will call this RN MARK to make aware that hospitalist can dc pt as this is completely set up. Pt aware that HHC will be resumed also. Green sheet on chart for this. Original Note: RN CM into pt room, pt present, discussed with pt and the NIV. Explained the situation to them regarding the PA and if it is not approved, [employer] will milk pickup driver the machine within 24 hours and pt cc would not be charged. Pt and aware that should this be denied, he will need a sleep study and this can be worked on getting set up on Wednesday. If it is approved then the sleep study can be cancelled. Pt and asked this INOCENTE FLORES to explain to their son. Pt called son and put him on speaker and this was explained. Pt son would like to speak with his sister Sonal. He states he will call her then call pt back. Pt and will put receptionist scheduler light to notify INOCENTE FLORES of the answer.
[2023-06-26] MEDS: Enoxaparin 40 MG/0.4 ML Syringe SC (14:10)
[2023-06-26] MEDS: Doxycycline 100 MG CAPSULE PO ×2 (14:10→21:44)
[2023-06-26 17:52] LABS: Magnesium 2.4 mg/dL (1.6-2.6)
[2023-06-26] MEDS: MELATONIN 3 MG TABLET PO (21:44)
[2023-06-27] VITALS (8 sets, daily range): BP systolic 117–131; BP diastolic 82–85; PULSE 76–109; RESP 12–20; TEMP 36.5–37; O2SAT 94–98; BMI 29.0
[2023-06-27] MEDS: Levothyroxine 125 MCG Tablet PO (06:47)
[2023-06-27] MEDS: Enoxaparin 40 MG/0.4 ML Syringe SC (09:01)
[2023-06-27] MEDS: Ensure Plus High Protein 120 ML LIQUID PO ×3 (09:01→16:54)
[2023-06-27] MEDS: Doxycycline 100 MG CAPSULE PO ×2 (09:01→21:16)
[2023-06-27] MEDS: Amiodarone 200 MG Tablet PO (09:01)
--- NOTE | 2023-06-27 14:22 | PCM.PN.HOSP ---
Reason for Visit Reason for Visit: Diagnoses Hypothyroidism, unspecified (06/21/23) Obstructive sleep apnea (adult) (pediatric) (06/21/23) Pulmonary hypertension, unspecified (06/21/23) Other cardiomyopathies (06/21/23) Paroxysmal atrial fibrillation (06/21/23) Chronic kidney disease, unspecified (06/21/23) Other abnormalities of breathing (06/21/23) Disorientation, unspecified (06/21/23) Presence of cardiac pacemaker (06/21/23) Subjective Subjective No acute events overnight. Patient seen at bedside this morning, family members present. Patient was sitting up comfortably in bedside chair, conversing normally, no acute distress. Patient states his right ankle swelling and redness with tenderness is moderately improved today. He tolerated the IVAPS overnight again without issue. No other acute concerns this time. Objective Data Objective Data Vital Signs: Vital Signs Temp Pulse Resp BP Pulse Ox O2 Del Method O2 Flow Rate 98.3 F 109 H 18 120/85 H 96 Nasal Cannula 2 06/27/23 09:00 06/27/23 09:00 06/27/23 09:00 06/27/23 09:00 06/27/23 09:00 06/27/23 13:58 06/27/23 13:58 FiO2 30 06/27/23 03:35 Oxygen Flow Rate (L/min) 2 Oxygen Delivery Method Nasal Cannula Weight: 81.5 kg Body Mass Index (BMI) 29.0 Intake & Output: Intake and Output for Last 24 Hours 06/25/23 06/26/23 06/27/23 23:59 23:59 23:59 Intake Total 590 / 590 890 / 890 360 / 360 Output Total 125 / 125 450 / 750 310 / 310 Balance 465 / 465 440 / 140 50 / 50 Lab / Micro Data 06/26/23 03:31 06/26/23 03:31 Labs: Laboratory Results - last 24 hr 06/26/23 03:31: Magnesium 2.4 Micro: Microbiology 06/21/23 23:05 Mucosa - Nasopharyngeal Respiratory Panel (PCR) - Final 06/21/23 23:05 Mucosa - Nasopharyngeal SARS-CoV-2, Influenza & RSV (PCR) - Final Rhythm Strip Rhythm Strip: Sinus Rhythm Rate: 75 Physical Exam Const alert, no apparent distress and average body habitus Constitutional Narrative: Elderly male, sitting up comfortably in bedside chair, conversing normally, no acute distress. General Appearance: cooperative and comfortable HEENT normocephalic, head/scalp atraumatic, hearing grossly normal bilaterally and nasal mucous membranes and turbinates normal Eyes PERRL, EOMs intact bilaterally and conjunctivae normal Neck full ROM, no lymphadenopathy and supple Lymph Lymphatic: no lymphadenopathy noted Chest inspection of chest normal Resp Resp Narrative: Breathing comfortably on 2 L nasal cannula and satting in mid 90s at rest. Mildly diminished breath sounds bilaterally throughout, no wheezing or crackles noted. Cardio regular rate, regular rhythm, no murmurs and peripheral pulses 2+ throughout GI normal to inspection, nondistended, normoactive bowel sounds, soft to palpation, non-tender and non-distended Back/Spine normal ROM Extremity full ROM Extremity Narrative: Right lateral ankle erythema moderately improved today. Swelling and tenderness also improving. Skin no rashes or lesions noted Neuro no focal motor deficits and no sensory deficits noted Speech: speech normal Psych mental status grossly normal Assessment & Plan Assessment/Plan (1) Hypercarbia: (2) Acute confusion: (3) Paroxysmal atrial fibrillation: PLAN: Plan Patient is an 82 year old male who presented to [facility] ED on 06/21/2023 with worsening confusion. 1. Acute confusion; Recurrent episodes of hypercapnia Recurrent hypercapnia seems to be most likely cause of confusion. Hypotension on admit may also have been playing a role. Hypercapnic with pCO2 73 on admit, mental status improved after being on BiPAP for a few hours. Patient felt much improved after 2 L IV fluids for hypotension as noted below. Had worsening confusion again on afternoon of 06/22, pCO2 80. Again improved with BiPAP. ? Pulmonology and case management following. Cardiology previously followed. Patient tolerated IVAPS (NIV) overnight on 06/24- well. Hopeful that we will be able to discharge patient with IVAPS machine but unfortunately this may not happen until Wednesday or Wednesday. Notably, patient is at high risk for developing hypercapnia if he is overdiuresed and has a contraction alkalosis, continue to hold diuretic for now. 2. Hypotension, improved - Became hypotensive with SBP in 70s overnight on 06/21. May have been secondary to volume depletion and home antihypertensives, did not have proper heart rate response due to beta arnaud. Improved with 2 L IV fluids. Continue to hold home lasix, losartan, spironolactone, lopressor for now. 2. 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 pacemaker lead displacement. Pacer was placed on 06/02/[address] Somers. Pacer check on 06/22 with normal functioning pacemaker. No further workup required. 3. History of chronic combined HF/nonischemic cardiomyopathy/pulmonary HTN - Cardiology following. Most recent TTE 05/28/2023 with EF 45%, stage I diastolic dysfunction, mild global hypokinesis of LV. BNP normal on admit. Holding home meds as noted above, will discuss timing of restart these meds with Cardiology prior to discharge. 4. Hyperkalemia, resolved - K 5.6 on admit. Patient given 1 dose of IV lasix on admit given concern for possible volume overload. Holding home spironolactone. Improved to K 4.6 on 06/23. Monitor daily BMP. 5. Paroxysmal Afib - Cardiology followed. EKG on admit showed NSR with 1st degree block, pacer spikes noted. Continue home amiodarone, holding beta-arnaud. Not on home AC. Monitor telemetry. 6. Suspected right foot cellulitis, improving ? Noted to have area of erythema on right side of ankle on 06/25. Area hot to the touch and mildly tender to the touch per patient. Right ankle appears mildly more swollen than left ankle. Treating with p.o. doxycycline, will plan for 7-day course total. Chronic medical conditions: - ZEENAT: Continue NIV as noted above. - Hypothyroidism: Continue home Synthroid. - CKD stage IIIa: Creatinine at baseline on admit, monitor. Holding antihypertensives as noted above. DVT prophylaxis: Lovenox Code status: Full code, unverified Expected disposition: Home with home health care, 1 to 2 days Total clinical time spent by myself addressing the patient's medical issues, reviewing all the data, and collaborating with patient's care team: 35 minutes. Charges/Coding Visit Charges Inpatient E&M: 29530 Subs Hosp L2
[2023-06-27] MEDS: Senna/Docusate Sodium 1 Tablet 2 TABLET PO (16:55)
[2023-06-27] MEDS: MELATONIN 3 MG TABLET PO (21:16)
[2023-06-28] VITALS (8 sets, daily range): BP systolic 108–125; BP diastolic 65–106; PULSE 94–100; RESP 12–30; TEMP 36.4–36.8; O2SAT 84–96; BMI 29.3
--- NOTE | 2023-06-28 01:00 | NURSING ---
this nurse took over care for this patient at 0100. pt resting with eyes closed, call light within reach
[2023-06-28] MEDS: Levothyroxine 125 MCG Tablet PO (04:52)
[2023-06-28] MEDS: Acetaminophen 325 MG Tablet 650 MG PO ×3 (04:52→22:38)
[2023-06-28] MEDS: Doxycycline 100 MG CAPSULE PO ×2 (08:44→22:39)
[2023-06-28] MEDS: Amiodarone 200 MG Tablet PO (08:44)
[2023-06-28] MEDS: Enoxaparin 40 MG/0.4 ML Syringe SC (08:44)
[2023-06-28] MEDS: Ensure Plus High Protein 120 ML LIQUID PO ×2 (08:45→12:03)
--- NOTE | 2023-06-28 12:30 | CASEMGMT ---
INOCENTE FLORES updated by Robert [place] [facility] [place] for NIV and that respiratory therapist will be at hospital between 4-5pm to setup NIV. Per Robert, for oxygen bleed in for NIV patient will need to convert home oxygen to [employer]. INOCENTE FLORES in to update patient regarding NIV approval and regarding oxygen setup, daughter at bedside. Patient agreeable to convert oxygen to [employer]. INOCENTE FLORES updated patient regarding RT coming from [facility] to [place] NIV. Patient had no further questions or concerns.
[2023-06-28] MEDS: Furosemide 40 MG/4 ML Vial IV (13:14)
[2023-06-28] MEDS: 0.9% Saline Lock 10 ML Syringe IV (13:14)
--- NOTE | 2023-06-28 13:38 | PCM.PN.HOSP ---
Reason for Visit Reason for Visit: Diagnoses Hypothyroidism, unspecified (06/21/23) Obstructive sleep apnea (adult) (pediatric) (06/21/23) Pulmonary hypertension, unspecified (06/21/23) Other cardiomyopathies (06/21/23) Paroxysmal atrial fibrillation (06/21/23) Chronic kidney disease, unspecified (06/21/23) Other abnormalities of breathing (06/21/23) Disorientation, unspecified (06/21/23) Presence of cardiac pacemaker (06/21/23) Objective Data Objective Data Vital Signs: Vital Signs Temp Pulse Resp BP Pulse Ox O2 Del Method O2 Flow Rate 97.9 F 97 15 125/106 H 84 Nasal Cannula 2 06/28/23 08:42 06/28/23 08:42 06/28/23 08:42 06/28/23 08:42 06/28/23 13:12 06/28/23 09:37 06/28/23 13:12 FiO2 30 06/28/23 01:50 Oxygen Flow Rate (L/min) [ 3 AMBULATING with Oxygen #2] Oxygen Flow Rate (L/min) [ 2 AMBULATING with Oxygen #1] Oxygen Flow Rate (L/min) [At 2 REST with Oxygen] Oxygen Flow Rate (L/min) 2.5 Oxygen Delivery Method Nasal Cannula Weight: 82.5 kg Body Mass Index (BMI) 29.3 Intake & Output: Intake and Output for Last 24 Hours 06/26/23 06/27/23 06/28/23 23:59 23:59 23:59 Intake Total 890 / 890 700 / 700 Output Total 450 / 750 710 / 960 450 / 450 Balance 440 / 140 -10 / -260 -450 / -450 Lab / Micro Data 06/26/23 03:31 06/26/23 03:31 Micro: Microbiology 06/21/23 23:05 Mucosa - Nasopharyngeal Respiratory Panel (PCR) - Final 06/21/23 23:05 Mucosa - Nasopharyngeal SARS-CoV-2, Influenza & RSV (PCR) - Final Rhythm Strip Rhythm Strip: Sinus Rhythm Rate: 75
--- NOTE | 2023-06-28 13:54 | PCM.DC ---
Discharge Instructions Diet Discharge Diet: No restrictions Activity Discharge Activity: No Restrictions Weight Bearing Status: Full weight bearing Follow Up Care Test Results: Test results from this visit will be discussed in further detail at your follow-up appointment, if applicable. Discharge Plan Admission Admit Date/Time: 06/21/23 20:37 Primary Reason for Your Visit: confusion, recurrent hypercapnia Attending Provider: Carlos Castillo Primary Care Provider: July Summers Consulting Providers: Chetna Gonsalves; Chris Alves Instructions Additional Instructions / Restrictions: Take 4 more days of doxycycline to complete a 7-day course of antibiotics for your cellulitis. Discharge Orders/Prescriptions Prescriptions: New doxycycline monohydrate 100 mg Capsule 100 mg PO BID 4 Days Qty: 8 0RF Continued levothyroxine 125 mcg tablet 125 mcg PO DAILY losartan 50 mg tablet 50 mg PO DAILY Qty: 90 3RF spironolactone 25 mg tablet 12.5 mg PO DAILY Patient Comments: TAKE 1/2 TABLET BY MOUTH EVERY DAY amiodarone 200 mg Tablet 200 mg PO Q24H furosemide [Lasix] 20 mg tablet 20 mg PO DAILY metoprolol tartrate 25 mg tablet 25 mg PO BID Qty: 1 3RF Referrals / Follow Up: Rambo Somers MD [Med Staff - Active Staff] - 08/19/23 9:15 am (Your appt in July has been cancelled and rescheduled for August. ) July Summers PA [Primary Care Provider] - Disposition Disposition (needs filled in before D/C Order can be placed): Home Health Service
--- NOTE | 2023-06-28 14:02 | DS.PCM_ITS ---
Providers Date of Admission: 06/21/23 Date of Discharge: 06/29/23 Primary Care Physician: RICHI Kramer Consultations 06/22/23 08:46 Consult: Cardiology Routine Consulting Provider: Chris Alves Reason for Consult: recent PPM for SSS, CXR w/ concern for pacemaker lead misplacement EMERGENT Consult: No Notified: Yes Date Notified: 06/22/23 Time Notified: 08:46 Method of Notification: Text 06/23/23 11:19 Consult: Student Affairs Vice President / Pulmonary Medicine Routine Consulting Provider: Uzair Calhoun Reason for Consult: recurrent hypercapnia with confusion, h/o ZEENAT and pulm HTN EMERGENT Consult: No Notified: Yes Date Notified: 06/23/23 Time Notified: 11:19 Method of Notification: Text Reason For Visit: CONFUSION/AMS Diagnosis Discharge Diagnosis (1) Hypercarbia: Status: Acute Code(s): R06.89 - Other abnormalities of breathing (2) Acute confusion: Status: Acute Code(s): R41.0 - Disorientation, unspecified (3) Paroxysmal atrial fibrillation: Status: Acute Code(s): I48.0 - Paroxysmal atrial fibrillation Medications at Discharge Home Medications levothyroxine 125 mcg tablet 125 mcg PO DAILY thyroid 07/07/21 losartan 50 mg tablet 50 mg PO DAILY blood pressure #90 tabs 12/10/22 metoprolol tartrate 25 mg tablet 25 mg PO BID #1 TAB 05/25/23 amiodarone 200 mg tablet 200 mg PO Q24H 06/21/23 furosemide 20 mg tablet (Lasix) 20 mg PO DAILY 06/21/23 spironolactone 25 mg tablet 12.5 mg PO DAILY 06/21/23 doxycycline monohydrate 100 mg capsule 100 mg PO BID 4 days #8 caps 06/28/23 Hospital Course Operations None Procedures EKG and - (Chest x-ray, CT brain) Summary of Care Provided Minutes Spent on Discharge: 35 Hospital Course: Patient is an 82 year old male who presented to [facility] ED on 06/21/2023 with worsening confusion. Hospital course as noted below. Discharged home with home health care in stable condition on 06/29. 1. Acute confusion, resolved; Recurrent episodes of hypercapnia Recurrent hypercapnia seems to be most likely cause of confusion. Hypotension on admit may also have been playing a role. Hypercapnic with pCO2 73 on admit, mental status improved after being on BiPAP for a few hours. Patient felt much improved after 2 L IV fluids for hypotension as noted below. Had worsening confusion again on afternoon of 06/22, pCO2 80. Again improved with BiPAP. ? Pulmonology and case management followed. Cardiology followed. Patient qualified for IVAPS machine on discharge; machine was set up for the patient in the hospital prior to discharge. Close outpatient follow-up with pulmonology. 2. Hypotension, resolved - Became hypotensive with SBP in 70s overnight on 06/21. May have been secondary to volume depletion and home antihypertensives, did not have proper heart rate response due to beta arnaud. Improved with 2 L IV fluids. Restarted home Lasix on 06/28. Held home losartan, spironolactone, Lopressor during hospitalization, okay to resume on discharge. 3. 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 pacemaker lead displacement. Pacer was placed on 06/02/[address] Somers. Pacer check on 06/22 with normal functioning pacemaker. No further workup required. 4. History of chronic combined HF/nonischemic cardiomyopathy/pulmonary HTN - Cardiology followed. Most recent TTE 05/28/2023 with EF 45%, stage I diastolic dysfunction, mild global hypokinesis of LV. BNP normal on admit. Restarted home Lasix on 06/28. Held home losartan, spironolactone, Lopressor during hospitalization, okay to resume on discharge. 5. Hyperkalemia, resolved - K 5.6 on admit. Patient given 1 dose of IV lasix on admit given concern for possible volume overload. Holding home spironolactone. Improved to K 4.6 on 06/23. Monitor daily BMP. 6. Paroxysmal Afib - Cardiology followed. EKG on admit showed NSR with 1st degree block, pacer spikes noted. Continue home amiodarone, holding beta-arnaud. Not on home AC. Monitor telemetry. 7. Suspected right foot cellulitis, improving ? Noted to have area of erythema on right side of ankle on 06/25. Area hot to the touch and mildly tender to the touch per patient. Right ankle appears mildly more swollen than left ankle. Completing 7-day course of p.o. doxycycline. Chronic medical conditions: - ZEENAT: Continue NIV as noted above. - Hypothyroidism: Continue home Synthroid. - CKD stage IIIa: Creatinine at baseline on admit, remained stable during hospitalization. Total clinical time spent by myself addressing the patient's discharge needs: 35 minutes. Physical Exam Const alert, no apparent distress and average body habitus Constitutional Narrative: Elderly male, sitting up comfortably in bedside chair, conversing normally, no acute distress. General Appearance: cooperative and comfortable HEENT normocephalic, head/scalp atraumatic, hearing grossly normal bilaterally and nasal mucous membranes and turbinates normal Eyes PERRL, EOMs intact bilaterally and conjunctivae normal Neck full ROM, no lymphadenopathy and supple Lymph Lymphatic: no lymphadenopathy noted Chest inspection of chest normal Resp Resp Narrative: Breathing comfortably on 2 L nasal cannula and satting in mid 90s at rest. Mildly diminished breath sounds bilaterally throughout, no wheezing or crackles noted. Cardio regular rate, regular rhythm, no murmurs and peripheral pulses 2+ throughout GI normal to inspection, nondistended, normoactive bowel sounds, soft to palpation, non-tender and non-distended Back/Spine normal ROM Extremity full ROM Extremity Narrative: Right ankle erythema resolved. +1-2 LE edema, stable. Skin no rashes or lesions noted Neuro no focal motor deficits and no sensory deficits noted Speech: speech normal Psych mental status grossly normal Weight / BMI Weight Weight: 82.5 kg Body Mass Index (BMI) 29.3 ABG / Lab / Microbiology Data 06/26/23 03:31 06/26/23 03:31 Microbiology: Microbiology 06/21/23 23:05 Mucosa - Nasopharyngeal Respiratory Panel (PCR) - Final 06/21/23 23:05 Mucosa - Nasopharyngeal SARS-CoV-2, Influenza & RSV (PCR) - Final D/C Instructions Discharge Diet: No restrictions Weight Bearing Status: Full weight bearing Meaningful Use Info Meaningful Use Diagnoses (Choose all that apply): None applicable Discharge Plan Admission Admit Date/Time: 06/21/23 20:37 Primary Reason for Your Visit: confusion, recurrent hypercapnia Attending Provider: Carlos Castillo Primary Care Provider: July Summers Consulting Providers: Chetna Gonsalves; Chris Alves Instructions Additional Instructions / Restrictions: Take 4 more days of doxycycline to complete a 7-day course of antibiotics for your cellulitis. Discharge Orders/Prescriptions Prescriptions: New doxycycline monohydrate 100 mg Capsule 100 mg PO BID 4 Days Qty: 8 0RF Continued levothyroxine 125 mcg tablet 125 mcg PO DAILY losartan 50 mg tablet 50 mg PO DAILY Qty: 90 3RF spironolactone 25 mg tablet 12.5 mg PO DAILY Patient Comments: TAKE 1/2 TABLET BY MOUTH EVERY DAY amiodarone 200 mg Tablet 200 mg PO Q24H furosemide [Lasix] 20 mg tablet 20 mg PO DAILY metoprolol tartrate 25 mg tablet 25 mg PO BID Qty: 1 3RF Referrals / Follow Up: Rambo Somers MD [Med Staff - Active Staff] - 08/19/23 9:15 am (Your appt in July has been cancelled and rescheduled for August. ) July Summers PA [Primary Care Provider] - 07/05/23 10:50 am Disposition Disposition (needs filled in before D/C Order can be placed): Home Health Service Charges/Coding Visit Charges Inpatient E&M: 81491 Disch Hosp >30min
--- NOTE | 2023-06-28 14:30 | PHA.DC.MC.R ---
Pharmacy [facility] has performed discharge medication reconciliation and counseling for this patient. 1. DOXYCYCLINE 100MG PO BID X 4 DAYS The patient's discharge medication list was reviewed for discrepancies and discrepancies were resolved. The patient was counseled on the following discharge medications and changes in medications for homegoing were reviewed. The Reason for Use, instructions for use, and potential side effects were reviewed for all new medications. The patient's questions regarding all of their medications were answered. The patient was able to verbally demonstrate an understanding of their discharge medications. Patient counseled by pharmacy services representativeYe. Medications at Discharge Home Medications levothyroxine 125 mcg tablet 125 mcg PO DAILY thyroid 07/07/21 losartan 50 mg tablet 50 mg PO DAILY blood pressure #90 tabs 12/10/22 metoprolol tartrate 25 mg tablet 25 mg PO BID #1 TAB 05/25/23 amiodarone 200 mg tablet 200 mg PO Q24H 06/21/23 furosemide 20 mg tablet (Lasix) 20 mg PO DAILY 06/21/23 spironolactone 25 mg tablet 12.5 mg PO DAILY 06/21/23 doxycycline monohydrate 100 mg capsule 100 mg PO BID 4 days #8 caps 06/28/23
--- NOTE | 2023-06-28 15:15 | CASEMGMT ---
Addendum entered by Jenifer Guy 06/28/23 16:39: INOCENTE FLORES received call from Soumya from [facility] that NIV that they were going to deliver to patient today needs serviced. Per Soumya, NIV will be available tomorrow for patient. INOCENTE FLORES updated hospitalist and discharge cancelled and plan for safe discharge with NIV tomorrow. INOCENTE FLORES updated patient and daughter. CM will continue to follow this patient and plan for a safe discharge. Original Note: Script received for home oxygen with [facility]. INOCENTE FLORES in to update patient and daughter that hospitalist plans to discharge patient home today. Patient and daughter had no further questions or concerns at this time. Discharge experience planning strategist to update [facility] regarding discharge.
--- NOTE | 2023-06-28 15:17 | CASEMGMT ---
Dischage Planning Res[facility] Eleanor Romero, Discharge Planning Asst.
--- NOTE | 2023-06-28 16:56 | PN.HOSP_ITS ---
Reason for Visit Reason for Visit: Diagnoses Hypothyroidism, unspecified (06/21/23) Obstructive sleep apnea (adult) (pediatric) (06/21/23) Pulmonary hypertension, unspecified (06/21/23) Other cardiomyopathies (06/21/23) Paroxysmal atrial fibrillation (06/21/23) Chronic kidney disease, unspecified (06/21/23) Other abnormalities of breathing (06/21/23) Disorientation, unspecified (06/21/23) Presence of cardiac pacemaker (06/21/23) Subjective Subjective No acute events overnight. Patient seen at bedside this morning. Sitting up comfortably in bedside chair, conversing normally, no acute distress. Patient reports feeling slightly more volume overloaded in his legs than previous days. Otherwise denies any acute pain or discomfort. No other acute concerns this time. Objective Data Objective Data Vital Signs: Vital Signs Temp Pulse Resp BP Pulse Ox O2 Del Method O2 Flow Rate 98.2 F 99 17 108/65 96 Nasal Cannula 2 06/28/23 15:00 06/28/23 15:00 06/28/23 15:00 06/28/23 15:00 06/28/23 15:00 06/28/23 15:00 06/28/23 15:00 FiO2 30 06/28/23 01:50 Oxygen Flow Rate (L/min) [ 3 AMBULATING with Oxygen #2] Oxygen Flow Rate (L/min) [ 2 AMBULATING with Oxygen #1] Oxygen Flow Rate (L/min) [At 2 REST with Oxygen] Oxygen Flow Rate (L/min) 2 Oxygen Delivery Method Nasal Cannula Weight: 82.5 kg Body Mass Index (BMI) 29.3 Intake & Output: Intake and Output for Last 24 Hours 06/26/23 06/27/23 06/28/23 23:59 23:59 23:59 Intake Total 890 / 890 700 / 700 Output Total 450 / 750 710 / 960 750 / 750 Balance 440 / 140 -10 / -260 -750 / -750 Lab / Micro Data 06/26/23 03:31 06/26/23 03:31 Micro: Microbiology 06/21/23 23:05 Mucosa - Nasopharyngeal Respiratory Panel (PCR) - Final 06/21/23 23:05 Mucosa - Nasopharyngeal SARS-CoV-2, Influenza & RSV (PCR) - Final Rhythm Strip Rhythm Strip: Sinus Rhythm Rate: 75 Physical Exam Const alert, no apparent distress and average body habitus Constitutional Narrative: Elderly male, sitting up comfortably in bedside chair, conversing normally, no acute distress. General Appearance: cooperative and comfortable HEENT normocephalic, head/scalp atraumatic, hearing grossly normal bilaterally and nasal mucous membranes and turbinates normal Eyes PERRL, EOMs intact bilaterally and conjunctivae normal Neck full ROM, no lymphadenopathy and supple Lymph Lymphatic: no lymphadenopathy noted Chest inspection of chest normal Resp Resp Narrative: Breathing comfortably on 2 L nasal cannula and satting in mid 90s at rest. Mildly diminished breath sounds bilaterally throughout, no wheezing or crackles noted. Cardio regular rate, regular rhythm, no murmurs and peripheral pulses 2+ throughout GI normal to inspection, nondistended, normoactive bowel sounds, soft to palpation, non-tender and non-distended Back/Spine normal ROM Extremity full ROM Extremity Narrative: Right ankle erythema resolved. Patient does have +2 to +3 lower extremity edema bilaterally, slightly worse from previous days. Skin no rashes or lesions noted Neuro no focal motor deficits and no sensory deficits noted Speech: speech normal Psych mental status grossly normal Assessment & Plan Assessment/Plan (1) Hypercarbia: (2) Acute confusion: (3) Paroxysmal atrial fibrillation: PLAN: Plan Patient is an 82 year old male who presented to [facility] ED on 06/21/2023 with worsening confusion. 1. Acute confusion; Recurrent episodes of hypercapnia Recurrent hypercapnia seems to be most likely cause of confusion. Hypotension on admit may also have been playing a role. Hypercapnic with pCO2 73 on admit, mental status improved after being on BiPAP for a few hours. Patient felt much improved after 2 L IV fluids for hypotension as noted below. Had worsening confusion again on afternoon of 06/22, pCO2 80. Again improved with BiPAP. ? Pulmonology and case management following. Cardiology previously followed. Patient tolerated IVAPS (NIV) overnight on 06/24- well. Planning for in-hospital titration of new IVAPS machine tomorrow followed by discharge home. 2. Hypotension, improved - Became hypotensive with SBP in 70s overnight on 06/21. May have been secondary to volume depletion and home antihypertensives, did not have proper heart rate response due to beta arnaud. Improved with 2 L IV fluids. Restarted Lasix as noted below, continue to hold losartan, spironolactone, Lopressor for now. 2. 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 pacemaker lead displacement. Pacer was placed on 06/02/[address] Somers. Pacer check on 06/22 with normal functioning pacemaker. No further workup required. 3. History of chronic combined HF/nonischemic cardiomyopathy/pulmonary HTN - Cardiology following. Most recent TTE 05/28/2023 with EF 45%, stage I diastolic dysfunction, mild global hypokinesis of LV. BNP normal on admit. Patient with mildly worsening volume overload, restarted on home Lasix 20 mg daily on 06/28. Continue holding other home meds for now. 4. Hyperkalemia, resolved - K 5.6 on admit. Patient given 1 dose of IV lasix on admit given concern for possible volume overload. Holding home spironolactone. Improved to K 4.6 on 06/23. Monitor daily BMP. 5. Paroxysmal Afib - Cardiology followed. EKG on admit showed NSR with 1st degree block, pacer spikes noted. Continue home amiodarone, holding beta-arnaud. Not on home AC. Monitor telemetry. 6. Suspected right foot cellulitis, improving ? Noted to have area of erythema on right side of ankle on 06/25. Area hot to the touch and mildly tender to the touch per patient. Right ankle appears mildly more swollen than left ankle. Treating with p.o. doxycycline, will plan for 7- day course total. Chronic medical conditions: - ZEENAT: Continue NIV as noted above. - Hypothyroidism: Continue home Synthroid. - CKD stage IIIa: Creatinine at baseline on admit, monitor. Holding antihypertensives as noted above. DVT prophylaxis: Lovenox Code status: Full code, unverified Expected disposition: Home with home health care, tomorrow Total clinical time spent by myself addressing the patient's medical issues, reviewing all the data, and collaborating with patient's care team: 35 minutes. Charges/Coding Visit Charges Inpatient E&M: 68656 Subs Hosp L2
[2023-06-29] VITALS (7 sets, daily range): BP systolic 114–145; BP diastolic 70–83; PULSE 93–98; RESP 12–24; TEMP 36.5–37; O2SAT 94–99; BMI 29.5
[2023-06-29] MEDS: Levothyroxine 125 MCG Tablet PO (06:49)
[2023-06-29] MEDS: Enoxaparin 40 MG/0.4 ML Syringe SC (08:23)
[2023-06-29] MEDS: Amiodarone 200 MG Tablet PO (08:23)
[2023-06-29] MEDS: Furosemide 20 MG Tablet PO (08:23)
[2023-06-29] MEDS: Doxycycline 100 MG CAPSULE PO (08:24)
[2023-06-29] MEDS: Ensure Plus High Protein 120 ML LIQUID PO ×2 (08:24→11:56)
[2023-06-29] MEDS: Acetaminophen 325 MG Tablet 650 MG PO (08:30)
--- NOTE | 2023-06-29 09:58 | CASEMGMT ---
Addendum entered by Jenifer Guy 06/29/23 14:21: INOCENTE FLORES confirmed that NIV was delivered to patient's room. Patient denies further needs or help at discharge. DC funeral planning counselor to send discharge information to [facility]. Patient had no further questions or concerns. Original Note: INOCENTE FLORES received call from Kaleb at [facility] and plans to arrive at 1300 for NIV setup and teaching in patient's room. INOCENTE FLORES updated hospitalist, discharge planned for this afternoon. INOCENTE FLORES in to update patient, patient to call family to bed at bedside at 1300 for teaching. Patient had no further questions or concerns at this time.
== END 2023-06-29 14:25 | disposition home health service (06) | DRG 189 ==
LOC: ED 20:19 → PCU 20:37
PROVIDERS: Family Medicine; Admitting Provider Internal Medicine; Emergency Provider Emergency Medicine; PCP Physician Assistant; Visit Provider Hospitalist
DX: J96.22 Acute and chronic respiratory failure with hypercapnia (principal); I13.0 Hypertensive heart and chronic kidney disease with heart failure and stage 1 through stage 4 chronic kidney disease, or unspecified chronic kidney disease; I42.8 Other cardiomyopathies; L03.115 Cellulitis of right lower limb; I50.42 Chronic combined systolic (congestive) and diastolic (congestive) heart failure; I27.20 Pulmonary hypertension, unspecified; I95.9 Hypotension, unspecified; N18.31 Chronic kidney disease, stage 3a; I48.0 Paroxysmal atrial fibrillation; I49.5 Sick sinus syndrome; E03.9 Hypothyroidism, unspecified; G47.33 Obstructive sleep apnea (adult) (pediatric); E87.5 Hyperkalemia; E78.5 Hyperlipidemia, unspecified; I44.0 Atrioventricular block, first degree; R41.0 Disorientation, unspecified; Z95.0 Presence of cardiac pacemaker; Z99.89 Dependence on other enabling machines and devices; Z99.81 Dependence on supplemental oxygen; Z79.899 Other long term (current) drug therapy; Z90.49 Acquired absence of other specified parts of digestive tract
CPT/HCPCS: 36415; 36600; 70450; 71045; 80048; 80076; 81001; 82140; 82803; 83735; 83880; 84132; 85025; 85027; 87631; 87633; 93005; 94002; 94003; 94760; 94762; 97110; 97162; 97166; 97530; 97535; 97802; 97803; 99252; 99284; J7040; A4216; G0463; J0612; J1940

== ENCOUNTER 2024-03-14 13:30 | Outpatient (RCR) | payer MEDICARE, SELFPAY ==
[2024-03-07 13:46] VITALS: BP 147/54; PULSE 100; RESP 18; TEMP 36.8; BMI 24.5
--- NOTE | 2024-03-08 09:39 | PCM.WC.HP ---
History of Present Illness Date of Service: 03/07/24 Chief Complaint: Pressure ulceration of the back, stage III History of Wound: This is an 83-year-old male who presents with an ulceration on his left lower back, which has been present for approximately 2 to 3 months. He is accompanied by his and adult daughter. The patient is wheelchair-bound, and ambulates in very limited fashion with the use of a walker. He spends the preponderance of his time either in his wheelchair or in a recliner. He sleeps in his recliner, indicating that he cannot sleep in a bed, as he suffers from orthopnea. He is dependent on a home ventilator, but uses 2 L per nasal cannula on occasional ventures from the home. The patient and his family are uncertain as to the etiology of his wound. He has been using bacitracin topically on a daily basis. His primary care physician, Dr. July Summers at [facility], has prescribed several courses of oral Keflex, the last dose of which was just finished. He is said to have a poor appetite, but has been using Ensure nutritional supplements several times daily. The patient is also under the care of Dr. Calhoun, operational intelligence officer, and Dr. Somers, remediation bioanalytics consultant. The patient suffers from multiple pre-existing medical conditions, which are listed herein. Of note, he is not diabetic, nor is he a smoker. [facility] Medical History Leg swelling Poor appetite Failure to thrive Chronic illness Immobility Debility Pressure ulcer of left lower back, stage 3 Paroxysmal atrial fibrillation Hypothyroidism Pacemaker Sleep apnea On home oxygen therapy CPAP (continuous positive airway pressure) dependence Congestive heart failure (CHF) Sinus pause Cough Acute kidney injury Actinic keratosis of scalp Cellulitis Elevated hemoglobin History of COVID-19 Unexplained weight loss Syncope Nocturia Eloy-Swanson breathing Orthopnea Asymptomatic premature ventricular contractions Pulmonary HTN ZEENAT (obstructive sleep apnea) Chronic dyspnea Heart failure with preserved left ventricular function (HFpEF) Shortness of breath Claudication of both lower extremities Obesity BPH (benign prostatic hyperplasia) GERD (gastroesophageal reflux disease) 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) Atrial septal aneurysm Non-ischemic cardiomyopathy Chronic combined systolic and diastolic CHF (congestive heart failure) Essential (primary) hypertension Hyperlipidemia Chronic kidney disease (CKD) Home Medications ?Medication ?Instructions ?Recorded ?Last Taken ?Type levothyroxine 125 mcg tablet 125 mcg PO DAILY thyroid 07/07/21 Unknown History amiodarone 200 mg tablet 200 mg PO Q24H heart #60 tabs 08/17/23 Unknown Rx furosemide 20 mg tablet (Lasix) 40 mg (2 x 20 mg) PO DAILY 09/20/23 Unknown Rx diuretic 90 days #180 tabs metoprolol tartrate 25 mg tablet 25 mg PO BID This dose has been 01/11/24 Unknown Rx increased: patient OUT of med #180 tabs losartan 25 mg tablet 25 mg PO DAILY blood pressure #90 01/24/24 Unknown Rx tabs Allergy/AdvReac Type Severity Reaction Status Date / Time No Known Allergies Allergy Verified 03/07/24 13:45 Family History Father Myocardial infarction Brother Myocardial infarction Surgical History History of herniorrhaphy History of left heart catheterization (09/20/17) History of appendectomy Social History Smoking Status: Never smoker alcohol intake: never substance use type: does not use caffeine: No Vital Signs Vital Signs Vital Signs: 03/07/24 13:46 Temperature 98.3 F Temperature Source Temporal Pulse Rate 100 Respiratory Rate 18 Blood Pressure 147/54 H Blood Pressure Mean 85 Blood Pressure Source Monitor Blood Pressure Position Sitting Blood Pressure Location Left Arm Oxygen Delivery Method Nasal Cannula Oxygen Flow Rate (L/min) 3 Weight Weight: 152 lb Body Mass Index (BMI) 24.5 Physical Exam Const alert, oriented x3, no apparent distress and average body habitus Constitutional Narrative: The patient is of very limited mobility, and is positioned in his wheelchair. The patient's BMI is 24.5. The patient is alert, appropriate, and conversant. He appears frail and weak. General Appearance: cooperative, comfortable and disheveled Orientation / Consciousness: awake, oriented to person, oriented to place and oriented to time HEENT normocephalic and head/scalp atraumatic Head and Scalp: normal to inspection, normocephalic and atraumatic External Ear: external ears normal Eyes EOMs intact bilaterally General Eye: normal appearance of both eyes Resp normal respiratory effort, normal air movement, no retractions and no use of accessory muscles Effort and Inspection: able to speak in complete sentences Extremity no calf tenderness Extremity Narrative: Bilateral lower extremity swelling and edema are noted. General Extremity: Negative for clubbing or cyanosis Skin Wound Narrative: An ulceration is noted on the patient's left mid/lower back. It is positioned overlying a left, lower, posterior rib. It extends down through the dermis and into the subcutaneous tissue. There is no sign of infection or cellulitis. The ulceration is generally pink and healthy in appearance. Dimensions are documented elsewhere. Neuro oriented x3 and CN's II-XII intact bilaterally Sensorium / Orientation: awake, alert, oriented to person, oriented to place, oriented to time and orientation impaired Psych Appearance: grossly normal and appropriate Attitude: calm Activity / Motor Behavior: appropriate eye contact Speech: normal speech Mood & Affect: euthymic mood Thought Process: normal thought process Thought Content: normal thought content Attention / Concentration: attention grossly intact Debridement Note Debridement Note Wound debrided: Left lower back ulceration, stage III pressure ulceration. Laterality: Left Wound Grade/Stage: Stage III Type of Debridement: Excisional debridement Anesthesia Used: 5% Lidocaine Gel Depth: Down to and including healthy tissue and in the subcutaneous layer Percentage of wound debrided: 100 Instrument Used: 5mm curette Severity: Fat Layer Exposed Amount of bleeding with debridement: Mild Bleeding Controlled with: Compression and gauze Patient tolerated procedure: Patient tolerated procedure well Post-Debridement Measurements and Additional Note: Post-Debridement Measurements/Treatment - Nurse 1 - General Ulcer Assessment Start: 03/07/24 13:44 Freq: Status: Active Protocol: ANABEL Activity Type Activity Date Activity User E-sign Co-sign Detail Recorded Client Recorded Date Recorded By Document 03/07/24 13:46 [id number] 03/07/24 13:51 KW 03/07/24 13:46 - Today's Visit Information Type of service Initial Visit Arrival Mode Wheelchair Accompanied by AND DAUGHTER Patient Identification Verified (Name & Yes ) Height and Weight Height 5 ft 6 in Weight 152 lb Weight in Pounds 152.0 lbs Body Mass Index (BMI) 24.5 BMI Classification Normal BSA - Rodrigo 1.78 Vital Signs Temperature (97.8 F-99.1 F) 98.3 F Temperature Source Temporal Pulse Rate (60-100) 100 Pulse Location Monitor Respiratory Rate (12-18) 18 Respiratory rate source Observation Oxygen Delivery Method Nasal Cannula O2 L/MIN 3 Blood Pressure (90/60-120/80) 147/54 H Blood Pressure Mean 85 Source Monitor Position Sitting Blood Pressure Location Left Arm History Since Last Visit- (Skip if this is Patient's initial visit) Left Footwear Regular Shoe Right Footwear Regular Shoe Pain Scale: 0-10 Numeric Is Patient Pain Free? Yes Communication Assessment Preferred language Romanian Blasting Helper Required No Able to Read Yes Able to Write Yes Right Hearing Abillity Normal Left Hearing Abillity Normal Visual Assistive Devices None Teaching Assessment Preferences Verbal,Written, Demonstration Barriers to Learning None Readiness To Learn Excellent Willingness to Engage in Self Management High Activies Readiness to Engage in Self Management High Activities Anxiety Level Calm Cooperation Cooperative Perception Coherent Interest in Health Problem Asks Questions Education Importance Acknowledges Need Does Patient Smoke tobacco or other Yes substances Smoking Status Never smoker Is Patient Diabetic No Functional Assessment Recent Decline in Ability to Perform Lower Body Dressing, Toileting, Transferring Culture/Episcopalian/Physical Plant Manager Cultural/Episcopalian Needs that may affect No Treatment Plan Would you allow our hospital deck mate to No meet you for the purpose of spiritual/ emotional support? Physical Plant Manager to contact place of church No WC - Nurse 1 - General Ulcer Measurement Start: 03/07/24 13:44 Freq: Status: Active Protocol: Activity Type Activity Date Activity User E-sign Co-sign Detail Recorded Client Recorded Date Recorded By Document 03/07/24 13:46 [id number] [id number] 03/07/24 13:51 KW 03/07/24 13:46 Wound Center Nurse 1 #1 LT MID BACK -Current Size (cm) - Length 0.9 -Current Size (cm) - Width 0.5 -Current Size (cm) - Depth 0.1 -Total Square Cm 0.45 -Date of Last Picture (Recall this 03/07/24 field) -Exudate Amt Medium -Exudate Type Serosanguineous -Wound Margin Distinct, Outline Attached -Granulation Amt Large (67-100%) -Granulation Quality Red -Necrosis Amt Small (1-33%) -Necrotic Tissue Type Adherent Slough -Texture (Serena-wound Skin Appearance) Assessed -Moisture (Serena-wound Skin Appearance) Assessed -Color (Serena-wound Skin Appearance) No Abnormality, Ecchymosis -Temperature (Serena-wound Skin No Abnormality Appearance) (Pt Warm) -Tenderness on Palpation (Serena-wound No Skin Appearance) -Ulcer Cleansing Rinsed/ Irrigated with Saline -Foul Odor after Cleansing No -Anesthetic Used 5% Lidocaine Gel WC - Nurse 2 - General Ulcer CM Notes Start: 03/07/24 13:44 Freq: Status: Active Protocol: Activity Type Activity Date Activity User E-sign Co-sign Detail Recorded Client Recorded Date Recorded By Document 03/07/24 14:12 DS [id number] 03/07/24 14:18 DS 03/07/24 14:12 Wound Center Nurse 2 -Time 14:10 -Correct Patient Yes -Correct Side, Site, Position Yes -Correct Procedure Yes -Procedure Performed Yes -Type of Procedure Debridement -Clinical Debridement Subcutaneous -Tissue Removed Subcutaneous -Post Debridement (cm) - Length 1.0 -Post Debridement (cm) - Width 0.6 -Post Debridement (cm) - Depth 0.1 -Total Square (Post) (cm) 0.60 -Area of Debridement (cm) - Length 1.0 -Area of Debridement (cm) - Width 0.6 -Total Square (Area) (cm) 0.60 -Tunneling No -Undermining/Tunneling No -Circular Undermining No -Wound/Ulcer Outcome Not Healed -Ulcer Cleansing Rinsed/ Irrigated with Saline -Bioengineered Tissue No -Bleeding Controlled with Pressure -Treatment Response Procedure Tolerated Well -Debridement - Subq, 1st 20sq cm Yes Pain Scale: 0-10 Numeric Is Patient Pain Free? Yes - Nurse 3 - General Ulcer D/C NN Start: 03/07/24 13:44 Freq: Status: Active Protocol: Activity Type Activity Date Activity User E-sign Co-sign Detail Recorded Client Recorded Date Recorded By Document 03/07/24 14:36 RB [id number] 03/07/24 14:37 RB 03/07/24 14:36 Wound Care Center Nurse 3 #1 LT MID BACK -Ulcer Cleansing Rinsed/ Irrigated with Saline -Primary Dressing Applied C Hydrogel ($), Mepilex Border -Mepilex Border 1 Pain Scale: 0-10 Numeric Is Patient Pain Free? Yes Teaching: Wound Center Dressing Your Wound -Person Taught Patient,Family -Teaching Method Discussion, Demonstration -Response to teaching Verbalize Understanding WC - Visit Discharge Discharge Condition Stable Ambulatory Status Ambulatory Transportation Private Auto Medication Reconcilliation completed & No provided to patient/care provider Clinical Summary of Care Provided Yes Charges/Coding Multi Select Codes Visit Charges Office Visit/Consults: 67230 OV L4 New 45 min Integumentary Integumentary CPT Codes: 77286 Henna subq tissue 20 sq cm/< Assessment/Plan Assessment/Plan (1) Pressure ulcer of left lower back, stage 3: CODE(S): L89.143 - Pressure ulcer of left lower back, stage 3 (2) Debility: CODE(S): R53.81 - Other malaise (3) Failure to thrive: QUALIFIERS: Failure to thrive age range: in adult Qualified Code(s): R62.7 - Adult failure to thrive (4) Immobility: CODE(S): Z74.09 - Other reduced mobility (5) Chronic illness: CODE(S): R69 - Illness, unspecified (6) Poor appetite: CODE(S): R63.0 - Anorexia (7) Orthopnea: CODE(S): R06.01 - Orthopnea (8) Non-ischemic cardiomyopathy: CODE(S): I42.8 - Other cardiomyopathies (9) Pacemaker: CODE(S): Z95.0 - Presence of cardiac pacemaker (10) Pulmonary HTN: CODE(S): I27.20 - Pulmonary hypertension, unspecified (11) ZEENAT (obstructive sleep apnea): CODE(S): G47.33 - Obstructive sleep apnea (adult) (pediatric) (12) Chronic kidney disease (CKD): CODE(S): N18.9 - Chronic kidney disease, unspecified QUALIFIERS: Chronic kidney disease stage: unspecified stage Qualified Code(s): N18.9 - Chronic kidney disease, unspecified (13) Hyperlipidemia: CODE(S): E78.5 - Hyperlipidemia, unspecified (14) Nonsustained paroxysmal ventricular tachycardia: CODE(S): I47.2 - Ventricular tachycardia (15) Chronic combined systolic and diastolic CHF (congestive heart failure): CODE(S): I50.42 - Chronic combined systolic (congestive) and diastolic (congestive) heart failure (16) Claudication of both lower extremities: CODE(S): I73.9 - Peripheral vascular disease, unspecified (17) Essential (primary) hypertension: CODE(S): I10 - Essential (primary) hypertension (18) On home oxygen therapy: CODE(S): Z99.81 - Dependence on supplemental oxygen (19) Paroxysmal atrial fibrillation: CODE(S): I48.0 - Paroxysmal atrial fibrillation (20) Hypothyroidism: CODE(S): E03.9 - Hypothyroidism, unspecified (21) History of appendectomy: CODE(S): Z90.49 - Acquired absence of other specified parts of digestive tract (22) Leg swelling: CODE(S): M79.89 - Other specified soft tissue disorders PLAN: Plan This is an 83-year-old male with multiple pre-existing medical problems. He presented with an ulceration on the left mid/lower back. The ulceration had been present for approximately 2 to 3 months. The patient and his family were uncertain as to the etiology of the ulceration. They have been treating the ulceration with bacitracin applied topically on a daily basis. He has been treated by his primary care physician with several courses of oral Keflex. The patient is minimally ambulatory, and generally confined either to his wheelchair or a recliner. He sleeps in a recliner, as orthopnea precludes him from lying flat. He uses a ventilator at home, and 2 L per nasal cannula when venturing away from home. The ulceration appears to be pressure related, likely having occurred either from pressure or shearing/friction forces. It is a stage III pressure ulceration, extending through dermis and into the subcutaneous tissue. We are to implement the use of collagen hydrogel topically on a daily basis. The patient and his family have been instructed in the appropriate means of application. A lengthy discussion has been undertaken as to the role of offloading measures. The ulceration site is to be protected, with pressure offloading is much as possible. The means by which this can be achieved have been thoroughly explained. The harmful effects of pressure over bony prominences have been discussed with the patient and his family. A prescription has been provided to the patient for a Roho cushion for his wheelchair. Given his dependence on his wheelchair, and the long hours each day spent sitting, and Roho cushion may be helpful in preventing pressure ulcerations in this area. A suggestion has been made for the patient to discuss with his primary care physician the potential for obtaining a hospital bed, in which he can be positioned in the reverse Trendelenburg position, allowing for repositioning while accounting for his orthopnea. The patient's appetite is said to be poor. He has been encouraged to use nutritional supplements such as Ensure several times daily. He has been provided samples of Juan Manuel as well. Recent laboratory results from 01/03/2024 have been reviewed from an outside institution, and are as follows: Glucose 85, BUN 25, creatinine 1.24, sodium 144, potassium 3.9, chloride 97, carbon dioxide 35, calcium 9.0, total protein 6.6, albumin 4.0, bilirubin 0.6, alkaline phosphatase 61, AST 16, ALT 15. The patient is to follow-up in 1 week. Total time: 45 minutes
[2024-03-14 13:39] VITALS: BP 160/71; PULSE 68; RESP 18; TEMP 36.4; BMI 24.5
--- NOTE | 2024-03-14 16:33 | PCM.WC.HP ---
History of Present Illness Date of Service: 03/14/24 Chief Complaint: Pressure ulceration of the back, stage III History of Wound: This is an 83-year-old male who presented with an ulceration on his left lower back, which had been present for approximately 2 to 3 months. The patient is wheelchair-bound, and ambulates in very limited fashion with the use of a walker. He spends the preponderance of his time either in his wheelchair or in a recliner. He sleeps in his recliner, indicating that he cannot sleep in a bed, as he suffers from orthopnea. He is dependent on a home ventilator, but uses 2 L per nasal cannula on occasional ventures from the home. The patient and his family are uncertain as to the etiology of his wound. He had been using bacitracin topically on a daily basis. His primary care physician, Dr. July Summers at [facility], has prescribed several courses of oral Keflex, the last dose of which was finished just prior to the patient's presentation here. He is said to have a poor appetite, but has been using Ensure nutritional supplements several times daily. The patient is also under the care of Dr. Calhoun, toy parts former supervisor, and Dr. Somers, election assistant. The patient suffers from multiple pre-existing medical conditions, which are listed herein. Of note, he is not diabetic, nor is he a smoker. [facility] Medical History Leg swelling Poor appetite Failure to thrive Chronic illness Immobility Debility Pressure ulcer of left lower back, stage 3 Paroxysmal atrial fibrillation Hypothyroidism Pacemaker Sleep apnea On home oxygen therapy CPAP (continuous positive airway pressure) dependence Congestive heart failure (CHF) Sinus pause Cough Acute kidney injury Actinic keratosis of scalp Cellulitis Elevated hemoglobin History of COVID-19 Unexplained weight loss Syncope Nocturia Eloy-Swanson breathing Orthopnea Asymptomatic premature ventricular contractions Pulmonary HTN ZEENAT (obstructive sleep apnea) Chronic dyspnea Heart failure with preserved left ventricular function (HFpEF) Shortness of breath Claudication of both lower extremities Obesity BPH (benign prostatic hyperplasia) GERD (gastroesophageal reflux disease) 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) Atrial septal aneurysm Non-ischemic cardiomyopathy Chronic combined systolic and diastolic CHF (congestive heart failure) Essential (primary) hypertension Hyperlipidemia Chronic kidney disease (CKD) Home Medications ?Medication ?Instructions ?Recorded ?Last Taken ?Type levothyroxine 125 mcg tablet 125 mcg PO DAILY thyroid 07/07/21 Unknown History amiodarone 200 mg tablet 200 mg PO Q24H heart #60 tabs 08/17/23 Unknown Rx furosemide 20 mg tablet (Lasix) 40 mg (2 x 20 mg) PO DAILY 09/20/23 Unknown Rx diuretic 90 days #180 tabs metoprolol tartrate 25 mg tablet 25 mg PO BID This dose has been 01/11/24 Unknown Rx increased: patient OUT of med #180 tabs losartan 25 mg tablet 25 mg PO DAILY blood pressure #90 01/24/24 Unknown Rx tabs Allergy/AdvReac Type Severity Reaction Status Date / Time No Known Allergies Allergy Verified 03/07/24 13:45 Family History Father Myocardial infarction Brother Myocardial infarction Surgical History History of herniorrhaphy History of left heart catheterization (09/20/17) History of appendectomy Social History Smoking Status: Never smoker alcohol intake: never substance use type: does not use caffeine: No Vital Signs Vital Signs Vital Signs: 03/14/24 13:39 Temperature 97.5 F L Temperature Source Temporal Pulse Rate 68 Respiratory Rate 18 Blood Pressure 160/71 H Blood Pressure Mean 100 Blood Pressure Source Monitor Blood Pressure Position Sitting Blood Pressure Location Left Arm Oxygen Delivery Method Nasal Cannula Fraction of Inspired Oxygen (FIO2) 95 Weight Weight: 152 lb Body Mass Index (BMI) 24.5 Physical Exam Const alert, oriented x3, no apparent distress and average body habitus Constitutional Narrative: The patient is of very limited mobility, and is positioned in his wheelchair. The patient's BMI is 24.5. The patient is alert, appropriate, and conversant. He appears frail and weak. General Appearance: cooperative, comfortable, well developed and disheveled Orientation / Consciousness: awake, oriented to person, oriented to place and oriented to time HEENT normocephalic and head/scalp atraumatic Head and Scalp: normal to inspection, normocephalic and atraumatic External Ear: external ears normal Eyes EOMs intact bilaterally General Eye: normal appearance of both eyes Resp normal respiratory effort, normal air movement, no retractions and no use of accessory muscles Effort and Inspection: able to speak in complete sentences Extremity no calf tenderness Extremity Narrative: Bilateral lower extremity swelling and edema are noted. General Extremity: Negative for clubbing or cyanosis Skin Wound Narrative: An ulceration is noted on the patient's left mid/lower back. It is positioned overlying a left, lower, posterior rib. It extends down through the dermis and into the subcutaneous tissue. There is no sign of infection or cellulitis. Mild serena-ulcer ecchymosis is noted. There is a moderate amount of bioburden and nonviable tissue at the base of the ulceration. Dimensions are documented elsewhere. Neuro oriented x3 and CN's II-XII intact bilaterally Sensorium / Orientation: awake, alert, oriented to person, oriented to place, oriented to time and orientation impaired Psych Appearance: grossly normal and appropriate Attitude: calm Activity / Motor Behavior: appropriate eye contact Speech: normal speech Mood & Affect: euthymic mood Thought Process: normal thought process Thought Content: normal thought content Attention / Concentration: attention grossly intact Debridement Note Debridement Note Wound debrided: Left lower back ulceration, stage III pressure ulceration. Laterality: Left Wound Grade/Stage: Stage III Type of Debridement: Excisional debridement Anesthesia Used: 5% Lidocaine Gel Depth: Down to and including healthy tissue and in the subcutaneous layer Percentage of wound debrided: 100 Instrument Used: 3mm curette Severity: Fat Layer Exposed Amount of bleeding with debridement: Mild Bleeding Controlled with: Compression and gauze Patient tolerated procedure: Patient tolerated procedure well Post-Debridement Measurements and Additional Note: Post-Debridement Measurements/Treatment - Nurse 1 - General Ulcer Assessment Start: 03/07/24 13:44 Freq: Status: Active Protocol: [email or web address] Activity Type Activity Date Activity User E-sign Co-sign Detail Recorded Client Recorded Date Recorded By Document 03/07/24 13:46 KW [id number] 03/07/24 13:51 KW Document 03/14/24 13:39 KW [id number] 03/14/24 13:45 KW 03/07/24 03/14/24 13:46 13:39 - Today's Visit Information Type of service Initial Visit Follow-up Visit (Physician/TON [employer]LINDER INSPECTOR ) Arrival Mode Wheelchair Wheelchair Accompanied by AND DAUGHTER DAUGHTER Patient Identification Verified (Name & Yes Yes ) Height and Weight Height 5 ft 6 in Weight 152 lb Weight in Pounds 152.0 lbs Body Mass Index (BMI) 24.5 24.5 BMI Classification Normal Normal BSA - Rodrigo 1.78 Vital Signs Temperature (97.8 F-99.1 F) 98.3 F 97.5 F L Temperature Source Temporal Temporal Pulse Rate (60-100) 100 68 Pulse Location Monitor Monitor Respiratory Rate (12-18) 18 18 Respiratory rate source Observation Observation Oxygen Delivery Method Nasal Cannula Nasal Cannula O2 L/MIN 3 FIO2 % 95 Blood Pressure (90/60-120/80) 147/54 H 160/71 H Blood Pressure Mean 85 100 Source Monitor Monitor Position Sitting Sitting Blood Pressure Location Left Arm Left Arm History Since Last Visit- (Skip if this is Patient's initial visit) Have you changed medications since your Yes last visit? Any new allergies or adverse reactions No Had a fall/change in ADL's that may No increase risk of falls Signs or symptoms of abuse and/or No neglect since last visit Have you been in the hospital since your No last visit? Has dressing in place as prescribed Yes Has compression in place as prescribed N/A Has offloadiing in place as prescribed N/A Experienced any changes in pain level or No management Left Footwear Regular Shoe Regular Shoe Right Footwear Regular Shoe Regular Shoe Pain Scale: 0-10 Numeric Is Patient Pain Free? Yes Yes Communication Assessment Preferred language Serbian Tongue Trimmer Required No Able to Read Yes Able to Write Yes Right Hearing Abillity Normal Left Hearing Abillity Normal Visual Assistive Devices None Teaching Assessment Preferences Verbal,Written, Demonstration Barriers to Learning None Readiness To Learn Excellent Willingness to Engage in Self Management High Activies Readiness to Engage in Self Management High Activities Anxiety Level Calm Cooperation Cooperative Perception Coherent Interest in Health Problem Asks Questions Education Importance Acknowledges Need Does Patient Smoke tobacco or other Yes substances Smoking Status Never smoker Is Patient Diabetic No Functional Assessment Recent Decline in Ability to Perform Lower Body Dressing, Toileting, Transferring Culture/Yarsanism/Director Intelligence Analysis Programs Cultural/Yarsanism Needs that may affect No Treatment Plan Would you allow our hospital document control coordinator to No meet you for the purpose of spiritual/ emotional support? Director Intelligence Analysis Programs to contact place of yazidism No WC - Nurse 1 - General Ulcer Measurement Start: 03/07/24 13:44 Freq: Status: Active Protocol: Activity Type Activity Date Activity User E-sign Co-sign Detail Recorded Client Recorded Date Recorded By Document 03/07/24 13:46 KW [id number] 03/07/24 13:51 KW Document 03/14/24 13:39 KW [id number] 03/14/24 13:45 KW 03/07/24 03/14/24 13:46 13:39 Wound Center Nurse 1 #1 LT MID BACK -Current Size (cm) - Length 0.9 1 -Current Size (cm) - Width 0.5 1.6 -Current Size (cm) - Depth 0.1 0.2 -Total Square Cm 0.45 1.6 -Date of Last Picture (Recall this 03/07/24 field) -Exudate Amt Medium Small -Exudate Type Serosanguineous Serosanguineous -Wound Margin Distinct, Distinct, Outline Outline Attached Attached -Granulation Amt Large (67-100%) Small (1-33%) -Granulation Quality [place] -Necrosis Amt Small (1-33%) Large (67-100%) -Necrotic Tissue Type Adherent Slough Adherent Slough -Texture (Serena-wound Skin Appearance) Assessed Assessed -Moisture (Serena-wound Skin Appearance) Assessed Assessed -Color (Serena-wound Skin Appearance) No Abnormality, Assessed, Ecchymosis Ecchymosis -Temperature (Serena-wound Skin No Abnormality No Abnormality Appearance) (Pt Warm) (Pt Warm) -Tenderness on Palpation (Serena-wound No No Skin Appearance) -Ulcer Cleansing Rinsed/ Rinsed/ Irrigated with Irrigated with Saline Saline -Foul Odor after Cleansing No No -Anesthetic Used 5% Lidocaine 5% Lidocaine Gel Gel WC - Nurse 2 - General Ulcer CM Notes Start: 03/07/24 13:44 Freq: Status: Active Protocol: Activity Type Activity Date Activity User E-sign Co-sign Detail Recorded Client Recorded Date Recorded By Document 03/07/24 14:12 DS [id number] 03/07/24 14:18 DS Document 03/14/24 14:23 JF [id number] 03/14/24 14:24 JF 03/07/24 03/14/24 14:12 14:23 Wound Center Nurse 2 #1 LT MID BACK -Time 14:10 14:23 -Correct Patient Yes Yes -Correct Side, Site, Position Yes Yes -Correct Procedure Yes Yes -Procedure Performed Yes Yes -Type of Procedure Debridement Debridement -Clinical Debridement Subcutaneous Subcutaneous -Tissue Removed Subcutaneous Subcutaneous -Post Debridement (cm) - Length 1.0 0.9 -Post Debridement (cm) - Width 0.6 0.6 -Post Debridement (cm) - Depth 0.1 0.1 -Total Square (Post) (cm) 0.60 0.54 -Area of Debridement (cm) - Length 1.0 0.9 -Area of Debridement (cm) - Width 0.6 0.6 -Total Square (Area) (cm) 0.60 0.54 -Tunneling No No -Undermining/Tunneling No No -Circular Undermining No No -Wound/Ulcer Outcome Not Healed Not Healed -Ulcer Cleansing Rinsed/ Rinsed/ Irrigated with Irrigated with Saline Saline -Foul Odor after Cleansing No -Bioengineered Tissue No No -Bleeding Controlled with Pressure Pressure -Treatment Response Procedure Procedure Tolerated Well Tolerated Well -Offloading No -Debridement - Subq, 1st 20sq cm Yes Yes Pain Scale: 0-10 Numeric Is Patient Pain Free? Yes Yes WC - Nurse 3 - General Ulcer D/C NN Start: 03/07/24 13:44 Freq: Status: Active Protocol: Activity Type Activity Date Activity User E-sign Co-sign Detail Recorded Client Recorded Date Recorded By Document 03/07/24 14:36 RB [id number] 03/07/24 14:37 RB Document 03/14/24 14:29 JF [id number] 03/14/24 14:30 03/07/24 03/14/24 14:36 14:29 Wound Care Center Nurse 3 #1 LT MID BACK -Ulcer Cleansing Rinsed/ Rinsed/ Irrigated with Irrigated with Saline Saline -Foul Odor after Cleansing No -Primary Dressing Applied C Hydrogel ($), C Hydrogel ($), Mepilex Border Mepilex Border -Mepilex Border 1 1 Pain Scale: 0-10 Numeric Is Patient Pain Free? Yes Yes Teaching: Wound Center Dressing Your Wound -Person Taught Patient,Family -Teaching Method Discussion, Demonstration -Response to teaching Verbalize Understanding WC - Visit Discharge Discharge Condition Stable Stable Ambulatory Status Ambulatory Wheelchair Transportation Private Auto Private Auto Accompanied by daughter Medication Reconcilliation completed & No Yes provided to patient/care provider Clinical Summary of Care Provided Yes Yes Charges/Coding Procedures Integumentary [id number]: [id number] [place] subq tissue 20 sq cm/< Assessment/Plan Assessment/Plan (1) Pressure ulcer of left lower back, stage 3: CODE(S): L89.143 - Pressure ulcer of left lower back, stage 3 (2) Debility: CODE(S): R53.81 - Other malaise (3) Failure to thrive: QUALIFIERS: Failure to thrive age range: in adult Qualified Code(s): R62.7 - Adult failure to thrive (4) Immobility: CODE(S): Z74.09 - Other reduced mobility (5) Chronic illness: CODE(S): R69 - Illness, unspecified (6) Poor appetite: CODE(S): R63.0 - Anorexia (7) Orthopnea: CODE(S): R06.01 - Orthopnea (8) Non-ischemic cardiomyopathy: CODE(S): I42.8 - Other cardiomyopathies (9) Pacemaker: CODE(S): Z95.0 - Presence of cardiac pacemaker (10) Pulmonary HTN: CODE(S): I27.20 - Pulmonary hypertension, unspecified (11) ZEENAT (obstructive sleep apnea): CODE(S): G47.33 - Obstructive sleep apnea (adult) (pediatric) (12) Chronic kidney disease (CKD): CODE(S): N18.9 - Chronic kidney disease, unspecified QUALIFIERS: Chronic kidney disease stage: unspecified stage Qualified Code(s): N18.9 - Chronic kidney disease, unspecified (13) Hyperlipidemia: CODE(S): E78.5 - Hyperlipidemia, unspecified (14) Nonsustained paroxysmal ventricular tachycardia: CODE(S): I47.2 - Ventricular tachycardia (15) Chronic combined systolic and diastolic CHF (congestive heart failure): CODE(S): I50.42 - Chronic combined systolic (congestive) and diastolic (congestive) heart failure (16) Claudication of both lower extremities: CODE(S): I73.9 - Peripheral vascular disease, unspecified (17) Essential (primary) hypertension: CODE(S): I10 - Essential (primary) hypertension (18) On home oxygen therapy: CODE(S): Z99.81 - Dependence on supplemental oxygen (19) Paroxysmal atrial fibrillation: CODE(S): I48.0 - Paroxysmal atrial fibrillation (20) Hypothyroidism: CODE(S): E03.9 - Hypothyroidism, unspecified (21) History of appendectomy: CODE(S): Z90.49 - Acquired absence of other specified parts of digestive tract (22) Leg swelling: CODE(S): M79.89 - Other specified soft tissue disorders PLAN: Plan This is an 83-year-old male with multiple pre-existing medical problems. He presented with an ulceration on the left mid/lower back. The ulceration had been present for approximately 2 to 3 months. The patient and his family were uncertain as to the etiology of the ulceration. They had been treating the ulceration with bacitracin applied topically on a daily basis. He has been treated by his primary care physician with several courses of oral Keflex. The patient is minimally ambulatory, and generally confined either to his wheelchair or a recliner. He sleeps in a recliner, as orthopnea precludes him from lying flat. He uses a ventilator at home, and 2 L per nasal cannula when venturing away from home. The ulceration appears to be pressure related, likely having occurred either from pressure or shearing/friction forces. It is a stage III pressure ulceration, extending through dermis and into the subcutaneous tissue. We are to continue the use of collagen hydrogel topically on a daily basis. The patient and his family have been instructed in the appropriate means of application. A lengthy discussion has been undertaken as to the role of offloading measures. The ulceration site is to be protected, with pressure offloading as much as possible. The means by which this can be achieved have been thoroughly explained. The harmful effects of pressure over bony prominences have been discussed with the patient and his family. A prescription has been provided to the patient for a Roho cushion for his wheelchair. Given his dependence on his wheelchair, and the long hours each day spent sitting, and Roho cushion may be helpful in preventing pressure ulcerations in the perineal area. A suggestion has been made for the patient to discuss with his primary care physician the potential for obtaining a hospital bed, in which he can be positioned in the reverse Trendelenburg position, allowing for repositioning while accounting for his orthopnea. The patient's appetite is said to be poor. He has been encouraged to use nutritional supplements such as Ensure several times daily. He has been provided samples of Juan Manuel as well. Recent laboratory results from 01/03/2024 have been reviewed from an outside institution, and are as follows: Glucose 85, BUN 25, creatinine 1.24, sodium 144, potassium 3.9, chloride 97, carbon dioxide 35, calcium 9.0, total protein 6.6, albumin 4.0, bilirubin 0.6, alkaline phosphatase 61, AST 16, ALT 15. The patient is to follow-up in 1 week. Total time: 25 minutes
--- NOTE | 2024-03-20 11:31 | WC ---
PHOTO 03/14/24 LEFT MID BACK
== END 2024-03-16 23:59 | disposition home or self-care (01) ==
LOC: WC 13:30
PROVIDERS: PCP Physician Assistant; Referring Provider Physician Assistant; Visit Provider Surgery
DX: L89.143 Pressure ulcer of left lower back, stage 3 (principal); I27.20 Pulmonary hypertension, unspecified; I50.42 Chronic combined systolic (congestive) and diastolic (congestive) heart failure; I13.0 Hypertensive heart and chronic kidney disease with heart failure and stage 1 through stage 4 chronic kidney disease, or unspecified chronic kidney disease; I48.0 Paroxysmal atrial fibrillation; I47.20 Ventricular tachycardia, unspecified; I42.8 Other cardiomyopathies; I73.9 Peripheral vascular disease, unspecified; E78.5 Hyperlipidemia, unspecified; R62.7 Adult failure to thrive; N18.9 Chronic kidney disease, unspecified; R63.0 Anorexia; Z68.24 Body mass index [BMI] 24.0-24.9, adult; G47.33 Obstructive sleep apnea (adult) (pediatric); E03.9 Hypothyroidism, unspecified; R53.81 Other malaise; Z99.81 Dependence on supplemental oxygen; Z74.09 Other reduced mobility; Z99.3 Dependence on wheelchair; Z79.890 Hormone replacement therapy; Z79.899 Other long term (current) drug therapy; Z95.0 Presence of cardiac pacemaker
CPT/HCPCS: 11042; 99213; G0463

== ENCOUNTER 2024-03-28 13:15 | Outpatient (RCR) | payer MEDICARE, SELFPAY ==
[2024-03-17 00:29] VITALS: BP 160/71; PULSE 68; RESP 18; TEMP 36.4; BMI 24.5
[2024-03-21 12:55] VITALS: BP 149/70; PULSE 67; RESP 18; TEMP 36.7; BMI 24.5
--- NOTE | 2024-03-21 16:18 | HP.PCM_ITS ---
History of Present Illness Date of Service: 03/21/24 Chief Complaint: Pressure ulceration of the back, stage III History of Wound: This is an 83-year-old male who presented with an ulceration on his left lower back, which had been present for approximately 2 to 3 months. The patient is wheelchair-bound, and ambulates in very limited fashion with the use of a walker. He spends the preponderance of his time either in his wheelchair or in a recliner. He sleeps in his recliner, indicating that he ca nnot sleep in a bed, as he suffers from orthopnea. He is dependent on a home ventilator, but uses 2 L per nasal cannula on occasional ventures from the home. The patient and his family are uncertain as to the etiology of his wound. He had been using bacitracin topically on a daily basis. His primary care physician, Dr. July Summers at [facility], has prescribed several courses of oral Keflex, the last dose of which was finished just prior to the patient's presentation here. He is said to have a poor appetite, but has been using Ensure nutritional supplements several times daily. The patient is also under the care of Dr. Calhoun, tire specialist, and Dr. Somers, claim processor. The patient suffers from multiple pre-existing medical conditions, which are listed herein. Of note, he is not diabetic, nor is he a smoker. [facility] Medical History Leg swelling Poor appetite Failure to thrive Chronic illness Immobility Debility Pressure ulcer of left lower back, stage 3 Paroxysmal atrial fibrillation Hypothyroidism Pacemaker Sleep apnea On home oxygen therapy CPAP (continuous positive airway pressure) dependence Congestive heart failure (CHF) Sinus pause Cough Acute kidney injury Actinic keratosis of scalp Cellulitis Elevated hemoglobin History of COVID-19 Unexplained weight loss Syncope Nocturia Eloy-Swanson breathing Orthopnea Asymptomatic premature ventricular contractions Pulmonary HTN ZEENAT (obstructive sleep apnea) Chronic dyspnea Heart failure with preserved left ventricular function (HFpEF) Shortness of breath Claudication of both lower extremities Obesity BPH (benign prostatic hyperplasia) GERD (gastroesophageal reflux disease) 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) Atrial septal aneurysm Non-ischemic cardiomyopathy Chronic combined systolic and diastolic CHF (congestive heart failure) Essential (primary) hypertension Hyperlipidemia Chronic kidney disease (CKD) Home Medications ?Medication ?Instructions ?Recorded ?Last Taken ?Type levothyroxine 125 mcg tablet 125 mcg PO DAILY thyroid 07/07/21 Unknown History amiodarone 200 mg tablet 200 mg PO Q24H heart #60 tabs 08/17/23 Unknown Rx furosemide 20 mg tablet (Lasix) 40 mg (2 x 20 mg) PO DAILY 09/20/23 Unknown Rx diuretic 90 days #180 tabs metoprolol tartrate 25 mg tablet 25 mg PO BID This dose has been 01/11/24 Unknown Rx increased: patient OUT of med #180 tabs losartan 25 mg tablet 25 mg PO DAILY blood pressure #90 01/24/24 Unknown Rx tabs Allergy/AdvReac Type Severity Reaction Status Date / Time No Known Allergies Allergy Verified 03/07/24 13:45 Family History Father Myocardial infarction Brother Myocardial infarction Surgical History History of herniorrhaphy History of left heart catheterization (09/20/17) History of appendectomy Social History Smoking Status: Never smoker alcohol intake: never substance use type: does not use caffeine: No Vital Signs Vital Signs Vital Signs: 03/21/24 12:55 Temperature 98.1 F Temperature Source Temporal Pulse Rate 67 Respiratory Rate 18 Blood Pressure 149/70 H Blood Pressure Mean 96 Blood Pressure Source Monitor Blood Pressure Position Semi-Fowlers Blood Pressure Location Left Arm Weight Weight: 152 lb Body Mass Index (BMI) 24.5 Physical Exam Const alert, oriented x3, no apparent distress and average body habitus Constitutional Narrative: The patient is of very limited mobility, and is confined to his wheelchair. The patient's BMI is 24.5. The patient is alert, appropriate, and conversant. He appears frail and weak. General Appearance: cooperative, comfortable, well developed and disheveled Orientation / Consciousness: awake, oriented to person, oriented to place and oriented to time HEENT normocephalic and head/scalp atraumatic Head and Scalp: normal to inspection, normocephalic and atraumatic External Ear: external ears normal Eyes EOMs intact bilaterally General Eye: normal appearance of both eyes Resp normal respiratory effort, normal air movement, no retractions and no use of accessory muscles Effort and Inspection: able to speak in complete sentences Extremity no calf tenderness Extremity Narrative: Bilateral lower extremity swelling and edema are noted. General Extremity: Negative for clubbing or cyanosis Skin Wound Narrative: An ulceration is noted on the patient's left mid/lower back. It is positioned overlying a left, lower, posterior rib. It extends down through the dermis and into the subcutaneous tissue. There is mild julio césar-ulcer erythema. There is a moderate amount of bioburden and nonviable tissue at the base of the ulceration. The ulceration has not changed in size significantly. Dimensions are documented elsewhere. A swab has been obtained for aerobic and anaerobic bacterial culture. Neuro oriented x3 and CN's II-XII intact bilaterally Sensorium / Orientation: awake, alert, oriented to person, oriented to place, oriented to time and orientation impaired Psych Appearance: grossly normal and appropriate Attitude: calm Activity / Motor Behavior: appropriate eye contact Speech: normal speech Mood & Affect: euthymic mood Thought Process: normal thought process Thought Content: normal thought content Attention / Concentration: attention grossly intact Debridement Note Debridement Note Wound debrided: Left lower back ulceration, stage III pressure ulceration Laterality: Left Wound Grade/Stage: Stage III Type of Debridement: Excisional debridement Anesthesia Used: 5% Lidocaine Gel and Cetacaine Depth: Down to and including healthy tissue and in the subcutaneous layer Percentage of wound debrided: 100 Instrument Used: 5mm curette Tissue Removed: Bioburden and nonviable tissue Severity: Fat Layer Exposed Amount of bleeding with debridement: Mild Bleeding Controlled with: Compression and gauze Patient tolerated procedure: Patient tolerated procedure well Charges/Coding Procedures Integumentary [id number]: [id number] Henna subq tissue 20 sq cm/< Assessment/Plan Assessment/Plan (1) Pressure ulcer of left lower back, stage 3: CODE(S): L89.143 - Pressure ulcer of left lower back, stage 3 (2) Debility: CODE(S): R53.81 - Other malaise (3) Failure to thrive: QUALIFIERS: Failure to thrive age range: in adult Qualified Code(s): R62.7 - Adult failure to thrive (4) Immobility: CODE(S): Z74.09 - Other reduced mobility (5) Chronic illness: CODE(S): R69 - Illness, unspecified (6) Poor appetite: CODE(S): R63.0 - Anorexia (7) Orthopnea: CODE(S): R06.01 - Orthopnea (8) Non-ischemic cardiomyopathy: CODE(S): I42.8 - Other cardiomyopathies (9) Pacemaker: CODE(S): Z95.0 - Presence of cardiac pacemaker (10) Pulmonary HTN: CODE(S): I27.20 - Pulmonary hypertension, unspecified (11) ZEENAT (obstructive sleep apnea): CODE(S): G47.33 - Obstructive sleep apnea (adult) (pediatric) (12) Chronic kidney disease (CKD): CODE(S): N18.9 - Chronic kidney disease, unspecified QUALIFIERS: Chronic kidney disease stage: unspecified stage Qualified Code(s): N18.9 - Chronic kidney disease, unspecified (13) Hyperlipidemia: CODE(S): E78.5 - Hyperlipidemia, unspecified (14) Nonsustained paroxysmal ventricular tachycardia: CODE(S): I47.2 - Ventricular tachycardia (15) Chronic combined systolic and diastolic CHF (congestive heart failure): CODE(S): I50.42 - Chronic combined systolic (congestive) and diastolic (congestive) heart failure (16) Claudication of both lower extremities: CODE(S): I73.9 - Peripheral vascular disease, unspecified (17) Essential (primary) hypertension: CODE(S): I10 - Essential (primary) hypertension (18) On home oxygen therapy: CODE(S): Z99.81 - Dependence on supplemental oxygen (19) Paroxysmal atrial fibrillation: CODE(S): I48.0 - Paroxysmal atrial fibrillation (20) Hypothyroidism: CODE(S): E03.9 - Hypothyroidism, unspecified (21) History of appendectomy: CODE(S): Z90.49 - Acquired absence of other specified parts of digestive tract (22) Leg swelling: CODE(S): M79.89 - Other specified soft tissue disorders PLAN: Plan This is an 83-year-old male with multiple pre-existing medical problems. He presented with an ulceration on the left mid/lower back. The ulceration had b een present for approximately 2 to 3 months. The patient and his family were uncertain as to the etiology of the ulceration. They had been treating the ulceration with bacitracin applied topically on a daily basis. He has been treated by his primary care physician with several courses of oral Keflex. The patient is minimally ambulatory, and generally confined either to his wheelchair or a recliner. He sleeps in a recliner, as orthopnea precludes him from lying flat. He uses a ventilator at home, and 2 L per nasal cannula when venturing away from home. The ulceration appears to be pressure related, likely having occurred either from pressure or shearing/friction forces. It is a stage III pressure ulceration, extending through dermis and into the subcutaneous tissue. There remains a moderate amount of nonviable tissue at the surface of the ulceration. Therefore, we are to transition to the use of collagenase Santyl topically to the ulceration on the daily basis. The patient and his family have been instructed in the appropriate means of application. A prescription has been provided, as well as a coupon to mitigate the cost of the product. A lengthy discussion has been undertaken as to the role of offloading measures. The ulceration site is to be protected, with pressure offloading as much as possible. The means by which this can be achieved have been thoroughly exp lained. The harmful effects of pressure over bony prominences have been discussed with the patient and his family. A prescription has been provided to the patient for a Roho cushion for his wheelchair as a preventative measure. Given his dependence on his wheelchair, and the long hours each day spent sitting, and Roho cushion may be helpful in preventing pressure ulcerations in the perineal area. A suggestion has been made for the patient to discuss with his primary care physician the potential for obtaining a hospital bed, in which he can be positioned in the reverse Trendelenburg position, allowing for repositioning while accounting for his orthopnea. The patient's appetite is said to be poor. He has been encouraged to use nutritional supplements such as Ensure several times daily. He has been provided samples of Juan Manuel as well. Recent laboratory results from 01/03/2024 have been reviewed from an outside institution, and are as follows: Glucose 85, BUN 25, creatinine 1.24, sodium 144, potassium 3.9, chloride 97, carbon dioxide 35, calcium 9.0, total protein 6.6, albumin 4.0, bilirubin 0.6, alkaline phosphatase 61, AST 16, ALT 15. A a swab has been obtained of the patient's ulceration for aerobic and anaerobic bacterial growth. Results will be awaited. The patient is said to have undergone blood work at [facility] yesterday. Effort will be made to obtain these results. The patient is to follow-up in 1 week. Total time: 24 minutes
--- NOTE | 2024-03-22 13:36 | WC ---
PHOTO 03/21/24 LEFT MID BACK
[2024-03-28 13:27] VITALS: BP 176/82; PULSE 66; RESP 18; TEMP 36.3; BMI 24.5
--- NOTE | 2024-03-29 19:51 | PCM.WC.HP ---
History of Present Illness Date of Service: 03/28/24 Chief Complaint: Pressure ulceration of the back, stage III History of Wound: This is an 83-year-old male who presented with an ulceration on his left lower back, which had been present for approximately 2 to 3 months. The patient is wheelchair-bound, and ambulates in very limited fashion with the use of a walker. He spends the preponderance of his time either in his wheelchair or in a recliner. He sleeps in his recliner, indicating that he cannot sleep in a bed, as he suffers from orthopnea. He is dependent on a home ventilator, but uses 2 L per nasal cannula on occasional ventures from the home. The patient and his family are uncertain as to the etiology of his wound. He had been using bacitracin topically on a daily basis. His primary care physician, Dr. July Summers at [facility], has prescribed several courses of oral Keflex, the last dose of which was finished just prior to the patient's presentation here. He is said to have a poor appetite, but has been using Ensure nutritional supplements several times daily. The patient is also under the care of Dr. Calhoun, healthcare network consultant, and Dr. Somers, director integrated. The patient suffers from multiple pre-existing medical conditions, which are listed herein. Of note, he is not diabetic, nor is he a smoker. [facility] Medical History Leg swelling Poor appetite Failure to thrive Chronic illness Immobility Debility Pressure ulcer of left lower back, stage 3 Paroxysmal atrial fibrillation Hypothyroidism Pacemaker Sleep apnea On home oxygen therapy CPAP (continuous positive airway pressure) dependence Congestive heart failure (CHF) Sinus pause Cough Acute kidney injury Actinic keratosis of scalp Cellulitis Elevated hemoglobin History of COVID-19 Unexplained weight loss Syncope Nocturia Eloy-Swanson breathing Orthopnea Asymptomatic premature ventricular contractions Pulmonary HTN ZEENAT (obstructive sleep apnea) Chronic dyspnea Heart failure with preserved left ventricular function (HFpEF) Shortness of breath Claudication of both lower extremities Obesity BPH (benign prostatic hyperplasia) GERD (gastroesophageal reflux disease) 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) Atrial septal aneurysm Non-ischemic cardiomyopathy Chronic combined systolic and diastolic CHF (congestive heart failure) Essential (primary) hypertension Hyperlipidemia Chronic kidney disease (CKD) Home Medications ?Medication ?Instructions ?Recorded ?Last Taken ?Type levothyroxine 125 mcg tablet 125 mcg PO DAILY thyroid 07/07/21 Unknown History amiodarone 200 mg tablet 200 mg PO Q24H heart #60 tabs 08/17/23 Unknown Rx furosemide 20 mg tablet (Lasix) 40 mg (2 x 20 mg) PO DAILY 09/20/23 Unknown Rx diuretic 90 days #180 tabs metoprolol tartrate 25 mg tablet 25 mg PO BID This dose has been 01/11/24 Unknown Rx increased: patient OUT of med #180 tabs losartan 25 mg tablet 25 mg PO DAILY blood pressure #90 01/24/24 Unknown Rx tabs Allergy/AdvReac Type Severity Reaction Status Date / Time No Known Allergies Allergy Verified 03/07/24 13:45 Family History Father Myocardial infarction Brother Myocardial infarction Surgical History History of herniorrhaphy History of left heart catheterization (09/20/17) History of appendectomy Social History Smoking Status: Never smoker alcohol intake: never substance use type: does not use caffeine: No Vital Signs Vital Signs Vital Signs: Weight Weight: 152 lb Body Mass Index (BMI) 24.5 Physical Exam Const alert, oriented x3, no apparent distress and average body habitus Constitutional Narrative: The patient is of very limited mobility, and is confined to his wheelchair. The patient's BMI is 24.5. The patient is alert, appropriate, and conversant. He appears frail and weak. General Appearance: cooperative, comfortable, well developed and disheveled Orientation / Consciousness: awake, oriented to person, oriented to place and oriented to time HEENT normocephalic and head/scalp atraumatic Head and Scalp: normal to inspection, normocephalic and atraumatic External Ear: external ears normal Eyes EOMs intact bilaterally General Eye: normal appearance of both eyes Resp normal respiratory effort, normal air movement, no retractions and no use of accessory muscles Effort and Inspection: able to speak in complete sentences Extremity no calf tenderness Extremity Narrative: Bilateral lower extremity swelling and edema are noted. General Extremity: Negative for clubbing or cyanosis Skin Wound Narrative: An ulceration is noted on the patient's left mid/lower back. It is positioned overlying a left, lower, posterior rib. It extends down through the dermis and into the subcutaneous tissue. The serena-ulcer skin is violaceous in appearance. There is a moderate amount of bioburden and nonviable tissue at the base of the ulceration, yellowish in color. The ulceration has not changed in size significantly. Dimensions are documented elsewhere. Neuro oriented x3 and CN's II-XII intact bilaterally Sensorium / Orientation: awake, alert, oriented to person, oriented to place, oriented to time and orientation impaired Psych Appearance: grossly normal and appropriate Attitude: calm Activity / Motor Behavior: appropriate eye contact Speech: normal speech Mood & Affect: euthymic mood Thought Process: normal thought process Thought Content: normal thought content Attention / Concentration: attention grossly intact Debridement Note Debridement Note Wound debrided: Left lower back ulceration, stage III pressure ulceration Laterality: Left Wound Grade/Stage: Stage III Type of Debridement: Excisional debridement Anesthesia Used: 5% Lidocaine Gel and Cetacaine Depth: Down to and including healthy tissue and in the subcutaneous layer Percentage of wound debrided: 100 Instrument Used: 5mm curette Tissue Removed: Bioburden and nonviable tissue Severity: Fat Layer Exposed Amount of bleeding with debridement: Mild Bleeding Controlled with: Compression and gauze Patient tolerated procedure: Patient tolerated procedure well Post-Debridement Measurements and Additional Note: Post-Debridement Measurements/Treatment - Nurse 1 - General Ulcer Assessment Start: 03/21/24 12:55 Freq: Status: Active Protocol: [email or web address] Activity Type Activity Date Activity User E-sign Co-sign Detail Recorded Client Recorded Date Recorded By Document 03/21/24 12:55 RB [id number] 03/21/24 13:02 RB Document 03/28/24 13:27 RB [id number] 03/28/24 13:30 RB Edit Result 03/28/24 13:27 RB (1) [id number] 03/28/24 13:30 RB Edit Result 03/28/24 13:27 RB (2) [id number] 03/28/24 13:31 RB (1) Oxygen Delivery Method => Simple Mask O2 L/MIN => 3 (2) Oxygen Delivery Method Simple Mask => Room Air 03/21/24 03/28/24 12:55 13:27 - Today's Visit Information Type of service Follow-up Visit Follow-up Visit (Physician/PAYROLL AND BENEFITS SPECIALIST (Physician/PAYROLL AND BENEFITS SPECIALIST ) ) Arrival Mode Wheelchair Wheelchair Transfer Assistance None None Patient Identification Verified (Name & Yes Yes ) Patient Requires Transmission-Based No No Precautions Height and Weight Body Mass Index (BMI) 24.5 24.5 BMI Classification Normal Normal Vital Signs Temperature (97.8 F-99.1 F) 98.1 F 97.3 F L Temperature Source Temporal Temporal Pulse Rate (60-100) 67 66 Pulse Location Monitor Monitor Respiratory Rate (12-18) 18 18 Respiratory rate source Observation Observation Oxygen Delivery Method Room Air O2 L/MIN 3 Blood Pressure (90/60-120/80) 149/70 H 176/82 H Blood Pressure Mean 96 113 Source Monitor Monitor Position Semi-Fowlers Sitting Blood Pressure Location Left Arm Left Arm History Since Last Visit- (Skip if this is Patient's initial visit) Have you changed medications since your No No last visit? Any new allergies or adverse reactions No No Had a fall/change in ADL's that may No No increase risk of falls Signs or symptoms of abuse and/or No No neglect since last visit Have you been in the hospital since your No No last visit? Has dressing in place as prescribed Yes Yes Has compression in place as prescribed No No Has offloadiing in place as prescribed No No Experienced any changes in pain level or No No management Pain Scale: 0-10 Numeric Is Patient Pain Free? Yes Yes WC - Nurse 1 - General Ulcer Measurement Start: 03/21/24 12:55 Freq: Status: Active Protocol: Activity Type Activity Date Activity User E-sign Co-sign Detail Recorded Client Recorded Date Recorded By Document 03/21/24 12:55 RB [id number] 03/21/24 13:02 RB Document 03/28/24 13:27 RB [id number] 03/28/24 13:30 RB 03/21/24 03/28/24 12:55 13:27 Wound Center Nurse 1 #1 LT MID BACK -Combined with other wound No No -Current Size (cm) - Length 1.3 0.9 -Current Size (cm) - Width 0.9 0.6 -Current Size (cm) - Depth 0.1 0.1 -Total Square Cm 1.17 0.54 -Photo Taken Yes -Tunneling No No -Undermining/Tunneling No No -Circular Undermining No No -Exudate Amt Small Medium -Exudate Type Serosanguineous Serosanguineous -Wound Margin Distinct, Distinct, Outline Outline Attached Attached -Granulation Amt Medium (34-66%) Medium (34-66%) -Granulation Quality Otwell Otwell -Slough/Fibrin Yes Yes -Necrosis Amt Medium (34-66%) Medium (34-66%) -Necrotic Tissue Type Adherent Slough Adherent Slough -Structure Exposed N/A N/A -Texture (Serena-wound Skin Appearance) Assessed Assessed -Moisture (Serena-wound Skin Appearance) Assessed Assessed -Color (Serena-wound Skin Appearance) Erythema Erythema, Hemosiderin Staining -Temperature (Serena-wound Skin No Abnormality No Abnormality Appearance) (Pt Warm) (Pt Warm) -Tenderness on Palpation (Serena-wound No No Skin Appearance) -Ulcer Cleansing Wound Cleanser Wound Cleanser -Foul Odor after Cleansing No No -Anesthetic Used 5% Lidocaine 5% Lidocaine Gel Gel WC - Nurse 2 - General Ulcer CM Notes Start: 03/21/24 12:55 Freq: Status: Active Protocol: Activity Type Activity Date Activity User E-sign Co-sign Detail Recorded Client Recorded Date Recorded By Document 03/21/24 13:31 DS [id number] 03/21/24 13:33 DS Document 03/28/24 13:40 DS [id number] 03/28/24 13:41 DS 03/21/24 03/28/24 13:31 13:40 Wound Center Nurse 2 #1 LT MID BACK -Time 13:25 13:38 -Correct Patient Yes Yes -Correct Side, Site, Position Yes Yes -Correct Procedure Yes Yes -Procedure Performed Yes Yes -Type of Procedure Debridement Debridement -Clinical Debridement Subcutaneous Subcutaneous -Tissue Removed Subcutaneous Subcutaneous -Post Debridement (cm) - Length 1.0 1.0 -Post Debridement (cm) - Width 0.6 0.7 -Post Debridement (cm) - Depth 0.1 0.1 -Total Square (Post) (cm) 0.60 0.70 -Area of Debridement (cm) - Length 1.0 1.0 -Area of Debridement (cm) - Width 0.6 0.7 -Total Square (Area) (cm) 0.60 0.70 -Tunneling No No -Undermining/Tunneling No No -Circular Undermining No No -Wound/Ulcer Outcome Not Healed Not Healed -Ulcer Cleansing Rinsed/ Rinsed/ Irrigated with Irrigated with Saline Saline -Bioengineered Tissue No -Bleeding Controlled with Pressure Pressure -Treatment Response Procedure Procedure Tolerated Well Tolerated Well -Debridement - Subq, 1st 20sq cm Yes Yes -Wound Comment(s) cetacaine spray used Pain Scale: 0-10 Numeric Is Patient Pain Free? Yes Yes - Nurse 3 - General Ulcer D/C NN Start: 03/21/24 12:55 Freq: Status: Active Protocol: Activity Type Activity Date Activity User E-sign Co-sign Detail Recorded Client Recorded Date Recorded By Document 03/21/24 13:49 RB [id number] 03/21/24 13:50 RB Document 03/28/24 13:56 RB [id number] 03/28/24 13:57 RB 03/21/24 03/28/24 13:49 13:56 Wound Care Center Nurse 3 #1 LT MID BACK -Ulcer Cleansing Wound Cleanser Rinsed/ Irrigated with Saline -Primary Dressing Applied Mepilex Border Mepilex Border -Other Dressing hydrogel hydrogel -Mepilex Border 1 1 Treatment Response Procedure Procedure Tolerated Well Tolerated Well Pain Scale: 0-10 Numeric Is Patient Pain Free? Yes Yes WC - Visit Discharge Discharge Condition Stable Stable Ambulatory Status Wheelchair Wheelchair Transportation Private Auto Private Auto Accompanied by & daughter Medication Reconcilliation completed & No No provided to patient/care provider Clinical Summary of Care Provided Yes Yes Charges/Coding Procedures Integumentary [id number]: 12504 Hen[place] subq tissue 20 sq cm/< Assessment/Plan Assessment/Plan (1) Pressure ulcer of left lower back, stage 3: CODE(S): L89.143 - Pressure ulcer of left lower back, stage 3 (2) Debility: CODE(S): R53.81 - Other malaise (3) Failure to thrive: QUALIFIERS: Failure to thrive age range: in adult Qualified Code(s): R62.7 - Adult failure to thrive (4) Immobility: CODE(S): Z74.09 - Other reduced mobility (5) Chronic illness: CODE(S): R69 - Illness, unspecified (6) Poor appetite: CODE(S): R63.0 - Anorexia (7) Orthopnea: CODE(S): R06.01 - Orthopnea (8) Non-ischemic cardiomyopathy: CODE(S): I42.8 - Other cardiomyopathies (9) Pacemaker: CODE(S): Z95.0 - Presence of cardiac pacemaker (10) Pulmonary HTN: CODE(S): I27.20 - Pulmonary hypertension, unspecified (11) ZEENAT (obstructive sleep apnea): CODE(S): G47.33 - Obstructive sleep apnea (adult) (pediatric) (12) Chronic kidney disease (CKD): CODE(S): N18.9 - Chronic kidney disease, unspecified QUALIFIERS: Chronic kidney disease stage: unspecified stage Qualified Code(s): N18.9 - Chronic kidney disease, unspecified (13) Hyperlipidemia: CODE(S): E78.5 - Hyperlipidemia, unspecified (14) Nonsustained paroxysmal ventricular tachycardia: CODE(S): I47.2 - Ventricular tachycardia (15) Chronic combined systolic and diastolic CHF (congestive heart failure): CODE(S): I50.42 - Chronic combined systolic (congestive) and diastolic (congestive) heart failure (16) Claudication of both lower extremities: CODE(S): I73.9 - Peripheral vascular disease, unspecified (17) Essential (primary) hypertension: CODE(S): I10 - Essential (primary) hypertension (18) On home oxygen therapy: CODE(S): Z99.81 - Dependence on supplemental oxygen (19) Paroxysmal atrial fibrillation: CODE(S): I48.0 - Paroxysmal atrial fibrillation (20) Hypothyroidism: CODE(S): E03.9 - Hypothyroidism, unspecified (21) History of appendectomy: CODE(S): Z90.49 - Acquired absence of other specified parts of digestive tract (22) Leg swelling: CODE(S): M79.89 - Other specified soft tissue disorders PLAN: Plan This is an 83-year-old male with multiple pre-existing medical problems. He presented with an ulceration on the left mid/lower back. The ulceration had been present for approximately 2 to 3 months. The patient and his family were uncertain as to the etiology of the ulceration. They had been treating the ulceration with bacitracin applied topically on a daily basis. He has been treated by his primary care physician with several courses of oral Keflex. The patient is minimally ambulatory, and generally confined either to his wheelchair or a recliner. He sleeps in a recliner, as orthopnea precludes him from lying flat. He uses a ventilator at home, and 2 L per nasal cannula when venturing away from home. The ulceration is suspected to be pressure related, likely having occurred either from pressure or shearing/friction forces. It is a stage III pressure ulceration, extending through dermis and into the subcutaneous tissue. There remains a moderate amount of nonviable tissue at the surface of the ulceration. Therefore, we are to continue the use of collagenase Santyl topically to the ulceration on the daily basis. The patient and his family have been instructed in the appropriate means of application. A lengthy discussion has been undertaken as to the role of offloading measures. The ulceration site is to be protected, with pressure offloading as much as possible. The means by which this can be achieved have been thoroughly explained. The harmful effects of pressure over bony prominences have been discussed with the patient and his family. A prescription has been provided to the patient for a Roho cushion for his wheelchair as a preventative measure. Given his dependence on his wheelchair, and the long hours each day spent sitting, a Roho cushion may be helpful in preventing pressure ulcerations in the perineal area. A suggestion has been made for the patient to discuss with his primary care physician the potential for obtaining a hospital bed, in which he can be positioned in the reverse Trendelenburg position, allowing for repositioning while accounting for his orthopnea. The patient's appetite is said to be poor. He has been encouraged to use nutritional supplements such as Ensure several times daily. He has been provided samples of Juan Manuel as well. Recent laboratory results from March 20, 2024, have been received from the patient's primary care physician's office, with results as follows: Glucose 102, BUN 25, creatinine 1.19, sodium 143, potassium 4.5, chloride 100, calcium 9.1, total protein 6.5, albumin 4.1, bilirubin 0.6, alkaline phosphatase 54, AST 19, ALT 21. A swab culture obtained at the patient's previous visit was negative for aerobic and anaerobic bacterial growth. Unfortunately, there has been little change in the status of the patient's ulceration in recent weeks. Therefore, consideration will be given to reculturing the wound at his next visit, with consideration of a punch biopsy as well to rule out malignancy. The patient is to follow-up in 1 week. Total time: 25 minutes
== END 2024-04-15 23:59 | disposition home or self-care (01) ==
LOC: WC 13:15
PROVIDERS: PCP Physician Assistant; Referring Provider Physician Assistant; Visit Provider Surgery
DX: L89.143 Pressure ulcer of left lower back, stage 3 (principal); I13.0 Hypertensive heart and chronic kidney disease with heart failure and stage 1 through stage 4 chronic kidney disease, or unspecified chronic kidney disease; I27.20 Pulmonary hypertension, unspecified; I50.42 Chronic combined systolic (congestive) and diastolic (congestive) heart failure; I48.0 Paroxysmal atrial fibrillation; I47.20 Ventricular tachycardia, unspecified; I42.8 Other cardiomyopathies; N18.9 Chronic kidney disease, unspecified; R63.0 Anorexia; I73.9 Peripheral vascular disease, unspecified; E03.9 Hypothyroidism, unspecified; Z99.3 Dependence on wheelchair; G47.33 Obstructive sleep apnea (adult) (pediatric); Z99.81 Dependence on supplemental oxygen; Z74.09 Other reduced mobility; R62.7 Adult failure to thrive; E78.5 Hyperlipidemia, unspecified; R53.81 Other malaise; Z79.890 Hormone replacement therapy; Z79.899 Other long term (current) drug therapy; Z95.0 Presence of cardiac pacemaker; Z68.24 Body mass index [BMI] 24.0-24.9, adult
CPT/HCPCS: 11042; 87070; 87075; 87205